=== PATIENT | female | born 1945 | race Hispanic/Latino ===

== ENCOUNTER 2016-10-22 10:39 | Day surgery (SDC) | payer MEDICARE ==
[2016-10-14 10:51] VITALS: BMI 35.2
[2016-10-22] MEDS ORDERED: Propofol 10 mg/ml Inj (20 ML) ONE (12:48)
[2016-10-22] MEDS ORDERED: Lactated Ringer's 1,000 ML IV SCH (13:30)
[2016-10-22 13:59] VITALS: PULSE 80
[2016-10-22 17:12] VITALS: BP 114/56; RESP 16; TEMP 98.1; O2SAT 100
== END 2016-10-22 15:00 | disposition home or self-care (01) ==
LOC: ENDO 10:39
PROVIDERS: ATTEND Internal Medicine Gastroenterology
DX: D50.9 Iron deficiency anemia, unspecified (principal); D12.2 Benign neoplasm of ascending colon; K25.9 Gastric ulcer, unspecified as acute or chronic, without hemorrhage or perforation; K44.9 Diaphragmatic hernia without obstruction or gangrene; K57.30 Diverticulosis of large intestine without perforation or abscess without bleeding; K64.8 Other hemorrhoids
CPT/HCPCS: 43239; 45380; 88305; 88342; J2704; J3010; J7040; J7120

== ENCOUNTER 2017-02-02 09:15 | Observation (INO) | payer MEDICARE ==
[2017-02-02] MEDS ORDERED: Sodium Chloride 0.9% 1,000 ML IV STA (09:43)
--- NOTE | 2017-02-02 09:44 | ED PDOC ---
Arrival/HPI - General Time Seen by Provider: 02/02/17 09:29 Historian: Patient - History of Present Illness Narrative History of Present Illness (Text): 02/02/17 09:36 A 71 year old female, whose past medical history includes pacemaker, hyperlipidemia, hypertension, non hodgkin lymphoma, recent endoscopy for evaluation of anemia which found stomach ulcer, presents to the emergency department complaining of a burning epigastric pain for the past 7 hours. Pain is associated with nausea. There are no relieving or exacerbating factors. Patient denies any fever, chills, vomiting, diarrhea, or any other complaints at this time. PMD: Dr. Rojas GI: Dr. [place] Oncologist: Dr. Mcneill Time/Duration: Other (8-12 hours) Symptom Onset: Sudden Symptom Course: Unchanged Quality: Burning Activities at Onset: Rest Context: Home Past Medical History - Provider Review Nursing Documentation Reviewed: Yes - Infectious Disease Hx of Infectious Diseases: None - Tetanus Immunization Tetanus Immunization: Unknown - Cardiac Hx Pacemaker: Yes ([employer]) - Neurological Hx Paralysis: No - Hematological/Oncological Hx Blood Transfusions: Yes Hx Blood Transfusion Reaction: No - Musculoskeletal/Rheumatological Hx Musculoskeletal Disorders: No - Genitourinary/Gynecological Hx Urinary Tract Infection: Yes - Psychiatric Hx Emotional Abuse: No Hx Physical Abuse: No Hx Substance Use: No - Surgical History Hx Cardiac Catheterization: Yes Hx Hysterectomy: Yes (1989) - Anesthesia Hx Anesthesia Reactions: No Hx Malignant Hyperthermia: No - Suicidal Assessment Feels Threatened In Home Enviroment: No Family/Social History - Physician Review Nursing Documentation Reviewed: Yes Family/Social History: Unknown Family HX Smoking Status: Former Smoker Hx Alcohol Use: No Hx Substance Use: No Hx Substance Use Treatment: No Allergies/Home Meds Allergies/Adverse Reactions: Allergies ibuprofen Allergy (Severe, Verified 02/02/17 09:47) .MOUTH SORES Sulfa (Sulfonamide Antibiotics) Allergy (Unknown, Verified 02/02/17 09:47) UNKNOWN ALLERGY A CHILD UNKNOWN REACTION Home Medications: Home Meds Medication Instructions Recorded Confirmed Iron,Carbonyl [Feosol] 45 mg PO DAILY 10/14/16 02/02/17 Losartan/Hydrochlorothiazide 1 each PO DAILY 10/14/16 02/02/17 [Losartan-Hctz 100-25 mg Tab] Travoprost [Travatan Z 5 ml] 1 drop OU HS 10/14/16 10/14/16 Omeprazole 40 mg PO DAILY 10/22/16 02/02/17 Review of Systems - Physician Review All systems were reviewed & negative as marked: Yes - Review of Systems Constitutional: absent: Fevers Respiratory: absent: SOB Cardiovascular: absent: Chest Pain Gastrointestinal: Abdominal Pain, Nausea. absent: Diarrhea, Vomiting Physical Exam - Physical Exam Narrative Physical Exam (Text): Constitutional: No acute distress. Head: Normocephalic. Atraumatic. Eyes: PERRL. ENT: Moist mucous membranes. Neck: Supple. Cardiovascular: Regular rate. Chest: No tenderness. Right sided port. Left sided pacemaker. Respiratory: Clear to auscultation bilaterally. GI: Epigastric tenderness with palpation. Guarding. Back: No CVA tenderness. Musculoskeletal: No tenderness of extremities. Mild pitting edema to the bilateral lower extremities. Skin: No rash. Neurologic: Alert, no focal deficit. Vital Signs Reviewed: Yes Vital Signs Temp Pulse Resp BP Pulse Ox 02/02/17 11:51 98.2 F 94 H 18 133/65 97 02/02/17 09:25 98.3 F 92 H 18 111/69 98 Temperature: Afebrile Blood Pressure: Normal Pulse: Regular Respiratory Rate: Normal Appearance: Positive for: Well-Appearing, Non-Toxic, Comfortable Pain Distress: None Mental Status: Positive for: Alert and Oriented X 3 Medical Decision Making ED Course and Treatment: 02/02/17 09:36 Impression: A 71 year old female with epigastric pain. Differential Diagnosis include but are not limited to: Pancreatits vs. obstruction vs. peptic ulcer Plan: -- Labs -- Urinalysis -- Protonix, Zofran and IV Fluids -- Reassess and disposition Prior Visits: Notes and results from previous visits were reviewed. The patient last presented to the emergency department on 01/05/14 for evaluation of peripheral vision loss on the right side. Progress Notes: EKG: Ordered, reviewed, and independently interpreted the EKG. Rate : 90 BPM Rhythm : NSR Interpretation : first degree AV block, no ST elevations. 02/02/17 12:30 PROCEDURE: CT Abdomen and Pelvis with contrast HISTORY: abdominal pain COMPARISON: 10/15/2013 TECHNIQUE: Contrast dose: 100 cc of Omni 350 Radiation dose: Total exam DLP = 1098 mGy-cm. This CT exam was performed using one or more of the following dose reduction techniques: Automated exposure control, adjustment of the mA and/or kV according to patient size, and/or use of iterative reconstruction technique. FINDINGS: LOWER THORAX: There is masslike consolidation at the left lung base measuring 4 x 5.5 cm. This most likely represents pneumonia. However a mass cannot be excluded. LIVER: Unremarkable. No gross lesion or ductal dilatation. GALLBLADDER AND BILE DUCTS: Unremarkable. PANCREAS: Unremarkable. No gross lesion or ductal dilatation. SPLEEN: Unremarkable. ADRENALS: Unremarkable. No mass. KIDNEYS AND URETERS: Unremarkable. No hydronephrosis. No solid mass. VASCULATURE: Unremarkable. No aortic aneurysm. BOWEL: Unremarkable. No obstruction. No gross mural thickening. APPENDIX: Normal appendix. PERITONEUM: Unremarkable. No free fluid. No free air. LYMPH NODES: Unremarkable. No enlarged lymph nodes. BLADDER: Unremarkable. REPRODUCTIVE: Unremarkable. BONES: No acute fracture. OTHER FINDINGS: None. IMPRESSION: Masslike consolidation in the left lower lobe, probable pneumonia. Followup is recommended to rule out mass Patient re-evaluated at bedside, does report mild cough but no fever or dyspnea. Epigastric tenderness is gone, now with some LUQ tenderness. Will treat with antibiotics, Dr. Del Rio accepts patient to his service. - Lab Interpretations Lab Results: 02/02/17 10:05 02/02/17 10:05 Lab Results 02/02/17 10:05: WBC 10.9, RBC 4.90, Hgb 11.4 L, Hct 36.9, MCV 75.3 L, MCH 23.3 L , MCHC 30.9 L, RDW 17.2 H, Plt Count 324, MPV 8.5, Gran % 85.0 H, Lymph % (Auto ) 8.0 L, Mclean % (Auto) 5.9, Eos % (Auto) 0.9 L, Baso % (Auto) 0.2, Gran # 9.30 H , Lymph # 0.9 L, Mclean # 0.6, Eos # 0.1, Baso # 0.02 02/02/17 10:05: Sodium 138, Potassium 3.0 L, Chloride 97, Carbon Dioxide 32, Anion Gap 12, BUN 19, Creatinine 0.8, Est GFR ( Amer) > 60, Est GFR (Non- Af Amer) > 60, Random Glucose 101, Calcium 9.2, Total Bilirubin 0.6, AST 16, ALT 20, Alkaline Phosphatase 134 H, Total Protein 6.4, Albumin 3.5, Globulin 2.9 , Albumin/Globulin Ratio 1.2, Lipase 40 I have reviewed the lab results: Yes - RAD Interpretation Radiology Orders: 02/02/17 11:50 ABD & PELVIS IV CONTRAST ONLY [CT] Stat - Medication Orders Current Medication Orders: Ceftriaxone Sodium (Rocephin 1 Gram Ivpb) 1 gm in 100 mls @ 200 mls/hr IVPB STAT STA PRN Reason: Protocol Stop: 02/02/17 13:08 Azithromycin (Zithromax 500mg In Ns) 500 mg in 250 mls @ 167 mls/hr IVPB STAT STA PRN Reason: Protocol Stop: 02/02/17 14:08 Discontinued Medications Sodium Chloride (Sodium Chloride 0.9%) 1,000 mls @ 999 mls/hr IV .Q1H1M STA Stop: 02/02/17 10:43 Last Admin: 02/02/17 10:00 Dose: 999 mls/hr Iohexol (Omnipaque 350 100 Ml) Confirm Administered Dose 350 mg .ROUTE .STK-MED ONE Stop: 02/02/17 11:53 Ondansetron HCl (Zofran Inj) 8 mg IVP STAT STA Stop: 02/02/17 09:44 Last Admin: 02/02/17 10:20 Dose: 8 mg Pantoprazole Sodium (Protonix Inj) 40 mg IVP STAT STA Stop: 02/02/17 09:44 Last Admin: 02/02/17 10:20 Dose: 40 mg - Scribe Statement The provider has reviewed the documentation as recorded by the Kaden Mcelroy Provider Scribe Attestation: All medical record entries made by the Kaden were at my direction and personally dictated by me. I have reviewed the chart and agree that the record accurately reflects my personal performance of the history, physical exam, medical decision making, and the department course for this patient. I have also personally directed, reviewed, and agree with the discharge instructions and disposition. Disposition/Present on Arrival - Present on Arrival Any Indicators Present on Arrival: No History of DVT/PE: No History of Uncontrolled Diabetes: No Urinary Catheter: No History Surgical Site Infection Following: None - Disposition Have Diagnosis and Disposition been Completed?: Yes Diagnosis: Pneumonia Disposition: HOSPITALIZED Disposition Time: 12:30 Patient Plan: Admission Condition: FAIR Referrals: Ilan Del Rio MD [Primary Care Provider] - Follow up with primary
[2017-02-02 10:30] LABS: BASO # 0.02 K/mm3 (0.0-2.0); BASO % 0.2 % (0.0-3.0); EOS # 0.1 (0.0-0.7); EOS % 0.9 % (1.5-5.0); HEMOGLOBIN 11.4 gm/dL (12.0-16.0); LYMPH # 0.9 (1.2-3.4); MEAN CELL VOLUME 75.3 fL (80.0-105.0); MEAN CORPUSCULAR HEMOGLOBIN 23.3 pg (25.0-35.0); MEAN CORPUSCULAR HGB CONC 30.9 g/dl (31.0-37.0); MEAN PLATELET VOLUME 8.5 fl (7.0-11.0); MONO # 0.6 (0.1-0.6); MONO % 5.9 % (1.0-6.0); PLATELET COUNT 324 10^3/uL (120.0-450.0); RED CELL DISTRIBUTION WIDTH 17.2 % (11.5-14.5); WHITE BLOOD COUNT 10.9 10^3/ul (4.5-11.0)
[2017-02-02 10:39] LABS: ALB/GLOB RATIO 1.2 (1.1-1.8); ALBUMIN 3.5 g/dL (3.0-4.8); ALT/SGPT 20 U/L (7-56); AST/SGOT 16 U/L (15-39); BLOOD UREA NITROGEN 19 mg/dL (7-21); CALCIUM 9.2 mg/dL (8.4-10.5); GFR AFRICAN-AMERICAN > 60; GFR NON-AFRICAN AMERICAN > 60; LIPASE 40 U/L (23-300)
[2017-02-02] MEDS ORDERED: Iohexol 350 MG/100 ML VIAL ONE (11:52)
--- NOTE | 2017-02-02 12:32 | CT ---
PROCEDURE: CT Abdomen and Pelvis with contrast HISTORY: abdominal pain COMPARISON: 10/15/2013 TECHNIQUE: Contrast dose: 100 cc of Omni 350 Radiation dose: Total exam DLP = 1098 mGy-cm. This CT exam was performed using one or more of the following dose reduction techniques: Automated exposure control, adjustment of the mA and/or kV according to patient size, and/or use of iterative reconstruction technique. FINDINGS: LOWER THORAX: There is masslike consolidation at the left lung base measuring 4 x 5.5 cm. This most likely represents pneumonia. However a mass cannot be excluded. LIVER: Unremarkable. No gross lesion or ductal dilatation. GALLBLADDER AND BILE DUCTS: Unremarkable. PANCREAS: Unremarkable. No gross lesion or ductal dilatation. SPLEEN: Unremarkable. ADRENALS: Unremarkable. No mass. KIDNEYS AND URETERS: Unremarkable. No hydronephrosis. No solid mass. VASCULATURE: Unremarkable. No aortic aneurysm. BOWEL: Unremarkable. No obstruction. No gross mural thickening. APPENDIX: Normal appendix. PERITONEUM: Unremarkable. No free fluid. No free air. LYMPH NODES: Unremarkable. No enlarged lymph nodes. BLADDER: Unremarkable. REPRODUCTIVE: Unremarkable. BONES: No acute fracture. OTHER FINDINGS: None. IMPRESSION: Masslike consolidation in the left lower lobe, probable pneumonia. Followup is recommended to rule out mass
[2017-02-02] MEDS ORDERED: Azithromycin 500MG/NS 250ml 500 MG/250 ML BAG IVPB STA (12:39)
[2017-02-02] MEDS ORDERED: cefTRIAXone 1 gm 1 GM/100 ML BAG IVPB STA (12:39)
--- NOTE | 2017-02-02 13:25 | CARD ---
APPROVED REPORT EKG Measurement Heart [id number] <Conclusion> Sinus rhythm with 1st degree AV block PRWP V 1 - 6 Leftward axis NSSTW changes Prlonged QTc
[2017-02-02] MEDS ORDERED: Potassium Chloride 20 mEq ER Tab PO ONE (15:45)
[2017-02-02 16:00] VITALS: BMI 35.5
[2017-02-02] MEDS ORDERED: Latanoprost 2.5 ml Opht Soln OU SCH (22:00)
--- NOTE | 2017-02-02 23:38 | CP.PCM.CON ---
History of Present Illness - History of Present Illness History of Present Illness: Ms. su is a 71 year old female admitted with epigastric pain, nausea. CT abdomen,pelvis showed 5 cm left lower lobe mass like consolidation. She has history of NHL treated in 2013. She had stage IV disease as note on review of previous PET scans with extensive lymphadenopathy, left breast mass, left renal mass, right gluteal mass. 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 She had complete resolution of lymphadenpathy with treatment . She has iron deficiency anemia. History of gastric ulcer. No bleeding from any site. Denies weight loss. Review of Systems - Constitutional Constitutional: As Per HPI, Fatigue, Malaise - EENT Eyes: absent: As Per HPI, Blind Spots, Blurred Vision, Change in Vision, Decreased Night Vision, Diplopia, Discharge, Dry Eye, Exophthalmos, Floaters, Irritation, Itchy Eyes, Loss of Peripheral Vision, Pain, Photophobia, Requires Corrective Lenses, Sees Flashes, Spots in Vision, Tunnel Vision, Other Visual Disturbances, Loss of Vision, Other Ears: absent: As Per HPI, Decreased Hearing, Ear Discharge, Ear Pain, Tinnitus, Abnormal Hearing, Disequilibrium, Dizziness, Other Nose/Mouth/Throat: absent: As Per HPI, Epistaxis, Nasal Congestion, Nasal Discharge, Nasal Obstruction, Nasal Trauma, Nose Pain, Post Nasal Drip, Sinus Pain, Sinus Pressure, Bleeding Gums, Change in Voice, Dental Pain, Dry Mouth, Dysphagia, Halitosis, Hoarsness, Lip Swelling, Mouth Lesions, Mouth Pain, Odynophagia, Sore Throat, Throat Swelling, Tongue Swelling, Facial Pain, Neck Pain, Neck Mass, Other - Breasts Breasts: As Per HPI - Cardiovascular Cardiovascular: absent: As Per HPI, Acrocyanosis, Chest Pain, Chest Pain at Rest , Chest Pain with Activity, Claudication, Diaphoresis, Dyspnea, Dyspnea on Exertion, Edema, Irregular Heart Rhythm, Pain Radiating to Arm/Neck/Jaw, Leg Edema, Leg Ulcers, Lightheadedness, Orthopnea, Palpitations, Paroxysmal Nocturnal Dyspnea, Pedal Edema, Radiating Pain, Rapid Heart Rate, Slow Heart Rate, Syncope, Other - Respiratory Respiratory: absent: As Per HPI, Cough, Dyspnea, Hemoptysis, Dyspnea on Exertion , Wheezing, Snoring, Stridor, Pain on Inspiration, Chest Congestion, Excessive Mucous Production, Change in Mucous Color, Pain with Coughing, Other - Genitourinary Genitourinary: absent: As Per HPI, Change in Urinary Stream, Difficulty Urinating, Dysuria, Flank Pain, Hematuria, Pyuria, Nocturia, Urinary Incontinence, Urinary Frequency, Urinary Hesitance, Urinary Urgency, Voiding Freq/Small Amts, Freq UTI, Hx Renal/Bladder Calculi, Hx /Renal Surgery, Bladder Distension, Other - Musculoskeletal Musculoskeletal: absent: As Per HPI, Abnormal Gait, Arthralgias, Atrophy, Back Pain, Deformity, Joint Swelling, Limited Range of Motion, Loss of Height, Muscle Cramps, Muscle Weakness, Myalgias, Neck Pain, Numbness, Radiating Pain into Limb, Stiffness, Tingling, Other - Integumentary Integumentary: absent: As Per HPI, Acne, Alopecia, Bleeding Lesions, Change in Hair, Change in Nails, Change in Pigmentation, Changing Lesions, Dry Skin, Erythema, Furuncle, Hirsutism, Lesions, New Lesions, Non-Healing Lesions, Photosensitivity, Pruritus, Rash, Skin Pain, Skin Ulcer, Sores, Striae, Swelling , Unusual Bruising, Wounds, Jaundice, Other - Neurological Neurological: absent: As Per HPI, Abnormal Gait, Abnormal Hearing, Abnormal Movements, Abnormal Speech, Behavioral Changes, Burning Sensations, Confusion, Convulsions, Disequilibrium, Dizziness, Numbness, Focal Weakness, Frequent Falls , Headaches, Lack of Coordination, Loss of Vision, Memory Loss, Paresthesias, Radicular Pain, Restless Legs, Sensory Deficit, Syncope, Tingling, Tremor, Vertigo, Weakness, Other Visual Disturbances, Other - Endocrine Endocrine: absent: As Per HPI, Change in Body Appearance, Change in Libido, Cold Intolorance, Deepening of Voice, Excessive Sweating, Fatigue, Flushing, Heat Intolorance, Increase in Ring/Shoe/Hat Size, Palpitations, Polydipsia, Polyphagia, Polyuria, Other - Hematologic/Lymphatic Hematologic: As Per HPI Past Patient History - Infectious Disease Hx of Infectious Diseases: None - Tetanus Immunizations Tetanus Immunization: Unknown - Past Medical History & Family History Past Medical History?: Yes Past Family History: Reviewed and not pertinent - Past Social History Smoking Status: Former Smoker - CARDIAC Hx Pacemaker: Yes ([employer]) - NEUROLOGICAL Hx Transient Ischemic Attacks (TIA): Yes - HEMATOLOGICAL/ONCOLOGICAL Hx Cancer: Yes (non hodgkins lymphoma /last chemo november) - MUSCULOSKELETAL/RHEUMATOLOGICAL Hx Musculoskeletal Disorders: No Hx Falls: Yes - GENITOURINARY/GYNECOLOGICAL Hx Urinary Tract Infection: Yes - PSYCHIATRIC Hx Emotional Abuse: No Hx Physical Abuse: No - SURGICAL HISTORY Hx Cardiac Catheterization: Yes Hx Hysterectomy: Yes (1989) - ANESTHESIA Hx Anesthesia Reactions: No Hx Malignant Hyperthermia: No Meds Allergies/Adverse Reactions: Allergies Allergy/AdvReac Type Severity Reaction Status Date / Time ibuprofen Allergy Severe .MOUTH Verified 02/02/17 09:47 SORES Sulfa (Sulfonamide Allergy Unknown UNKNOWN Verified 02/02/17 09:47 Antibiotics) - Medications Medications: Current Medications Hydrochlorothiazide (Hydrodiuril) 25 mg PO DAILY PHI Azithromycin (Zithromax 500mg In Ns) 500 mg in 250 mls @ 167 mls/hr IVPB DAILY PHI PRN Reason: Protocol Ceftriaxone Sodium (Rocephin 1 Gram Ivpb) 1 gm in 100 mls @ 100 mls/hr IVPB DAILY PHI PRN Reason: Protocol Latanoprost (Xalatan Opht) 0 ml OU HS PHI Last Admin: 02/02/17 21:08 Dose: 2.5 ml Losartan Potassium (Cozaar) 100 mg PO DAILY PHI Last Admin: 02/02/17 16:50 Dose: 100 mg Physical Exam - Constitutional Appears: Non-toxic, Chronically Ill - Head Exam Head Exam: ATRAUMATIC, NORMAL INSPECTION, NORMOCEPHALIC - Eye Exam Eye Exam: Normal appearance Pupil Exam: NORMAL ACCOMODATION - ENT Exam ENT Exam: Mucous Membranes Moist, Normal Exam - Neck Exam Neck exam: Positive for: Normal Inspection - Respiratory Exam Respiratory Exam: Clear to Auscultation Bilateral, NORMAL BREATHING PATTERN - Cardiovascular Exam Cardiovascular Exam: REGULAR RHYTHM, +S1, +S2 - GI/Abdominal Exam GI & Abdominal Exam: Normal Bowel Sounds - Extremities Exam Extremities exam: Positive for: normal inspection - Neurological Exam Neurological exam: Alert, CN II-XII Intact, Normal Gait, Oriented x3, Reflexes Normal - Skin Skin Exam: Dry, Intact, Normal Color, Warm Results - Vital Signs Recent Vital Signs: Last Vital Signs Temp 98.1 F 02/02/17 16:00 Pulse 85 02/02/17 16:00 Resp 16 02/02/17 16:00 BP 119/76 02/02/17 16:00 Pulse Ox 98 02/02/17 16:00 - Labs Result Diagrams: 02/02/17 10:05 02/02/17 10:05 Assessment & Plan - Assessment and Plan (Free Text) Assessment: 1. Left lower mass : she had left lower lobe mass in 2013, when she was diagnosed with NHL. There was complete resolution with treatment. Very likely this is recurrence of NHL. No signs of infection - no fever, no elevated WC. I would recommend CT guided biopsy now. Recurrent NHL may show aggressive histology, might not be same as original diagnosis. She had marginal zone lymphoma before. Waiting 4-6 weeks might lead to disease progression. Discussed with patient, biopsy. She is not agreeable now. PET scan as out patient. Will discuss with Dr. Del Rio. 2. History of iron deficiency anemia : iron studies with am labs. 3. epigastric pain : GI eval. gastric prophylaxis. 4. Renal : BUN, creatinine normal. entire medical record on [facility] reviewed. previous scans reviewed. Thank you Dr. Del Rio for allowing us to participate in her care.
[2017-02-03 08:05] LABS: HEMOGLOBIN 10.2 gm/dL (12.0-16.0); MEAN CELL VOLUME 76.3 fL (80.0-105.0); MEAN CORPUSCULAR HEMOGLOBIN 22.8 pg (25.0-35.0); MEAN CORPUSCULAR HGB CONC 29.9 g/dl (31.0-37.0); MEAN PLATELET VOLUME 8.2 fl (7.0-11.0); RBC 4.47 10^6/uL (3.5-6.1); RED CELL DISTRIBUTION WIDTH 17.4 % (11.5-14.5)
[2017-02-03 08:11] LABS: ALB/GLOB RATIO 1.2 (1.1-1.8); ALBUMIN 3.1 g/dL (3.0-4.8); ALT/SGPT 20 U/L (7-56); AST/SGOT 15 U/L (15-39); BLOOD UREA NITROGEN 14 mg/dL (7-21); CALCIUM 8.7 mg/dL (8.4-10.5); GFR AFRICAN-AMERICAN > 60; GFR NON-AFRICAN AMERICAN > 60
[2017-02-03] MEDS ORDERED: cefTRIAXone 1 gm 1 GM/100 ML BAG IVPB SCH (10:00)
[2017-02-03] MEDS ORDERED: Azithromycin 500MG/NS 250ml 500 MG/250 ML BAG IVPB SCH (10:00)
--- NOTE | 2017-02-03 11:01 | CP.PCM.CON ---
History of Present Illness - History of Present Illness History of Present Illness: 71 year old female with PMH of dyslipidemia, HTN, non-Hodgkin lymphoma, gastric ulcers, S/P pacemaker placement, S/P hysterectomy, obesity with BMI 36 came in to [facility] complaining of epigastric pain associated with nausea but no vomiting, which started a day prior to admission. She has some cough but no sputum production, no shortness of breath, no chest pain, no headache or dizziness, no dysphagia, no sore throat, no rhinorrhea, no diarrhea, no dysuria. She states that her has been having cough and rhinorrhea for the past week and was recently given antibiotics by his physician. In the ED, CT scan of the abdomen and pelvis revealed a mass-like lesion on the lower left lobe. Infectious diseases consult is requested to further evaluate and manage. Review of Systems - Review of Systems All systems: reviewed and no additional remarkable complaints except (as per HPI ) Past Patient History - Infectious Disease Hx of Infectious Diseases: None - Tetanus Immunizations Tetanus Immunization: Unknown - Past Social History Smoking Status: Former Smoker - CARDIAC Hx Pacemaker: Yes ([employer]) - NEUROLOGICAL Hx Transient Ischemic Attacks (TIA): Yes - HEMATOLOGICAL/ONCOLOGICAL Hx Cancer: Yes (non hodgkins lymphoma /last chemo november) - MUSCULOSKELETAL/RHEUMATOLOGICAL Hx Musculoskeletal Disorders: No Hx Falls: Yes - GENITOURINARY/GYNECOLOGICAL Hx Urinary Tract Infection: Yes - PSYCHIATRIC Hx Emotional Abuse: No Hx Physical Abuse: No - SURGICAL HISTORY Hx Cardiac Catheterization: Yes Hx Hysterectomy: Yes (1989) - ANESTHESIA Hx Anesthesia Reactions: No Hx Malignant Hyperthermia: No Meds Allergies/Adverse Reactions: Allergies Allergy/AdvReac Type Severity Reaction Status Date / Time ibuprofen Allergy Severe .MOUTH Verified 02/02/17 09:47 SORES Sulfa (Sulfonamide Allergy Unknown UNKNOWN Verified 02/02/17 09:47 Antibiotics) - Medications Medications: Current Medications Hydrochlorothiazide (Hydrodiuril) 25 mg PO DAILY PHI Latanoprost (Xalatan Opht) 0 ml OU HS PHI Losartan Potassium (Cozaar) 100 mg PO DAILY [facility] Last Admin: 02/02/17 16:50 Dose: 100 mg Physical Exam - Constitutional Appears: Non-toxic, No Acute Distress - Head Exam Head Exam: NORMAL INSPECTION - ENT Exam ENT Exam: Mucous Membranes Moist - Neck Exam Neck exam: Negative for: Lymphadenopathy, Meningismus - Respiratory Exam Respiratory Exam: Decreased Breath Sounds - Cardiovascular Exam Cardiovascular Exam: +S1, +S2 - GI/Abdominal Exam GI & Abdominal Exam: Soft. absent: Tenderness Results - Vital Signs Recent Vital Signs: Last Vital Signs Temp 98.1 F 02/02/17 16:00 Pulse 85 02/02/17 16:00 Resp 16 02/02/17 16:00 BP 119/76 02/02/17 16:00 Pulse Ox 98 02/02/17 16:00 - Labs Result Diagrams: 02/03/17 07:00 02/03/17 07:00 Assessment & Plan - Assessment and Plan (Free Text) Plan: assessment Left lower lobe mass-like lesion, R/O community-acquired pneumonia, R/O malignancy dyslipidemia HTN non-Hodgkin lymphoma gastric ulcers S/P pacemaker placement S/P hysterectomy obesity with BMI 36 Plan Started patient on Rocephin and zithromax pending blood cx, PCT; will follow up Pulmonary evaluation will monitor clinically
--- NOTE | 2017-02-03 17:29 | CP.PCM.HP ---
History of Present Illness - History of Present Illness History of Present Illness: Pt is coming for epigastric pain. She had no nausea. She denied CP/SOB/ diaphoresis/cough/congestion. She has a hx of lymphoma and has seen Dr Mcneill. She was found to have an abnormal CXR. Present on Admission - Present on Admission Any Indicators Present on Admission: No Review of Systems - Review of Systems All systems: reviewed and no additional remarkable complaints except - Constitutional Constitutional: absent: Chills, Fatigue, Lethargy, Malaise, Night Sweats - EENT Eyes: absent: Diplopia, Discharge, Irritation, Loss of Peripheral Vision, Photophobia, Loss of Vision Nose/Mouth/Throat: absent: Nasal Trauma, Dry Mouth, Dysphagia, Tongue Swelling - Breasts Breasts: absent: Mass, Skin Changes - Cardiovascular Cardiovascular: absent: Chest Pain, Chest Pain with Activity, Claudication, Dyspnea on Exertion, Irregular Heart Rhythm - Respiratory Respiratory: absent: Dyspnea, Hemoptysis, Wheezing, Snoring, Stridor, Pain with Coughing - Gastrointestinal Gastrointestinal: absent: Change in Bowel Habits, Change in Stool Character, Cramping, Fecal Incontinence, Hematemesis, Melena, Odynophagia - Musculoskeletal Musculoskeletal: absent: Arthralgias, Joint Swelling, Muscle Weakness, Neck Pain , Stiffness - Integumentary Integumentary: absent: Alopecia, Bleeding Lesions - Neurological Neurological: absent: Behavioral Changes, Dizziness, Focal Weakness, Frequent Falls, Tingling, Other Visual Disturbances - Psychiatric Psychiatric: absent: Auditory Hallucinations, Behavioral Changes, Change in Appetite - Hematologic/Lymphatic Hematologic: absent: Easy Bruising, Lymphadenopathy Past Patient History - Infectious Disease Hx of Infectious Diseases: None - Tetanus Immunizations Tetanus Immunization: Unknown - Past Medical History & Family History Past Medical History?: Yes Past Family History: Reviewed and not pertinent - Past Social History Smoking Status: Former Smoker - CARDIAC Hx Pacemaker: Yes ([employer]) - NEUROLOGICAL Hx Transient Ischemic Attacks (TIA): Yes - HEMATOLOGICAL/ONCOLOGICAL Hx Cancer: Yes (non hodgkins lymphoma /last chemo november) - MUSCULOSKELETAL/RHEUMATOLOGICAL Hx Musculoskeletal Disorders: No Hx Falls: Yes - GENITOURINARY/GYNECOLOGICAL Hx Urinary Tract Infection: Yes - PSYCHIATRIC Hx Emotional Abuse: No Hx Physical Abuse: No - SURGICAL HISTORY Hx Cardiac Catheterization: Yes Hx Hysterectomy: Yes (1989) - ANESTHESIA Hx Anesthesia Reactions: No Hx Malignant Hyperthermia: No Meds Home Medications: Home Medication List Medication Instructions Recorded Confirmed Type Latanoprost 0.005% Opht [Xalatan 0 ml OU HS bottle 02/03/17 Rx Opht] Levofloxacin [Levaquin] 500 mg PO DAILY #7 tablet 02/03/17 Rx Allergies/Adverse Reactions: Allergies Allergy/AdvReac Type Severity Reaction Status Date / Time ibuprofen Allergy Severe .MOUTH Verified 02/02/17 09:47 SORES Sulfa (Sulfonamide Allergy Unknown UNKNOWN Verified 02/02/17 09:47 Antibiotics) Physical Exam - Head Exam Head Exam: ATRAUMATIC, NORMAL INSPECTION, NORMOCEPHALIC - Eye Exam Eye Exam: EOMI, Normal appearance, PERRL Pupil Exam: NORMAL ACCOMODATION, PERRL - ENT Exam ENT Exam: Mucous Membranes Moist, Normal Exam - Neck Exam Neck exam: Positive for: Normal Inspection - Respiratory Exam Respiratory Exam: Clear to Auscultation Bilateral, NORMAL BREATHING PATTERN. absent: Rales, Rhonchi, Wheezes - Cardiovascular Exam Cardiovascular Exam: REGULAR RHYTHM. absent: RRR, +S1, +S2 - GI/Abdominal Exam GI & Abdominal Exam: Normal Bowel Sounds, Soft. absent: Pulsatile Mass, Rebound , Tenderness - Rectal Exam Rectal Exam: absent: Black Stool, Hemorrhoids - Neurological Exam Neurological exam: Alert, CN II-XII Intact, Normal Gait, Oriented x3, Reflexes Normal Results - Vital Signs Recent Vital Signs: Last Vital Signs Temp 98.5 F 02/03/17 08:12 Pulse 81 02/03/17 08:12 Resp 22 02/03/17 08:12 BP 115/62 02/03/17 08:12 Pulse Ox 90 L 02/03/17 08:12 - Labs Result Diagrams: 02/03/17 07:00 02/03/17 07:00 Labs: Laboratory Results - last 24 hr 02/03/17 02/03/17 07:00 07:00 WBC 9.0 RBC 4.47 Hgb 10.2 L Hct 34.1 L MCV 76.3 L MCH 22.8 L MCHC 29.9 L RDW 17.4 H Plt Count 296 MPV 8.2 Sodium 139 Potassium 3.8 Chloride 101 Carbon Dioxide 31 Anion Gap 11 BUN 14 Creatinine 0.8 Est GFR ( Amer) > 60 Est GFR (Non-Af Amer) > 60 Random Glucose 84 Calcium 8.7 Magnesium 2.0 Total Bilirubin 0.6 AST 15 ALT 20 Alkaline Phosphatase 119 Total Protein 5.7 L Albumin 3.1 Globulin 2.7 Albumin/Globulin Ratio 1.2 Assessment & Plan - Assessment and Plan (Free Text) Assessment: L lung mass 4cx 5.5 cm HTN Dyslipidemia Pacemaker Lymphoma Plan: Pt will be admitted to the hospital. Will get Onc and Pulm for evaluation. She is going for surgery of L hip. Pain is controlled. Eating ok. Spoke to to give update. Will await evaluation by specialist. On Losartan and HCTZ for HTN. Will get ID evaluation to see if pt has a pneumonia. - Date & Time Date: 02/03/17 Time: 17:27
[2017-02-03 17:31] VITALS: BP 116/67; PULSE 79; RESP 18; TEMP 98.4; O2SAT 99
--- NOTE | 2017-02-03 20:01 | CP.PCM.CON ---
History of Present Illness - History of Present Illness History of Present Illness: Ms. su is a 71 year old female admitted with epigastric pain, nausea. CT abdomen,pelvis showed 5 cm left lower lobe mass like consolidation. She has history of NHL treated in 2013. She had stage IV disease as note on review of previous PET scans with extensive lymphadenopathy, left breast mass, left renal mass, right gluteal mass. 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 She had complete resolution of lymphadenpathy with treatment . She has iron deficiency anemia. History of gastric ulcer. She is seen by oncology and ID, given rocephen and zithromax, denied any cough, no SOB, no fever Review of Systems - Constitutional Constitutional: Daytime Sleepiness, Snoring, Sleep Apnea - EENT Eyes: absent: Discharge Ears: absent: Ear Discharge, Ear Pain Nose/Mouth/Throat: absent: Nasal Congestion, Nasal Discharge, Nose Pain - Cardiovascular Cardiovascular: absent: Chest Pain, Diaphoresis, Dyspnea, Edema - Respiratory Respiratory: Snoring. absent: Cough, Dyspnea, Hemoptysis - Gastrointestinal Gastrointestinal: Abdominal Pain. absent: Coffee Ground Emesis, Cramping, Diarrhea, Dyspepsia - Musculoskeletal Musculoskeletal: absent: Arthralgias, Atrophy, Back Pain - Psychiatric Psychiatric: absent: Anxiety, Depression - Hematologic/Lymphatic Hematologic: absent: Easy Bleeding, Easy Bruising Past Patient History - Infectious Disease Hx of Infectious Diseases: None - Tetanus Immunizations Tetanus Immunization: Unknown - Past Medical History & Family History Past Medical History?: Yes Past Family History: Reviewed and not pertinent - Past Social History Smoking Status: Former Smoker - CARDIAC Hx Pacemaker: Yes ([employer]) - NEUROLOGICAL Hx Transient Ischemic Attacks (TIA): Yes - HEMATOLOGICAL/ONCOLOGICAL Hx Cancer: Yes (non hodgkins lymphoma /last chemo november) - MUSCULOSKELETAL/RHEUMATOLOGICAL Hx Musculoskeletal Disorders: No Hx Falls: Yes - GENITOURINARY/GYNECOLOGICAL Hx Urinary Tract Infection: Yes - PSYCHIATRIC Hx Emotional Abuse: No Hx Physical Abuse: No - SURGICAL HISTORY Hx Cardiac Catheterization: Yes Hx Hysterectomy: Yes (1989) - ANESTHESIA Hx Anesthesia Reactions: No Hx Malignant Hyperthermia: No Meds Home Medications: Home Medication List Medication Instructions Recorded Confirmed Type Latanoprost 0.005% Opht [Xalatan 0 ml OU HS bottle 02/03/17 Rx Opht] Levofloxacin [Levaquin] 500 mg PO DAILY #7 tablet 02/03/17 Rx Allergies/Adverse Reactions: Allergies Allergy/AdvReac Type Severity Reaction Status Date / Time ibuprofen Allergy Severe .MOUTH Verified 02/02/17 09:47 SORES Sulfa (Sulfonamide Allergy Unknown UNKNOWN Verified 02/02/17 09:47 Antibiotics) Physical Exam - Constitutional Appears: No Acute Distress - Head Exam Head Exam: ATRAUMATIC, NORMAL INSPECTION, NORMOCEPHALIC - Neck Exam Neck exam: Positive for: Normal Inspection - Cardiovascular Exam Cardiovascular Exam: REGULAR RHYTHM - GI/Abdominal Exam GI & Abdominal Exam: Normal Bowel Sounds, Soft. absent: Tenderness - Extremities Exam Extremities exam: Positive for: normal inspection - Neurological Exam Neurological exam: Alert, CN II-XII Intact, Normal Gait, Oriented x3, Reflexes Normal - Psychiatric Exam Psychiatric exam: Flat Affect - Skin Skin Exam: Dry, Intact, Normal Color, Warm Results - Vital Signs Recent Vital Signs: Last Vital Signs Temp 98.4 F 02/03/17 16:08 Pulse 79 02/03/17 16:08 Resp 18 02/03/17 16:08 BP 116/67 02/03/17 16:08 Pulse Ox 99 02/03/17 16:08 - Labs Result Diagrams: 02/03/17 07:00 02/03/17 07:00 Labs: Laboratory Results - last 24 hr 02/03/17 02/03/17 07:00 07:00 WBC 9.0 RBC 4.47 Hgb 10.2 L Hct 34.1 L MCV 76.3 L MCH 22.8 L MCHC 29.9 L RDW 17.4 H Plt Count 296 MPV 8.2 Sodium 139 Potassium 3.8 Chloride 101 Carbon Dioxide 31 Anion Gap 11 BUN 14 Creatinine 0.8 Est GFR ( Amer) > 60 Est GFR (Non-Af Amer) > 60 Random Glucose 84 Calcium 8.7 Magnesium 2.0 Total Bilirubin 0.6 AST 15 ALT 20 Alkaline Phosphatase 119 Total Protein 5.7 L Albumin 3.1 Globulin 2.7 Albumin/Globulin Ratio 1.2 - Imaging and Cardiology CT scan - abdomen Additional comment: left lung mass Assessment & Plan (1) Lung mass Assessment and Plan: h/o lymphoma, last year ct/pet was negative, spoke to patient and floor nurse practitioner, can no r/o pneumonia, will sugest, start levaquin for 6 more days , repeat out patient, ct/pet in 2 to 3 weeks, and then make further decision, patient understands the diagnosis and expressive understanding Status: Acute (2) Lymphoma Assessment and Plan: treated in the past , need to r/o recurrent Status: Acute (3) AMANUEL (obstructive sleep apnea) Assessment and Plan: sleep apnea precaution, attended sleep study as out patient Status: Acute
== END 2017-02-03 18:14 | disposition home or self-care (01) ==
LOC: ED 09:15 → INTOOBSV 12:40 → ERH 12:40 → 3RNO 14:16
PROVIDERS: ADMIT Internal Medicine Nephrology; ATTEND Internal Medicine Nephrology
DX: J18.9 Pneumonia, unspecified organism (principal); C85.90 Non-Hodgkin lymphoma, unspecified, unspecified site; D50.9 Iron deficiency anemia, unspecified; E66.9 Obesity, unspecified; Z68.36 Body mass index [BMI] 36.0-36.9, adult; E78.5 Hyperlipidemia, unspecified; G47.33 Obstructive sleep apnea (adult) (pediatric); I10 Essential (primary) hypertension; K25.9 Gastric ulcer, unspecified as acute or chronic, without hemorrhage or perforation; Z79.899 Other long term (current) drug therapy; Z86.73 Personal history of transient ischemic attack (TIA), and cerebral infarction without residual deficits; Z87.440 Personal history of urinary (tract) infections; Z87.891 Personal history of nicotine dependence; Z90.710 Acquired absence of both cervix and uterus; Z95.0 Presence of cardiac pacemaker; Z88.6 Allergy status to analgesic agent; Z88.2 Allergy status to sulfonamides
CPT/HCPCS: 36415; 71020; 74177; 80053; 83690; 83735; 84145; 85025; 85027; 85610; 85730; 87040; 93005; 96361; 96365; 96367; 96375; 99285; C9113; G0378; J0456; J0696; J2405; J7040; Q9967

== ENCOUNTER 2017-02-16 09:30 | Day surgery (SDC) | payer MEDICARE ==
[2017-02-16 09:59] LABS: BASO # 0.02 K/mm3 (0.0-2.0); BASO % 0.2 % (0.0-3.0); EOS # 0.2 (0.0-0.7); EOS % 1.7 % (1.5-5.0); GRAN # 9.22 (1.4-6.5); GRAN % 82.4 % (50.0-68.0); HEMOGLOBIN 11.7 gm/dL (12.0-16.0); LYMPH # 1.1 (1.2-3.4); LYMPH % 9.9 % (22.0-35.0); MEAN CELL VOLUME 75.8 fL (80.0-105.0); MEAN CORPUSCULAR HEMOGLOBIN 23.6 pg (25.0-35.0); MEAN CORPUSCULAR HGB CONC 31.2 g/dl (31.0-37.0); MEAN PLATELET VOLUME 8.4 fl (7.0-11.0); MONO # 0.7 (0.1-0.6); MONO % 5.8 % (1.0-6.0); PLATELET COUNT 329 10^3/uL (120.0-450.0); RBC 4.95 10^6/uL (3.5-6.1); RED CELL DISTRIBUTION WIDTH 17.5 % (11.5-14.5); WHITE BLOOD COUNT 11.2 10^3/ul (4.5-11.0)
[2017-02-16] MEDS ORDERED: Midazolam 2 MG/2 ML VIAL ONE (10:09)
[2017-02-16 10:10] LABS: BLOOD UREA NITROGEN 21 mg/dL (7-21); CALCIUM 9.4 mg/dL (8.4-10.5); GFR AFRICAN-AMERICAN > 60; GFR NON-AFRICAN AMERICAN > 60
[2017-02-16 10:14] LABS: INR 1.05 (0.93-1.08); PARTIAL THROMBOPLASTIN TIME 30.1 Seconds (23.7-30.8); PROTHROMBIN TIME 11.3 Seconds (9.9-11.8)
[2017-02-16] MEDS ORDERED: Oxycodone/Acetaminophen 5/325 mg Tab PO PRN (11:00)
[2017-02-16] MEDS ORDERED: Sodium Chloride 0.45% 1,000 ML IV SCH (11:00)
[2017-02-16 12:26] VITALS: PULSE 76; TEMP 98
--- NOTE | 2017-02-16 13:42 | RAD ---
HISTORY: lt lung bx COMPARISON: 01/31/2017 FINDINGS: LUNGS: There is a nodule in the right mid lung PLEURA: No significant pleural effusion identified, no pneumothorax apparent. CARDIOVASCULAR: Normal. OSSEOUS STRUCTURES: No significant abnormalities. VISUALIZED UPPER ABDOMEN: Normal. OTHER FINDINGS: Dual lead pacemaker. Port-A-Cath IMPRESSION: No evidence of pneumothorax
[2017-02-16 16:28] VITALS: BP 122/84; RESP 18; O2SAT 97
--- NOTE | 2017-02-16 19:30 | CT ---
PROCEDURE: CT guided left lower lobe lung biopsy. HISTORY: Treated non-Hodgkin's lymphoma. New 4 cm left lower lobe lung mass. LUE for recurrence. PHYSICIAN(S): Fuentes Rojas MD. TECHNIQUE: The relative risks and indications of the procedure were explained to the patient and consent obtained. The patient was placed right decubitus position on the CT scanner and preliminary images through the lung bases obtained. Conscious sedation and monitoring were provided throughout the procedure by a nurse. There is a 4.3 cm noncalcified mass extending inferiorly from the left hilum.. A posterior and lateral approach was selected and the area prepped and draped in the usual sterile fashion. 1% Xylocaine was used to anesthetize the skin and soft tissues. A 17-gauge guiding needle was advanced into the 4.3 cm left lower lobe lung mass. Its position was confirmed with CT. Using coaxial technique, multiple core biopsies were obtained. The postprocedure images show no evidence of large pneumothorax or significant hemorrhage.. IMPRESSION: 1. CT-guided left lower lobe lung biopsy as described above. The specimen was sent for histology and flow cytometry.
== END 2017-02-16 15:45 | disposition home or self-care (01) ==
LOC: SDS 09:30
PROVIDERS: ATTEND Radiology Vascular & Interventional Radiology
DX: C85.19 Unspecified B-cell lymphoma, extranodal and solid organ sites (principal); I10 Essential (primary) hypertension; Z85.72 Personal history of non-Hodgkin lymphomas
CPT/HCPCS: 32405; 36415; 71010; 77012; 80048; 85025; 85610; 85730; 88305; J2250; J2405; J3010; J7030

== ENCOUNTER 2017-03-16 06:51 | Inpatient (IN) | payer MEDICARE ==
[2017-03-16] MEDS ORDERED: Sodium Chloride 0.9% 500 ML IV SCH (07:15)
--- NOTE | 2017-03-16 07:32 | ED PDOC ---
Arrival/HPI - General Historian: Patient - History of Present Illness Time/Duration: 4-6 hours Symptom Onset: Gradual Symptom Course: Unchanged Quality: Stabbing <Stephanie Ha - Last Filed: 03/16/17 13:05> <Fuentes Finley Jr. - Last Filed: 03/18/17 15:14> - General Chief Complaint: Abdominal Pain Time Seen by Provider: 03/16/17 07:05 - History of Present Illness Narrative History of Present Illness (Text): 03/16/17 07:32 71 year old F with past medical history of Stage IV Non-Hodgkin's lymphoma, Hypertension, urinary incontinence, lung mass and gluacoma presents for RLQ abdominal pain that began about 5 hours ago. Pain is intermittent and sharp. Currently pain is 7/10. Pain radiates to right groin region. Patient denies having any fevers, chills, None/V/D. Patient's last BM was 2 days ago normal in nature. Although patient has urinary incontinence, patient denies having any dyruria. Denies having any CP, SOB, back pain. Patient is currently receiving Rituxan chemotherapy with oncologist, Dr. Mcneill. After reviewing previous notes, patient is noted to have extensive LAD and metastasis of lymphoma. (Stephanie Ha) Past Medical History - Provider Review Nursing Documentation Reviewed: Yes - Travel History Have you recently traveled outside [place] w/in the past 3 mons?: No - Infectious Disease Hx of Infectious Diseases: None - Tetanus Immunization Tetanus Immunization: Unknown - Cardiac Hx Hypertension: Yes Hx Pacemaker: Yes (2009) - Pulmonary Hx Respiratory Disorders: No - Neurological Hx Neurological Disorder: No Hx Paralysis: No - HEENT Hx HEENT Disorder: No - Renal Hx Renal Disorder: No - Endocrine/Metabolic Hx Endocrine Disorders: No - Hematological/Oncological Hx Blood Transfusions: Yes Hx Blood Transfusion Reaction: No Hx Lymphoma: Yes (non-hodgkin's lymphoma) - Integumentary Hx Dermatological Disorder: No - Musculoskeletal/Rheumatological Hx Musculoskeletal Disorders: No - Gastrointestinal Hx Gastrointestinal Disorders: No - Genitourinary/Gynecological Hx Genitourinary Disorders: No - Psychiatric Hx Psychophysiologic Disorder: No Hx Emotional Abuse: No Hx Physical Abuse: No Hx Substance Use: No - Surgical History Hx Hysterectomy: Yes Hx Orthopedic Surgery: Yes (left hip replacement) Other/Comment: pacemaker 2009 - Anesthesia Hx Anesthesia Reactions: No Hx Malignant Hyperthermia: No - Suicidal Assessment Feels Threatened In Home Enviroment: No <Dilcia,Stephanie - Last Filed: 03/16/17 13:05> Family/Social History - Physician Review Nursing Documentation Reviewed: Yes Family/Social History: Unknown Family HX Smoking Status: Former Smoker Hx Alcohol Use: No Hx Substance Use: No Hx Substance Use Treatment: No <Karim,Stephanie - Last Filed: 03/16/17 13:05> Allergies/Home Meds <Karim,Stephanie - Last Filed: 03/16/17 13:05> <Fuentes Finley Jr. - Last Filed: 03/18/17 15:14> Allergies/Adverse Reactions: Allergies ibuprofen Allergy (Severe, Verified 03/16/17 07:05) .MOUTH SORES Sulfa (Sulfonamide Antibiotics) Allergy (Unknown, Verified 03/16/17 07:05) UNKNOWN ALLERGY A CHILD UNKNOWN REACTION Home Medications: Home Meds Medication Instructions Recorded Confirmed Iron,Carbonyl [Feosol] 45 mg PO DAILY 10/14/16 03/16/17 Losartan/Hydrochlorothiazide 1 tab PO DAILY 10/14/16 03/16/17 [Losartan-Hctz 100-25 mg Tab] Travoprost [Travatan Z] 1 drop OU HS 10/14/16 03/16/17 Omeprazole 40 mg PO DAILY 10/22/16 03/16/17 Aspirin [Ecotrin] 81 mg PO DAILY 02/09/17 03/16/17 Review of Systems - Review of Systems Constitutional: Normal. absent: Fatigue, Fevers Eyes: Normal. absent: Vision Changes, Photophobia ENT: Normal. absent: Hearing Changes, Sore Throat, Rhinorrhea, Sinus Congestion Respiratory: Normal. absent: SOB, Cough, Wheezing Cardiovascular: Normal. absent: Chest Pain, Edema, Calf Pain Gastrointestinal: Abdominal Pain, Constipation. absent: Normal, Diarrhea, Nausea, Vomiting, Hematochezia, Hematemesis Genitourinary Female: Normal. absent: Dysuria Musculoskeletal: Normal. absent: Arthralgias, Back Pain Skin: Normal. absent: Rash, Pruritis, Abscess Neurological: Normal. absent: Headache, Dizziness Endocrine: Normal. absent: Diaphoresis <Karim,Stephanie - Last Filed: 03/16/17 13:05> Physical Exam Vital Signs Reviewed: Yes Temperature: Afebrile Blood Pressure: Normal Respiratory Rate: Normal Appearance: Positive for: Non-Toxic Pain Distress: Moderate Mental Status: Positive for: Alert and Oriented X 3 - Systems Exam Head: Present: Atraumatic, Normocephalic Pupils: Present: PERRL Extroacular Muscles: Present: EOMI Neck: Present: Normal Range of Motion. No: MIDLINE TENDERNESS Respiratory/Chest: Present: Clear to Auscultation, Good Air Exchange. No: Respiratory Distress, Accessory Muscle Use, Wheezes, Rales, Rhonchi Cardiovascular: Present: Regular Rate and Rhythm, Normal S1, S2. No: Murmurs, Rub, Gallop, Muffled Abdomen: Present: Tenderness, Normal Bowel Sounds, McBurney's Point Tender. No : Distention, Peritoneal Signs, Rebound, Guarding, Mass/Organomegaly Lower Extremity: Present: Edema Neurological: Present: GCS=15 Skin: Present: Warm, Dry, Normal Color. No: Rashes Psychiatric: Present: Alert, Oriented x 3, Normal Insight, Normal Concentration <Stephanie Ha - Last Filed: 03/16/17 13:05> Medical Decision Making - Lab Interpretations I have reviewed the lab results: Yes - RAD Interpretation Bryologist: ED Physician - EKG Interpretation Interpreted by ED Physician: Yes Type: 12 lead EKG <Stephanie Ha - Last Filed: 03/16/17 13:05> - RAD Interpretation Bryologist: Radiologist <Fuentes Finley Jr. - Last Filed: 03/18/17 15:14> ED Course and Treatment: 03/16/17 07:40 71 year old F presents with RLQ abd pain. DDx includes appendicitis vs. constipation vs. SBO. Will check: CBC, CMP, lipase, PT, PTT, cardiac enzymes, type and screen, EKG and CT of abd/pelvis with PO and IV contrast Patient will receive pepcid and NS bolus and morphine 4 mg IVP 03/16/17 11:32 Patient's abdominal pain is reduced after receiving morphine. Patient is noted to have SBO on CT scan. 03/16/17 13:[address] Del Rio who accepts patient under his service to med/surge. Recommend's Dr. Morales for surgery consult. vice president of talent acquisition is notified. ( Stephanie Ha) 03/16/17 11:47 In agreement with resident note, which includes further HPI details. Patient was seen and evaluated with resident, came up with plan and treatment together. 03/16/17 12:10 ATTENDING PHYSICIAN FOCUSED HISTORY AND PHYSICAL EXAM NOTE: Pt is a 71 yr old female who was seen and examined w/ the resident. Pt c/o RLQ pain. On our exam, T 98.1, P 88, R 20, BP 138/82 Gen: Pt is Alert and in NAD Heart: RRR Lungs: CTA B/L Abd: (+) RLQ tenderness Initial Impression: RLQ pain r/o appendicitis, r/o SBO Initial Plan: CT Scan and check labs . (Fuentes Finley Jr.) - Lab Interpretations Narrative Lab Interpretation (Text): 03/16/17 09:39 Hypokalemia 2.9 Normal WBC count. UTI noted (Stephanie Ha) Microbiology Results: Microbiology Results 03/16/17 08:30 Urine,Clean Catch Urine Culture - Preliminary Gram Positive Cocci Lab Results: 03/16/17 07:50 03/16/17 07:50 Lab Results 03/16/17 09:00: Blood Type Confirm O POSITIVE 03/16/17 07:50: Blood Type O POSITIVE, Antibody Screen Negative, BBK History Checked No verified bt 03/16/17 07:50: Sodium 137, Potassium 2.9 L* D, Chloride 93 L, Carbon Dioxide 34 H, Anion Gap 13, BUN 21, Creatinine 0.7, Est GFR ( Amer) > 60, Est GFR (Non-Af Amer) > 60, Random Glucose 117 H, Calcium 9.3, Total Bilirubin 0.8, AST 22, ALT 22, Alkaline Phosphatase 127, Lactate Dehydrogenase 362, Total Creatine Kinase < 20 L, Troponin I < 0.01, Total Protein 6.1, Albumin 3.5, Globulin 2.6, Albumin/Globulin Ratio 1.3, Lipase 36 03/16/17 07:50: PT 11.3, INR 1.05, APTT 66.9 H 03/16/17 07:50: WBC 10.1, RBC 4.72, Hgb 11.0 L, Hct 35.7 L, MCV 75.6 L, MCH 23.3 L, MCHC 30.8 L, RDW 16.9 H, Plt Count 329, MPV 8.1, Gran % 86.0 H, Lymph % (Auto) 8.1 L, [place] % (Auto) 5.4, Eos % (Auto) 0.3 L, Baso % (Auto) 0.2, Gran # 8.72 H, Lymph # 0.8 L, [place] # 0.6, Eos # 0.0, Baso # 0.02 03/16/17 07:10: Urine Color Yellow, Urine Appearance Cloudy, Urine pH 6.5, Ur Specific [place] 1.010, Urine Protein Negative, Urine Glucose (UA) Negative, Urine Ketones Negative, Urine Blood Trace-intact H, Urine Nitrate Positive H, Urine Bilirubin Negative, Urine Urobilinogen 0.2, Ur Leukocyte Esterase Large H , Urine RBC 1 - 3, Urine WBC Tntc, Ur Epithelial Cells 1 - 3, Urine Bacteria Mod , Urine Other Uyeast - RAD Interpretation Narrative RAD Interpretations (Text): 03/16/17 11:31 CT of abd/pelvis shows SBO, normal appendix. (Stephanie Ha) Radiology Orders: 03/16/17 07:51 ABD PELVIS PO & IV CONTRAST [CT] Stat - EKG Interpretation EKG Interpretation (Text): 03/16/17 07:58 NSR with HR of 87. 1st Degree Av block noted with TX interval of 222. No ST changes, left sided axis. No significant change from previous EKG from 01/2017 (Stephanie Ha) - Medication Orders Current Medication Orders: Acetaminophen (Tylenol 325mg Tab) 650 mg PO Q4H PRN PRN Reason: Pain, Mild (1-3) Aspirin (Ecotrin) 81 mg PO DAILY [facility] Last Admin: 03/18/17 10:56 Dose: 81 mg Docusate Sodium (Colace) 100 mg PO BID [facility] Last Admin: 03/18/17 10:55 Dose: 100 mg Enoxaparin Sodium (Lovenox) 40 mg SC DAILY [facility] PRN Reason: Protocol Last Admin: 03/18/17 10:54 Dose: 40 mg Ferrous Sulfate (Feosol) 324 mg PO DAILY [facility] Last Admin: 03/18/17 10:55 Dose: 324 mg Hydrochlorothiazide (Hydrodiuril) 25 mg PO DAILY [facility] Last Admin: 03/18/17 10:56 Dose: 25 mg Latanoprost (Xalatan Opht) 0 ml OU HS [facility] Last Admin: 03/17/17 21:40 Dose: 2.5 ml Losartan Potassium (Cozaar) 100 mg PO DAILY [facility] Last Admin: 03/18/17 10:55 Dose: 100 mg Ondansetron HCl (Zofran Inj) 4 mg IVP Q4H PRN PRN Reason: Nausea/Vomiting Last Admin: 03/16/17 19:09 Dose: 4 mg Pantoprazole Sodium (Protonix Ec Tab) 40 mg PO DAILY [facility] Last Admin: 03/18/17 10:55 Dose: 40 mg Discontinued Medications Famotidine (Pepcid) 20 mg IVP STAT STA Stop: 03/16/17 07:06 Last Admin: 03/16/17 07:59 Dose: 20 mg Sodium Chloride (Sodium Chloride 0.9%) 500 mls @ 150 mls/hr IV .Q3H20M [facility] Last Admin: 03/16/17 08:02 Dose: 150 mls/hr Potassium Chloride (Potassium Chloride 10 Meq/100 Ml) 10 meq in 100 mls @ 100 mls/hr IVPB Q2H [facility] Stop: 03/16/17 11:29 Last Admin: 03/16/17 12:39 Dose: 100 mls/hr Ceftriaxone Sodium (Rocephin 1 Gram Ivpb) 1 gm in 100 mls @ 200 mls/hr IVPB STAT STA PRN Reason: Protocol Stop: 03/16/17 09:40 Last Admin: 03/16/17 10:30 Dose: 200 mls/hr Sodium Chloride (Sodium Chloride 0.9%) 100 mls @ 150 mls/hr IV .Q40M [facility] Sodium Chloride (Sodium Chloride 0.9%) 1,000 mls @ 150 mls/hr IV .Q6H40M [facility] Last Admin: 03/17/17 02:28 Dose: 150 mls/hr Sodium Chloride (Sodium Chloride 0.9%) 1,000 mls @ 75 mls/hr IV .[id number] [facility] Stop: 03/17/17 01:34 Iohexol (Omnipaque 240 (50 Ml)) Confirm Administered Dose 50 ml .ROUTE .STK-MED ONE Stop: 03/16/17 07:56 Iohexol (Omnipaque 350 100 Ml) Confirm Administered Dose 350 mg .ROUTE .STK-MED ONE Stop: 03/16/17 08:59 Morphine Sulfate (Morphine) 4 mg IVP STAT STA Stop: 03/16/17 07:51 Last Admin: 03/16/17 08:00 Dose: 4 mg Re-Assess: [facility] Pain Assessment Document 03/16/17 08:59 STAFF PHYSICIAN (Rec: 03/16/17 08:59 STAFF PHYSICIAN [id number] Pain Reassessment Is this a pain reassessment? No Presence of Pain Presence of Pain No Morphine Sulfate (Morphine) 4 mg IVP Q4H PRN PRN Reason: Pain, moderate (4-7) Last Admin: 03/17/17 03:49 Dose: 4 mg Re-Assess: [facility] Pain Assessment Document 03/17/17 04:49 MENDOZA (Rec: 03/17/17 06:33 MENDOZA [id number]) Pain Reassessment Is this a pain reassessment? Yes Sleep Is patient sleeping during reassessment? Yes Pain Scale Used Pain Scale Used Numeric Potassium Chloride (K-Dur 20 Meq Er Tab) 40 meq PO ONCE ONE Stop: 03/17/17 08:35 Last Admin: 03/17/17 10:43 Dose: 40 meq Potassium Chloride (K-Dur 20 Meq Er Tab) 20 meq PO ONCE ONE Stop: 03/18/17 08:28 Last Admin: 03/18/17 10:54 Dose: 20 meq <Stephanie Ha - Last Filed: 03/16/17 13:05> - PA / JOY LOADING MACHINE OPERATOR / Resident Statement MD/DO has reviewed & agrees with the documentation as recorded. MD/DO has examined the patient and agrees with the treatment plan. - Scribe Statement The provider has reviewed the documentation as recorded by the Scribe <Fuentes Finley Jr. - Last Filed: 03/18/17 15:14> - Scribe Statement 03/16/2017 Mary Elizalde Provider Scribe Attestation: All medical record entries made by the Scribe were at my direction and personally dictated by me. I have reviewed the chart and agree that the record accurately reflects my personal performance of the history, physical exam, medical decision making, and the department course for this patient. I have also personally directed, reviewed, and agree with the discharge instructions and disposition. (Fuentes Finley Jr.) Disposition/Present on Arrival - Present on Arrival Any Indicators Present on Arrival: No History of DVT/PE: No History of Uncontrolled Diabetes: No Urinary Catheter: No History of Decub. Ulcer: No History Surgical Site Infection Following: Orthopedic Procedures - Disposition Have Diagnosis and Disposition been Completed?: Yes Disposition Time: 11:31 Patient Plan: Admission <Stephanie Ha - Last Filed: 03/16/17 13:05> <Fuentes Finley Jr. - Last Filed: 03/18/17 15:14> - Disposition Diagnosis: Abdominal pain, Small bowel obstruction Disposition: HOSPITALIZED Patient Problems: Current Active Problems Problem Status Onset Abdominal pain Acute Small bowel obstruction Acute Condition: GOOD
[2017-03-16] MEDS ORDERED: Morphine 4 mg/ml ISec IVP STA (07:50)
[2017-03-16 07:55] LABS: ADD MANUAL DIFF? NO
[2017-03-16] MEDS ORDERED: Iohexol 240 (50 ml) ONE (07:55)
[2017-03-16 08:03] LABS: BASO # 0.02 K/mm3 (0.0-2.0); BASO % 0.2 % (0.0-3.0); EOS % 0.3 % (1.5-5.0); GRAN # 8.72 (1.4-6.5); HEMATOCRIT 35.7 % (36.0-48.0); LYMPH # 0.8 (1.2-3.4); LYMPH % 8.1 % (22.0-35.0); MEAN CELL VOLUME 75.6 fl (80.0-105.0); MEAN CORPUSCULAR HEMOGLOBIN 23.3 pg (25.0-35.0); MEAN CORPUSCULAR HGB CONC 30.8 g/dl (31.0-37.0); MEAN PLATELET VOLUME 8.1 fl (7.0-11.0); MONO # 0.6 (0.1-0.6); MONO % 5.4 % (1.0-6.0); PLATELET COUNT 329 10^3/uL (120.0-450.0); RED CELL DISTRIBUTION WIDTH 16.9 % (11.5-14.5); WHITE BLOOD COUNT 10.1 10^3/ul (4.5-11.0)
[2017-03-16 08:14] LABS: ALB/GLOB RATIO 1.3 (1.1-1.8); ALKALINE PHOSPHATASE 127 U/L (38-133); ALT/SGPT 22 U/L (7-56); AST/SGOT 22 U/L (15-39); BILIRUBIN,TOTAL 0.8 mg/dL (0.2-1.3); BLOOD UREA NITROGEN 21 mg/dL (7-21); CALCIUM 9.3 mg/dL (8.4-10.5); CARBON DIOXIDE 34 mmol/L (21-33); CHLORIDE 93 mmol/L (98-107); GFR AFRICAN-AMERICAN > 60; GLUCOSE,RANDOM 117 mg/dL (70-110); INR 1.05 (0.93-1.08); LIPASE 36 U/L (23-300); PARTIAL THROMBOPLASTIN TIME 66.9 Seconds (23.7-30.8); SODIUM 137 mmol/L (132-148); TOTAL PROTEIN 6.1 g/dL (5.8-8.3)
[2017-03-16 08:17] LABS: POTASSIUM 2.9 mmol/L (3.6-5.0)
[2017-03-16 08:26] LABS: TROPONIN I < 0.01 ng/mL
[2017-03-16 08:33] LABS: PH,URINE 6.5 (4.7-8.0); URINE BILIRUBIN NEGATIVE (NEGATIVE); URINE BLOOD TRACE-INTACT (NEGATIVE); URINE GLUCOSE (UA) NEGATIVE (NEGATIVE); URINE KETONE NEGATIVE (NEGATIVE); URINE LEUKOCYTE ESTERASE LARGE Leu/uL (NEGATIVE); URINE PROTEIN NEGATIVE mg/dL (<30 mg/dL); URINE UROBILINOGEN 0.2 E.U./dL (<1 E.U./dL)
[2017-03-16 08:37] LABS: URINE APPEARANCE CLOUDY (CLEAR); URINE COLOR YELLOW (YELLOW)
[2017-03-16 08:49] LABS: URINE BACTERIA MOD (NEG); URINE WBC TNTC /hpf (0-6)
[2017-03-16] MEDS ORDERED: Iohexol 350 MG/100 ML VIAL ONE (08:58)
[2017-03-16] MEDS ORDERED: cefTRIAXone 1 gm 1 GM/100 ML BAG IVPB STA (09:11)
--- NOTE | 2017-03-16 09:49 | CARD ---
APPROVED REPORT EKG Measurement Heart [id number] CT [id number] <Conclusion> Sinus rhythm with 1st degree AV block Otherwise normal ECG
--- NOTE | 2017-03-16 11:14 | CT ---
PROCEDURE: CT Abdomen and Pelvis with contrast HISTORY: RLQ pain COMPARISON: 02/02/2017 TECHNIQUE: Contrast dose: 100 cc of Omni 350 Radiation dose: Total exam DLP = 1188 mGy-cm. This CT exam was performed using one or more of the following dose reduction techniques: Automated exposure control, adjustment of the mA and/or kV according to patient size, and/or use of iterative reconstruction technique. FINDINGS: LOWER THORAX: Unremarkable. LIVER: Unremarkable. No gross lesion or ductal dilatation. GALLBLADDER AND BILE DUCTS: Unremarkable. PANCREAS: Unremarkable. No gross lesion or ductal dilatation. SPLEEN: Unremarkable. ADRENALS: Unremarkable. No mass. KIDNEYS AND URETERS: Unremarkable. No hydronephrosis. No solid mass. VASCULATURE: Unremarkable. No aortic aneurysm. BOWEL: There is a new small bowel obstruction with multiple dilated loops measuring up to 28 mm in diameter. The small bowel loops in the right lower quadrant are normal in caliber. The exact transition point cannot be seen. Findings are most likely due to adhesions. There is no evidence of pneumatosis or free air. APPENDIX: Normal appendix. PERITONEUM: There is a small amount of ascites LYMPH NODES: Unremarkable. No enlarged lymph nodes. BLADDER: Unremarkable. REPRODUCTIVE: Unremarkable. BONES: No acute fracture. OTHER FINDINGS: None. IMPRESSION: Small bowel obstruction
[2017-03-16] MEDS ORDERED: Sodium Chloride 0.9% 100 ML IV SCH (11:59)
[2017-03-16] MEDS ORDERED: Sodium Chloride 0.9% 1,000 ML IV SCH (12:15)
--- NOTE | 2017-03-16 12:55 | CP.PCM.CON ---
History of Present Illness - History of Present Illness History of Present Illness: General Surgery Consult; Andrew Patient is a 71 year old female with a PMH of Stage IV Non-hodgkin's lymphoma, HTN, urinary incontinence, TIA x 1, presents to the ER with RLQ pain that woke her out of her sleep at 2am this morning. Patient describes the pain as stabbing , and intermittent, which also radiates to the right groin. The pain was a 10/ 10 at its worst and a 4/10 right now. She did not try any alleviating measures, however she has been taking dulcolax to prevent constipation from her chemotherapy that she receives every Tuesday. Her last bowel movement was yesterday, which was normal. She also complains of feeling bloated. Denies n/v/d , fever, chills, SOB, CP, ARAUZ, dysuria, or burning on urination. PMH: Stage IV Non-hodgkin's lymphoma, HTN, urinary incontinence, TIA with residual mild loss of peripheral vision on the right, lung mass and glaucoma PSH: right hip replacement, complete hysterectomy, pacemaker, port placement FMH: unknown Social: denies tobacco, and ilicit drug usage, drinks alcohol occasionally Allergies: sulfa drugs, ibuprofen Review of Systems - Constitutional Constitutional: absent: Chills, Fever Additional comments: chronic generalized weakness - EENT Eyes: absent: Change in Vision - Cardiovascular Cardiovascular: absent: Chest Pain, Dyspnea - Gastrointestinal Gastrointestinal: Abdominal Pain, Bloating. absent: Diarrhea, Hematochezia - Genitourinary Genitourinary: absent: Dysuria, Urinary Frequency - Neurological Neurological: absent: Dizziness, Headaches Past Patient History - Infectious Disease Hx of Infectious Diseases: None - Tetanus Immunizations Tetanus Immunization: Unknown - Past Medical History & Family History Past Medical History?: Yes - Past Social History Smoking Status: Former Smoker Alcohol: Occasional - CARDIAC Hx Hypertension: Yes Hx Pacemaker: Yes (2009) - PULMONARY Hx Respiratory Disorders: No - NEUROLOGICAL Hx Neurological Disorder: No Hx Paralysis: No Hx Transient Ischemic Attacks (TIA): Yes (2015) - HEENT Hx HEENT Problems: No - RENAL Hx Chronic Kidney Disease: No - ENDOCRINE/METABOLIC Hx Endocrine Disorders: No - HEMATOLOGICAL/ONCOLOGICAL Hx Blood Transfusions: Yes Hx Blood Transfusion Reaction: No Hx Lymphoma: Yes Hx Metastesis: No Hx Shingles: No - INTEGUMENTARY Hx Dermatological Problems: No - MUSCULOSKELETAL/RHEUMATOLOGICAL Hx Musculoskeletal Disorders: No - GASTROINTESTINAL Hx Gastrointestinal Disorders: No Hx Constipation: Yes (associated with chemotherapy ) - GENITOURINARY/GYNECOLOGICAL Hx Genitourinary Disorders: No - PSYCHIATRIC Hx Psychophysiologic Disorder: No Hx Emotional Abuse: No Hx Physical Abuse: No Hx Substance Use: No - SURGICAL HISTORY Hx Hysterectomy: Yes (complete) Hx Joint Replacement: Yes (right hip) Hx Orthopedic Surgery: Yes (left hip replacement) Other/Comment: pacemaker 2010 - ANESTHESIA Hx Anesthesia Reactions: No Hx Malignant Hyperthermia: No Meds Allergies/Adverse Reactions: Allergies Allergy/AdvReac Type Severity Reaction Status Date / Time ibuprofen Allergy Severe .MOUTH Verified 03/16/17 07:05 SORES Sulfa (Sulfonamide Allergy Unknown UNKNOWN Verified 03/16/17 07:05 Antibiotics) - Medications Medications: Current Medications Sodium Chloride (Sodium Chloride 0.9%) 1,000 mls @ 150 mls/hr IV .Q6H40M [facility] Latanoprost (Xalatan Opht) 0 ml OU HS [facility] Morphine Sulfate (Morphine) 4 mg IVP Q4H PRN PRN Reason: Pain, moderate (4-7) Ondansetron HCl (Zofran Inj) 4 mg IVP Q4H PRN PRN Reason: Nausea/Vomiting Physical Exam - Constitutional Appears: Non-toxic, No Acute Distress - Head Exam Head Exam: NORMAL INSPECTION - Eye Exam Eye Exam: Normal appearance - ENT Exam ENT Exam: Mucous Membranes Moist - Respiratory Exam Respiratory Exam: NORMAL BREATHING PATTERN. absent: Accessory Muscle Use, Respiratory Distress - Cardiovascular Exam Cardiovascular Exam: RRR - GI/Abdominal Exam GI & Abdominal Exam: Normal Bowel Sounds, Soft, Tenderness (minimal TTP). absent: Distended, Rebound - Extremities Exam Extremities exam: Negative for: calf tenderness, pedal edema - Neurological Exam Neurological exam: Alert, Oriented x3 - Psychiatric Exam Psychiatric exam: Normal Affect, Normal Mood - Skin Skin Exam: Dry, Intact, Normal Color, Warm Results - Vital Signs Recent Vital Signs: Last Vital Signs Temp 98.1 F 03/16/17 06:57 Pulse 88 03/16/17 11:55 Resp 18 03/16/17 11:55 BP 122/69 03/16/17 11:55 Pulse Ox 100 03/16/17 11:55 - Labs Result Diagrams: 03/16/17 07:50 03/16/17 07:50 - Imaging and Cardiology CT scan - abdomen Status: Image reviewed by me, Report reviewed by me Assessment & Plan - Assessment and Plan (Free Text) Assessment: 71 y/o F w/ abd pain SBO vs UTI - NPO, IVF - Abx for UTI - No NGT as pt not vomiting and no distension - pain management Pt discussed w/ Dr. Andrew Davalos PGY3
[2017-03-16] MEDS: Sodium Chloride 0.9% 1,000 ML IV SCH ×2 (13:28→19:09)
[2017-03-16] MEDS: Morphine 4 mg/ml ISec IVP PRN ×2 (14:32→19:08)
[2017-03-16 18:09] VITALS: BMI 34.7
[2017-03-16] MEDS: Latanoprost 2.5 ml Opht Soln OU SCH (21:59)
[2017-03-17] MEDS: Sodium Chloride 0.9% 1,000 ML IV SCH (02:28)
[2017-03-17] MEDS: Morphine 4 mg/ml ISec IVP PRN (03:49)
[2017-03-17 07:02] LABS: ADD MANUAL DIFF? NO
[2017-03-17 07:13] LABS: BASO # 0.02 K/mm3 (0.0-2.0); BASO % 0.3 % (0.0-3.0); EOS # 0.2 (0.0-0.7); EOS % 2.6 % (1.5-5.0); GRAN # 6.03 (1.4-6.5); HEMATOCRIT 33.9 % (36.0-48.0); LYMPH # 0.9 (1.2-3.4); LYMPH % 11.9 % (22.0-35.0); MEAN CORPUSCULAR HGB CONC 29.8 g/dl (31.0-37.0); MEAN PLATELET VOLUME 8.3 fl (7.0-11.0); MONO # 0.6 (0.1-0.6); MONO % 7.2 % (1.0-6.0); PLATELET COUNT 309 10^3/uL (120.0-450.0); RED CELL DISTRIBUTION WIDTH 17.3 % (11.5-14.5); WHITE BLOOD COUNT 7.7 10^3/ul (4.5-11.0)
[2017-03-17 07:26] LABS: ALB/GLOB RATIO 1.2 (1.1-1.8); ALKALINE PHOSPHATASE 92 U/L (38-133); ALT/SGPT 21 U/L (7-56); AST/SGOT 19 U/L (15-39); BILIRUBIN,TOTAL 0.6 mg/dL (0.2-1.3); BLOOD UREA NITROGEN 13 mg/dL (7-21); CALCIUM 8.2 mg/dL (8.4-10.5); CARBON DIOXIDE 32 mmol/L (21-33); CHLORIDE 100 mmol/L (98-107); GFR AFRICAN-AMERICAN > 60; GLUCOSE,RANDOM 77 mg/dL (70-110); POTASSIUM 3.4 mmol/L (3.6-5.0); SODIUM 138 mmol/L (132-148)
--- NOTE | 2017-03-17 07:26 | CP.PCM.HP ---
<Manuela Gill - Last Filed: 03/17/17 11:49> History of Present Illness - History of Present Illness History of Present Illness: CC: Stomach pain Patient is a 71 y/o with pmh Stage IV Non-Hodgkin's lymphoma, Hypertension, urinary incontinence, lung mass and glaucoma presents for RLQ abdominal pain that began yesterday when she woke up. Patient states for 1 week she has been experiencing constipation, she took dulcolax on Tuesday and had bowel movement, then yesterday she started to experience abdominal pain. It was stabbing in nature, 7/10, non radiating. Abdominal pain was not associated with nausea, vomiting and diarrhea. Patient has been experiencing constipation since starting chemo. Denied fever, chills. Denied dysurea. Admits to bloating. Patient didn't try any medications to releif the pain yesterday. Patient states she became nauseous after she was giving clear liquid diet in the ED. Furthermore, patient is currently under the care of Dr Mcneill for treatment of her lymphoma, had an appointment to see him yesterday, but missed the appointment ( Dr Mcneill aware). Currently patient denies n/v/d. Reported the abdominal pain has improved. Denies cp, sob. CT abd/pelvis revealed SBO and left lower lobe lung mass. PMH: Stage IV Non-hodgkin's lymphoma, HTN, urinary incontinence , lung mass, glaucoma, Iron deficiency anemia, OA, gait instability. PSH: right hip replacement, complete hysterectomy, pacemaker, port placement FMH: Denies Social: denies tobacco, and illicit drug usage, drinks alcohol occasionally. Lives with her spouse. Bed bound due to left hip problems. Present on Admission - Present on Admission Any Indicators Present on Admission: No History of DVT/PE: No History of Uncontrolled Diabetes: No Urinary Catheter: No Decubitus Ulcer Present: No Review of Systems - Review of Systems All systems: reviewed and no additional remarkable complaints except Review of Systems: 12 point ROS reviewed, all negative, except as per HPI. Past Patient History - Infectious Disease Hx of Infectious Diseases: None - Tetanus Immunizations Tetanus Immunization: Unknown - Past Medical History & Family History Past Medical History?: Yes Past Family History: Reviewed and not pertinent Pertinent Family History: none - Past Social History Smoking Status: Former Smoker - CARDIAC Hx Cardia Arrhythmia: Yes Hx Hypercholesterolemia: Yes Hx Hypertension: Yes Hx Pacemaker: Yes (2009) Hx Peripheral Edema: Yes (ble +1 pitting edema) - PULMONARY Other/Comment: lung mass bx due to recurring lymphoma - NEUROLOGICAL Hx Neurological Disorder: No Hx Transient Ischemic Attacks (TIA): Yes (2015) Other/Comment: 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 - HEENT Hx HEENT Problems: Yes (eyeglasses) Hx Glaucoma: Yes (beginning) Other/Comment: partial peripheral vision loss r eye - RENAL Hx Chronic Kidney Disease: No - ENDOCRINE/METABOLIC Hx Endocrine Disorders: No - HEMATOLOGICAL/ONCOLOGICAL Hx Anemia: Yes (post hip sx iron infusions.blood transfusion) Hx Cancer: Yes Hx Chemotherapy: Yes Hx Metastesis: No Hx Shingles: No Other/Comment: pt dx with non hodgkins lymphoma 2012, had chemo 1 cycle, reaccurred 11/2013, had chemo, reaccurred 11/2016 presently receiving chemo 1 tx a week x 4 wk's had one treatment 3 more to go - INTEGUMENTARY Other/Comment: left buttock 1cm round opening st 1 wound bed red surrounding skin reddened, ble dry brown discolored skin, difficulty turning due to left hip pain - MUSCULOSKELETAL/RHEUMATOLOGICAL Hx Falls: Yes (past) - GASTROINTESTINAL Hx Gastrointestinal Disorders: Yes (constipation assoc with chemo) - GENITOURINARY/GYNECOLOGICAL Hx Incontinence: Yes Hx Urinary Tract Infection: Yes Other/Comment: 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 - PSYCHIATRIC Hx Substance Use: No - SURGICAL HISTORY Hx Cardiac Catheterization: Yes Hx Hysterectomy: Yes (complete) Hx Joint Replacement: Yes (right hip 2015) Other/Comment: pacemaker 2009 - ANESTHESIA Hx Anesthesia Reactions: No Hx Malignant Hyperthermia: No Meds Allergies/Adverse Reactions: Allergies Allergy/AdvReac Type Severity Reaction Status Date / Time ibuprofen Allergy Severe .MOUTH Verified 03/16/17 07:05 SORES Sulfa (Sulfonamide Allergy Unknown UNKNOWN Verified 03/16/17 07:05 Antibiotics) Physical Exam - Constitutional Appears: Non-toxic, No Acute Distress, Chronically Ill - Head Exam Head Exam: ATRAUMATIC, NORMAL INSPECTION, NORMOCEPHALIC - Eye Exam Eye Exam: EOMI, Normal appearance, PERRL. absent: Scleral icterus Pupil Exam: NORMAL ACCOMODATION, PERRL - ENT Exam ENT Exam: Mucous Membranes Moist, Normal Exam - Neck Exam Neck exam: Positive for: Full Rom, Normal Inspection - Respiratory Exam Respiratory Exam: Clear to Auscultation Bilateral, NORMAL BREATHING PATTERN. absent: Accessory Muscle Use, Rales, Rhonchi, Wheezes, Respiratory Distress, Stridor - Cardiovascular Exam Cardiovascular Exam: REGULAR RHYTHM, +S1, +S2. absent: Bradycardia, Tachycardia , Gallop, Irregular Rhythm, Rubs, Systolic Murmur - GI/Abdominal Exam GI & Abdominal Exam: Normal Bowel Sounds, Soft, Tenderness (rlq). absent: Distended, Firm, Guarding, Rebound, Rigid Additional comments: obese abdomen - Extremities Exam Extremities exam: Positive for: normal inspection. Negative for: pedal edema, tenderness - Back Exam Back exam: NORMAL INSPECTION - Neurological Exam Neurological exam: Alert, CN II-XII Intact, Oriented x3, Reflexes Normal - Psychiatric Exam Psychiatric exam: Normal Affect, Normal Mood - Skin Skin Exam: Dry, Intact, Normal Color, Warm Results - Vital Signs Recent Vital Signs: Last Vital Signs Temp 98.1 F 03/16/17 17:53 Pulse 90 03/16/17 17:53 Resp 19 03/16/17 17:53 BP 145/85 03/16/17 17:53 Pulse Ox 96 03/16/17 16:00 - Labs Result Diagrams: 03/17/17 06:00 03/17/17 06:00 Labs: Laboratory Results - last 24 hr 03/16/17 03/17/17 12:00 06:00 WBC 7.7 D RBC 4.40 Hgb 10.1 L Hct 33.9 L MCV 77.0 L MCH 23.0 L MCHC 29.8 L RDW 17.3 H Plt Count 309 MPV 8.3 Gran % 78.0 H Lymph % (Auto) 11.9 L Mathews % (Auto) 7.2 H Eos % (Auto) 2.6 Baso % (Auto) 0.3 Gran # 6.03 Lymph # 0.9 L Mathews # 0.6 Eos # 0.2 Baso # 0.02 Procalcitonin < 0.05 L Assessment & Plan - Assessment and Plan (Free Text) Assessment: 1) Abdominal pain 2nd to SBO 2) Hypokalemia 3) Iron deficiency anemia 4) Stage IV Non-Hodgkin's lymphoma, 5) Hypertension, 6) urinary incontinence, 7) lung mass 8) Pacemaker 9) OA 10) Gait instability Plan: Surgery consulted for SBO, patient started on clear liquid diet. No nausea or vomiting, will hold off NGT. Continue with conservative management as per surgery. Potassium is being repleted. Patient is on hctz, and cozaar for htn. On Asa for cva prevention. Iron for anemia. Morphine prn for abdominal pain. Protonix and lovenox for gi/dvt prophylaxis. Patient seen, Examined and case discussed with Dr Del Rio. - Date & Time Date: 03/17/17 Time: 07:50 <Ilan Del Rio - Last Filed: 03/17/17 21:53> Results - Vital Signs Recent Vital Signs: Last Vital Signs Temp 99.2 F 03/17/17 16:00 Pulse 84 03/17/17 16:00 Resp 20 03/17/17 16:00 BP 127/74 03/17/17 16:00 Pulse Ox 95 03/17/17 16:00 - Labs Result Diagrams: 03/17/17 06:00 03/17/17 06:00 Labs: Laboratory Results - last 24 hr 03/17/17 03/17/17 03/17/17 06:00 06:00 09:00 WBC 7.7 D RBC 4.40 Hgb 10.1 L Hct 33.9 L MCV 77.0 L MCH 23.0 L MCHC 29.8 L RDW 17.3 H Plt Count 309 MPV 8.3 Gran % 78.0 H Lymph % (Auto) 11.9 L Mathews % (Auto) 7.2 H Eos % (Auto) 2.6 Baso % (Auto) 0.3 Gran # 6.03 Lymph # 0.9 L Mathews # 0.6 Eos # 0.2 Baso # 0.02 Sodium 138 Potassium 3.4 L Chloride 100 Carbon Dioxide 32 Anion Gap 9 L BUN 13 Creatinine 0.7 Est GFR ( Amer) > 60 Est GFR (Non-Af Amer) > 60 Random Glucose 77 Calcium 8.2 L Magnesium 1.9 Total Bilirubin 0.6 AST 19 ALT 21 Alkaline Phosphatase 92 Total Protein 5.0 L Albumin 2.7 L Globulin 2.3 Albumin/Globulin Ratio 1.2 Assessment & Plan - Assessment and Plan (Free Text) Plan: PT seen and examined. Resident note reviewed and I agree with it. Pt with SBO but is improving. No abd pain. Will see if she is able to tolerate clear liq diet. Will probably not need surgical intervention.
[2017-03-17] MEDS ORDERED: Potassium Chloride 20 mEq ER Tab PO ONE (08:34)
[2017-03-17] MEDS ORDERED: Morphine 4 mg/ml ISec IVP PRN (08:34)
--- NOTE | 2017-03-17 09:05 | CP.PCM.PN ---
Subjective - Date & Time of Evaluation Date of Evaluation: 03/17/17 Time of Evaluation: 07:00 - Subjective Subjective: Patient seen at bedside and is a&o x 3. RADHAON. She is feeling better today and in no pain. She has not had a bowel movement or passed any gas. Diet was advanced to clear liquids but the patient did not eat due to nausea. Patient has chronic hip pain so she is unable to ambulate. Denies n/v/d, sob, cp. Objective - Vital Signs/Intake and Output Vital Signs (last 24 hours): Temp Pulse Resp BP Pulse Ox 98.7 F 79 19 127/71 95 03/17/17 08:44 03/17/17 08:44 03/17/17 08:44 03/17/17 08:44 03/17/17 08:44 Intake and Output: 03/17/17 03/17/17 06:59 18:59 Intake Total 1920 0 Balance 1920 0 - Medications Medications: Current Medications Aspirin (Ecotrin) 81 mg PO DAILY [facility] Ferrous Sulfate (Feosol) 324 mg PO DAILY [facility] Hydrochlorothiazide (Hydrodiuril) 25 mg PO DAILY [facility] Latanoprost (Xalatan Opht) 0 ml OU HS [facility] Last Admin: 03/16/17 21:59 Dose: 2.5 ml Losartan Potassium (Cozaar) 100 mg PO DAILY [facility] Morphine Sulfate (Morphine) 2 mg IVP Q4H PRN PRN Reason: Pain, moderate (4-7) Ondansetron HCl (Zofran Inj) 4 mg IVP Q4H PRN PRN Reason: Nausea/Vomiting Last Admin: 03/16/17 19:09 Dose: 4 mg Pantoprazole Sodium (Protonix Ec Tab) 40 mg PO DAILY [facility] - Labs Labs: 03/17/17 06:00 03/17/17 06:00 PT 11.3 Seconds (9.9-11.8) 03/16/17 07:50 INR 1.05 (0.93-1.08) 03/16/17 07:50 APTT 66.9 Seconds (23.7-30.8) H 03/16/17 07:50 - Constitutional Appears: Non-toxic, No Acute Distress - Head Exam Head Exam: NORMAL INSPECTION - Eye Exam Eye Exam: EOMI - ENT Exam ENT Exam: Mucous Membranes Moist - Neck Exam Neck Exam: Full ROM - Respiratory Exam Respiratory Exam: NORMAL BREATHING PATTERN. absent: Accessory Muscle Use, Respiratory Distress - Cardiovascular Exam Cardiovascular Exam: REGULAR RHYTHM - GI/Abdominal Exam GI & Abdominal Exam: Soft. absent: Distended, Tenderness - Extremities Exam Extremities Exam: Normal Inspection - Neurological Exam Neurological Exam: Alert, Awake, Oriented x3 - Psychiatric Exam Psychiatric exam: Normal Affect, Normal Mood - Skin Skin Exam: Dry, Intact, Normal Color, Warm Assessment and Plan - Assessment and Plan (Free Text) Assessment: 71 year old female admitted for questionable small bowel obstruction. - Continue clear liquids until flatulence is passed - Advance as tolerated Pt will be discussed with Dr. Andrew Ulloa DO PGY1
[2017-03-17] MEDS: Pantoprazole 40 mg EC Tab PO SCH (10:44)
[2017-03-17] MEDS: Enoxaparin 40 mg Syringe SC SCH (13:12)
[2017-03-17] MEDS: Latanoprost 2.5 ml Opht Soln OU SCH (21:40)
[2017-03-18 06:47] LABS: ADD MANUAL DIFF? NO
[2017-03-18 06:54] LABS: BASO # 0.02 K/mm3 (0.0-2.0); BASO % 0.3 % (0.0-3.0); EOS # 0.3 (0.0-0.7); EOS % 4.3 % (1.5-5.0); GRAN # 5.83 (1.4-6.5); GRAN % 74.6 % (50.0-68.0); HEMATOCRIT 34.4 % (36.0-48.0); LYMPH # 1.1 (1.2-3.4); LYMPH % 13.8 % (22.0-35.0); MEAN CORPUSCULAR HGB CONC 29.9 g/dl (31.0-37.0); MEAN PLATELET VOLUME 8.4 fl (7.0-11.0); MONO # 0.6 (0.1-0.6); PLATELET COUNT 329 10^3/uL (120.0-450.0); RED CELL DISTRIBUTION WIDTH 17.1 % (11.5-14.5); WHITE BLOOD COUNT 7.8 10^3/ul (4.5-11.0)
[2017-03-18 07:00] LABS: BLOOD UREA NITROGEN 11 mg/dL (7-21); CALCIUM 8.5 mg/dL (8.4-10.5); CARBON DIOXIDE 31 mmol/L (21-33); CHLORIDE 98 mmol/L (95-110); GFR AFRICAN-AMERICAN > 60; GLUCOSE,RANDOM 75 mg/dL (70-110); POTASSIUM 3.7 mmol/L (3.6-5.0); SODIUM 137 mmol/L (132-148)
--- NOTE | 2017-03-18 07:09 | CP.PCM.PN ---
<Manuela Gill - Last Filed: 03/18/17 08:33> Subjective - Date & Time of Evaluation Date of Evaluation: 03/18/17 Time of Evaluation: 07:10 - Subjective Subjective: Progress note for Dr Quang krishnamurthy. Patient tolerated the liquid diet last night, patient reported she's passing gas. Patient denies nausea, vomiting or diarrhea. No BM yet. Patient denies fever, chills, cp or sob. No overnight acute events. Objective - Vital Signs/Intake and Output Vital Signs (last 24 hours): Temp Pulse Resp BP Pulse Ox 99.2 F 84 20 127/74 95 03/17/17 16:00 03/17/17 16:00 03/17/17 16:00 03/17/17 16:00 03/17/17 16:00 Intake and Output: 03/18/17 03/18/17 06:59 18:59 Intake Total 240 Output Total 400 Balance -160 - Medications Medications: Current Medications Aspirin (Ecotrin) 81 mg PO DAILY [facility] Last Admin: 03/17/17 10:44 Dose: 81 mg Enoxaparin Sodium (Lovenox) 40 mg SC DAILY [facility] PRN Reason: Protocol Last Admin: 03/17/17 13:12 Dose: 40 mg Ferrous Sulfate (Feosol) 324 mg PO DAILY [facility] Last Admin: 03/17/17 10:44 Dose: 324 mg Hydrochlorothiazide (Hydrodiuril) 25 mg PO DAILY [facility] Last Admin: 03/17/17 10:44 Dose: 25 mg Latanoprost (Xalatan Opht) 0 ml OU HS [facility] Last Admin: 03/17/17 21:40 Dose: 2.5 ml Losartan Potassium (Cozaar) 100 mg PO DAILY [facility] Last Admin: 03/17/17 10:44 Dose: 100 mg Morphine Sulfate (Morphine) 2 mg IVP Q4H PRN PRN Reason: Pain, moderate (4-7) Ondansetron HCl (Zofran Inj) 4 mg IVP Q4H PRN PRN Reason: Nausea/Vomiting Last Admin: 03/16/17 19:09 Dose: 4 mg Pantoprazole Sodium (Protonix Ec Tab) 40 mg PO DAILY [facility] Last Admin: 03/17/17 10:44 Dose: 40 mg - Labs Labs: 03/18/17 06:00 03/18/17 06:00 PT 11.3 Seconds (9.9-11.8) 03/16/17 07:50 INR 1.05 (0.93-1.08) 03/16/17 07:50 APTT 66.9 Seconds (23.7-30.8) H 03/16/17 07:50 - Constitutional Appears: No Acute Distress - Head Exam Head Exam: ATRAUMATIC, NORMAL INSPECTION, NORMOCEPHALIC - Eye Exam Eye Exam: EOMI, Normal appearance, PERRL. absent: Scleral icterus Pupil Exam: NORMAL ACCOMODATION - ENT Exam ENT Exam: Mucous Membranes Moist - Neck Exam Neck Exam: Normal Inspection - Respiratory Exam Respiratory Exam: Clear to Ausculation Bilateral, NORMAL BREATHING PATTERN. absent: Rales, Rhonchi, Wheezes, Respiratory Distress, Stridor - Cardiovascular Exam Cardiovascular Exam: REGULAR RHYTHM, +S1, +S2. absent: Gallop, JVD, Rubs, Murmur - GI/Abdominal Exam GI & Abdominal Exam: Soft, Normal Bowel Sounds. absent: Distended, Firm, Guarding, Rigid, Tenderness - Extremities Exam Extremities Exam: absent: Pedal Edema - Back Exam Back Exam: NORMAL INSPECTION - Neurological Exam Neurological Exam: Alert, Awake, Oriented x3 - Psychiatric Exam Psychiatric exam: Normal Affect, Normal Mood - Skin Skin Exam: Dry, Intact, Normal Color, Warm Assessment and Plan - Assessment and Plan (Free Text) Assessment: 1) Abdominal pain 2nd to SBO 2) Hypokalemia-resolved 3) Iron deficiency anemia 4) Stage IV Non-Hodgkin's lymphoma, 5) Hypertension, 6) urinary incontinence, 7) lung mass 8) Pacemaker 9) OA of left hip 10) Gait instability/immobility 11) Constipation Plan: Patient's diet advanced to heart healthy diet. Will add colace for constipation. Will continue hctz, and cozaar for htn. On Asa for cva prevention. Iron for anemia. Abdominal pain resolved, will d/c morphine, add tylenol prn. Protonix and Lovenox for gi/dvt prophylaxis. Patient likely to be discharged if she tolerates the advanced diet, and have bowel movement. Patient seen, Examined and case discussed with Dr Del Rio. <Ilan Del Rio - Last Filed: 03/18/17 19:44> Objective - Vital Signs/Intake and Output Vital Signs (last 24 hours): Temp Pulse Resp BP Pulse Ox 99.2 F 84 20 122/72 94 L 03/18/17 15:56 03/18/17 15:56 03/18/17 15:56 03/18/17 15:56 03/18/17 15:56 - Medications Medications: Current Medications Acetaminophen (Tylenol 325mg Tab) 650 mg PO Q4H PRN PRN Reason: Pain, Mild (1-3) Aspirin (Ecotrin) 81 mg PO DAILY [facility] Last Admin: 03/18/17 10:56 Dose: 81 mg Docusate Sodium (Colace) 100 mg PO BID [facility] Last Admin: 03/18/17 17:14 Dose: 100 mg Enoxaparin Sodium (Lovenox) 40 mg SC DAILY [facility] PRN Reason: Protocol Last Admin: 03/18/17 10:54 Dose: 40 mg Ferrous Sulfate (Feosol) 324 mg PO DAILY [facility] Last Admin: 03/18/17 10:55 Dose: 324 mg Hydrochlorothiazide (Hydrodiuril) 25 mg PO DAILY [facility] Last Admin: 03/18/17 10:56 Dose: 25 mg Latanoprost (Xalatan Opht) 0 ml OU HS [facility] Last Admin: 03/17/17 21:40 Dose: 2.5 ml Losartan Potassium (Cozaar) 100 mg PO DAILY [facility] Last Admin: 03/18/17 10:55 Dose: 100 mg Ondansetron HCl (Zofran Inj) 4 mg IVP Q4H PRN PRN Reason: Nausea/Vomiting Last Admin: 03/16/17 19:09 Dose: 4 mg Pantoprazole Sodium (Protonix Ec Tab) 40 mg PO DAILY [facility] Last Admin: 03/18/17 10:55 Dose: 40 mg - Labs Labs: 03/18/17 06:00 03/18/17 06:00 PT 11.3 Seconds (9.9-11.8) 03/16/17 07:50 INR 1.05 (0.93-1.08) 03/16/17 07:50 APTT 66.9 Seconds (23.7-30.8) H 03/16/17 07:50 Assessment and Plan - Assessment and Plan (Free Text) Plan: Pt seen and examined. Agree with resident note and plan of care. Meds and labs reviewed by me. Spoke to Surg, waiting for bowel movements.
--- NOTE | 2017-03-18 07:41 | CP.PCM.PN ---
Subjective - Date & Time of Evaluation Date of Evaluation: 03/18/17 Time of Evaluation: 07:00 - Subjective Subjective: Attending: Andrew Patient is a 71yo female seen and evaluated at bedside. Patient reports no acute events overnight. Patient is comfortable and denies any abdominal pain. She tolerated her liquid diet last night. She also reports passing flatus this morning, however is still awaiting a bowel movement. Patient denies fevers, chills, nausea, vomiting. 12-point ROS is otherwise negative. Objective - Vital Signs/Intake and Output Vital Signs (last 24 hours): Temp Pulse Resp BP Pulse Ox 99.2 F 84 20 127/74 95 03/17/17 16:00 03/17/17 16:00 03/17/17 16:00 03/17/17 16:00 03/17/17 16:00 Intake and Output: 03/18/17 03/18/17 06:59 18:59 Intake Total 240 Output Total 400 Balance -160 - Medications Medications: Current Medications Aspirin (Ecotrin) 81 mg PO DAILY [facility] Last Admin: 03/17/17 10:44 Dose: 81 mg Enoxaparin Sodium (Lovenox) 40 mg SC DAILY [facility] PRN Reason: Protocol Last Admin: 03/17/17 13:12 Dose: 40 mg Ferrous Sulfate (Feosol) 324 mg PO DAILY [facility] Last Admin: 03/17/17 10:44 Dose: 324 mg Hydrochlorothiazide (Hydrodiuril) 25 mg PO DAILY [facility] Last Admin: 03/17/17 10:44 Dose: 25 mg Latanoprost (Xalatan Opht) 0 ml OU HS [facility] Last Admin: 03/17/17 21:40 Dose: 2.5 ml Losartan Potassium (Cozaar) 100 mg PO DAILY [facility] Last Admin: 03/17/17 10:44 Dose: 100 mg Morphine Sulfate (Morphine) 2 mg IVP Q4H PRN PRN Reason: Pain, moderate (4-7) Ondansetron HCl (Zofran Inj) 4 mg IVP Q4H PRN PRN Reason: Nausea/Vomiting Last Admin: 03/16/17 19:09 Dose: 4 mg Pantoprazole Sodium (Protonix Ec Tab) 40 mg PO DAILY [facility] Last Admin: 03/17/17 10:44 Dose: 40 mg - Labs Labs: 03/18/17 06:00 03/18/17 06:00 PT 11.3 Seconds (9.9-11.8) 03/16/17 07:50 INR 1.05 (0.93-1.08) 03/16/17 07:50 APTT 66.9 Seconds (23.7-30.8) H 03/16/17 07:50 - Constitutional Appears: Non-toxic, No Acute Distress - Head Exam Head Exam: NORMAL INSPECTION - Eye Exam Eye Exam: Normal appearance - ENT Exam ENT Exam: Mucous Membranes Moist - Respiratory Exam Respiratory Exam: NORMAL BREATHING PATTERN. absent: Accessory Muscle Use, Respiratory Distress - Cardiovascular Exam Cardiovascular Exam: REGULAR RHYTHM. absent: Bradycardia, Tachycardia - GI/Abdominal Exam GI & Abdominal Exam: Soft. absent: Guarding, Rigid, Tenderness, Rebound - Neurological Exam Neurological Exam: Alert, Awake - Psychiatric Exam Psychiatric exam: Normal Affect, Normal Mood - Skin Skin Exam: Normal Color Assessment and Plan - Assessment and Plan (Free Text) Assessment: Patient is a 71 yo female with SBO -SBO - clinically improving -Advance diet to soft and continue to monitor -Monitor for bowel movement. Consider adding colace -UTI - Resolved Will discuss with Dr. Andrew Ulloa DO PGY1
[2017-03-18] MEDS ORDERED: Potassium Chloride 20 mEq ER Tab PO ONE (08:27)
[2017-03-18] MEDS: Enoxaparin 40 mg Syringe SC SCH (10:54)
[2017-03-18] MEDS: Pantoprazole 40 mg EC Tab PO SCH (10:55)
[2017-03-18] MEDS: Latanoprost 2.5 ml Opht Soln OU SCH (23:09)
[2017-03-19 07:32] LABS: BASO # 0.01 K/mm3 (0.0-2.0); BASO % 0.1 % (0.0-3.0); EOS # 0.3 (0.0-0.7); EOS % 3.9 % (1.5-5.0); GRAN # 5.25 (1.4-6.5); GRAN % 75.1 % (50.0-68.0); HEMATOCRIT 34.7 % (36.0-48.0); LYMPH # 0.9 (1.2-3.4); LYMPH % 13.3 % (22.0-35.0); MEAN CELL VOLUME 75.9 fl (80.0-105.0); MEAN CORPUSCULAR HEMOGLOBIN 23.4 pg (25.0-35.0); MEAN CORPUSCULAR HGB CONC 30.8 g/dl (31.0-37.0); MEAN PLATELET VOLUME 8.2 fl (7.0-11.0); MONO # 0.5 (0.1-0.6); MONO % 7.6 % (1.0-6.0)
[2017-03-19 07:38] LABS: BLOOD UREA NITROGEN 12 mg/dL (7-21); CALCIUM 8.6 mg/dL (8.4-10.5); CARBON DIOXIDE 31 mmol/L (21-33); CHLORIDE 97 mmol/L (98-107); GFR AFRICAN-AMERICAN > 60; GLUCOSE,RANDOM 80 mg/dL (70-110); POTASSIUM 3.6 mmol/L (3.6-5.0); SODIUM 137 mmol/L (132-148)
[2017-03-19] MEDS: Pantoprazole 40 mg EC Tab PO SCH (10:10)
[2017-03-19] MEDS: Enoxaparin 40 mg Syringe SC SCH (10:11)
[2017-03-19] MEDS: cefTRIAXone 1 gm 1 GM/100 ML BAG IVPB SCH (10:19)
[2017-03-19] MEDS: POLYETHYLENE GLYCOL 3350 17 GM/Dose PACKET PO SCH (11:22)
--- NOTE | 2017-03-19 14:45 | PN ---
DATE: SUBJECTIVE: Seen on the floor. She is comfortable without pain, without nausea or vomiting. She is passing flatus, has not had a bowel movement and think one is coming. OBJECTIVE: White count remains normal at 7. SMA-18 is normal. ASSESSMENT AND PLAN: I think she has had a ileus related to urinary tract infection that has resolved. We were signed off. Please recall us as necessary. Sacha Morales MD
--- NOTE | 2017-03-19 15:46 | PN ---
DATE: 03/16/2017 SUBJECTIVE: The patient is 71 years old who came to emergency room on 03/16/2017 with abdominal discomfort on the right side, she was found to have small bowel obstruction. There is a 2.5 cm mass in the left lower lobe there was a larger area of consolidation at this site, so the patient has been n.p.o. and was started on fruits, she seems to be tolerating, did not have bowel movement yet. PHYSICAL EXAMINATION VITAL SIGNS: She is afebrile, pulse 72, respirations 20, and blood pressure 129/70. LUNGS: Bilateral fair air flow. No rhonchi or crackles. HEART: S1 and S2 audible. ABDOMEN: Soft and nontender. No rebound. No guarding. She has bowel sounds. LABORATORY DATA: WBC is 7.0, hemoglobin 10.7, hematocrit 34.7, platelets of 312. Chemistry; sodium 37, potassium 3.6, chloride 97, CO2 of 31, BUN 12, creatinine 0.8, blood sugar of 80. Urinalysis shows positive nitrites and her cultures are positive for Enterococcus faecalis, sensitive to ampicillin. ASSESSMENT: 1. Morbid obesity. 2. Partial small bowel obstruction that has seemed to be resolved. 3. History of lung mass. 4. Status post pacemaker placement. 5. Hypertension. 6. Non-Hodgkin's lymphoma. PLAN: The patient is currently on IV antibiotics. We will continue her usual medication. Awaiting bowel movement. She is on DVT prophylaxis. TCU evaluation will be requested because of her deconditioning. We will reevaluate the patient. Yann Dupree MD
[2017-03-19] MEDS: Latanoprost 2.5 ml Opht Soln OU SCH (21:36)
[2017-03-20 07:11] LABS: BLOOD UREA NITROGEN 11 mg/dL (7-21); CALCIUM 8.9 mg/dL (8.4-10.5); CARBON DIOXIDE 32 mmol/L (21-33); CHLORIDE 94 mmol/L (98-107); GFR AFRICAN-AMERICAN > 60; GLUCOSE,RANDOM 83 mg/dL (70-110); POTASSIUM 3.6 mmol/L (3.6-5.0); SODIUM 136 mmol/L (132-148)
[2017-03-20 07:16] LABS: BASO # 0.02 K/mm3 (0.0-2.0); BASO % 0.2 % (0.0-3.0); EOS # 0.3 (0.0-0.7); EOS % 3.3 % (1.5-5.0); GRAN # 6.36 (1.4-6.5); GRAN % 75.6 % (50.0-68.0); HEMATOCRIT 37.7 % (36.0-48.0); LYMPH # 1.2 (1.2-3.4); LYMPH % 13.8 % (22.0-35.0); MEAN CORPUSCULAR HEMOGLOBIN 23.4 pg (25.0-35.0); MEAN CORPUSCULAR HGB CONC 30.8 g/dl (31.0-37.0); MEAN PLATELET VOLUME 8.6 fl (7.0-11.0); MONO # 0.6 (0.1-0.6); MONO % 7.1 % (1.0-6.0); RED CELL DISTRIBUTION WIDTH 17.1 % (11.5-14.5); WHITE BLOOD COUNT 8.4 10^3/ul (4.5-11.0)
[2017-03-20 08:55] VITALS: RESP 18
[2017-03-20] MEDS: Enoxaparin 40 mg Syringe SC SCH (10:03)
[2017-03-20] MEDS: POLYETHYLENE GLYCOL 3350 17 GM/Dose PACKET PO SCH (10:03)
[2017-03-20] MEDS: Pantoprazole 40 mg EC Tab PO SCH (10:04)
[2017-03-20] MEDS: cefTRIAXone 1 gm 1 GM/100 ML BAG IVPB SCH (10:04)
--- NOTE | 2017-03-20 16:46 | PN ---
SUBJECTIVE: The patient is 71-year-old, seen and examined lying in bed, seems to be comfortable and did have bowel movement today. Eating well. No nausea or vomiting. No abdominal pain. PHYSICAL EXAMINATION VITAL SIGNS: She is afebrile, pulse 89, respirations 18, blood pressure 137/82. LUNGS: Bilateral fair air flow. No rhonchi or crackles. HEART: S1 and S2 audible. ABDOMEN: Soft and nontender. No rebound. No guarding. NEUROLOGIC: The patient is awake and alert, able to communicate. LABORATORY DATA: WBC is 8.4, hemoglobin 11.6, hematocrit 37, and platelet 349. Chemistry: Sodium 136, potassium 3.6, chloride 94, CO2 32, BUN 11, creatinine 0.7, blood sugar of 83. Urinalysis shows positive nitrites. Urine culture positive for enterococcus faecalis. ASSESSMENT AND PLAN: 1. Mild bowel obstruction seems to be resolving. 2. Enterococcus faecalis urinary tract infection. 3. Resolved ileus. 4. Morbid obesity. 5. History of left hip osteoarthritis causing her difficulty with walking. 6. Status post pacemaker placement. 7. History of non-Hodgkin's lymphoma. PLAN: Currently, the patient is tolerating her food. We will continue her on current medication. Continue antibiotics. Out of bed to chair. Yann Dupree MD
[2017-03-20] MEDS ORDERED: Dextrose 5%/0.45% NS 1,000 ML IV SCH (17:45)
[2017-03-20] MEDS: Latanoprost 2.5 ml Opht Soln OU SCH (21:17)
[2017-03-21 08:54] VITALS: BP 103/65; PULSE 85; TEMP 98.2; O2SAT 96
[2017-03-21] MEDS: cefTRIAXone 1 gm 1 GM/100 ML BAG IVPB SCH (09:08)
[2017-03-21] MEDS: Pantoprazole 40 mg EC Tab PO SCH (09:09)
[2017-03-21] MEDS: Enoxaparin 40 mg Syringe SC SCH (09:10)
[2017-03-21] MEDS: POLYETHYLENE GLYCOL 3350 17 GM/Dose PACKET PO SCH (09:11)
[2017-03-21] MEDS ORDERED: Heparin 25,000units in D5W 25,000 UNITS/250 ML BAG IV ONE (16:40)
[2017-03-21] MEDS ORDERED: Midazolam 2 MG/2 ML VIAL ONE (17:49)
--- NOTE | 2017-03-22 08:10 | DS ---
HISTORY OF PRESENT ILLNESS: This is a 71-year-old female who had come into the hospital with small bowel obstruction. The patient had conservative management and had improvement of her symptoms. She currently feels well. She has no complaints of any chest pain or shortness of breath. No headaches or dizziness. She is going to be discharged home to follow up as an outpatient. PHYSICAL EXAMINATION: VITAL SIGNS: Temperature 98, pulse 89, blood pressure 137/82, respirations 18, and O2 saturation 94%. GENERAL: The patient is lying in bed, flat, comfortable. HEENT: No oral lesion. Anicteric sclerae. Moist mucosa. NECK: No JVD, adenopathy, or thyromegaly. CARDIOVASCULAR: S1 and S2, regular. No murmurs, rubs, or gallops. LUNGS: Clear to auscultation bilaterally. No wheeze, rales, or rhonchi. ABDOMEN: Bowel sounds are positive, soft, nontender and nondistended. EXTREMITIES: No cyanosis, clubbing or edema. ASSESSMENT: 1. Small bowel obstruction, resolved. 2. Hypokalemia, improved. 3. Iron deficiency anemia. 4. Stage IV non-Hodgkin's lymphoma. 5. Hypertension. 6. Urinary incontinence. 7. Lung mass. 8. Pacemaker. 9. Osteoarthritis of the left hip. 10. Constipation. 11. Gait dysfunction. PLAN: The patient is currently comfortable. I will discontinue the patient's IV fluids. She is going to be on her losartan for hypertension. She is on iron. She is going to continue that. She is receiving Rocephin for antibiotics. The patient has a urine culture that was positive for enterococcus that is sensitive to penicillin. I will give her 1 more dose today and discontinue antibiotics. She is on Zofran as needed. The patient is on a regular diet. Ilan Del Rio MD
== END 2017-03-21 13:00 | disposition home health service (06) | DRG 389 ==
LOC: ED 06:51 → ERH 11:34 → 3RSO 13:06
PROVIDERS: ADMIT Internal Medicine Nephrology; ATTEND Internal Medicine Nephrology
DX: K56.60 Unspecified intestinal obstruction (principal); C85.90 Non-Hodgkin lymphoma, unspecified, unspecified site; N39.0 Urinary tract infection, site not specified; E87.6 Hypokalemia; D50.9 Iron deficiency anemia, unspecified; I10 Essential (primary) hypertension; R32 Unspecified urinary incontinence; R91.8 Other nonspecific abnormal finding of lung field; Z95.0 Presence of cardiac pacemaker; M16.12 Unilateral primary osteoarthritis, left hip; R26.9 Unspecified abnormalities of gait and mobility; E78.00 Pure hypercholesterolemia, unspecified; E66.01 Morbid (severe) obesity due to excess calories; Z86.73 Personal history of transient ischemic attack (TIA), and cerebral infarction without residual deficits; B95.2 Enterococcus as the cause of diseases classified elsewhere; G89.29 Other chronic pain; H40.9 Unspecified glaucoma; H54.61 Unqualified visual loss, right eye, normal vision left eye; Z74.01 Bed confinement status; Z79.82 Long term (current) use of aspirin; Z79.899 Other long term (current) drug therapy; Z87.440 Personal history of urinary (tract) infections; Z87.891 Personal history of nicotine dependence; Z90.710 Acquired absence of both cervix and uterus; Z96.643 Presence of artificial hip joint, bilateral; Z88.6 Allergy status to analgesic agent; Z88.2 Allergy status to sulfonamides; I44.0 Atrioventricular block, first degree; K59.03 Drug induced constipation; T45.1X5A Adverse effect of antineoplastic and immunosuppressive drugs, initial encounter; K56.7 Ileus, unspecified; Z68.34 Body mass index [BMI] 34.0-34.9, adult

== ENCOUNTER 2017-03-25 07:05 | Inpatient (IN) | payer MEDICARE ==
[2017-03-25 07:16] VITALS: BMI 32.3
--- NOTE | 2017-03-25 07:38 | ED PDOC ---
Arrival/HPI - General Time Seen by Provider: 03/25/17 07:07 Historian: Patient - History of Present Illness Narrative History of Present Illness (Text): 03/25/17 07:21 A 71 year old female whose past medical history includes a recent small bowel obstruction, presents to the emergency department with 4-5 day duration persistent and worsening mid abdominal pain. The patient reports a small, non- bloody bowel movement early this morning. She also complains of nausea and decreased appetite for the past several days. Patient's describes possible hematuria. He noted some scant blood in the patient's diaper yesterday. She denies fevers, chills, dizziness, syncope, vomiting, diarrhea, headache, back pain, chest pain, shortness of breath, cough, diaphoresis or any other complaint. 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 - Neurological Hx Neurological Disorder: No Hx Transient Ischemic Attacks (TIA): Yes (2015) Other/Comment: 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 - HEENT Hx HEENT Disorder: Yes (eyeglasses) Hx Glaucoma: Yes (beginning) Other/Comment: partial peripheral vision loss r eye - Renal Hx Renal Disorder: No - Endocrine/Metabolic Hx Endocrine Disorders: No - Hematological/Oncological Hx Anemia: Yes (post hip sx iron infusions.blood transfusion) Hx Cancer: Yes Hx Chemotherapy: Yes Hx Metastasis: No Hx Shingles: No Other/Comment: pt dx with non hodgkins lymphoma 2012, had chemo 1 cycle, reaccurred 11/2013, had chemo, reaccurred 11/2016 presently receiving chemo 1 tx a week x 4 wk's had one treatment 3 more to go - Integumentary Other/Comment: left buttock 1cm round opening st 1 wound bed red surrounding skin reddened, ble dry brown discolored skin, difficulty turning due to left hip pain - Musculoskeletal/Rheumatological Hx Falls: Yes (past) - Gastrointestinal Hx Gastrointestinal Disorders: Yes (constipation assoc with chemo) - Genitourinary/Gynecological Hx Incontinence: Yes Hx Urinary Tract Infection: Yes Other/Comment: 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 - Psychiatric Hx Substance Use: No - Surgical History Hx Cardiac Catheterization: Yes Hx Hysterectomy: Yes (complete) Hx Joint Replacement: Yes (right hip 2016) Other/Comment: pacemaker 2010 - Anesthesia Hx Anesthesia Reactions: No Hx Malignant Hyperthermia: No - Suicidal Assessment Feels Threatened In Home Enviroment: No Family/Social History - Physician Review Nursing Documentation Reviewed: Yes Family/Social History: No Known Family HX Smoking Status: Former Smoker Hx Alcohol Use: No Hx Substance Use: No Hx Substance Use Treatment: No Allergies/Home Meds Allergies/Adverse Reactions: Allergies ibuprofen Allergy (Severe, Verified 03/16/17 07:05) .MOUTH SORES Sulfa (Sulfonamide Antibiotics) Allergy (Unknown, Verified 03/16/17 07:05) UNKNOWN ALLERGY A CHILD UNKNOWN REACTION Home Medications: Home Meds Medication Instructions Recorded Confirmed Iron,Carbonyl [Feosol] 45 mg PO DAILY 10/14/16 03/25/17 Losartan/Hydrochlorothiazide 1 tab PO DAILY 10/14/16 03/25/17 [Losartan-Hctz 100-25 mg Tab] Travoprost [Travatan Z] 1 drop OU HS 10/14/16 03/25/17 Aspirin [Ecotrin] 81 mg PO DAILY 02/09/17 03/25/17 Review of Systems - Review of Systems Constitutional: absent: Fevers, Night Sweats Respiratory: absent: SOB Cardiovascular: absent: Chest Pain, Syncope Gastrointestinal: Abdominal Pain (mid abdomnal pain), Nausea, Appetite Changes ( decreased appetite). absent: Diarrhea, Vomiting Genitourinary Female: Hematuria Musculoskeletal: absent: Back Pain Neurological: absent: Headache, Dizziness Endocrine: absent: Diaphoresis Physical Exam - Physical Exam Narrative Physical Exam (Text): Head: Atraumatic. Normocephalic. Eyes: PERRL. EOMI. Conjunctivae are not pale. ENT: Mucous membranes are moist and intact. Oropharynx is clear and symmetric. Neck: Supple. Full ROM. No JVD. No lymphadenopathy. Cardiovascular: Regular rate. Regular rhythm. No murmurs, rubs, or gallops. Distal pulses are 2+ and symmetric. Pulmonary/Chest: No evidence of respiratory distress. Clear to auscultation bilaterally. No wheezing, rales or rhonchi. Abdominal: Distended with hypoactive bowel sounds. Diffuse, moderate tenderness on palpation. No rebound, guarding, or rigidity. No organomegaly. Rectal: No gross bleeding. Genitourinary: No external lesions or active bleeding. Back: No CVA tenderness. Extremities: Bilateral non-pitting edema. No cyanosis. No clubbing. Full range of motion in all extremities. No calf tenderness. Skin: Skin is warm and dry. No petechiae. No purpura. Neurological: Alert, awake, and oriented to person, place, time, and situation. Normal speech. Psychiatric: Good eye contact. Normal interaction, affect, and behavior. Vital Signs Reviewed: Yes Vital Signs Temp Pulse Resp BP Pulse Ox 03/25/17 10:37 88 18 107/61 100 03/25/17 09:40 98.2 F 91 H 18 112/61 100 03/25/17 07:16 98.1 F 93 H 18 130/71 99 Temperature: Afebrile Blood Pressure: Normal Pulse: Tachycardic Respiratory Rate: Normal Appearance: Positive for: Well-Appearing, Non-Toxic, Comfortable Pain Distress: None Mental Status: Positive for: Alert and Oriented X 3 Medical Decision Making ED Course and Treatment: 03/25/17 07:32 Impression: A 71 year old female with a complaint of 4-5 day duration mid abdominal pain with associated nausea and loss of appetite and scant blood in her diaper ( noted by patient's ). Differential Diagnosis included but are not limited to: Bowel Obstruction vs. Bowel Neoplasm vs. UTI vs. Gastritis Plan: -- EKG -- Chest X-ray -- Abdomen/Pelvis CT -- IV Fluids -- Urinalysis -- Labs -- Reassess and disposition Prior Visits: Notes and results from previous visits were reviewed. Patient was last seen in the emergency department on 03/16/17 for a small bowel obstruction. The patient was managed conservatively and discharged home on 03/21/2017. Progress Notes: Patient on initial evaluation states pain controlled and minimal while at rest, although symptoms have been progressively worsening since discharge earlier in the week. Abdomen is diffusely tender. She reports more focal pain in ther upper quadrants. CT ordered to re-evaluate prior recent bowel obstruction. Patient with no chest pain or sob. EKG unremarkable. EKG: Ordered, reviewed, and independently interpreted the EKG. Rate : 95 BPM Rhythm : NSR Interpretation : 1st degree AV block, left axis deviation, anterolateral infarct of undetermined age. CT Abdomen and Pelvis without intravenous contrast Dictator : Lb Garcia MD Report Date : 03/25/2017 08:53:42 IMPRESSION: Severe small bowel obstruction which has increased. See comments Patient on re-evaluation with no nausea, pain controlled. Surgery consulted. Patient kept NPO with iv fluids. 03/25/17 09:05: Case discussed with vice president quality. 03/25/17 09:14: Case discussed with Dr. Del Rio. Accepts patient to his service. LFTs noted to be elevated when compared to recent labs. Given focal upper abdominal pain, ultrasound ordered. 03/25/17 10:15: US report reviews. Suspected component of biliary colic given by urinary enzymes and focal pain. Patient has a UTI and will be initiated on antibiotics. US Abdomen/Pelvis Dictator : Tho Chaudhari MD Report Date : 03/25/2017 09:21:09 IMPRESSION: 1. A distended gallbladder is identified filled with sludge and likely small gallstones or polyps at the dependent portion. Mural thickening is appreciate diffusely but no pericholecystic fluid collection is evident and the common bile duct is normal in caliber. No choledocholithiasis demonstrated. No sonographic Ren sign. Clinically correlate for potential cholecystitis nevertheless. 2. Incomplete imaging of the pancreas. 3. The remainder the examination appears unremarkable CHEST RADIOGRAPH, 1 VIEW Dictator : Lb Garcia MD Report Date : 03/25/2017 10:05:08 IMPRESSION: There is a decrease in the size of the nodular density adjacent to the right hilum. There is also improvement in the left lower lobe infiltrate seen previously 'I reviewed case with Dr. Karishma Morales, surgery, patient admitted. Suspect bowel obstruction associated with possible biliary colic, UTI. Patient admitted, no nausea or severe pain while in ED. - Lab Interpretations Lab Results: 03/25/17 07:30 03/25/17 07:30 Lab Results 03/25/17 07:40: Urine Color Yellow, Urine Appearance Turbid, Urine pH 5.5, Ur Specific Aurora 1.025, Urine Protein Trace H, Urine Glucose (UA) Negative, Urine Ketones 15 H, Urine Blood Small H, Urine Nitrate Negative, Urine Bilirubin Moderate H, Urine Urobilinogen 0.2, Ur Leukocyte Esterase Moderate H, Urine RBC 0 - 2, Urine WBC Tntc, Urine Bacteria Few 03/25/17 07:30: pO2 59 H, VBG pH 7.45 H, VBG pCO2 50.0, VBG HCO3 34.8 H, VBG Total CO2 36.3 H, VBG O2 Sat (Calc) 94.2 H, VBG Base Excess 9.2 H, VBG Potassium 3.3 L, Sodium 133.0, Chloride 90.0 L, Glucose 99, Lactate 1.2, FiO2 21.0, Venous Blood Potassium 3.3 L 03/25/17 07:30: Sodium 134, Chloride 89 L, Potassium 3.6, Carbon Dioxide 31, Anion Gap 18, BUN 30 H, Creatinine 1.0, Est GFR ( Amer) > 60, Est GFR ( Non-Af Amer) 55, Random Glucose 98, Calcium 9.3, Total Bilirubin 0.7, AST 90 H, ALT 177 H, Alkaline Phosphatase 466 H, Lactate Dehydrogenase 371, Total Creatine Kinase < 20 L, Troponin I < 0.01, Total Protein 6.5, Albumin 3.7, Globulin 2.8, Albumin/Globulin Ratio 1.3 03/25/17 07:30: PT 11.0, INR 1.02, APTT 32.4 H 03/25/17 07:30: WBC 8.3, RBC 4.91, Hgb 11.7 L, Hct 37.1, MCV 75.6 L, MCH 23.8 L , MCHC 31.5, RDW 17.2 H, Plt Count 406, MPV 8.7, Gran % 75.6 H, Lymph % (Auto) 14.6 L, Waller % (Auto) 9.2 H, Eos % (Auto) 0.5 L, Baso % (Auto) 0.1, Gran # 6.26 , Lymph # 1.2, Waller # 0.8 H, Eos # 0.0, Baso # 0.01 I have reviewed the lab results: Yes - RAD Interpretation Radiology Orders: 03/25/17 07:39 ABD & PELVIS W/O PO OR IV CONT [CT] Stat 03/25/17 07:40 CHEST ONE VIEW [RAD] Stat 03/25/17 08:19 ABDOMEN COMPLETE [US] Stat - EKG Interpretation Interpreted by ED Physician: Yes Type: 12 lead EKG - Medication Orders Current Medication Orders: Aspirin (Aspirin Chewable) 81 mg PO DAILY [facility] Last Admin: 03/26/17 09:54 Dose: 81 mg Lactated Ringer's (Lactated Ringer's) 1,000 mls @ 100 mls/hr IV .Q10H [facility] Last Admin: 03/27/17 06:19 Dose: 100 mls/hr Latanoprost (Xalatan Opht) 0 ml OU HS [facility] Last Admin: 03/26/17 21:13 Dose: 2.5 ml Losartan Potassium (Cozaar) 25 mg PO DAILY [facility] Last Admin: 03/26/17 09:52 Dose: 25 mg Morphine Sulfate (Morphine) 4 mg IVP Q4H PRN PRN Reason: Pain, moderate (4-7) Nystatin (Nystop Topical Powder) 1 gm TOP BID PHI Discontinued Medications Sodium Chloride (Sodium Chloride 0.9%) 1,000 mls @ 100 mls/hr IV .Q10H [facility] Last Admin: 03/26/17 02:46 Dose: 100 mls/hr Ceftriaxone Sodium (Rocephin 1 Gram Ivpb) 1 gm in 100 mls @ 200 mls/hr IVPB ONCE STA PRN Reason: Protocol Stop: 03/25/17 10:35 Last Admin: 03/25/17 10:15 Dose: 200 mls/hr Nystatin (Nystop Topical Powder) 1 gm TOP TID [facility] Last Admin: 03/26/17 15:13 Dose: 1 unit Ondansetron HCl (Zofran Inj) 4 mg IVP STAT STA Stop: 03/25/17 23:14 Last Admin: 03/25/17 23:26 Dose: 4 mg Pantoprazole Sodium (Protonix Inj) 40 mg IVP STAT STA Stop: 03/25/17 23:14 Last Admin: 03/25/17 23:26 Dose: 40 mg Potassium Chloride (Potassium Chloride Oral Soln) 40 meq PO STAT STA Stop: 03/26/17 10:16 Last Admin: 03/26/17 10:47 Dose: 40 meq Potassium Chloride (K-Dur 20 Meq Er Tab) 40 meq PO STAT STA Stop: 03/26/17 11:46 Last Admin: 03/26/17 12:44 Dose: 40 meq - Scribe Statement The provider has reviewed the documentation as recorded by the Kaden Arellano Provider Kaden Attestation: All medical record entries made by the Kaden were at my direction and personally dictated by me. I have reviewed the chart and agree that the record accurately reflects my personal performance of the history, physical exam, medical decision making, and the department course for this patient. I have also personally directed, reviewed, and agree with the discharge instructions and disposition. Disposition/Present on Arrival - Present on Arrival Any Indicators Present on Arrival: No History of DVT/PE: No History of Uncontrolled Diabetes: No Urinary Catheter: No History Surgical Site Infection Following: None - Disposition Have Diagnosis and Disposition been Completed?: Yes Diagnosis: Small bowel obstruction, Elevated liver enzymes, Abdominal pain, UTI (urinary tract infection) Disposition: HOSPITALIZED Disposition Time: 09:00 Patient Plan: Admission Patient Problems: Current Active Problems Problem Status Onset Abdominal pain Acute Elevated liver enzymes Acute Small bowel obstruction Acute UTI (urinary tract infection) Acute Condition: SERIOUS
[2017-03-25 07:50] LABS: VENOUS BLOOD GAS BASE EXCESS 9.2 mmol/L (0.0-2.0); VENOUS BLOOD PH 7.45 (7.32-7.43)
[2017-03-25 07:51] LABS: BASO # 0.01 K/mm3 (0.0-2.0); BASO % 0.1 % (0.0-3.0); EOS % 0.5 % (1.5-5.0); GRAN # 6.26 (1.4-6.5); GRAN % 75.6 % (50.0-68.0); HEMATOCRIT 37.1 % (36.0-48.0); LYMPH # 1.2 (1.2-3.4); LYMPH % 14.6 % (22.0-35.0); MEAN CELL VOLUME 75.6 fl (80.0-105.0); MEAN CORPUSCULAR HEMOGLOBIN 23.8 pg (25.0-35.0); MEAN CORPUSCULAR HGB CONC 31.5 g/dl (31.0-37.0); MEAN PLATELET VOLUME 8.7 fl (7.0-11.0); MONO # 0.8 (0.1-0.6); MONO % 9.2 % (1.0-6.0); RED CELL DISTRIBUTION WIDTH 17.2 % (11.5-14.5); WHITE BLOOD COUNT 8.3 10^3/ul (4.5-11.0)
[2017-03-25] MEDS: Sodium Chloride 0.9% 1,000 ML IV SCH (07:56)
[2017-03-25 08:02] LABS: ALB/GLOB RATIO 1.3 (1.1-1.8); ALKALINE PHOSPHATASE 466 U/L (38-133); ALT/SGPT 177 U/L (7-56); AST/SGOT 90 U/L (15-39); BILIRUBIN,TOTAL 0.7 mg/dL (0.2-1.3); BLOOD UREA NITROGEN 30 mg/dL (7-21); CALCIUM 9.3 mg/dL (8.4-10.5); CARBON DIOXIDE 31 mmol/L (21-33); CHLORIDE 89 mmol/L (98-107); GFR AFRICAN-AMERICAN > 60; GLUCOSE,RANDOM 98 mg/dL (70-110); POTASSIUM 3.6 mmol/L (3.6-5.0); SODIUM 134 mmol/L (132-148); TOTAL PROTEIN 6.5 g/dL (5.8-8.3)
[2017-03-25 08:04] LABS: INR 1.02 (0.93-1.08); PARTIAL THROMBOPLASTIN TIME 32.4 Seconds (23.7-30.8)
[2017-03-25 08:17] LABS: TROPONIN I < 0.01 ng/mL
--- NOTE | 2017-03-25 08:55 | CT ---
PROCEDURE: CT Abdomen and Pelvis without intravenous contrast HISTORY: abdomnal pain, recent bowel obstruction COMPARISON: 03/16/2017 TECHNIQUE: Without contrast. Contrast Dose: Radiation dose: Total exam DLP = 1186 mGy-cm. This CT exam was performed using one or more of the following dose reduction techniques: Automated exposure control, adjustment of the mA and/or kV according to patient size, and/or use of iterative reconstruction technique. FINDINGS: LOWER THORAX: The masslike consolidation in the left lower lobe has decreased in size now measuring 18 mm previously 25 mm. LIVER: Unremarkable. No gross lesion or ductal dilatation. GALLBLADDER AND BILE DUCTS: Unremarkable. PANCREAS: Unremarkable. No gross lesion or ductal dilatation. SPLEEN: Unremarkable. ADRENALS: Unremarkable. No mass. KIDNEYS AND URETERS: Unremarkable. No hydronephrosis. No solid mass. VASCULATURE: Unremarkable. No aortic aneurysm. BOWEL: There is severe small bowel obstruction which has increased. Dilated small bowel loops measure up to 4.4 cm in diameter. Previously the largest loops were 2.8 cm in diameter. Collapsed nondilated loops of small bowel are seen in the right lower quadrant. The exact transition point is not identified. There is no evidence of pneumatosis or free air. The stomach is not significantly dilated. The colon is decompressed APPENDIX: Unremarkable. Normal appendix. PERITONEUM: Unremarkable. No free fluid. No free air. LYMPH NODES: Unremarkable. No enlarged lymph nodes. BLADDER: Unremarkable. REPRODUCTIVE: Unremarkable. BONES: No acute fracture. OTHER FINDINGS: None. IMPRESSION: Severe small bowel obstruction which has increased. See comments
--- NOTE | 2017-03-25 09:22 | US ---
HISTORY: elevated lfts, abdominal pain COMPARISON: Unenhanced abdomen and pelvis CT examination 03/25/2017 TECHNIQUE: Sonographic evaluation of the abdomen. FINDINGS: LIVER: Measures 16.6 cm. Normal echogenicity of the liver parenchyma. No mass. No intrahepatic bile duct dilatation. GALLBLADDER: The gallbladder appears distended with mural thickening up to 3.6 mm. Sludge is seen filling the gallbladder lumen with occasional calculi or polyps are suspected at the dependent portion. No pericholecystic fluid collection is appreciated and there is no reactive change seen surrounding gallbladder in the priors and pelvis CT pole also performed 03/25/2017. There is no sonographic Ren's sign. COMMON BILE DUCT: Measures 3.3 mm. No stones. No dilatation. PANCREAS: Pancreas is incompletely captured in this exam with the proximal body appear unremarkable. The pancreas appeared normal in prior and pelvis CT with contrast 03/16/2017, not dramatically changed in subsequent and pelvis CT exam noted above. RIGHT KIDNEY: Measures 10.4cm. Mild cortical atrophy is identified. No calculus, mass, or hydronephrosis. LEFT KIDNEY: Measures 9.4cm. Mild cortical atrophy is identified. No calculus, mass, or hydronephrosis. SPLEEN: Normal in size and contour. No mass. AORTA: No aneurysmal dilatation. IVC: Unremarkable. OTHER FINDINGS: None. IMPRESSION: 1. A distended gallbladder is identified filled with sludge and likely small gallstones or polyps at the dependent portion. Mural thickening is appreciate diffusely but no pericholecystic fluid collection is evident and the common bile duct is normal in caliber. No choledocholithiasis demonstrated. No sonographic Ren sign. Clinically correlate for potential cholecystitis nevertheless. 2. Incomplete imaging of the pancreas. 3. The remainder the examination appears unremarkable
[2017-03-25 09:51] LABS: PH,URINE 5.5 (4.7-8.0); URINE BILIRUBIN MODERATE (NEGATIVE); URINE BLOOD SMALL (NEGATIVE); URINE GLUCOSE (UA) NEGATIVE (NEGATIVE); URINE KETONE 15 mg/dL (NEGATIVE); URINE LEUKOCYTE ESTERASE MODERATE Leu/uL (NEGATIVE); URINE PROTEIN TRACE mg/dL (<30 mg/dL); URINE UROBILINOGEN 0.2 E.U./dL (<1 E.U./dL)
[2017-03-25 09:56] LABS: URINE APPEARANCE TURBID (CLEAR); URINE COLOR YELLOW (YELLOW)
[2017-03-25] MEDS ORDERED: cefTRIAXone 1 gm 100 ML IVPB STA (10:04)
[2017-03-25] MEDS ORDERED: cefTRIAXone 1 gm 1 GM/100 ML BAG IVPB STA (10:06)
--- NOTE | 2017-03-25 10:06 | RAD ---
PROCEDURE: CHEST RADIOGRAPH, 1 VIEW HISTORY: weakness COMPARISON: 02/16/2017 FINDINGS: LUNGS: There is a decrease in the size of the nodular density adjacent to the right hilum. There is also improvement in the left lower lobe infiltrate seen previously PLEURA: No pneumothorax or pleural fluid seen. CARDIOVASCULAR: Normal. OSSEOUS STRUCTURES: No significant abnormalities. VISUALIZED UPPER ABDOMEN: Normal. OTHER FINDINGS: Right-sided Port-A-Cath. Dual lead pacemaker IMPRESSION: There is a decrease in the size of the nodular density adjacent to the right hilum. There is also improvement in the left lower lobe infiltrate seen previously
[2017-03-25 10:15] LABS: URINE BACTERIA FEW (NEG); URINE RBC 0 - 2 /hpf (0-2); URINE WBC TNTC /hpf (0-6)
--- NOTE | 2017-03-25 11:39 | CP.PCM.CON ---
History of Present Illness - History of Present Illness History of Present Illness: General Surgery Consult: Dr. Morales 71 yo F presented to ED 03/25/17 with complaints of abdominal pain, nausea, and vomiting since last night. Recently discharged from [facility] on 03/22/17 after being treated for ileus and urinary tract infection (culture + for enterococcus). Today, pt admits to bilious, non-bloody vomiting x3 and nausea since 11pm last night. Abdominal pain is epigastric in nature, though occasionally localizes to the left side. Pain currently 3/10; 6/10 at its worst. BMs on Mon, Tues, Thurs, all soft in nature though not watery. Admits anorexia, nausea, vomiting, dysuria , hematuria; denies fever, chills, diarrhea, flank pain, blood in stool. 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 - NEUROLOGICAL Hx Neurological Disorder: No Hx Transient Ischemic Attacks (TIA): Yes (2015) Other/Comment: 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 - HEENT Hx HEENT Problems: Yes (eyeglasses) Hx Glaucoma: Yes (beginning) Other/Comment: partial peripheral vision loss r eye - RENAL Hx Chronic Kidney Disease: No - ENDOCRINE/METABOLIC Hx Endocrine Disorders: No - HEMATOLOGICAL/ONCOLOGICAL Hx Anemia: Yes (post hip sx iron infusions.blood transfusion) Hx Cancer: Yes Hx Chemotherapy: Yes Hx Metastesis: No Hx Shingles: No Other/Comment: pt dx with non hodgkins lymphoma 2012, had chemo 1 cycle, reaccurred 11/2013, had chemo, reaccurred 11/2016 presently receiving chemo 1 tx a week x 4 wk's had one treatment 3 more to go - INTEGUMENTARY Other/Comment: left buttock 1cm round opening st 1 wound bed red surrounding skin reddened, ble dry brown discolored skin, difficulty turning due to left hip pain - MUSCULOSKELETAL/RHEUMATOLOGICAL Hx Falls: Yes (past) - GASTROINTESTINAL Hx Gastrointestinal Disorders: Yes (constipation assoc with chemo) - GENITOURINARY/GYNECOLOGICAL Hx Incontinence: Yes Hx Urinary Tract Infection: Yes Other/Comment: 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 - PSYCHIATRIC Hx Substance Use: No - SURGICAL HISTORY Hx Cardiac Catheterization: Yes Hx Hysterectomy: Yes (complete) Hx Joint Replacement: Yes (right hip 2016) Other/Comment: pacemaker 2010 - ANESTHESIA Hx Anesthesia Reactions: No Hx Malignant Hyperthermia: No Meds Allergies/Adverse Reactions: Allergies Allergy/AdvReac Type Severity Reaction Status Date / Time ibuprofen Allergy Severe .MOUTH Verified 03/16/17 07:05 SORES Sulfa (Sulfonamide Allergy Unknown UNKNOWN Verified 03/16/17 07:05 Antibiotics) - Medications Medications: Current Medications Sodium Chloride (Sodium Chloride 0.9%) 1,000 mls @ 100 mls/hr IV .Q10H [facility] Last Admin: 03/25/17 07:56 Dose: 100 mls/hr Physical Exam - Constitutional Appears: Non-toxic, No Acute Distress - Head Exam Head Exam: ATRAUMATIC, NORMOCEPHALIC - Eye Exam Eye Exam: EOMI. absent: Conjunctival injection - ENT Exam ENT Exam: Mucous Membranes Moist - Respiratory Exam Respiratory Exam: Clear to Auscultation Bilateral, NORMAL BREATHING PATTERN. absent: Rales, Rhonchi, Wheezes - Cardiovascular Exam Cardiovascular Exam: RRR, +S1, +S2. absent: Bradycardia, Tachycardia - GI/Abdominal Exam GI & Abdominal Exam: Distended, Soft, Tenderness. absent: Guarding, Rebound, Rigid Additional comments: hyperactive BS in RUQ and LUQ, tinkling BS in RLQ and LLQ, negative murphys sign, mildly distended, nontympanitic, diffusely ttp, worst with deep periumbilical palpation - Extremities Exam Extremities exam: Positive for: full ROM, pedal edema Additional comments: non-pitting pedal edema - Back Exam Back exam: absent: CVA tenderness (L), CVA tenderness (R) - Neurological Exam Neurological exam: Alert, CN II-XII Intact, Oriented x3 - Psychiatric Exam Psychiatric exam: Normal Affect, Normal Mood - Skin Skin Exam: Dry, Intact, Normal Color, Warm Results - Vital Signs Recent Vital Signs: Last Vital Signs Temp 98.2 F 03/25/17 09:40 Pulse 88 08/25/17 10:37 Resp 18 03/25/17 10:37 BP 107/61 03/25/17 10:37 Pulse Ox 100 03/25/17 10:37 - Labs Result Diagrams: 03/25/17 07:30 03/25/17 07:30 Assessment & Plan - Assessment and Plan (Free Text) Assessment: 71 yo F with PMH: HTN, non-hodgkins lymphoma stage IV, L hip arthritis, presenting for evaluation of SBO. Plan: 1. NPO 2. NGT if vomiting persists 3. Continue IVF 4. Pain mgmt PRN 5. Monitor BM/flatus 6. Serial Abdominal exams 7. IV Abx for UTI Will discuss with Dr. Morales. Bettye Ulloa, PGY 1
--- NOTE | 2017-03-25 15:28 | CARD ---
APPROVED REPORT EKG Measurement Heart [id number] <Conclusion> Sinus rhythm with 1st degree AV block Left axis deviation Anterolateral infarct, age undetermined Abnormal ECG
[2017-03-25] MEDS: Nystatin 100,000 Units/gm Topical Pow(15 gm) TOP SCH (18:00)
[2017-03-25] MEDS: Latanoprost 2.5 ml Opht Soln OU SCH (21:54)
--- NOTE | 2017-03-25 23:26 | CP.PCM.PN ---
Subjective - Date & Time of Evaluation Date of Evaluation: 03/25/17 Time of Evaluation: 23:14 - Subjective Subjective: Patient was seen at bedside for nausea, is on morphine but did not receive any today. Did not consume any unusual food. She is allergic to sulfa, ibuprofen. Has nausea for past hour. Denies chest pain , sob, sweating, palpitation. Has no other complaints. ROS:Negative except as mentioned above. Medical record was reviewed. This 71 year old woman was admitted with abdominal pain, nausea , anorexia of several days duration. Has PMH of recent small bowel obstruction, obesity, HTN, PPM, cardiac arrhythmia , leg edema, lung mass, TIA,anemia, Non Hodgkin's lymphoma, glaucoma. Objective - Vital Signs/Intake and Output Vital Signs (last 24 hours): Temp Pulse Resp BP Pulse Ox 97.8 F 82 20 130/69 98 03/25/17 16:00 03/25/17 16:00 03/25/17 16:00 03/25/17 16:00 03/25/17 16:00 Intake and Output: 03/25/17 03/26/17 18:59 06:59 Intake Total 240 Balance 240 - Medications Medications: Current Medications Aspirin (Aspirin Chewable) 81 mg PO DAILY [facility] Sodium Chloride (Sodium Chloride 0.9%) 1,000 mls @ 100 mls/hr IV .Q10H [facility] Last Admin: 03/25/17 07:56 Dose: 100 mls/hr Latanoprost (Xalatan Opht) 0 ml OU HS [facility] Last Admin: 03/25/17 21:54 Dose: 1 ml Losartan Potassium (Cozaar) 25 mg PO DAILY [facility] Morphine Sulfate (Morphine) 4 mg IVP Q4H PRN PRN Reason: Pain, moderate (4-7) Nystatin (Nystop Topical Powder) 1 gm TOP TID [facility] Last Admin: 03/25/17 18:00 Dose: 1 unit Ondansetron HCl (Zofran Inj) 4 mg IVP STAT STA Stop: 03/25/17 23:14 Pantoprazole Sodium (Protonix Inj) 40 mg IVP STAT STA Stop: 03/25/17 23:14 - Labs Labs: PT 11.0 Seconds (9.9-11.8) 03/25/17 07:30 INR 1.02 (0.93-1.08) 03/25/17 07:30 APTT 32.4 Seconds (23.7-30.8) H 03/25/17 07:30 Most Recent Lab Values WBC 8.3 10^3/ul (4.5-11.0) 03/25/17 07:30 RBC 4.91 10^6/uL (3.5-6.1) 03/25/17 07:30 Hgb 11.7 g/dL (12.0-16.0) L 03/25/17 07:30 Hct 37.1 % (36.0-48.0) 03/25/17 07:30 MCV 75.6 fl (80.0-105.0) L 03/25/17 07:30 MCH 23.8 pg (25.0-35.0) L 03/25/17 07:30 MCHC 31.5 g/dl (31.0-37.0) 03/25/17 07:30 RDW 17.2 % (11.5-14.5) H 03/25/17 07:30 Plt Count 406 10^3/uL (120.0-450.0) 03/25/17 07:30 MPV 8.7 fl (7.0-11.0) 03/25/17 07:30 Gran % 75.6 % (50.0-68.0) H 03/25/17 07:30 Lymph % (Auto) 14.6 % (22.0-35.0) L 03/25/17 07:30 [place] % (Auto) 9.2 % (1.0-6.0) H 03/25/17 07:30 Eos % (Auto) 0.5 % (1.5-5.0) L 03/25/17 07:30 Baso % (Auto) 0.1 % (0.0-3.0) 03/25/17 07:30 Gran # 6.26 (1.4-6.5) 03/25/17 07:30 Lymph # 1.2 (1.2-3.4) 03/25/17 07:30 [place] # 0.8 (0.1-0.6) H 03/25/17 07:30 Eos # 0.0 (0.0-0.7) 03/25/17 07:30 Baso # 0.01 K/mm3 (0.0-2.0) 03/25/17 07:30 PT 11.0 Seconds (9.9-11.8) 03/25/17 07:30 INR 1.02 (0.93-1.08) 03/25/17 07:30 APTT 32.4 Seconds (23.7-30.8) H 03/25/17 07:30 pO2 59 mm/Hg (30-55) H 03/25/17 07:30 VBG pH 7.45 (7.32-7.43) H 03/25/17 07:30 VBG pCO2 50.0 (40-60) 03/25/17 07:30 VBG HCO3 34.8 mmol/l (21-28) H 03/25/17 07:30 VBG Total CO2 36.3 mmol.L (22-28) H 03/25/17 07:30 VBG O2 Sat (Calc) 94.2 % (40-65) H 03/25/17 07:30 VBG Base Excess 9.2 mmol/L (0.0-2.0) H 03/25/17 07:30 VBG Potassium 3.3 mmol/L (3.6-5.2) L 03/25/17 07:30 Sodium 133.0 mmol/L (132-148) 03/25/17 07:30 Chloride 90.0 mmol/L (98-107) L 03/25/17 07:30 Glucose 99 mg/dl (65-105) 03/25/17 07:30 Lactate 1.2 mmol/L (0.7-2.1) 03/25/17 07:30 FiO2 21.0 % 03/25/17 07:30 Sodium 134 mmol/L (132-148) 03/25/17 07:30 Potassium 3.6 mmol/L (3.6-5.0) 03/25/17 07:30 Chloride 89 mmol/L (98-107) L 03/25/17 07:30 Carbon Dioxide 31 mmol/L (21-33) 03/25/17 07:30 Anion Gap 18 (10-20) 03/25/17 07:30 BUN 30 mg/dL (7-21) H 03/25/17 07:30 Creatinine 1.0 mg/dL (0.5-1.4) 03/25/17 07:30 Est GFR ( Amer) > 60 03/25/17 07:30 Est GFR (Non-Af Amer) 55 03/25/17 07:30 Random Glucose 98 mg/dL (70-110) 03/25/17 07:30 Calcium 9.3 mg/dL (8.4-10.5) 03/25/17 07:30 Total Bilirubin 0.7 mg/dL (0.2-1.3) 03/25/17 07:30 AST 90 U/L (15-39) H 03/25/17 07:30 ALT 177 U/L (7-56) H 03/25/17 07:30 Alkaline Phosphatase 466 U/L (38-133) H 03/25/17 07:30 Lactate Dehydrogenase 371 U/L (333-699) 03/25/17 07:30 Total Creatine Kinase < 20 U/L (35-230) L 03/25/17 07:30 Troponin I < 0.01 ng/mL 03/25/17 07:30 Total Protein 6.5 g/dL (5.8-8.3) 03/25/17 07:30 Albumin 3.7 g/dL (3.0-4.8) 03/25/17 07:30 Globulin 2.8 gm/dL 03/25/17 07:30 Albumin/Globulin Ratio 1.3 (1.1-1.8) 03/25/17 07:30 Procalcitonin 0.34 NG/ML (0.19-0.49) 03/25/17 09:47 Venous Blood Potassium 3.3 mmol/L (3.6-5.2) L 03/25/17 07:30 Urine Color Yellow (YELLOW) 03/25/17 07:40 Urine Appearance Turbid (CLEAR) 03/25/17 07:40 Urine pH 5.5 (4.7-8.0) 03/25/17 07:40 Ur Specific [place] 1.025 (1.005-1.035) 03/25/17 07:40 Urine Protein Trace mg/dL (<30 mg/dL) H 03/25/17 07:40 Urine Glucose (UA) Negative mg/dL (NEGATIVE) 03/25/17 07:40 Urine Ketones 15 mg/dL (NEGATIVE) H 03/25/17 07:40 Urine Blood Small (NEGATIVE) H 03/25/17 07:40 Urine Nitrate Negative (NEGATIVE) 03/25/17 07:40 Urine Bilirubin Moderate (NEGATIVE) H 03/25/17 07:40 Urine Urobilinogen 0.2 E.U./dL (<1 E.U./dL) 03/25/17 07:40 Ur Leukocyte Esterase Moderate Main/uL (NEGATIVE) H 03/25/17 07:40 Urine RBC 0 - 2 /hpf (0-2) 03/25/17 07:40 Urine WBC Tntc /hpf (0-6) 03/25/17 07:40 Urine Bacteria Few (NEG) 03/25/17 07:40 - Constitutional Appears: Well, No Acute Distress - Head Exam Head Exam: ATRAUMATIC, NORMAL INSPECTION, NORMOCEPHALIC - Eye Exam Eye Exam: Normal appearance - ENT Exam ENT Exam: Normal External Ear Exam - Neck Exam Neck Exam: Normal Inspection - Respiratory Exam Respiratory Exam: NORMAL BREATHING PATTERN - Cardiovascular Exam Cardiovascular Exam: absent: JVD - GI/Abdominal Exam GI & Abdominal Exam: Soft, Normal Bowel Sounds. absent: Distended, Firm, Guarding, Rigid, Tenderness, Hernia, Mass, Pulsatile Mass, Rebound - Rectal Exam Rectal Exam: Deferred - Exam Additional comments: Deferred. - Extremities Exam Extremities Exam: Normal Inspection - Back Exam Back Exam: NORMAL INSPECTION - Neurological Exam Neurological Exam: Alert, Oriented x3 - Psychiatric Exam Psychiatric exam: Normal Affect, Normal Mood - Skin Skin Exam: Normal Color Assessment and Plan - Assessment and Plan (Free Text) Assessment: Nausea. Recent small bowel obstruction history. Anorexia. Abdominal pain. Non Hodgkin's lymphoma. Lung mass. Glaucoma. Plan: Zofran 4 mg IV now. Protonix 40 mg IV now. Continue present management.
[2017-03-26] MEDS: Sodium Chloride 0.9% 1,000 ML IV SCH (02:46)
--- NOTE | 2017-03-26 07:18 | CP.PCM.PN ---
Subjective - Date & Time of Evaluation Date of Evaluation: 03/26/17 Time of Evaluation: 07:17 - Subjective Subjective: General Surgery Dr. Morales Pt S&E @bedside. NAEO. some nausea overnight after CLD - improved w/ zofran. denies vomiting, abd pain. No BM. Objective - Vital Signs/Intake and Output Vital Signs (last 24 hours): Temp Pulse Resp BP Pulse Ox 98.1 F 81 18 122/61 94 L 03/25/17 23:00 03/25/17 23:00 03/25/17 23:00 03/25/17 23:00 03/25/17 23:00 Intake and Output: 03/26/17 03/26/17 06:59 18:59 Intake Total 360 Balance 360 - Medications Medications: Current Medications Aspirin (Aspirin Chewable) 81 mg PO DAILY [facility] Sodium Chloride (Sodium Chloride 0.9%) 1,000 mls @ 100 mls/hr IV .Q10H [facility] Last Admin: 03/26/17 02:46 Dose: 100 mls/hr Latanoprost (Xalatan Opht) 0 ml OU HS [facility] Last Admin: 03/25/17 21:54 Dose: 1 ml Losartan Potassium (Cozaar) 25 mg PO DAILY [facility] Morphine Sulfate (Morphine) 4 mg IVP Q4H PRN PRN Reason: Pain, moderate (4-7) Nystatin (Nystop Topical Powder) 1 gm TOP TID [facility] Last Admin: 03/25/17 18:00 Dose: 1 unit - Labs Labs: PT 11.0 Seconds (9.9-11.8) 03/25/17 07:30 INR 1.02 (0.93-1.08) 03/25/17 07:30 APTT 32.4 Seconds (23.7-30.8) H 03/25/17 07:30 - Constitutional Appears: Non-toxic, No Acute Distress - Head Exam Head Exam: NORMAL INSPECTION - Eye Exam Eye Exam: Normal appearance - ENT Exam ENT Exam: Mucous Membranes Moist - Respiratory Exam Respiratory Exam: NORMAL BREATHING PATTERN. absent: Accessory Muscle Use, Respiratory Distress - GI/Abdominal Exam GI & Abdominal Exam: Distended, Soft, Tenderness. absent: Guarding, Rebound - Neurological Exam Neurological Exam: Alert, Awake, Oriented x3 - Psychiatric Exam Psychiatric exam: Normal Affect, Normal Mood - Skin Skin Exam: Dry, Intact, Normal Color, Warm Assessment and Plan - Assessment and Plan (Free Text) Assessment: 71 y/o F w/ SBO - f/u AM labs - f/u GI recs - cont CLD - monitor bowel fxn - pain management - cont anti-emetic - possible OR Tuesday for diagnostic laparoscopy Pt discussed w/ Dr. Andrew aGrcia DO PGY2
[2017-03-26] MEDS: Nystatin 100,000 Units/gm Topical Pow(15 gm) TOP SCH ×2 (09:52→15:13)
[2017-03-26 09:54] LABS: BASO # 0.01 K/mm3 (0.0-2.0); BASO % 0.1 % (0.0-3.0); EOS # 0.1 (0.0-0.7); EOS % 1.5 % (1.5-5.0); GRAN # 5.23 (1.4-6.5); GRAN % 76.9 % (50.0-68.0); HEMATOCRIT 32.9 % (36.0-48.0); LYMPH % 14.5 % (22.0-35.0); MEAN CELL VOLUME 77.4 fl (80.0-105.0); MEAN CORPUSCULAR HEMOGLOBIN 23.5 pg (25.0-35.0); MEAN CORPUSCULAR HGB CONC 30.4 g/dl (31.0-37.0); MEAN PLATELET VOLUME 8.6 fl (7.0-11.0); MONO # 0.5 (0.1-0.6); RED CELL DISTRIBUTION WIDTH 16.9 % (11.5-14.5); WHITE BLOOD COUNT 6.8 10^3/ul (4.5-11.0)
[2017-03-26 10:04] LABS: ALB/GLOB RATIO 1.2 (1.1-1.8); ALKALINE PHOSPHATASE 262 U/L (38-133); ALT/SGPT 99 U/L (7-56); AST/SGOT 37 U/L (15-39); BILIRUBIN,TOTAL 0.4 mg/dL (0.2-1.3); BLOOD UREA NITROGEN 19 mg/dL (7-21); CARBON DIOXIDE 28 mmol/L (21-33); CHLORIDE 97 mmol/L (98-107); GFR AFRICAN-AMERICAN > 60; GLUCOSE,RANDOM 84 mg/dL (70-110); MAGNESIUM 1.8 mg/dL (1.7-2.2); SODIUM 135 mmol/L (132-148); TOTAL PROTEIN 5.2 g/dL (5.8-8.3)
[2017-03-26 10:10] LABS: POTASSIUM 2.9 mmol/L (3.6-5.0)
[2017-03-26] MEDS ORDERED: Potassium Chloride 40 mEq/30 ml LIQ UD PO STA (10:15)
[2017-03-26] MEDS: Lactated Ringer's 1,000 ML IV SCH ×2 (10:47→21:17)
[2017-03-26] MEDS ORDERED: Potassium Chloride 20 mEq ER Tab PO STA (11:45)
--- NOTE | 2017-03-26 18:50 | NM ---
PROCEDURE: Nuclear Medicine Hepatobiliary Scan HISTORY: elevated LFTs COMPARISON: Abdomen pelvis CT without contrast 03/25/2017 TECHNIQUE: 6.0 mCi of technetium 99m Mebrofenin was administered intravenously. Planar images of the abdomen were obtained at 5 min intervals to 60 mins. Delayed images were also obtained. FINDINGS: LIVER: Timely and homogenous uptake. COMMON BILE DUCT: identified at 5 mins. GALLBLADDER: Not identified up to 90 minutes post isotope administration at which time there is no significant residual isotope identified within the liver. SMALL BOWEL: Identified at 5 - 15 minutes post isotope administration. IMPRESSION: Findings compatible with acute cystic duct obstruction. Common bile duct patent.
[2017-03-26] MEDS: Latanoprost 2.5 ml Opht Soln OU SCH (21:13)
[2017-03-27] MEDS: Lactated Ringer's 1,000 ML IV SCH ×2 (06:19→22:00)
[2017-03-27 08:53] LABS: BASO # 0.01 K/mm3 (0.0-2.0); BASO % 0.2 % (0.0-3.0); EOS # 0.2 (0.0-0.7); EOS % 3.4 % (1.5-5.0); GRAN # 4.45 (1.4-6.5); GRAN % 72.9 % (50.0-68.0); HEMATOCRIT 33.7 % (36.0-48.0); LYMPH # 0.8 (1.2-3.4); LYMPH % 13.4 % (22.0-35.0); MEAN CELL VOLUME 77.1 fl (80.0-105.0); MEAN CORPUSCULAR HEMOGLOBIN 23.3 pg (25.0-35.0); MEAN CORPUSCULAR HGB CONC 30.3 g/dl (31.0-37.0); MEAN PLATELET VOLUME 8.8 fl (7.0-11.0); MONO # 0.6 (0.1-0.6); MONO % 10.1 % (1.0-6.0); RED CELL DISTRIBUTION WIDTH 16.6 % (11.5-14.5); WHITE BLOOD COUNT 6.1 10^3/ul (4.5-11.0)
--- NOTE | 2017-03-27 09:04 | CP.PCM.PN ---
Subjective - Date & Time of Evaluation Date of Evaluation: 03/27/17 Time of Evaluation: 09:04 - Subjective Subjective: Surgery: Dr. Morales Patient doing well today. Patient reports loose bowel movement last night but is unsure if passing flatus. She was made NPO for HIDA scan yesterday. She denies n/v/f/c. Objective - Vital Signs/Intake and Output Vital Signs (last 24 hours): Temp Pulse Resp BP Pulse Ox 98.2 F 70 20 118/79 94 L 03/27/17 08:30 03/27/17 08:30 03/27/17 08:30 03/27/17 08:30 03/27/17 08:30 Intake and Output: 03/27/17 03/27/17 06:59 18:59 Intake Total 0 Output Total 525 Balance -525 - Medications Medications: Current Medications Aspirin (Aspirin Chewable) 81 mg PO DAILY [facility] Last Admin: 03/26/17 09:54 Dose: 81 mg Lactated Ringer's (Lactated Ringer's) 1,000 mls @ 100 mls/hr IV .Q10H [facility] Last Admin: 03/27/17 06:19 Dose: 100 mls/hr Latanoprost (Xalatan Opht) 0 ml OU HS [facility] Last Admin: 03/26/17 21:13 Dose: 2.5 ml Losartan Potassium (Cozaar) 25 mg PO DAILY [facility] Last Admin: 03/26/17 09:52 Dose: 25 mg Morphine Sulfate (Morphine) 4 mg IVP Q4H PRN PRN Reason: Pain, moderate (4-7) Nystatin (Nystop Topical Powder) 1 gm TOP BID [facility] - Labs Labs: 03/27/17 08:20 03/26/17 09:30 PT 11.0 Seconds (9.9-11.8) 03/25/17 07:30 INR 1.02 (0.93-1.08) 03/25/17 07:30 APTT 32.4 Seconds (23.7-30.8) H 03/25/17 07:30 - Constitutional Appears: Non-toxic, No Acute Distress, Chronically Ill - Head Exam Head Exam: ATRAUMATIC, NORMOCEPHALIC - Eye Exam Eye Exam: EOMI, Normal appearance - ENT Exam ENT Exam: Mucous Membranes Moist - Respiratory Exam Respiratory Exam: NORMAL BREATHING PATTERN. absent: Respiratory Distress - Cardiovascular Exam Cardiovascular Exam: REGULAR RHYTHM. absent: Tachycardia - GI/Abdominal Exam GI & Abdominal Exam: Distended, Soft. absent: Guarding, Tenderness, Rebound - Neurological Exam Neurological Exam: Alert, Awake - Psychiatric Exam Psychiatric exam: Normal Affect, Normal Mood - Skin Skin Exam: Dry, Warm Assessment and Plan - Assessment and Plan (Free Text) Assessment: 71 y/o female w/ recurrent bowel obstruction, most likely intra-abdominal adhesion related, as well as cystic duct obstruction evident on HIDA scan Plan: -planning for diagnostic laparoscopy, possible exploratory laparotomy for SBO as well as lap poss open cholecystectomy on Tuesday -NPO past MN -pre-op labs done -discuss w/ primary medical team -discuss with patient who agrees with surgical plan -further recs per Dr. Andrew Márquez PGY3
[2017-03-27] MEDS ORDERED: cefTRIAXone 1 gm 1 GM/100 ML BAG IVPB SCH (10:00)
[2017-03-27] MEDS: Nystatin 100,000 Units/gm Topical Pow(15 gm) TOP SCH ×2 (10:05→19:04)
[2017-03-27 10:23] LABS: ALB/GLOB RATIO 1.2 (1.1-1.8); ALKALINE PHOSPHATASE 240 U/L (38-133); ALT/SGPT 71 U/L (7-56); AST/SGOT 21 U/L (15-39); BILIRUBIN,TOTAL 0.7 mg/dL (0.2-1.3); BLOOD UREA NITROGEN 15 mg/dL (7-21); CALCIUM 8.7 mg/dL (8.4-10.5); CARBON DIOXIDE 28 mmol/L (21-33); CHLORIDE 97 mmol/L (98-107); GFR AFRICAN-AMERICAN > 60; GLUCOSE,RANDOM 84 mg/dL (70-110); POTASSIUM 3.8 mmol/L (3.6-5.0); SODIUM 135 mmol/L (132-148); TOTAL PROTEIN 5.5 g/dL (5.8-8.3)
[2017-03-27] MEDS: Piperacillin/Tazobact 3.375 gm 100 ML IVPB SCH ×2 (12:54→17:04)
--- NOTE | 2017-03-27 13:13 | CP.PCM.CON ---
History of Present Illness - History of Present Illness History of Present Illness: 71-year-old patient with past medical history of stage IV non-Hodgkin's lymphoma recently in the hospital with a small bowel obstruction managed conservatively sent home was admitted with worsening of the abdominal pain. Patient was discharged from the hospital on 03/22/2017 following treatment for urinary tract infection and small bowel obstruction UTI with enterococcus. Now presented to the hospital with the vomiting abdominal discomfort since 11 PM the previous night. Patient was found to have an elevated liver enzymes. Normal CBD History of gallstones GI consult was requested to evaluate it. Patient did have an abdominal CT this admission also. This also revealed a dilated loops of small bowel. Patient is presently on a clear liquid diet tolerating. Denies any abdominal discomfort at the present time of examination pAST MEDICAL HISTORY Significant floor stage IV non-Hodgkin's lymphoma patient had a lung mass biopsied showed lymphoma patient is being followed by Dr. Mcneill.. History of iron deficiency anemia had an endoscopy in September 2016 found to have gastric ulcers. Patient is a history of taking nonsteroidal anti- inflammatory drugs patient also had a colonoscopy done which showed only diminutive polyp in the colon and diverticulosis and hemorrhoids.history of arthritis patient was in the past taking NSAIDs POSTURE SURGICAL HISTORY significant for complete hysterectomy, status post pacemaker asymmetric, port placement, right hip replacement. SOCIAL HISTORY denies smoking or course socially occasionally. FAMILY HISTORY noncontributory REVIEW OF THE SYSTEM other systems reviewed are positive as above Review of Systems - Review of Systems All systems: reviewed and no additional remarkable complaints except Review of Systems: as per HPI Past Patient History - Infectious Disease Hx of Infectious Diseases: None - Tetanus Immunizations Tetanus Immunization: Unknown - Past Medical History & Family History Past Medical History?: Yes - Past Social History Smoking Status: Former Smoker - CARDIAC Hx Cardia Arrhythmia: Yes Hx Hypercholesterolemia: Yes Hx Hypertension: Yes Hx Pacemaker: Yes (2009) Hx Peripheral Edema: Yes (ble +1 pitting edema) - PULMONARY Other/Comment: 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, 01/2017 - NEUROLOGICAL Hx Neurological Disorder: No Hx Transient Ischemic Attacks (TIA): Yes (2015) Other/Comment: 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 - HEENT Hx HEENT Problems: Yes (eyeglasses) Hx Glaucoma: Yes (beginning) Other/Comment: partial peripheral vision loss r eye - RENAL Hx Chronic Kidney Disease: No - ENDOCRINE/METABOLIC Hx Endocrine Disorders: No - HEMATOLOGICAL/ONCOLOGICAL Hx Anemia: Yes (post hip sx iron infusions.blood transfusion) Hx Cancer: Yes Hx Chemotherapy: Yes Hx Metastesis: No Hx Shingles: No Other/Comment: pt dx with non hodgkins lymphoma 2012, had chemo 1 cycle, reaccurred 11/2013, had chemo, reaccurred 11/2016 presently receiving chemo 1 tx a week x 4 wk's had one treatment 3 more to go, presently chemo is postponed due to hospitalization - INTEGUMENTARY Other/Comment: left buttock 1cm round opening st 1 wound bed red surrounding skin reddened right buttock deeper red firm skin surrounded by red skin, ble dry brown discolored skin +1 pitting edema, difficulty turning due to left hip pain - MUSCULOSKELETAL/RHEUMATOLOGICAL Hx Arthritis: Yes (b/l hips) Hx Falls: (past) Hx Unsteady Gait: Yes (can't walk due to chronic left hip pain) Other/Comment: left hip needs to be replaced due to arthritis, pt uses mechanical chair to sit and sleep in and husbands assists pt to pivot to commode - GASTROINTESTINAL Hx Gastrointestinal Disorders: Yes (constipation assoc with chemo, sbo) Other/Comment: h pylori 01/2016, obese - GENITOURINARY/GYNECOLOGICAL Hx Incontinence: Yes Hx Urinary Tract Infection: Yes Other/Comment: 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 - PSYCHIATRIC Hx Psychophysiologic Disorder: No Hx Substance Use: No - SURGICAL HISTORY Hx Cardiac Catheterization: Yes Hx Hysterectomy: Yes (complete) Hx Joint Replacement: Yes (right hip 2015) Other/Comment: pacemaker 2009, left axillary bx 08/15/14, rcw pac 2013 and 2016 - ANESTHESIA Hx Anesthesia Reactions: No Hx Malignant Hyperthermia: No Meds Allergies/Adverse Reactions: Allergies Allergy/AdvReac Type Severity Reaction Status Date / Time ibuprofen Allergy Severe .MOUTH Verified 03/16/17 07:05 SORES Sulfa (Sulfonamide Allergy Unknown UNKNOWN Verified 03/16/17 07:05 Antibiotics) - Medications Medications: Current Medications Aspirin (Aspirin Chewable) 81 mg PO DAILY [facility] Sodium Chloride (Sodium Chloride 0.9%) 1,000 mls @ 100 mls/hr IV .Q10H [facility] Last Admin: 03/25/17 07:56 Dose: 100 mls/hr Latanoprost (Xalatan Opht) 0 ml OU HS [facility] Losartan Potassium (Cozaar) 25 mg PO DAILY [facility] Morphine Sulfate (Morphine) 4 mg IVP Q4H PRN PRN Reason: Pain, moderate (4-7) Nystatin (Nystop Topical Powder) 1 gm TOP TID [facility] Last Admin: 03/25/17 18:00 Dose: 1 unit Physical Exam - Constitutional Appears: No Acute Distress - Head Exam Head Exam: ATRAUMATIC, NORMOCEPHALIC - Eye Exam Eye Exam: EOMI, PERRL. absent: Scleral icterus - ENT Exam ENT Exam: Mucous Membranes Moist, Normal Exam - Neck Exam Neck exam: Positive for: Full Rom. Negative for: Lymphadenopathy - Respiratory Exam Respiratory Exam: Clear to Auscultation Bilateral. absent: Rales, Rhonchi - Cardiovascular Exam Cardiovascular Exam: +S1, +S2. absent: JVD - GI/Abdominal Exam GI & Abdominal Exam: Normal Bowel Sounds, Soft. absent: Mass - Rectal Exam Rectal Exam: Deferred - Extremities Exam Extremities exam: Negative for: calf tenderness, tenderness - Neurological Exam Neurological exam: Alert, Oriented x3 - Psychiatric Exam Psychiatric exam: Normal Affect, Normal Mood Results - Vital Signs Recent Vital Signs: Last Vital Signs Temp 97.8 F 03/25/17 16:00 Pulse 82 03/25/17 16:00 Resp 20 03/25/17 16:00 BP 130/69 03/25/17 16:00 Pulse Ox 98 03/25/17 16:00 - Labs Result Diagrams: 03/27/17 08:20 03/27/17 10:00 Labs: Laboratory Results - last 24 hr 03/25/17 09:47 Procalcitonin 0.34 - Imaging and Cardiology US - abdomen Status: Image reviewed by me Assessment & Plan - Assessment and Plan (Free Text) Assessment: this 76-year-old patient with history of non-Hodgkin's lymphoma stage IV lung mass recently in the hospital for small bowel obstruction and urinary tract infection was managed conservatively sent home on 03/20/2017 presented to the emergency room again on 825 with the abdominal pain nausea vomiting. Patient was found to have again distended loops of the small bowel suggestive of obstruction and also has elevated liver enzymes.. 1. Elevated liver enzymes ultrasound revealed gallstones but CBD is normal. the differential diagnosis should include a CBD stone, lymphomatous involvement of the liver, hepatic congestion. 2. Distended loops of small bowel with the collapsed colon was suggestive of partial small bowel obstruction The differential diagnosis should include a N him for the small bowel and addition clinically appears to be improving tolerating clear liquid diet 3.Other comorbidities include coronary artery disease , status post permanent pacemaker Peptic ulcer disease history of gastric ulcers history of NSAID use history of anemia RECOMMENDATIONS Follow up of LFT closely. If it reminds elevated or increasing trend ,we will consider EUS to further evaluate CBD. The concern is patient still has significant loops of small bowel distention with the gastric distention. We will request an abdominal x-ray to follow-up. It may be reasonable to do oral contrast CT to further evaluate the small bowel if it bowel and stomach remains significantly distended. prior to EUS evaluation Patient's was at bedside and a detailed discussion with him and we will also discuss with the surgical team thank you very much for allowing us to participate in the care of the patient - Date & Time Date: 03/25/17 Time: 18:45
--- NOTE | 2017-03-27 13:28 | PN ---
The patient was seen. She is still somewhat distended, tender. I think 2 process is going on now, one, the small bowel process, whatever that is and it looks like acute cholecystitis in addition. We will plan operative intervention tomorrow. Probably, we will start laparoscopically. It might need to be opened. I understand that she is getting chemotherapy. Discussed with hematology/oncology. We will discuss with primary care in the morning. Plan operative intervention tomorrow. Sacha Morales MD
--- NOTE | 2017-03-27 13:40 | CP.PCM.PN ---
Subjective - Date & Time of Evaluation Date of Evaluation: 03/26/17 Time of Evaluation: 14:30 - Subjective Subjective: tolerating liquid diet. Is better no abdominal pain now Objective - Vital Signs/Intake and Output Vital Signs (last 24 hours): Temp Pulse Resp BP Pulse Ox 98.1 F 82 18 119/64 94 L 03/25/17 23:00 03/26/17 09:52 03/25/17 23:00 03/26/17 09:52 03/25/17 23:00 Intake and Output: 03/26/17 03/27/17 18:59 06:59 Intake Total 780 Balance 780 - Medications Medications: Current Medications Aspirin (Aspirin Chewable) 81 mg PO DAILY [facility] Last Admin: 03/26/17 09:54 Dose: 81 mg Lactated Ringer's (Lactated Ringer's) 1,000 mls @ 100 mls/hr IV .Q10H [facility] Last Admin: 03/26/17 21:17 Dose: 100 mls/hr Latanoprost (Xalatan Opht) 0 ml OU HS [facility] Last Admin: 03/26/17 21:13 Dose: 2.5 ml Losartan Potassium (Cozaar) 25 mg PO DAILY [facility] Last Admin: 03/26/17 09:52 Dose: 25 mg Morphine Sulfate (Morphine) 4 mg IVP Q4H PRN PRN Reason: Pain, moderate (4-7) Nystatin (Nystop Topical Powder) 1 gm TOP BID [facility] - Labs Labs: 03/26/17 09:30 03/26/17 09:30 PT 11.0 Seconds (9.9-11.8) 03/25/17 07:30 INR 1.02 (0.93-1.08) 03/25/17 07:30 APTT 32.4 Seconds (23.7-30.8) H 03/25/17 07:30 - Constitutional Appears: No Acute Distress - Head Exam Head Exam: ATRAUMATIC, NORMAL INSPECTION - Eye Exam Eye Exam: EOMI, PERRL. absent: Scleral icterus - ENT Exam ENT Exam: Mucous Membranes Moist, Normal Exam - Neck Exam Neck Exam: Full ROM. absent: Lymphadenopathy - Respiratory Exam Respiratory Exam: Clear to Ausculation Bilateral. absent: Rales, Rhonchi - Cardiovascular Exam Cardiovascular Exam: REGULAR RHYTHM, +S1, +S2. absent: JVD - GI/Abdominal Exam GI & Abdominal Exam: Soft. absent: Tenderness, Mass - Rectal Exam Rectal Exam: Deferred - Extremities Exam Extremities Exam: Normal Inspection. absent: Calf Tenderness - Neurological Exam Neurological Exam: Alert, Awake, Oriented x3 - Psychiatric Exam Psychiatric exam: Normal Affect, Normal Mood - Skin Skin Exam: Dry, Intact Assessment and Plan - Assessment and Plan (Free Text) Assessment: 1. Elevated LFT, gallstones, normal CBD. Improving LFTs. Etiology off elevated left the is unclear the differential diagnosis should include CBD stone probably passed, HIDA scan was reviewed negative for cystic duct obstruction. The CBD was well visualized and 5 minutes time there was a good flow into the small bowel 2. Distended loops of small bowel bowel movements present partial obstruction improving. Etiology should include a lymphoma involvement of the small bowel versus adhesion 3. Other comorbidities include a coronary artery disease status post a permanent pacemaker, history of gastric ulcers, stage IV non-Hodgkin's lymphoma , status post recent UTI pLAN 1. Continue to follow up LFT If it remains elevated or increasing would consider endoscopy, ultrasound. 3. consider Repeat abdominal x-ray in a.m. again Thank you very much for allowing us to participate in the care of the patient
[2017-03-27] MEDS: Latanoprost 2.5 ml Opht Soln OU SCH (22:00)
[2017-03-27] MEDS: Morphine 4 mg/ml ISec IVP PRN (22:23)
--- NOTE | 2017-03-28 00:19 | CP.PCM.HP ---
History of Present Illness - History of Present Illness History of Present Illness: pt. is a 71 year old female with history of NHL. She was found to have recurrence. Started on weekly rituxan. admitted with abdominal pain, nausea, vomitting. CT abdomen consistent with small bowel obstruction. UA positive. tolerating Po liquids. history of hypertension, controlled on current meds. Present on Admission - Present on Admission Any Indicators Present on Admission: No Review of Systems - Constitutional Constitutional: Malaise, Weakness - EENT Eyes: absent: As Per HPI, Blind Spots, Blurred Vision, Change in Vision, Decreased Night Vision, Diplopia, Discharge, Dry Eye, Exophthalmos, Floaters, Irritation, Itchy Eyes, Loss of Peripheral Vision, Pain, Photophobia, Requires Corrective Lenses, Sees Flashes, Spots in Vision, Tunnel Vision, Other Visual Disturbances, Loss of Vision, Other Ears: absent: As Per HPI, Decreased Hearing, Ear Discharge, Ear Pain, Tinnitus, Abnormal Hearing, Disequilibrium, Dizziness, Other - Cardiovascular Cardiovascular: As Per HPI - Respiratory Respiratory: absent: As Per HPI, Cough, Dyspnea, Hemoptysis, Dyspnea on Exertion , Wheezing, Snoring, Stridor, Pain on Inspiration, Chest Congestion, Excessive Mucous Production, Change in Mucous Color, Pain with Coughing, Other - Gastrointestinal Gastrointestinal: As Per HPI - Genitourinary Genitourinary: As Per HPI - Reproductive: Female Reproductive:Female: absent: As Per HPI, Amenorrhea, Amenorrhea/ Control, Currently Menstual, Cycle <21 Days, Cycle >35 Days, Cycle Variable, Menses 1-7 Days, Menses >/= 8 Days, Menses Variable, Cycle > 4 Weeks Between, No Menses for 6 Months, Heavy Menses, Light Menses, Normal Menses, Spotting Between Cycles , S/P Hysterectomy, Menopausal, Post Menopausal, Premenarche, Abnormal Vaginal Bleeding, Dysmenorrhea, Dyspareunia, Genital Lesions, Genital Pruritis, Pelvic Pain, Prolapse Symptoms, Sexual Dysfunction, Vaginal Discharge, Vaginal Dryness , Vaginal Odor, Vaginal Pruritis, Other - Musculoskeletal Musculoskeletal: absent: As Per HPI, Abnormal Gait, Arthralgias, Atrophy, Back Pain, Deformity, Joint Swelling, Limited Range of Motion, Loss of Height, Muscle Cramps, Muscle Weakness, Myalgias, Neck Pain, Numbness, Radiating Pain into Limb, Stiffness, Tingling, Other - Integumentary Integumentary: absent: As Per HPI, Acne, Alopecia, Bleeding Lesions, Change in Hair, Change in Nails, Change in Pigmentation, Changing Lesions, Dry Skin, Erythema, Furuncle, Hirsutism, Lesions, New Lesions, Non-Healing Lesions, Photosensitivity, Pruritus, Rash, Skin Pain, Skin Ulcer, Sores, Striae, Swelling , Unusual Bruising, Wounds, Jaundice, Other - Neurological Neurological: absent: As Per HPI, Abnormal Gait, Abnormal Hearing, Abnormal Movements, Abnormal Speech, Behavioral Changes, Burning Sensations, Confusion, Convulsions, Disequilibrium, Dizziness, Numbness, Focal Weakness, Frequent Falls , Headaches, Lack of Coordination, Loss of Vision, Memory Loss, Paresthesias, Radicular Pain, Restless Legs, Sensory Deficit, Syncope, Tingling, Tremor, Vertigo, Weakness, Other Visual Disturbances, Other - Hematologic/Lymphatic Hematologic: As Per HPI Past Patient History - Infectious Disease Hx of Infectious Diseases: None - Tetanus Immunizations Tetanus Immunization: Unknown - Past Medical History & Family History Past Medical History?: Yes Past Family History: Reviewed and not pertinent - Past Social History Smoking Status: Former Smoker - CARDIAC Hx Cardia Arrhythmia: Yes Hx Hypercholesterolemia: Yes Hx Hypertension: Yes Hx Pacemaker: Yes (2009) Hx Peripheral Edema: Yes (ble +1 pitting edema) - PULMONARY Other/Comment: 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, 01/2017 - NEUROLOGICAL Hx Neurological Disorder: No Hx Transient Ischemic Attacks (TIA): Yes (2015) Other/Comment: 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 - HEENT Hx HEENT Problems: Yes (eyeglasses) Hx Glaucoma: Yes (beginning) Other/Comment: partial peripheral vision loss r eye - RENAL Hx Chronic Kidney Disease: No - ENDOCRINE/METABOLIC Hx Endocrine Disorders: No - HEMATOLOGICAL/ONCOLOGICAL Hx Blood Transfusions: Yes Hx Blood Transfusion Reaction: No - INTEGUMENTARY Other/Comment: left buttock 1cm round opening st 1 wound bed red surrounding skin reddened right buttock deeper red firm skin surrounded by red skin, ble dry brown discolored skin +1 pitting edema, difficulty turning due to left hip pain - MUSCULOSKELETAL/RHEUMATOLOGICAL Hx Arthritis: Yes (b/l hips) Hx Falls: (past) Hx Unsteady Gait: Yes (can't walk due to chronic left hip pain) Other/Comment: left hip needs to be replaced due to arthritis, pt uses mechanical chair to sit and sleep in and husbands assists pt to pivot to commode - GASTROINTESTINAL Hx Gastrointestinal Disorders: Yes (constipation assoc with chemo, sbo) Other/Comment: h pylori 01/2016, obese - GENITOURINARY/GYNECOLOGICAL Hx Incontinence: Yes Hx Urinary Tract Infection: Yes Other/Comment: 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 - PSYCHIATRIC Hx Psychophysiologic Disorder: No Hx Substance Use: No - SURGICAL HISTORY Hx Surgeries: Yes - ANESTHESIA Hx Anesthesia Reactions: No Hx Malignant Hyperthermia: No Meds Allergies/Adverse Reactions: Allergies Allergy/AdvReac Type Severity Reaction Status Date / Time ibuprofen Allergy Severe .MOUTH Verified 03/16/17 07:05 SORES Sulfa (Sulfonamide Allergy Unknown UNKNOWN Verified 03/16/17 07:05 Antibiotics) Physical Exam - Constitutional Appears: Chronically Ill - Head Exam Head Exam: ATRAUMATIC, NORMAL INSPECTION, NORMOCEPHALIC - Eye Exam Eye Exam: Normal appearance Pupil Exam: NORMAL ACCOMODATION - ENT Exam ENT Exam: Mucous Membranes Moist - Neck Exam Neck exam: Positive for: Normal Inspection - Respiratory Exam Respiratory Exam: Clear to Auscultation Bilateral, NORMAL BREATHING PATTERN - Cardiovascular Exam Cardiovascular Exam: REGULAR RHYTHM, +S1, +S2 - GI/Abdominal Exam GI & Abdominal Exam: Diminished Bowel Sounds - Extremities Exam Extremities exam: Positive for: normal inspection - Neurological Exam Neurological exam: Alert, CN II-XII Intact, Oriented x3 - Skin Skin Exam: Normal Color, Warm Results - Vital Signs Recent Vital Signs: Last Vital Signs Temp 98.0 F 03/27/17 17:21 Pulse 82 03/27/17 17:21 Resp 20 03/27/17 17:21 BP 128/80 03/27/17 17:21 Pulse Ox 95 03/27/17 17:21 - Labs Result Diagrams: 03/27/17 08:20 03/27/17 10:00 Labs: Laboratory Results - last 24 hr 03/27/17 03/27/17 08:20 10:00 WBC 6.1 RBC 4.37 Hgb 10.2 L Hct 33.7 L MCV 77.1 L MCH 23.3 L MCHC 30.3 L RDW 16.6 H Plt Count 358 MPV 8.8 Gran % 72.9 H Lymph % (Auto) 13.4 L Ray % (Auto) 10.1 H Eos % (Auto) 3.4 Baso % (Auto) 0.2 Gran # 4.45 Lymph # 0.8 L Ray # 0.6 Eos # 0.2 Baso # 0.01 Sodium 135 Potassium 3.8 Chloride 97 L Carbon Dioxide 28 Anion Gap 14 BUN 15 Creatinine 0.6 Est GFR ( Amer) > 60 Est GFR (Non-Af Amer) > 60 Random Glucose 84 Calcium 8.7 Total Bilirubin 0.7 AST 21 ALT 71 H Alkaline Phosphatase 240 H Total Protein 5.5 L Albumin 3.0 Globulin 2.5 Albumin/Globulin Ratio 1.2 Assessment & Plan - Assessment and Plan (Free Text) Assessment: 1. recurrent NHL 2. Small bowel obstruction 3. left lower lobe PNA 4. Cholycystitis plan : admit hospital. oral liquids. IVF NS 100 cc/hr. Zofran 4 mg IV Q 6hr. IV antibioitcs zosyn . ID consult Dr. Bowen. Surgery consult Dr. Morales. HIDA scan. Morphine 4 mg IV Q 4 hr prn for pain. - Date & Time Date: 03/26/17 Time: 11:00
--- NOTE | 2017-03-28 00:20 | CP.PCM.PN ---
Subjective - Date & Time of Evaluation Date of Evaluation: 03/27/17 Time of Evaluation: 20:00 - Subjective Subjective: patient comfortable. Scheduled for surgery in the a.m. to further evaluate the small bowel in view of the persistent dilation, history of lymphoma. LFTs showing downward trend. Recent HIDA scan showed good flow of the tracer into the small bowel Objective - Vital Signs/Intake and Output Vital Signs (last 24 hours): Temp Pulse Resp BP Pulse Ox 98.0 F 82 20 128/80 95 03/27/17 17:21 03/27/17 17:21 03/27/17 17:21 03/27/17 17:21 03/27/17 17:21 Intake and Output: 03/27/17 03/28/17 18:59 06:59 Intake Total 480 Output Total 520 Balance -40 - Medications Medications: Current Medications Aspirin (Aspirin Chewable) 81 mg PO DAILY [facility] Last Admin: 03/26/17 09:54 Dose: 81 mg Lactated Ringer's (Lactated Ringer's) 1,000 mls @ 100 mls/hr IV .Q10H [facility] Last Admin: 03/27/17 22:00 Dose: 100 mls/hr Piperacillin Sod/Tazobactam Sod (Zosyn 3.375 In Ns 100ml) 100 mls @ 200 mls/hr IVPB Q6 [facility] PRN Reason: Protocol Stop: 04/05/17 12:01 Last Admin: 03/27/17 17:04 Dose: 200 mls/hr Latanoprost (Xalatan Opht) 0 ml OU HS [facility] Last Admin: 03/27/17 22:00 Dose: 2.5 ml Losartan Potassium (Cozaar) 25 mg PO DAILY [facility] Last Admin: 03/27/17 10:05 Dose: 25 mg Morphine Sulfate (Morphine) 4 mg IVP Q4H PRN PRN Reason: Pain, moderate (4-7) Last Admin: 03/27/17 22:23 Dose: 4 mg Nystatin (Nystop Topical Powder) 1 gm TOP BID [facility] Last Admin: 03/27/17 19:04 Dose: 1 applic Ondansetron HCl (Zofran Inj) 4 mg IVP Q6H PRN PRN Reason: Nausea/Vomiting - Labs Labs: 03/27/17 08:20 03/27/17 10:00 PT 11.0 Seconds (9.9-11.8) 03/25/17 07:30 INR 1.02 (0.93-1.08) 03/25/17 07:30 APTT 32.4 Seconds (23.7-30.8) H 03/25/17 07:30 - Head Exam Head Exam: ATRAUMATIC, NORMAL INSPECTION - Eye Exam Eye Exam: EOMI, PERRL. absent: Scleral icterus - ENT Exam ENT Exam: Mucous Membranes Moist - Neck Exam Neck Exam: Full ROM. absent: Lymphadenopathy - Cardiovascular Exam Cardiovascular Exam: +S1, +S2. absent: JVD - GI/Abdominal Exam GI & Abdominal Exam: Soft. absent: Tenderness, Mass - Back Exam Back Exam: Full ROM. absent: CVA tenderness (L) - Neurological Exam Neurological Exam: Alert, Awake, Oriented x3 - Psychiatric Exam Psychiatric exam: Anxious - Skin Skin Exam: Dry, Intact, Warm Assessment and Plan - Assessment and Plan (Free Text) Assessment: this 71-year-old patient with a stage IV lymphoma recently discharged from the hospital following treatment for small bowel obstruction and urinary tract infection this patient was managed conservatively with improvement. Patient was readmitted after 3 days with abdominal pain CT still shows distended loops of small bowel with collapsed colon. The real concern is, is a possibility of the small bowel involvement to the lymphoma. Other differential diagnoses include adhesions. patient has elevated LFTs history of gallstones CBD normal in the ultrasound showing downward trend. CT does not show any pericholecystic inflammatory changes or significant thickening of the gallbladder wall. Patient does not have tenderness in the right upper quadrant area and no Ren sign other comorbidities include a coronary artery disease status post permanent pacemaker history of gastric ulcers, arthritis rECOMMENDATIONS 1. Patient is already scheduled for laparoscopy possible laparotomy possible open cholecystectomy. Patient does have persistent dilated small bowel loops with a collapsed colon history of stage IV lymphoma the possibility in elderly case should be considered a small bowel lymphoma. Other differential diagnoses include ideations 2. History of gallstone improving LFTs C Damien appeared normal in the ultrasound. HIDA scan showed good flow of contrast into the duodenum. 3. Would recommend intraoperative cholangiogram if cholecystectomy is planned. If the LFT shows upward trend recommend endoscopic ultrasound. prior to Surgery we will discuss with the surgical team.
--- NOTE | 2017-03-28 00:25 | CP.PCM.PN ---
Subjective - Date & Time of Evaluation Date of Evaluation: 03/27/17 Time of Evaluation: 09:00 - Subjective Subjective: Comfortable in bed. Abdominal pain decreased. Tolerating liquid PO. No nausea, vomiting. No fever. Objective - Vital Signs/Intake and Output Vital Signs (last 24 hours): Temp Pulse Resp BP Pulse Ox 98.0 F 82 20 128/80 95 03/27/17 17:21 03/27/17 17:21 03/27/17 17:21 03/27/17 17:21 03/27/17 17:21 Intake and Output: 03/27/17 03/28/17 18:59 06:59 Intake Total 480 Output Total 520 Balance -40 - Medications Medications: Current Medications Aspirin (Aspirin Chewable) 81 mg PO DAILY [facility] Last Admin: 03/26/17 09:54 Dose: 81 mg Lactated Ringer's (Lactated Ringer's) 1,000 mls @ 100 mls/hr IV .Q10H [facility] Last Admin: 03/27/17 22:00 Dose: 100 mls/hr Piperacillin Sod/Tazobactam Sod (Zosyn 3.375 In Ns 100ml) 100 mls @ 200 mls/hr IVPB Q6 [facility]I PRN Reason: Protocol Stop: 04/05/17 12:01 Last Admin: 03/28/17 00:00 Dose: 200 mls/hr Latanoprost (Xalatan Opht) 0 ml OU HS [facility] Last Admin: 03/27/17 22:00 Dose: 2.5 ml Losartan Potassium (Cozaar) 25 mg PO DAILY [facility] Last Admin: 03/27/17 10:05 Dose: 25 mg Morphine Sulfate (Morphine) 4 mg IVP Q4H PRN PRN Reason: Pain, moderate (4-7) Last Admin: 03/27/17 22:23 Dose: 4 mg Nystatin (Nystop Topical Powder) 1 gm TOP BID [facility] Last Admin: 03/27/17 19:04 Dose: 1 applic Ondansetron HCl (Zofran Inj) 4 mg IVP Q6H PRN PRN Reason: Nausea/Vomiting - Labs Labs: 03/27/17 08:20 03/27/17 10:00 PT 11.0 Seconds (9.9-11.8) 03/25/17 07:30 INR 1.02 (0.93-1.08) 03/25/17 07:30 APTT 32.4 Seconds (23.7-30.8) H 03/25/17 07:30 - Constitutional Appears: Non-toxic - Head Exam Head Exam: ATRAUMATIC, NORMAL INSPECTION, NORMOCEPHALIC - Eye Exam Eye Exam: Normal appearance - ENT Exam ENT Exam: Mucous Membranes Moist - Neck Exam Neck Exam: Normal Inspection - Respiratory Exam Respiratory Exam: Clear to Ausculation Bilateral, NORMAL BREATHING PATTERN - Cardiovascular Exam Cardiovascular Exam: REGULAR RHYTHM, +S1, +S2 - GI/Abdominal Exam GI & Abdominal Exam: Diminished Bowel Sounds - Extremities Exam Extremities Exam: Normal Inspection - Back Exam Back Exam: NORMAL INSPECTION - Neurological Exam Neurological Exam: Alert, Awake, Oriented x3 - Skin Skin Exam: Dry, Normal Color, Warm Assessment and Plan - Assessment and Plan (Free Text) Assessment: 1. recurrent NHL 2. Small bowel obstruction 3. left lower lobe PNA 4. Cholycystitis plan : continue oral liquids. IVF NS 100 cc/hr. NPO after midnight for laproscopy tomorrow. Zofran 4 mg IV Q 6hr. IV antibioitcs zosyn . ID consult Dr. Bowen appreciated.. Discussed with Dr. Morales. HIDA scan positive for cholecystitis. Morphine 4 mg IV Q 4 hr prn for pain. pain controlled with current meds. 2 units PRBC type and hold for OR tomorrow. Labs reviewed, stable.
--- NOTE | 2017-03-28 01:41 | CON ---
CHIEF COMPLAINT: Abdominal pain since 1 day duration. HISTORY OF PRESENT ILLNESS: This is a 71-year-old female who has a history of recent small bowel obstruction, who in the emergency room stated to have abdominal pain for 4 or 5 days; however, it last one day became worse. Small nonbloody bowel movement early at morning of admission, also had nausea, but no vomiting and no headaches, no new back pain, no chest pain, no shortness of breath or cough and no fevers. No dysuria or frequency. PAST MEDICAL HISTORY: Significant for small bowel obstruction; hypertension; cardiac arrhythmias; non-Hodgkin's lymphoma, status post chemotherapy; and arthritis. PAST SURGICAL HISTORY: Significant for pacemaker, hysterectomy and bilateral hip surgery with a left hip and a right hip replacement. MEDICATIONS AT HOME: Reveal the patient to be on travoprost, aspirin and iron. PHYSICAL EXAMINATION: VITAL SIGNS: On exam, the patient is seen in 565, in no acute distress with a temperature of 98; heart rate of 70, it was up to 93 on admission; respiratory rate of 20 and blood pressure of 118/79. The patient has 94% oxygen saturation. HEENT: Unremarkable. NECK: Supple. LUNGS: Decreased breath sounds. HEART: Normal S1 and S2. ABDOMEN: Soft, nontender. No rebound. No guarding. LABORATORY AND DIAGNOSTIC DATA: White count of 6.1, hemoglobin of 10 and platelets of 358. BUN of 15, creatinine of 0.6. Urine wbc's too numerous to count, few bacteria. Dr. Rene's note is reviewed and the patient had a HIDA scan which reveals acute cystic duct obstruction. The common bile duct is patent by HIDA scan; however, there is obstruction. Dr. Morales's note is reviewed. The patient had a CAT scan of the abdomen, which is noted and reviewed. ASSESSMENT AND PLAN: This is a 71-year-old female with history of small bowel obstruction; hypertension; cardiac arrhythmias; non-Hodgkin's lymphoma, status post chemotherapy; arthritis; who has a pacemaker; history of hysterectomy; bilateral hip replacement; who is ALLERGIC TO SULFA, now admitted with acute cystic duct obstruction with a positive HIDA scan with small bowel obstruction. We will treat the patient with Zosyn, pending surgical decision and urine culture is negative. We will order blood cultures and we will make further recommendations. Shawn Easley MD [facility] # [id number]
[2017-03-28] MEDS: Piperacillin/Tazobact 3.375 gm 100 ML IVPB SCH ×5 (05:36→23:36)
[2017-03-28 06:04] LABS: BASO # 0.01 K/mm3 (0.0-2.0); BASO % 0.2 % (0.0-3.0); EOS # 0.2 (0.0-0.7); EOS % 3.7 % (1.5-5.0); GRAN # 4.92 (1.4-6.5); GRAN % 75.8 % (50.0-68.0); HEMATOCRIT 32.1 % (36.0-48.0); LYMPH # 0.8 (1.2-3.4); LYMPH % 12.6 % (22.0-35.0); MEAN CORPUSCULAR HEMOGLOBIN 23.3 pg (25.0-35.0); MEAN CORPUSCULAR HGB CONC 30.2 g/dl (31.0-37.0); MEAN PLATELET VOLUME 8.3 fl (7.0-11.0); MONO # 0.5 (0.1-0.6); MONO % 7.7 % (1.0-6.0); RED CELL DISTRIBUTION WIDTH 16.7 % (11.5-14.5); WHITE BLOOD COUNT 6.5 10^3/ul (4.5-11.0)
[2017-03-28 06:43] LABS: ALKALINE PHOSPHATASE 187 U/L (38-133); ALT/SGPT 48 U/L (7-56); AST/SGOT 17 U/L (15-39); BILIRUBIN,TOTAL 0.6 mg/dL (0.2-1.3); BLOOD UREA NITROGEN 11 mg/dL (7-21); CALCIUM 8.3 mg/dL (8.4-10.5); CARBON DIOXIDE 28 mmol/L (21-33); CHLORIDE 98 mmol/L (95-110); GFR AFRICAN-AMERICAN > 60; GLUCOSE,RANDOM 71 mg/dL (70-110); POTASSIUM 3.8 mmol/L (3.6-5.0); SODIUM 134 mmol/L (132-148)
[2017-03-28] MEDS ORDERED: Propofol 10 mg/ml Inj (20 ML) ONE (07:37)
[2017-03-28] MEDS ORDERED: Lidocaine 1% Inj (20ml) ONE (07:38)
[2017-03-28] MEDS ORDERED: Succinylcholine 200 mg/10 ml Inj IV ONE (07:39)
[2017-03-28] MEDS ORDERED: Neostigmine Methylsulfate 3mg/3ml Syringe IV ONE (07:39)
[2017-03-28] MEDS ORDERED: Rocuronium 10 mg/ml (5 ml) ONE ×2 (07:39→09:49)
[2017-03-28] MEDS ORDERED: Iohexol 240 (50 ml) ONE (07:48)
[2017-03-28] MEDS ORDERED: Bupivacaine 0.5% Inj(30mL) ONE (07:48)
[2017-03-28] MEDS ORDERED: ePHEDrine 50 mg/ml Inj ONE (08:41)
--- NOTE | 2017-03-28 10:02 | CP.PCM.PCO ---
Physician Communication Note - Physician Communication Note Physician Communication Note: pt in OR for abena silvestre, Dr. Washington spoke to Dr. Morales, plan for IOC
--- NOTE | 2017-03-28 10:31 | PCM.SURG1 ---
Surgeon's Initial Post Op Note - Surgeon's Notes Surgeon: Dr Morales Tool Grinder Operator Surface: Dr Davalos PGY3, Dr Garcia PGY2, Dr Cristobal PGY1 Type of Anesthesia: General Endo Anesthesia Administered By: Dr Puri Pre-Operative Diagnosis: small bowel obstruction. acute cholecystitis Operative Findings: pelvic adhesions. dilated loops of bowel with clear transition point. acutely inflammed gallbladder Post-Operative Diagnosis: small bowel obstruction 2/2 adhesions. acute cholecystitis Operation Performed: diagnostic laparoscopy. lysis of adhesions. laparoscopic cholecystectomy Specimen/Specimens Removed: gallbladder Estimated Blood Loss: EBL {In ML}: 150 Blood Products Given: N/A Drains Used: No Drains Post-Op Condition: Good Date of Surgery/Procedure: 03/28/17 Time of Surgery/Procedure: 10:31
[2017-03-28] MEDS ORDERED: Lactated Ringer's 1,000 ML IV SCH (10:51)
[2017-03-28] MEDS ORDERED: HYDROmorphone 0.5 mg/0.5 ml ISec IVP PRN (10:51)
[2017-03-28] MEDS ORDERED: Piperacillin/Tazobact 3.375 gm Inj IVPB ONE (11:30)
[2017-03-28] MEDS: Morphine 4 mg/ml ISec IVP PRN ×2 (12:52→22:45)
[2017-03-28] MEDS: Lactated Ringer's 1,000 ML IV SCH ×2 (13:14→18:11)
[2017-03-28] MEDS: Latanoprost 2.5 ml Opht Soln OU SCH (21:08)
--- NOTE | 2017-03-28 22:06 | PN ---
DATE OF SERVICE: 03/28/2017 SUBJECTIVE: The patient is seen bed, in no acute distress, nontoxic. PHYSICAL EXAMINATION: VITAL SIGNS: Temperature is 98, blood pressure is 120/60, respiratory rate of 16. HEENT: Unremarkable. NECK: Supple. LUNGS: Have decreased breath sounds. HEART: Normal S1 and S2. ABDOMEN: Soft. LABORATORY DATA: Reveals white count of 6.5, hemoglobin of 9 and platelets of 326. BUN of 11, creatinine of 0.7. Procalcitonin is 0.34. Urinalysis is noted. Microbiology: Reveals blood cultures are negative, urine cultures are negative. REVIEW OF MEDICATIONS: Reveals the patient to be on Zosyn. ASSESSMENT AND PLAN: This is a 71-year-old female with history of small bowel obstruction, hypertension, cardiac arrhythmia, non-Hodgkin's lymphoma, status post chemotherapy with a pacemaker, hysterectomy, bilateral hip, ALLERGIC TO SULFA, admitted with acute cystic duct obstruction and positive HIDA scan and a small bowel obstruction, on Zosyn, for OR today. We will follow with you. Shawn Easley MD
--- NOTE | 2017-03-28 23:47 | CP.PCM.PN ---
Subjective - Date & Time of Evaluation Date of Evaluation: 03/28/17 Time of Evaluation: 08:00 - Subjective Subjective: Pt. with NHL, recurrent. SBO, for OR today. No fever. abdominal pain improved. Objective - Vital Signs/Intake and Output Vital Signs (last 24 hours): Temp Pulse Resp BP Pulse Ox 97.6 F 73 16 127/69 97 03/28/17 13:00 03/28/17 13:00 03/28/17 13:00 03/28/17 13:00 03/28/17 13:00 Intake and Output: 03/28/17 03/29/17 18:59 06:59 Intake Total 0 260 Output Total 355 300 Balance -355 -40 - Medications Medications: Current Medications Aspirin (Aspirin Chewable) 81 mg PO DAILY [facility] Last Admin: 03/26/17 09:54 Dose: 81 mg Enoxaparin Sodium (Lovenox) 40 mg SC DAILY [facility] PRN Reason: Protocol Hydromorphone HCl (Dilaudid) 0.5 mg IVP Q15M PRN PRN Reason: Pain, moderate (4-7) Lactated Ringer's (Lactated Ringer's) 1,000 mls @ 100 mls/hr IV .Q10H [facility] Last Admin: 03/28/17 18:11 Dose: 100 mls/hr Piperacillin Sod/Tazobactam Sod (Zosyn 3.375 In Ns 100ml) 100 mls @ 200 mls/hr IVPB Q6 [facility] PRN Reason: Protocol Stop: 04/05/17 12:01 Last Admin: 03/28/17 18:08 Dose: 200 mls/hr Latanoprost (Xalatan Opht) 0 ml OU HS [facility] Last Admin: 03/28/17 21:08 Dose: 2.5 ml Losartan Potassium (Cozaar) 25 mg PO DAILY [facility] Last Admin: 03/28/17 06:44 Dose: 25 mg Morphine Sulfate (Morphine) 4 mg IVP Q4H PRN PRN Reason: Pain, moderate (4-7) Last Admin: 03/28/17 22:45 Dose: 4 mg Nystatin (Nystop Topical Powder) 1 gm TOP BID [facility] Last Admin: 03/27/17 19:04 Dose: 1 applic Ondansetron HCl (Zofran Inj) 4 mg IVP Q6H PRN PRN Reason: Nausea/Vomiting Last Admin: 03/28/17 12:52 Dose: 4 mg - Labs Labs: 03/28/17 05:50 03/28/17 05:50 PT 11.0 Seconds (9.9-11.8) 03/25/17 07:30 INR 1.02 (0.93-1.08) 03/25/17 07:30 APTT 32.4 Seconds (23.7-30.8) H 03/25/17 07:30 - Head Exam Head Exam: ATRAUMATIC, NORMAL INSPECTION, NORMOCEPHALIC - Eye Exam Eye Exam: Normal appearance Pupil Exam: NORMAL ACCOMODATION - ENT Exam ENT Exam: Mucous Membranes Moist, Normal Exam - Neck Exam Neck Exam: Normal Inspection - Respiratory Exam Respiratory Exam: Clear to Ausculation Bilateral, NORMAL BREATHING PATTERN - Cardiovascular Exam Cardiovascular Exam: REGULAR RHYTHM, +S1, +S2 - GI/Abdominal Exam GI & Abdominal Exam: Normal Bowel Sounds - Extremities Exam Extremities Exam: Normal Capillary Refill, Normal Inspection - Back Exam Back Exam: NORMAL INSPECTION - Neurological Exam Neurological Exam: Alert, Oriented x3 - Skin Skin Exam: Normal Color, Warm Assessment and Plan - Assessment and Plan (Free Text) Assessment: Assessment: 1. recurrent NHL 2. Small bowel obstruction 3. left lower lobe PNA 4. Cholycystitis plan : continue oral liquids. IVF NS 100 cc/hr. laproscopic cholecystectomy done today, adhesion abdomen, Zofran 4 mg IV Q 6hr. IV antibioitcs zosyn. Morphine 4 mg IV Q 4 hr prn for pain. pain controlled with current meds. monitor blood counts.
[2017-03-29] MEDS: Lactated Ringer's 1,000 ML IV SCH (04:36)
[2017-03-29] MEDS: Piperacillin/Tazobact 3.375 gm 100 ML IVPB SCH ×2 (05:09→11:39)
[2017-03-29 07:32] LABS: BASO # 0.01 K/mm3 (0.0-2.0); BASO % 0.1 % (0.0-3.0); EOS # 0.3 (0.0-0.7); EOS % 4.2 % (1.5-5.0); GRAN # 6.58 (1.4-6.5); GRAN % 81.6 % (50.0-68.0); HEMATOCRIT 31.6 % (36.0-48.0); LYMPH # 0.7 (1.2-3.4); LYMPH % 8.6 % (22.0-35.0); MEAN CELL VOLUME 77.3 fl (80.0-105.0); MEAN CORPUSCULAR HEMOGLOBIN 23.2 pg (25.0-35.0); MEAN CORPUSCULAR HGB CONC 30.1 g/dl (31.0-37.0); MEAN PLATELET VOLUME 8.5 fl (7.0-11.0); MONO # 0.4 (0.1-0.6); MONO % 5.5 % (1.0-6.0); WHITE BLOOD COUNT 8.1 10^3/ul (4.5-11.0)
[2017-03-29 07:43] LABS: ALB/GLOB RATIO 1.2 (1.1-1.8); ALKALINE PHOSPHATASE 154 U/L (38-133); ALT/SGPT 52 U/L (7-56); AST/SGOT 32 U/L (15-39); BILIRUBIN,TOTAL 0.5 mg/dL (0.2-1.3); BLOOD UREA NITROGEN 6 mg/dL (7-21); CALCIUM 7.8 mg/dL (8.4-10.5); CARBON DIOXIDE 26 mmol/L (21-33); CHLORIDE 100 mmol/L (98-107); GFR AFRICAN-AMERICAN > 60; GLUCOSE,RANDOM 66 mg/dL (70-110); POTASSIUM 3.6 mmol/L (3.6-5.0); SODIUM 135 mmol/L (132-148); TOTAL PROTEIN 4.7 g/dL (5.8-8.3)
--- NOTE | 2017-03-29 08:16 | CP.PCM.PN ---
Subjective - Date & Time of Evaluation Date of Evaluation: 03/29/17 Time of Evaluation: 08:45 - Subjective Subjective: General Surgery Progress note for Dr. Morales PT S&E at bedside. Patient tolerated procedure well yesterday. Patient admits to flatus overnight and at bedside. Patient denies BM. Patient denies F/c, N/V. Admits to umbilical tenderness on palpation and minimal pain on palpation of the abdomen. PAtient is tolerated pain well. NAEON. Objective - Vital Signs/Intake and Output Vital Signs (last 24 hours): Temp Pulse Resp BP Pulse Ox 97.6 F 73 16 127/69 97 03/28/17 13:00 03/28/17 13:00 03/28/17 13:00 03/28/17 13:00 03/28/17 13:00 Intake and Output: 03/29/17 03/29/17 06:59 18:59 Intake Total 260 Output Total 300 Balance -40 - Medications Medications: Current Medications Aspirin (Aspirin Chewable) 81 mg PO DAILY [facility] Last Admin: 03/26/17 09:54 Dose: 81 mg Enoxaparin Sodium (Lovenox) 40 mg SC DAILY [facility] PRN Reason: Protocol Hydromorphone HCl (Dilaudid) 0.5 mg IVP Q15M PRN PRN Reason: Pain, moderate (4-7) Lactated Ringer's (Lactated Ringer's) 1,000 mls @ 100 mls/hr IV .Q10H [facility] Last Admin: 03/29/17 04:36 Dose: 100 mls/hr Piperacillin Sod/Tazobactam Sod (Zosyn 3.375 In Ns 100ml) 100 mls @ 200 mls/hr IVPB Q6 [facility] PRN Reason: Protocol Stop: 04/05/17 12:01 Last Admin: 03/29/17 05:09 Dose: 200 mls/hr Latanoprost (Xalatan Opht) 0 ml OU HS [facility] Last Admin: 03/28/17 21:08 Dose: 2.5 ml Losartan Potassium (Cozaar) 25 mg PO DAILY [facility] Last Admin: 03/28/17 06:44 Dose: 25 mg Morphine Sulfate (Morphine) 4 mg IVP Q4H PRN PRN Reason: Pain, moderate (4-7) Last Admin: 03/28/17 22:45 Dose: 4 mg Nystatin (Nystop Topical Powder) 1 gm TOP BID [facility] Last Admin: 03/27/17 19:04 Dose: 1 applic Ondansetron HCl (Zofran Inj) 4 mg IVP Q6H PRN PRN Reason: Nausea/Vomiting Last Admin: 03/28/17 12:52 Dose: 4 mg - Labs Labs: 03/29/17 06:45 03/29/17 06:45 PT 11.0 Seconds (9.9-11.8) 03/25/17 07:30 INR 1.02 (0.93-1.08) 03/25/17 07:30 APTT 32.4 Seconds (23.7-30.8) H 03/25/17 07:30 - Constitutional Appears: No Acute Distress - Head Exam Head Exam: NORMAL INSPECTION - Eye Exam Eye Exam: EOMI, Normal appearance - ENT Exam ENT Exam: Mucous Membranes Moist - Neck Exam Neck Exam: Full ROM, Normal Inspection - Respiratory Exam Respiratory Exam: Clear to Ausculation Bilateral, NORMAL BREATHING PATTERN - Cardiovascular Exam Cardiovascular Exam: REGULAR RHYTHM. absent: Bradycardia, Tachycardia - GI/Abdominal Exam GI & Abdominal Exam: Soft, Normal Bowel Sounds. absent: Distended, Guarding, Rigid, Tenderness - Extremities Exam Extremities Exam: Full ROM, Normal Inspection. absent: Pedal Edema - Neurological Exam Neurological Exam: Alert, Awake - Psychiatric Exam Psychiatric exam: Normal Affect, Normal Mood - Skin Skin Exam: Dry, Normal Color, Warm Additional comments: incision sites with dressings c/d/i, no erythema, drainage, purulence Assessment and Plan - Assessment and Plan (Free Text) Assessment: 71F presents with obstruction s/p laparoscopic SCARLETT with cholecystectomy POD #1 Plan: c/w current pain medication PT eval and treat. patient does not walk with hip pain. advance diet to FLD f/u for BM continue on lovenox for DVT PPX f/u am Labs adjust pain medications Namrata Cristobal DO PGY1
[2017-03-29] MEDS: Nystatin 100,000 Units/gm Topical Pow(15 gm) TOP SCH ×2 (09:58→17:00)
[2017-03-29] MEDS: Enoxaparin 40 mg Syringe SC SCH (09:58)
--- NOTE | 2017-03-29 11:43 | CP.PCM.PN ---
<Lo Koehler - Last Filed: 03/29/17 11:42> Subjective - Date & Time of Evaluation Date of Evaluation: 03/29/17 Time of Evaluation: 10:15 - Subjective Subjective: Seen and examined at the bedside, chart reviewed. Status post laparoscopy with lysis of adhesions and laparoscopic cholecystectomy. Patient tolerated clear liquid diet this morning, positive belching and flatus, no BM yet. No complaints of abdominal pain, nausea, vomiting or fever or chills, shortness of breath or chest pain. No acute overnight events. Objective - Vital Signs/Intake and Output Vital Signs (last 24 hours): Temp Pulse Resp BP Pulse Ox 97.4 F L 80 18 110/70 97 03/29/17 08:33 03/29/17 08:33 03/29/17 08:33 03/29/17 10:00 03/29/17 08:33 Intake and Output: 03/29/17 03/29/17 06:59 18:59 Intake Total 260 Output Total 300 Balance -40 - Medications Medications: Current Medications Aspirin (Aspirin Chewable) 81 mg PO DAILY [facility] Last Admin: 03/26/17 09:54 Dose: 81 mg Enoxaparin Sodium (Lovenox) 40 mg SC DAILY [facility] PRN Reason: Protocol Last Admin: 03/29/17 09:58 Dose: 40 mg Hydromorphone HCl (Dilaudid) 0.5 mg IVP Q15M PRN PRN Reason: Pain, moderate (4-7) Piperacillin Sod/Tazobactam Sod (Zosyn 3.375 In Ns 100ml) 100 mls @ 200 mls/hr IVPB Q6 [facility] PRN Reason: Protocol Stop: 04/05/17 12:01 Last Admin: 03/29/17 05:09 Dose: 200 mls/hr Latanoprost (Xalatan Opht) 0 ml OU HS [facility] Last Admin: 03/28/17 21:08 Dose: 2.5 ml Losartan Potassium (Cozaar) 25 mg PO DAILY [facility] Last Admin: 03/29/17 10:00 Dose: Not Given Morphine Sulfate (Morphine) 4 mg IVP Q4H PRN PRN Reason: Pain, moderate (4-7) Last Admin: 03/28/17 22:45 Dose: 4 mg Nystatin (Nystop Topical Powder) 1 gm TOP BID [facility] Last Admin: 03/29/17 09:58 Dose: 1 applic Ondansetron HCl (Zofran Inj) 4 mg IVP Q6H PRN PRN Reason: Nausea/Vomiting Last Admin: 03/28/17 12:52 Dose: 4 mg - Labs Labs: 03/29/17 06:45 03/29/17 06:45 PT 11.0 Seconds (9.9-11.8) 03/25/17 07:30 INR 1.02 (0.93-1.08) 03/25/17 07:30 APTT 32.4 Seconds (23.7-30.8) H 03/25/17 07:30 - Constitutional Appears: No Acute Distress - Head Exam Head Exam: NORMOCEPHALIC - Eye Exam Eye Exam: Normal appearance. absent: Scleral icterus - ENT Exam ENT Exam: Mucous Membranes Moist - Respiratory Exam Respiratory Exam: Clear to Ausculation Bilateral, NORMAL BREATHING PATTERN. absent: Respiratory Distress - Cardiovascular Exam Cardiovascular Exam: +S1, +S2 - GI/Abdominal Exam GI & Abdominal Exam: Soft, Normal Bowel Sounds. absent: Guarding, Tenderness, Organomegaly, Rebound Additional comments: laparoscopic puncture sites3 are dry and intact. Abdomen nontender - Extremities Exam Extremities Exam: Normal Capillary Refill. absent: Calf Tenderness, Pedal Edema - Neurological Exam Neurological Exam: Alert, Awake, Oriented x3 Assessment and Plan - Assessment and Plan (Free Text) Assessment: Assessment: Status post laparoscopy with lysis of adhesions and laparoscopic cholecystectomy Stage IV lymphoma Elevated LFTs, improving Coronary artery disease status post permanent pacemaker History of gastric ulcers History of arthritis Plan: Diet as per surgery patient is clear liquid MONITOR LFTs Monitor H&H on Lovenox Continue IV antibiotics Seen and discussed with Dr. Washington. <Deysi Washington V - Last Filed: 03/29/17 23:32> Objective - Vital Signs/Intake and Output Vital Signs (last 24 hours): Temp Pulse Resp BP Pulse Ox 98.4 F 89 20 150/75 94 L 03/29/17 16:00 03/29/17 16:00 03/29/17 16:00 03/29/17 16:00 03/29/17 16:00 Intake and Output: 03/29/17 03/30/17 18:59 06:59 Intake Total 960 480 Output Total 400 Balance 960 80 - Medications Medications: Current Medications Aspirin (Aspirin Chewable) 81 mg PO DAILY [facility] Last Admin: 03/26/17 09:54 Dose: 81 mg Enoxaparin Sodium (Lovenox) 40 mg SC DAILY [facility] PRN Reason: Protocol Last Admin: 03/29/17 09:58 Dose: 40 mg Hydromorphone HCl (Dilaudid) 0.5 mg IVP Q15M PRN PRN Reason: Pain, moderate (4-7) Piperacillin Sod/Tazobactam Sod (Zosyn 3.375 In Ns 100ml) 100 mls @ 200 mls/hr IVPB Q6 [facility] PRN Reason: Protocol Stop: 04/05/17 12:01 Last Admin: 03/29/17 11:39 Dose: 200 mls/hr Latanoprost (Xalatan Opht) 0 ml OU HS [facility] Last Admin: 03/29/17 22:06 Dose: 2.5 ml Losartan Potassium (Cozaar) 25 mg PO DAILY [facility] Last Admin: 03/29/17 10:00 Dose: Not Given Morphine Sulfate (Morphine) 4 mg IVP Q4H PRN PRN Reason: Pain, moderate (4-7) Last Admin: 03/28/17 22:45 Dose: 4 mg Nystatin (Nystop Topical Powder) 1 gm TOP BID [facility] Last Admin: 03/29/17 17:00 Dose: 1 applic Ondansetron HCl (Zofran Inj) 4 mg IVP Q6H PRN PRN Reason: Nausea/Vomiting Last Admin: 03/28/17 12:52 Dose: 4 mg Tramadol HCl (Ultram) 50 mg PO Q6 PRN PRN Reason: Pain, moderate (4-7) - Labs Labs: 03/29/17 06:45 03/29/17 06:45 PT 11.0 Seconds (9.9-11.8) 03/25/17 07:30 INR 1.02 (0.93-1.08) 03/25/17 07:30 APTT 32.4 Seconds (23.7-30.8) H 03/25/17 07:30 Attending/Attestation - Attestation I have personally seen and examined this patient.: Yes I have fully participated in the care of the patient.: Yes I have reviewed all pertinent clinical information, including history, physical exam and plan: Yes Notes (Text): 03/29/17 23:32 p
[2017-03-29 18:47] VITALS: RESP 20
[2017-03-29] MEDS: Latanoprost 2.5 ml Opht Soln OU SCH (22:06)
--- NOTE | 2017-03-30 01:34 | PN ---
DATE: 03/29/2017 SUBJECTIVE: The patient is in bed, in no acute distress, was seen earlier this morning at 565. PHYSICAL EXAMINATION VITAL SIGNS: Temperature is 98, blood pressure is 108/50, respiratory rate of 18. HEENT: Unremarkable. NECK: Supple. LUNGS: Decreased breath sounds. HEART: Normal S1 and S2. ABDOMEN: Soft. LABORATORY DATA: Reveals a white count of 8.1, hemoglobin of 9, platelets of 311. BUN of 6, creatinine of 0.6, procalcitonin 0.34. Microbiology reveals the blood cultures are negative. Urine cultures are negative. Pathology of the gallbladder is small bowel obstruction and [id number] cholecystitis and cholelithiasis with benign lymph nodes. ASSESSMENT AND PLAN: A 71-year-old female with history of small bowel obstruction; hypertension; cardiac arrhythmia; non-Hodgkin lymphoma, status post chemotherapy with a pacemaker, hysterectomy, bilateral hip, ALLERGIC TO SULFA, admitted with acute cystic duct obstruction and a positive HIDA scan and a small bowel obstruction, now status post day #1 of laparoscopic cholecystectomy and laparoscopic lysis of adhesion, laparoscopic exploratory and currently the patient is on Zosyn. We will discontinue the antibiotics within the next 24 hours. Gallbladder pathology is reviewed. No transmural pathology involved and we will follow with you. Lo Koehler' note is reviewed and Dr. Namrata Cristobal's note is reviewed. Shawn Easley MD
--- NOTE | 2017-03-30 02:08 | PN ---
DATE: 03/29/2017 SUBJECTIVE: The patient has no complaints of any chest pain. No shortness of breath. No headache or dizziness. PHYSICAL EXAMINATION: VITAL SIGNS: Temperature 98.4, pulse is 89, blood pressure 150/75, respirations 20. GENERAL: The patient is lying in bed, flat, comfortable. HEENT: No oral lesion. Anicteric sclerae. Moist mucosa. NECK: No JVD, adenopathy, or thyromegaly. CARDIOVASCULAR: S1 and S2, regular. No murmurs, rubs, or gallops. LUNGS: Clear to auscultation bilaterally. No wheeze, rales, or rhonchi. ABDOMEN: Bowel sounds are positive, soft, nontender and nondistended. EXTREMITIES: no cyanosis, clubbing or edema. LABORATORY DATA: White count of 8.1, hemoglobin 9.5, creatinine is 0.6. ASSESSMENT: 1. Small bowel obstruction. 2. Status post lysis of adhesions. 3. Cholecystectomy postop day #1. 4. Non-Hodgkin's lymphoma. 5. . 6. Iron deficiency anemia. 7. Hypertension. 8. Lung mass. 9. Pacemaker. PLAN: The patient is feeling comfortable. She prefers to go to home rather than transitional care unit in rehab. The patient is currently on Losartan for hypotension. She is on Lovenox for DVT prophylaxis. She is taking Ultram for pain. She is on Zosyn for antibiotics. She can be switched over to p.o. antibiotics and most likely discharged home. I just spoke with Dr. Morales who has cleared her for discharge. She currently is on liquid diet, which will need to be advanced. Ilan Del Rio MD
--- NOTE | 2017-03-30 02:29 | OP ---
PREOPERATIVE DIAGNOSIS: Small bowel obstruction and acute cholecystitis. POSTOPERATIVE DIAGNOSES: Small bowel obstruction and acute cholecystitis. OPERATION PERFORMED: Laparoscopic lysis of adhesions and laparoscopic cholecystectomy. DESCRIPTION OF PROCEDURE: In the operating room, the patient was identified by name, name of procedure, laterality, my tolu and the consent because of the high likelihood of opening, the Venita cannula was used in the paraumbilical fashion that was dissected down to the fascia and entered. The laparoscopy was performed. There were clearly dilated loops of bowel and clearly decompressed loops of bowel. Centering down adhesions in the pelvis, several large adhesions were taken down for better exposure. The midline was used for a xyphoid port and eventually a lateral port for dissection of 0.5. The small bowel was run and coming down to the adhesions in the pelvis on the right side of the pelvis, these were bluntly and sharply taken down using cautery and the Harmonic as necessary and when the final adhesion was lysed, there was clear decompression that was seen. The bowel was examined, there was nothing else untoward. There was a lot of edematous bowel consistent with chronic obstruction, but no lesions were identified. No gross adenopathy. Nothing to suggest lymphoma. There was fluid in the pelvis and then above the liver, switching down to the gallbladder. The Prestige was used to pull up the fundus and the infundibulum, and the Harmonic were used to take the multiple adhesions down off the bed, but the gallbladder itself was thin walled. It was pulled up from the infundibulum and dissected nicely. There was clear dissection of a cystic duct that was clean and dry nicely. Peritoneum on either side of the gallbladder was taken down to expose no real structures. Inferiorly on the right side was what was probably an artery. This was cleaned and eventually clipped. Single structure going to the gallbladder and a possible small artery behind were clipped and the gallbladder taken off using the hook, placed in the bag and removed. There was nothing untoward. The wounds were copiously irrigated and dried. The incisions were closed with open using stitch and Vicryl, closed with subcutaneous Vicryl and subcuticular PDS. The patient was taken to the recovery room in good condition. All the sponge and needle counts were clear and correct. Sacha Morales MD [facility] # [id number]
[2017-03-30] MEDS: Piperacillin/Tazobact 3.375 gm 100 ML IVPB SCH ×3 (05:47→11:54)
--- NOTE | 2017-03-30 07:18 | CP.PCM.PN ---
Subjective - Date & Time of Evaluation Date of Evaluation: 03/30/17 Time of Evaluation: 07:14 - Subjective Subjective: Progress note for Dr. Morales Patient seen and examined overnight. DARLENE. Patient had a large BM during pre- rounds this morning. Patient still passing flatus. Patient tolerating pain well. Patient denies F/C, N/V, constipation. admits to flatus. Objective - Vital Signs/Intake and Output Vital Signs (last 24 hours): Temp Pulse Resp BP Pulse Ox 98.4 F 89 20 150/75 94 L 03/29/17 16:00 03/29/17 16:00 03/29/17 16:00 03/29/17 16:00 03/29/17 16:00 Intake and Output: 03/30/17 03/30/17 06:59 18:59 Intake Total 600 Output Total 1400 Balance -800 - Medications Medications: Current Medications Aspirin (Aspirin Chewable) 81 mg PO DAILY [facility] Last Admin: 03/26/17 09:54 Dose: 81 mg Enoxaparin Sodium (Lovenox) 40 mg SC DAILY [facility] PRN Reason: Protocol Last Admin: 03/29/17 09:58 Dose: 40 mg Hydromorphone HCl (Dilaudid) 0.5 mg IVP Q15M PRN PRN Reason: Pain, moderate (4-7) Piperacillin Sod/Tazobactam Sod (Zosyn 3.375 In Ns 100ml) 100 mls @ 200 mls/hr IVPB Q6 [facility] PRN Reason: Protocol Stop: 04/05/17 12:01 Last Admin: 03/30/17 05:47 Dose: 200 mls/hr Latanoprost (Xalatan Opht) 0 ml OU HS [facility] Last Admin: 03/29/17 22:06 Dose: 2.5 ml Losartan Potassium (Cozaar) 25 mg PO DAILY [facility] Last Admin: 03/29/17 10:00 Dose: Not Given Morphine Sulfate (Morphine) 4 mg IVP Q4H PRN PRN Reason: Pain, moderate (4-7) Last Admin: 03/28/17 22:45 Dose: 4 mg Nystatin (Nystop Topical Powder) 1 gm TOP BID [facility] Last Admin: 03/29/17 17:00 Dose: 1 applic Ondansetron HCl (Zofran Inj) 4 mg IVP Q6H PRN PRN Reason: Nausea/Vomiting Last Admin: 03/28/17 12:52 Dose: 4 mg Tramadol HCl (Ultram) 50 mg PO Q6 PRN PRN Reason: Pain, moderate (4-7) - Labs Labs: 03/29/17 06:45 03/29/17 06:45 PT 11.0 Seconds (9.9-11.8) 03/25/17 07:30 INR 1.02 (0.93-1.08) 03/25/17 07:30 APTT 32.4 Seconds (23.7-30.8) H 03/25/17 07:30 - Constitutional Appears: Non-toxic, No Acute Distress - Head Exam Head Exam: NORMAL INSPECTION - Eye Exam Eye Exam: EOMI, Normal appearance - ENT Exam ENT Exam: Mucous Membranes Moist - Neck Exam Neck Exam: Full ROM - Respiratory Exam Respiratory Exam: Clear to Ausculation Bilateral, NORMAL BREATHING PATTERN. absent: Accessory Muscle Use, Respiratory Distress - Cardiovascular Exam Cardiovascular Exam: REGULAR RHYTHM. absent: Bradycardia, Tachycardia - GI/Abdominal Exam GI & Abdominal Exam: Soft, Normal Bowel Sounds. absent: Tenderness, Hernia, Mass - Extremities Exam Extremities Exam: Normal Inspection - Neurological Exam Neurological Exam: Alert, Awake, Normal Gait - Psychiatric Exam Psychiatric exam: Normal Affect, Normal Mood - Skin Skin Exam: Dry, Normal Color, Warm Additional comments: incision sites c/d/i. right most incision site has a blister at edge of bandage Assessment and Plan - Assessment and Plan (Free Text) Assessment: 71F small bowel obstriction s/p laparoscopic SCARLETT with cholecystectomy POD#2 Plan: c/w pain management c/w medical management patient is hemodynamically stable. diet advanced to regular, monitor for tolerance patient is clear for discharge Namrata Cristobal DO PGY1
[2017-03-30] MEDS: Nystatin 100,000 Units/gm Topical Pow(15 gm) TOP SCH (10:01)
[2017-03-30] MEDS: Enoxaparin 40 mg Syringe SC SCH (10:01)
[2017-03-30 10:05] VITALS: BP 115/50; PULSE 76
[2017-03-30 11:44] VITALS: TEMP 98.7; O2SAT 97
--- NOTE | 2017-03-30 12:33 | CP.PCM.PN ---
Subjective - Date & Time of Evaluation Date of Evaluation: 03/30/17 Time of Evaluation: 11:30 - Subjective Subjective: Patient is tolerating regular diet, no abdominal pain, no vomiting, no fevers, passing flatus. Objective - Vital Signs/Intake and Output Vital Signs (last 24 hours): Temp Pulse Resp BP Pulse Ox 98.4 F 76 20 115/50 L 94 L 03/29/17 16:00 03/30/17 10:00 03/29/17 16:00 03/30/17 10:00 03/29/17 16:00 Intake and Output: 03/30/17 03/30/17 06:59 18:59 Intake Total 600 Output Total 1400 Balance -800 - Medications Medications: Current Medications Aspirin (Aspirin Chewable) 81 mg PO DAILY [facility] Last Admin: 03/30/17 10:00 Dose: 81 mg Enoxaparin Sodium (Lovenox) 40 mg SC DAILY [facility] PRN Reason: Protocol Last Admin: 03/30/17 10:01 Dose: 40 mg Hydromorphone HCl (Dilaudid) 0.5 mg IVP Q15M PRN PRN Reason: Pain, moderate (4-7) Piperacillin Sod/Tazobactam Sod (Zosyn 3.375 In Ns 100ml) 100 mls @ 200 mls/hr IVPB Q6 [facility] PRN Reason: Protocol Stop: 04/05/17 12:01 Last Admin: 03/30/17 05:47 Dose: 200 mls/hr Latanoprost (Xalatan Opht) 0 ml OU HS [facility] Last Admin: 03/29/17 22:06 Dose: 2.5 ml Losartan Potassium (Cozaar) 25 mg PO DAILY [facility] Last Admin: 03/30/17 10:00 Dose: 25 mg Morphine Sulfate (Morphine) 4 mg IVP Q4H PRN PRN Reason: Pain, moderate (4-7) Last Admin: 03/28/17 22:45 Dose: 4 mg Nystatin (Nystop Topical Powder) 1 gm TOP BID [facility] Last Admin: 03/30/17 10:01 Dose: 1 applic Ondansetron HCl (Zofran Inj) 4 mg IVP Q6H PRN PRN Reason: Nausea/Vomiting Last Admin: 03/28/17 12:52 Dose: 4 mg Tramadol HCl (Ultram) 50 mg PO Q6 PRN PRN Reason: Pain, moderate (4-7) - Labs Labs: 03/29/17 06:45 03/29/17 06:45 PT 11.0 Seconds (9.9-11.8) 03/25/17 07:30 INR 1.02 (0.93-1.08) 03/25/17 07:30 APTT 32.4 Seconds (23.7-30.8) H 03/25/17 07:30 - Constitutional Appears: Non-toxic, No Acute Distress - Respiratory Exam Respiratory Exam: Decreased Breath Sounds - Cardiovascular Exam Cardiovascular Exam: +S1, +S2 - GI/Abdominal Exam GI & Abdominal Exam: Soft. absent: Tenderness Assessment and Plan - Assessment and Plan (Free Text) Plan: assessment acute cholecystitis S/P cholecystectomy POD #2 history of Left lower lobe mass-like lesion, probably community-acquired pneumonia dyslipidemia HTN non-Hodgkin lymphoma gastric ulcers S/P pacemaker placement S/P hysterectomy obesity with BMI 32 Plan on Zosyn day 4 - patient had adequate source control of infection with cholecystectomy, patient eating, no leukocytosis, no fevers - may d/c antibiotics and patient should have follow up with PMD and Surgery
--- NOTE | 2017-03-30 15:47 | CP.PCM.PN ---
Subjective - Date & Time of Evaluation Date of Evaluation: 03/30/17 Time of Evaluation: 10:20 - Subjective Subjective: seen and examined at the bedside earlier today., Chart was reviewed. No acute overnight events reported. The patient started advanced to solids and is tolerating well. The patient reported to have a large bowel movement earlier this morning, no reports of bleeding. Abdominal bandages are removed, patient denies nausea, vomiting, fever, chills or abdominal pain. Objective - Vital Signs/Intake and Output Vital Signs (last 24 hours): Temp Pulse Resp BP Pulse Ox 98.7 F 76 20 115/50 L 97 03/30/17 07:00 03/30/17 10:00 03/30/17 07:00 03/30/17 10:00 03/30/17 07:00 Intake and Output: 03/30/17 03/30/17 06:59 18:59 Intake Total 600 Output Total 1400 150 Balance -800 -150 - Labs Labs: 03/29/17 06:45 03/29/17 06:45 PT 11.0 Seconds (9.9-11.8) 03/25/17 07:30 INR 1.02 (0.93-1.08) 03/25/17 07:30 APTT 32.4 Seconds (23.7-30.8) H 03/25/17 07:30 - Constitutional Appears: No Acute Distress - Head Exam Head Exam: NORMOCEPHALIC - Eye Exam Eye Exam: Normal appearance. absent: Scleral icterus - ENT Exam ENT Exam: Mucous Membranes Moist - Neck Exam Neck Exam: Normal Inspection - Respiratory Exam Respiratory Exam: NORMAL BREATHING PATTERN. absent: Respiratory Distress - Cardiovascular Exam Cardiovascular Exam: +S1, +S2 - GI/Abdominal Exam GI & Abdominal Exam: Soft, Normal Bowel Sounds. absent: Guarding, Tenderness, Rebound - Extremities Exam Extremities Exam: Normal Capillary Refill. absent: Calf Tenderness, Pedal Edema - Neurological Exam Neurological Exam: Alert, Awake, Oriented x3 - Skin Skin Exam: Dry, Warm Assessment and Plan - Assessment and Plan (Free Text) Assessment: Assessment: Status post laparoscopy with lysis of adhesions and laparoscopic cholecystectomy Stage IV lymphoma Elevated LFTs, improving Coronary artery disease status post permanent pacemaker History of gastric ulcers History of arthritis Plan: diet advance as per surgery to regular soft, would recommend low fat diet monitor LFTs Monitor H&H on Lovenox on IV antibiotics As per surgery Discussed with Dr. Silva who is covering Dr. Washington.
--- NOTE | 2017-03-30 18:24 | CON ---
DATE: ONCOLOGY CONSULTATION HISTORY OF PRESENT ILLNESS: This is 71-year-old woman who asked me to see. She is well known to me. She has lymphoma. A lymphoma that is affecting initially her kidney, her breast, her lymph node. She was treated with Rituxan, this was about 2 years ago and recurred recently in the lung. She started to having a lung mass, we biopsied that and she started with Rituxan chemotherapy again, soon as about a 2 year interval. She received her first dose of Rituxan. She was to get it weekly for 4 treatments; however, she started having abdominal pain. She was admitted to the hospital and was felt to have surgery, some adhesions as well as acute cholecystitis and she had her gallbladder removed. PHYSICAL EXAMINATION: SKIN: No petechia. No bruises. HEENT: Anicteric. NODES: Nonpalpable in axillary, cervical, supraclavicular, inguinal regions. HEART: S1, S2. LUNGS: Clear at present. The patient is able to lie flat. ABDOMEN: Shows no rebound, no liver, no spleen. No tenderness right now. EXTREMITIES: No edema. STOCK HANGER: No focal findings. She tells me she is going to be discharged today. I told her that we will hold off the Rituxan for 2 weeks. I will see her in the office in 2 weeks, to make sure she is okay and then restart weekly Rituxan for 4 doses. Tien Mcneill MD
--- NOTE | 2017-04-05 01:30 | DS ---
DISCHARGE DIAGNOSES: 1. Stage 4 non-Hodgkin's lymphoma. 2. Small bowel obstruction status post adhesiolysis. 3. Acute cholecystitis. 4. Anemia. 5. Leukocytosis. HOSPITAL COURSE: The patient was admitted with small bowel obstruction. She was managed conservatively, but did not improve. She was taken to OR, adhesiolysis was done. She underwent laparoscopic laparotomy with adhesion lysis and cholecystectomy. She was able to tolerate oral liquid and solid food. She has been discharged in stable condition. PHYSICAL EXAMINATION ON DISCHARGE: GENERAL: Comfortable in bed, no acute distress. VITAL SIGNS: Stable. Temperature 98.6, heart rate 70 per minute, respiratory rate 16 per minute, blood pressure 127/69, pulse ox is 97% on room air. HEENT: Normal. NECK: Supple. CHEST: Air entry present and equal bilaterally. No added sounds. CARDIOVASCULAR: S1 and S2 normal. No murmur and no gallop. ABDOMEN: Soft and nontender. No hepatosplenomegaly. EXTREMITIES: No edema. RESEARCH NEUROPSYCHOLOGIST: Alert and oriented x3. No focal sensory or motor deficits. SPINE: Normal. SKIN: No pallor. No petechia. No rashes. CONDITION ON DISCHARGE: Stable. DISPOSITION: Discharge home. HOME MEDICATIONS: Continue home medications. Nystatin topical powder, Zofran 4 mg p.r.n. for nausea, aspirin 81 mg daily, Losartan 100/25 mg daily. FOLLOWUP: Followup with Dr. Rodríguez in one week. Followup with Dr. Del Rio in one week. DIET: As tolerated, regular. Time spent in preparing discharge and coordinating care 50 minutes. Leslie Boyd MD
== END 2017-03-30 14:39 | disposition home health service (06) | DRG 417 ==
LOC: ED 07:05 → ERH 09:18 → 5RNO 10:54
PROVIDERS: ADMIT Internal Medicine Nephrology; ATTEND Internal Medicine Nephrology
PROC: 0FT44ZZ Resection of Gallbladder, Percutaneous Endoscopic Approach (ICD-10-PCS; principal; 2017-03-28 07:30)
PROC: 0DN84ZZ Release Small Intestine, Percutaneous Endoscopic Approach (ICD-10-PCS; 2017-03-28 07:30)
DX: K80.13 Calculus of gallbladder with acute and chronic cholecystitis with obstruction (principal); J18.9 Pneumonia, unspecified organism; K56.5 Intestinal adhesions [bands] with obstruction (postinfection); C85.90 Non-Hodgkin lymphoma, unspecified, unspecified site; N39.0 Urinary tract infection, site not specified; R63.0 Anorexia; I10 Essential (primary) hypertension; M16.12 Unilateral primary osteoarthritis, left hip; D50.9 Iron deficiency anemia, unspecified; H40.9 Unspecified glaucoma; E78.5 Hyperlipidemia, unspecified; I25.10 Atherosclerotic heart disease of native coronary artery without angina pectoris; K25.9 Gastric ulcer, unspecified as acute or chronic, without hemorrhage or perforation; Z96.643 Presence of artificial hip joint, bilateral; E66.9 Obesity, unspecified; Z68.32 Body mass index [BMI] 32.0-32.9, adult; Z86.73 Personal history of transient ischemic attack (TIA), and cerebral infarction without residual deficits; Z95.0 Presence of cardiac pacemaker; Z92.21 Personal history of antineoplastic chemotherapy; Z90.710 Acquired absence of both cervix and uterus; Z88.2 Allergy status to sulfonamides; Z87.891 Personal history of nicotine dependence

== ENCOUNTER 2018-06-27 18:03 | Inpatient (IN) | payer OTHER, MEDICARE ==
[2018-06-27 19:19] VITALS: BMI 31.8
[2018-06-27] MEDS: Cefepime 1gm in NS 100ml 1 GM/100 ML BAG IVPB SCH (21:18)
[2018-06-27] MEDS: Latanoprost 2.5 ml Opht Soln OU SCH (21:28)
[2018-06-27] MEDS: oxyCODONE 5 mg Immediate Release Tab PO PRN (22:27)
[2018-06-27] MEDS ORDERED: Influenza Vaccine 60 mcg/0.5 mL SYR (4YR UP) IM ONE (22:43)
[2018-06-28] MEDS: Vancomycin 1gm in NS 250ml 1 GM/250 ML BAG IVPB SCH ×2 (05:29→17:50)
[2018-06-28] MEDS: Cefepime 1gm in NS 100ml 1 GM/100 ML BAG IVPB SCH ×3 (05:29→21:14)
[2018-06-28] MEDS: Nystatin 100,000 Units/gm Topical Pow(15 gm) TOP SCH ×2 (09:55→17:48)
[2018-06-28] MEDS: Silver Sulfadiazine 1% Cream (25 gm) TP SCH ×2 (09:56→17:48)
[2018-06-28] MEDS: oxyCODONE 5 mg Immediate Release Tab PO PRN ×4 (09:58→23:41)
--- NOTE | 2018-06-28 14:53 | CP.PCM.CON ---
History of Present Illness - History of Present Illness History of Present Illness: 73 year old female with PMH of history of acute cholecystitis, history of Left lower lobe mass-like lesion, probably community-acquired pneumonia, dyslipidemia, HTN, non-Hodgkin lymphoma, gastric ulcers, S/P pacemaker placement, S/P hysterectomy, obesity with BMI 32 initially came in to [facility] because of pain the right buttock area / sacral area and was found to have cellulitis. She is being treated with antibiotics and antivirals and is slowly getting better. She is now transferred to [facility] for continued medical therapy and physical rehab. Infectious Diseases consult is requested to continue her antibiotic therapy. She denies fever or chills, right buttock area is slowly improving but still having some weeping, no headache or dizziness, no chest pain, no SOB , no headache or dizziness , no abdominal pain, no diarrhea, no dysuria. Review of Systems - Review of Systems All systems: reviewed and no additional remarkable complaints except (as per HPI) Past Patient History - Infectious Disease Hx of Infectious Diseases: None - Tetanus Immunizations Tetanus Immunization: Unknown - Past Medical History & Family History Past Medical History?: Yes - Past Social History Smoking Status: Former Smoker - CARDIAC Hx Hypertension: Yes - PULMONARY Other/Comment: 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, 01/2017 - NEUROLOGICAL Hx Neurological Disorder: No Hx Transient Ischemic Attacks (TIA): Yes (2015) Other/Comment: 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 - HEENT Hx HEENT Problems: Yes (eyeglasses) Hx Glaucoma: Yes (beginning) Other/Comment: partial peripheral vision loss r eye - RENAL Hx Chronic Kidney Disease: No - ENDOCRINE/METABOLIC Hx Endocrine Disorders: No - HEMATOLOGICAL/ONCOLOGICAL Hx Anemia: Yes (post hip sx iron infusions.blood transfusion) Hx Cancer: Yes Hx Chemotherapy: Yes Hx Metastesis: No Hx Shingles: No Other/Comment: pt dx with non hodgkins lymphoma 2012, had chemo 1 cycle, reaccurred 11/2013, had chemo, reaccurred 11/2016 presently receiving chemo 1 tx a week x 4 wk's had one treatment 3 more to go, presently chemo is postponed due to hospitalization - INTEGUMENTARY Other/Comment: left buttock 1cm round opening st 1 wound bed red surrounding skin reddened right buttock deeper red firm skin surrounded by red skin, ble dry brown discolored skin +1 pitting edema, difficulty turning due to left hip pain - MUSCULOSKELETAL/RHEUMATOLOGICAL Hx Falls: No - GASTROINTESTINAL Hx Gastrointestinal Disorders: Yes (constipation assoc with chemo, sbo) Other/Comment: h pylori 01/2016, obese - GENITOURINARY/GYNECOLOGICAL Hx Genitourinary Disorders: (purewick in place) Hx Reproductive Disorders: Yes (hysterectomu) - PSYCHIATRIC Hx Psychophysiologic Disorder: No - SURGICAL HISTORY Hx Hysterectomy: Yes (complete) Hx Joint Replacement: Yes (right hip 2015) Other/Comment: pacemaker 2009, left axillary bx 08/15/14, rcw pac 2013 and 2016 - ANESTHESIA Hx Anesthesia Reactions: No Hx Malignant Hyperthermia: No Meds Allergies/Adverse Reactions: Allergies Allergy/AdvReac Type Severity Reaction Status Date / Time ibuprofen Allergy Severe .MOUTH Verified 03/16/17 07:05 SORES Sulfa (Sulfonamide Allergy Unknown UNKNOWN Verified 03/16/17 07:05 Antibiotics) - Medications Medications: Current Medications Acetaminophen (Tylenol 325mg Tab) 650 mg PO Q6H PRN; Protocol PRN Reason: Pain, Mild (1-3) Aspirin (Aspirin Chewable) 81 mg PO 0800 [facility]I; Protocol Hydrochlorothiazide (Hydrodiuril) 25 mg PO DAILY [facility]I; Protocol Cefepime HCl (Maxipime 1gm) 1 gm in 100 mls @ 100 mls/hr IVPB 0600,1400,2200 [facility]; Protocol Last Admin: 06/28/18 05:29 Dose: 100 mls/hr Vancomycin HCl (Vancomycin 1gm) 1 gm in 250 mls @ 167 mls/hr IVPB 0600,1800 [facility]I; Protocol Last Admin: 06/28/18 05:29 Dose: 167 mls/hr Latanoprost (Xalatan Opht) 0 ml OU HS PHI; Protocol Last Admin: 06/27/18 21:28 Dose: 2.5 ml Losartan Potassium (Cozaar) 100 mg PO DAILY PHI; Protocol Nystatin (Nystop Topical Powder) 0 gm TOP BID PHI; Protocol Oxycodone HCl (Oxycodone Immediate Release Tab) 5 mg PO Q6H PRN; Protocol PRN Reason: Pain, moderate (4-7) Last Admin: 06/27/18 22:27 Dose: 5 mg Silver Sulfadiazine (Silvadene 1% 25 Gm) 0 gm TP BID PHI Valacyclovir HCl (Valtrex) 1 gm PO BID PHI; Protocol Physical Exam - Constitutional Appears: Chronically Ill - Head Exam Head Exam: NORMAL INSPECTION - Respiratory Exam Respiratory Exam: Decreased Breath Sounds - Cardiovascular Exam Cardiovascular Exam: +S1, +S2 - GI/Abdominal Exam GI & Abdominal Exam: Soft. absent: Tenderness Results - Vital Signs Recent Vital Signs: Last Vital Signs Temp 98.5 F 06/27/18 22:27 Pulse 113 H 06/27/18 22:27 Resp 18 06/27/18 22:27 BP 110/72 06/27/18 22:27 Pulse Ox Assessment & Plan - Assessment and Plan (Free Text) Plan: assessment right buttock cellulitis associated with lymphoma history of acute cholecystitis history of Left lower lobe mass-like lesion, probably community-acquired pneumonia dyslipidemia HTN non-Hodgkin lymphoma gastric ulcers S/P pacemaker placement S/P hysterectomy obesity with BMI 32 Plan continue Vancomycin, cefepime and Valtrex day 4 and will continue to monitor clinical response - should complete 7-10 days of therapy follow up further surgical plans
[2018-06-28] MEDS: Latanoprost 2.5 ml Opht Soln OU SCH (21:15)
[2018-06-29] MEDS: Vancomycin 1gm in NS 250ml 1 GM/250 ML BAG IVPB SCH (05:10)
[2018-06-29] MEDS: Cefepime 1gm in NS 100ml 1 GM/100 ML BAG IVPB SCH ×3 (05:10→21:55)
[2018-06-29] MEDS: oxyCODONE 5 mg Immediate Release Tab PO PRN ×3 (08:28→21:54)
--- NOTE | 2018-06-29 08:42 | PN ---
DATE: 06/29/2018 SUBJECTIVE: The patient is seen in bed, in no acute distress, in Transitional Care. No fevers and chills. OBJECTIVE: VITAL SIGNS: Temperature is 98, blood pressure is 104/60, respiratory rate of 18. HEENT: Unremarkable. NECK: Supple. LUNGS: Have decreased breath sounds. HEART: Normal S1, S2. ABDOMEN: Soft, nontender. LABORATORY EXAMINATION: Reveals a white count of 6.7 and chemistries reveals a creatinine is 0.6 and microbiology reveals the cultures with Morganella morganii, E. coli, Enterococcus faecalis. The Morganella morganii is relatively sensitive organism. The E. Coli is relatively sensitive organism as is the Enterococcus is sensitive to ampicillin and review of orders reveals the patient to be on cefepime IV. Valtrex p.o. twice daily and IV vancomycin. ASSESSMENT AND PLAN: A 73-year-old female with history of non-Hodgkin lymphoma, hypertension, dyslipidemia and history of acute cholecystitis and community-acquired pneumonia, admitted with right buttocks cellulitis with a left buttocks lymphoma and mild cellulitis which appears to be improved and with sensitive organisms, the Enterococcus most likely not a pathogen. We will discontinue the vancomycin and continue the cefepime for now. Shawn Easley MD
--- NOTE | 2018-06-29 12:47 | HP ---
DATE OF EXAM: 06/29/2018 CHIEF COMPLAINT AND HISTORY OF PRESENT ILLNESS: This is a 73-year-old female who has come into the hospital with a history of stage IV non-Hodgkin's lymphoma. The patient has been followed by Dr. Mcneill. She started to have wound that was formed in her back, in lower area and the left gluteal area. The patient has a lymphoma that has changed and is becoming more aggressive. 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 She was offered to go home and start her outpatient chemotherapy with Dr. Mcneill. He had also endorsed this discharge plan, but the patient says it was difficult for her to go home with her who may not be able to manage her. She agreed to go to Transitional Care Unit for rehab. The patient has no complaints of any chest pain. No shortness of breath. No headaches or dizziness. No nausea. No vomiting. She feels weak. She has difficulty walking. Pain is controlled. ALLERGIES: IBUPROFEN AND SULFA. MEDICATIONS: Has been reviewed on the SEP. PAST MEDICAL HISTORY: 1. Non-Hodgkin's lymphoma, stage IV. 2. Gluteal masses, secondary to lymphoma. 3. Hypertension. 4. Pacemaker. 5. Decreased vision in the right eye. 6. TIA. 7. Urinary incontinence. PAST SURGICAL HISTORY: Lymph node biopsy. SOCIAL HISTORY: No smoking or drinking currently. FAMILY HISTORY: Noncontributory. PHYSICAL EXAMINATION: VITAL SIGNS: Temperature is 98.4, pulse of 86, blood pressure 104/66, and respirations 18. GENERAL: The patient lying in bed, uncomfortable, and in no acute distress. HEENT: Atraumatic and normocephalic. Anicteric sclerae. Moist mucosa. [place] conjunctivae. No oral lesions. NECK: No JVD, anterior and posterior adenopathy, thyromegaly, or bruits. CARDIOVASCULAR: S1 and S2 regular. No murmur, rubs, or gallop. LUNGS: Clear to auscultation bilaterally. No wheezes, rales, or rhonchi. ABDOMEN: Bowel sounds are positive. Soft, nontender and nondistended. No hepatosplenomegaly. No rebound and no guarding. EXTREMITIES: No cyanosis, clubbing, or edema. NEUROLOGIC: No facial asymmetry. Tongue is midline. No uvula deviation. Power is 5/5 upper extremity and lower extremity. Sensation intact in upper extremity and lower extremity. PSYCHIATRIC: She is awake, alert and oriented x3. No anxiety or depression. She has normal affect. GENITOURINARY: No CVA tenderness. VASCULAR: 2+ pulses in the carotid pulses and pedal pulses. SKIN: No erythema or nodules SPINE: Shows normal curvature. LABORATORY DATA: No new labs. ASSESSMENT: 1. Left gluteal wound, secondary to lymphoma. 2. Stage IV non-Hodgkin's lymphoma. 3. Hypertension. PLAN: The patient has come in TCU, getting rehab. She is on Cozaar for her hypertension and the hydrochlorothiazide. She is on Percocet for pain. The patient is on heart-healthy diet. She is being followed by Dr. Easley. She is getting local wound care. Ilan Del Rio MD
[2018-06-29] MEDS: Nystatin 100,000 Units/gm Topical Pow(15 gm) TOP SCH ×2 (13:12→17:12)
[2018-06-29] MEDS: Silver Sulfadiazine 1% Cream (25 gm) TP SCH ×2 (13:13→17:12)
[2018-06-29] MEDS: Latanoprost 2.5 ml Opht Soln OU SCH (21:55)
[2018-06-30] MEDS: Cefepime 1gm in NS 100ml 1 GM/100 ML BAG IVPB SCH ×3 (05:45→21:47)
[2018-06-30] MEDS: oxyCODONE 5 mg Immediate Release Tab PO PRN ×2 (08:40→21:50)
[2018-06-30] MEDS: Nystatin 100,000 Units/gm Topical Pow(15 gm) TOP SCH ×2 (10:39→17:21)
[2018-06-30] MEDS: Silver Sulfadiazine 1% Cream (25 gm) TP SCH ×2 (10:40→17:21)
--- NOTE | 2018-06-30 20:44 | CP.PCM.PN ---
Subjective - Date & Time of Evaluation Date of Evaluation: 06/30/18 Time of Evaluation: 10:05 - Subjective Subjective: Afebrile, comfortable. Objective - Vital Signs/Intake and Output Vital Signs (last 24 hours): Temp Pulse Resp BP Pulse Ox 99.6 F 90 18 106/65 96 06/30/18 16:50 06/30/18 16:50 06/30/18 16:50 06/30/18 16:50 06/30/18 16:50 Intake and Output: 06/30/18 07/01/18 18:59 06:59 Output Total 200 Balance -200 - Medications Medications: Current Medications Acetaminophen (Tylenol 325mg Tab) 650 mg PO Q6H PRN; Protocol PRN Reason: Pain, Mild (1-3) Aspirin (Aspirin Chewable) 81 mg PO 0800 PHI; Protocol Last Admin: 06/30/18 07:51 Dose: 81 mg Hydrochlorothiazide (Hydrodiuril) 25 mg PO DAILY PHI; Protocol Last Admin: 06/30/18 10:39 Dose: Not Given Cefepime HCl (Maxipime 1gm) 1 gm in 100 mls @ 100 mls/hr IVPB 0600,1400,2200 PHI; Protocol Last Admin: 06/30/18 14:11 Dose: 100 mls/hr Latanoprost (Xalatan Opht) 0 ml OU HS [facility]I; Protocol Last Admin: 06/29/18 21:55 Dose: 2.5 ml Losartan Potassium (Cozaar) 100 mg PO DAILY [facility]I; Protocol Last Admin: 06/30/18 10:39 Dose: Not Given Nystatin (Nystop Topical Powder) 0 gm TOP BID [facility]I; Protocol Last Admin: 06/30/18 17:21 Dose: 1 applic Oxycodone HCl (Oxycodone Immediate Release Tab) 5 mg PO Q6H PRN; Protocol PRN Reason: Pain, moderate (4-7) Last Admin: 06/30/18 08:40 Dose: 5 mg Silver Sulfadiazine (Silvadene 1% 25 Gm) 0 gm TP BID PHI Last Admin: 06/30/18 17:21 Dose: Not Given Valacyclovir HCl (Valtrex) 1 gm PO BID PHI; Protocol Last Admin: 06/30/18 17:22 Dose: 1 gm - Constitutional Appears: Chronically Ill - Head Exam Head Exam: NORMAL INSPECTION - Respiratory Exam Respiratory Exam: Decreased Breath Sounds - Cardiovascular Exam Cardiovascular Exam: +S1, +S2 - GI/Abdominal Exam GI & Abdominal Exam: Soft. absent: Tenderness Assessment and Plan - Assessment and Plan (Free Text) Plan: assessment right buttock cellulitis associated with lymphoma, growing E. coli and Morganella history of acute cholecystitis history of Left lower lobe mass-like lesion, probably community-acquired pneumonia dyslipidemia HTN non-Hodgkin lymphoma gastric ulcers S/P pacemaker placement S/P hysterectomy obesity with BMI 32 Plan continue cefepime and Valtrex day 6 and will continue to monitor clinical response - should complete 7-10 days of therapy follow up further surgical plans
[2018-06-30] MEDS: Latanoprost 2.5 ml Opht Soln OU SCH (21:47)
[2018-07-01] MEDS: Cefepime 1gm in NS 100ml 1 GM/100 ML BAG IVPB SCH ×3 (06:00→21:42)
--- NOTE | 2018-07-01 09:01 | PN ---
DATE: 07/01/2018 SUBJECTIVE: The patient is in bed in no acute distress, nontoxic, no fevers. Was seen earlier today in room 319. PHYSICAL EXAMINATION: VITAL SIGNS: Temperature 98, T-max 99.6, blood pressure 106/60, respiratory rate 18. HEENT: Examination of HEENT is unremarkable. NECK: Supple. LUNGS: Decreased breath sounds. HEART: Normal S1, S2. ABDOMEN: Soft, nontender. LABORATORY DATA: Laboratory examination reveals the patient's white count in the acute care on 06/26/2018 was 7.1 and microbiology reveals the wound culture with Morganella morganii, Escherichia coli, and Enterococcus faecalis ____ wound. Sensitivity is reviewed. ASSESSMENT AND PLAN: This is a 73-year-old female with right buttock cellulitis associated with lymphoma growing Escherichia coli, Morganella, Enterococcus with history of acute cholecystitis and dyslipidemia, hypertension and non-Hodgkin's lymphoma and day #7 of Valtrex and cefepime; would complete 7-10 days. Review of orders reveals the patient's antibiotics cefepime and Valtrex to be active and today is day #7 of 10 days of therapy. Shawn Easley MD
[2018-07-01] MEDS: Silver Sulfadiazine 1% Cream (25 gm) TP SCH ×2 (09:05→17:13)
[2018-07-01] MEDS: Nystatin 100,000 Units/gm Topical Pow(15 gm) TOP SCH ×2 (09:05→17:12)
[2018-07-01] MEDS: oxyCODONE 5 mg Immediate Release Tab PO PRN ×2 (09:39→21:13)
--- NOTE | 2018-07-01 18:31 | PN ---
DATE: 07/01/2018 HISTORY OF PRESENT ILLNESS: Ms. Spaulding is a 73-year-old female, admitted to the hospital with non-Hodgkin's lymphoma, large gluteal abscess, gluteal masses on PET scan. She is transferred to the transitional care unit for deconditioning and gait improvement. ALLERGIES: NO KNOWN DRUG ALLERGIES. MEDICATIONS: Reviewed on EMR. PAST MEDICAL HISTORY: Non-Hodgkin's lymphoma stage IV, gluteal abscess, hypertension, pacemaker, decreased vision in right eye, TIA, urinary incontinence. PAST SURGICAL HISTORY: Lymph node biopsy. SOCIAL HISTORY: No history of alcohol abuse. No history of smoking. FAMILY HISTORY: Noncontributory. PHYSICAL EXAMINATION GENERAL: Comfortable in bed, in no acute distress. VITAL SIGNS: Temperature 98.7, heart rate 80 per minute, blood pressure 104/66, respiratory rate 15 per minute. HEENT: Pallor positive. NECK: No lymphadenopathy. CHEST: Air entry present and equal bilaterally. No added sound. CARDIOVASCULAR: S1, S2 normal. No murmur, no gallop. ABDOMEN: Soft, nontender. No hepatosplenomegaly. EXTREMITIES: No edema. NEUROLOGICAL: Awake, alert and oriented x3. No focal sensory or motor deficit. Peripheral pulsation is present. LABORATORY DATA: No current labs. ASSESSMENT AND PLAN: Stage IV non-Hodgkin's lymphoma, large gluteal abscess, hypertension. Infectious Disease following. Wound Care following. Continue current medication. Pain control with Percocet p.r.n. Leslie Boyd MD
[2018-07-01] MEDS: Latanoprost 2.5 ml Opht Soln OU SCH (21:48)
[2018-07-02] MEDS: Cefepime 1gm in NS 100ml 1 GM/100 ML BAG IVPB SCH ×3 (06:04→21:39)
[2018-07-02] MEDS: Nystatin 100,000 Units/gm Topical Pow(15 gm) TOP SCH ×2 (09:02→18:05)
[2018-07-02] MEDS: Silver Sulfadiazine 1% Cream (25 gm) TP SCH ×2 (09:02→18:04)
--- NOTE | 2018-07-02 13:26 | PN ---
DATE: 07/02/2018 SUBJECTIVE: She is comfortable in bed, in no acute distress. She is participating in physical therapy. Wound care following for the back wound. REVIEW OF SYSTEMS: As per HPI. Rest of 12-point review of systems reviewed and negative. PHYSICAL EXAMINATION GENERAL: Comfortable in bed, in no acute distress. VITAL SIGNS: Temperature 98.6, heart rate 86 per minute, respiratory rate 18 per minute. HEENT: Pallor positive. NECK: No lymphadenopathy. CHEST: Air entry present and equal bilaterally. No added sound. CARDIOVASCULAR: S1 and S2 normal. No murmur, no gallop. ABDOMEN: Soft and nontender. No hepatosplenomegaly. EXTREMITIES: No edema. LABORATORY DATA: No current labs. ASSESSMENT: 1. Non-Hodgkin's lymphoma, stage IV. 2. Gluteal non-Hodgkin's lymphoma. 3. Gluteal abscesses. Pain control with current medications. PLAN: Continue with physical therapy. Wound care consult requested. Surgery consult with Dr. Morales to continue. New consult requested in TCU. She is Valtrex 1 g p.o. twice daily, losartan 100 mg daily, continue with that, hydrochlorothiazide 25 mg daily, cefepime IV as per ID, aspirin 81 mg daily. Leslie Boyd MD
[2018-07-02] MEDS: oxyCODONE 5 mg Immediate Release Tab PO PRN ×2 (13:32→21:38)
--- NOTE | 2018-07-02 20:18 | CP.PCM.PN ---
Subjective - Date & Time of Evaluation Date of Evaluation: 07/02/18 Time of Evaluation: 20:00 - Subjective Subjective: Surgery progress note for Dr. Morales Pt seen and examined at bedside after nurse called stating patient was having bleeding from sacral wound. Patient states that the bleeding has been off and on for some time even prior to hospitalization and usually stops with pressure. Wounds are currently being evaluated and treated by the wound care nurse who recommended daily medihoney and optifoam. Patient reports mild pain and the site but denies any other symptoms. Objective - Vital Signs/Intake and Output Vital Signs (last 24 hours): Temp Pulse Resp BP Pulse Ox 98.9 F 85 20 102/50 L 94 L 07/02/18 16:00 07/02/18 16:00 07/02/18 16:00 07/02/18 16:00 07/02/18 16:00 Intake and Output: 07/02/18 07/03/18 18:59 06:59 Intake Total 430 Balance 430 - Medications Medications: Current Medications Acetaminophen (Tylenol 325mg Tab) 650 mg PO Q6H PRN; Protocol PRN Reason: Pain, Mild (1-3) Aspirin (Aspirin Chewable) 81 mg PO 0800 PHI; Protocol Last Admin: 07/02/18 09:00 Dose: 81 mg Hydrochlorothiazide (Hydrodiuril) 25 mg PO DAILY PHI; Protocol Last Admin: 07/02/18 09:01 Dose: 25 mg Cefepime HCl (Maxipime 1gm) 1 gm in 100 mls @ 100 mls/hr IVPB 0600,1400,2200 PHI; Protocol Last Admin: 07/02/18 13:32 Dose: 100 mls/hr Latanoprost (Xalatan Opht) 0 ml OU HS [facility]I; Protocol Last Admin: 07/01/18 21:48 Dose: 1 ml Losartan Potassium (Cozaar) 100 mg PO DAILY PHI; Protocol Last Admin: 07/02/18 09:01 Dose: 100 mg Nystatin (Nystop Topical Powder) 0 gm TOP BID PHI; Protocol Last Admin: 07/02/18 18:05 Dose: 1 applic Oxycodone HCl (Oxycodone Immediate Release Tab) 5 mg PO Q6H PRN; Protocol PRN Reason: Pain, moderate (4-7) Last Admin: 07/02/18 13:32 Dose: 5 mg Silver Sulfadiazine (Silvadene 1% 25 Gm) 0 gm TP BID PHI Last Admin: 07/02/18 18:04 Dose: 25 gm Valacyclovir HCl (Valtrex) 1 gm PO BID [facility]; Protocol Last Admin: 07/02/18 18:06 Dose: 1 gm - Constitutional Appears: Well, Non-toxic, No Acute Distress - Head Exam Head Exam: ATRAUMATIC, NORMOCEPHALIC - Eye Exam Eye Exam: Normal appearance. absent: Conjunctival injection, Scleral icterus - ENT Exam ENT Exam: Mucous Membranes Moist, Normal Oropharynx - Respiratory Exam Respiratory Exam: NORMAL BREATHING PATTERN. absent: Accessory Muscle Use, Respiratory Distress - Cardiovascular Exam Cardiovascular Exam: RRR - GI/Abdominal Exam GI & Abdominal Exam: Soft. absent: Distended, Tenderness - Extremities Exam Extremities Exam: absent: Calf Tenderness, Pedal Edema Additional comments: scaly red skin BL shins - Neurological Exam Neurological Exam: Alert, Awake, Oriented x3 - Psychiatric Exam Psychiatric exam: Normal Affect, Normal Mood - Skin Skin Exam: Normal Color, Warm Additional comments: large stage 3 sacral wound of the sacrum/L gluteal along the intergluteal fold approximately 12cm jeana and 8cm wide with stool present on the wound. Granulation tissue present at the base of the wound with small area of intermittent oozing bleeding with wiping in the superior end of the wound. Assessment and Plan - Assessment and Plan (Free Text) Assessment: 73F with [place] lymphoma and chronic sacral wound Plan: No areas of necrosis or gross signs of infection necessitating surgical intervention of the sacral wound Bleeding stopped with moderate pressure Continue wound care per wound care nurse recommendations--add gauze dressing under optifoam for pressure as needed for any bleeding Continue air mattress and turn Q2 hours Attempt to maintain good nutritional status and encourage activity as tolerated Medical management per primary Call surgical team for any further questions or concerns Discuss with Dr. Andrew Arndt, PGY2
--- NOTE | 2018-07-02 20:54 | PN ---
DATE: 07/02/2018 SUBJECTIVE: The patient is in bed in no acute distress, nontoxic. PHYSICAL EXAMINATION: VITAL SIGNS: Temperature is now only 97, blood pressure is 96/60, respiratory rate of 18. HEENT: Examination of HEENT is unremarkable. NECK: Supple. LUNGS: Decreased breath sounds. HEART: Normal S1, S2. ABDOMEN: Soft. LABORATORY DATA: Laboratory examination Is noted. ASSESSMENT AND PLAN: A 73-year-old female who was seen early this morning. She was awake and alert in Room 319. She has a right buttock cellulitis associated with lymphoma and growing Escherichia coli, morganella, and enterococcus. The patient has a history of acute cholecystitis, dyslipidemia, hypertension, and non-Hodgkin's lymphoma and day #8 of Valtrex and cefepime; would complete 7-10 days, today is day #8. Review of orders reveals cefepime requires renewal, which we will do so, as does the Valtrex which we will also renew. Prognosis is poor for this patient. Shawn Easley MD
[2018-07-02] MEDS: Latanoprost 2.5 ml Opht Soln OU SCH (21:40)
[2018-07-03] MEDS: Cefepime 1gm in NS 100ml 1 GM/100 ML BAG IVPB SCH ×3 (05:37→22:00)
[2018-07-03] MEDS: Nystatin 100,000 Units/gm Topical Pow(15 gm) TOP SCH ×2 (09:51→17:34)
[2018-07-03] MEDS: Silver Sulfadiazine 1% Cream (25 gm) TP SCH ×2 (09:51→17:34)
[2018-07-03] MEDS: oxyCODONE 5 mg Immediate Release Tab PO PRN ×2 (09:54→21:25)
[2018-07-03] MEDS: Latanoprost 2.5 ml Opht Soln OU SCH (21:26)
--- NOTE | 2018-07-03 21:42 | CP.PCM.PN ---
Subjective - Date & Time of Evaluation Date of Evaluation: 07/03/18 Time of Evaluation: 10:00 - Subjective Subjective: No fevers, still with pain in the right buttock area, but not in distress. Objective - Vital Signs/Intake and Output Vital Signs (last 24 hours): Temp Pulse Resp BP Pulse Ox 98.2 F 84 16 111/66 96 07/03/18 16:50 07/03/18 16:50 07/03/18 16:50 07/03/18 16:50 07/03/18 16:50 - Medications Medications: Current Medications Acetaminophen (Tylenol 325mg Tab) 650 mg PO Q6H PRN; Protocol PRN Reason: Pain, Mild (1-3) Aspirin (Aspirin Chewable) 81 mg PO 0800 [facility]; Protocol Last Admin: 07/03/18 08:04 Dose: 81 mg Hydrochlorothiazide (Hydrodiuril) 25 mg PO DAILY [facility]; Protocol Last Admin: 07/03/18 10:02 Dose: 25 mg Latanoprost (Xalatan Opht) 0 ml OU HS [facility]; Protocol Last Admin: 07/03/18 21:26 Dose: 2.5 ml Losartan Potassium (Cozaar) 100 mg PO DAILY [facility]; Protocol Last Admin: 07/03/18 09:55 Dose: 100 mg Nystatin (Nystop Topical Powder) 0 gm TOP BID [facility]; Protocol Last Admin: 07/03/18 17:34 Dose: Not Given Oxycodone HCl (Oxycodone Immediate Release Tab) 5 mg PO Q6H PRN; Protocol PRN Reason: Pain, moderate (4-7) Last Admin: 07/03/18 21:25 Dose: 5 mg Silver Sulfadiazine (Silvadene 1% 25 Gm) 0 gm TP BID [facility] Last Admin: 07/03/18 17:34 Dose: Not Given - Constitutional Appears: Chronically Ill - Head Exam Head Exam: NORMAL INSPECTION - Respiratory Exam Respiratory Exam: Decreased Breath Sounds - Cardiovascular Exam Cardiovascular Exam: +S1, +S2 - GI/Abdominal Exam GI & Abdominal Exam: Soft. absent: Tenderness Assessment and Plan - Assessment and Plan (Free Text) Plan: assessment right buttock cellulitis associated with lymphoma, growing E. coli and Morganella history of acute cholecystitis history of Left lower lobe mass-like lesion, probably community-acquired pneumonia dyslipidemia HTN non-Hodgkin lymphoma gastric ulcers S/P pacemaker placement S/P hysterectomy obesity with BMI 32 Plan continue cefepime and Valtrex day 9 and will continue to monitor clinical response - should complete 10 days of therapy follow up further surgical plans
[2018-07-03] MEDS: Vancomycin 1gm in NS 250ml 1 GM/250 ML BAG IVPB SCH (22:14)
[2018-07-04] MEDS: oxyCODONE 5 mg Immediate Release Tab PO PRN ×3 (02:47→20:16)
[2018-07-04] MEDS: Cefepime 1gm in NS 100ml 1 GM/100 ML BAG IVPB SCH ×2 (10:41→21:49)
[2018-07-04] MEDS: Nystatin 100,000 Units/gm Topical Pow(15 gm) TOP SCH ×2 (10:42→17:51)
[2018-07-04] MEDS: Silver Sulfadiazine 1% Cream (25 gm) TP SCH ×2 (10:43→17:51)
--- NOTE | 2018-07-04 13:46 | PN ---
DATE: 07/04/2018 SUBJECTIVE: The patient is in bed, in no acute distress, nontoxic. PHYSICAL EXAMINATION: VITAL SIGNS: Temperature is 98, blood pressure is 120/70, respiratory rate of 16. HEENT: Unremarkable. NECK: Supple. LUNGS: Have decreased breath sounds. HEART: Normal S1, S2. ABDOMEN: Soft. LABORATORY EXAMINATION: Noted and reviewed. ASSESSMENT AND PLAN: A 73-year-old female was seen earlier today with a right buttock cellulitis associated also with lymphoma and grown Escherichia coli, Morganella and Enterococcus, history of acute cholecystitis, dyslipidemia, hypertension, non-Hodgkin lymphoma and day #10 of Valtrex, cefepime and review of orders reveals the cefepime to be active and vancomycin is active and continue with the local wound care. We will discontinue the antibiotics after today's last dose. The patient is on cefepime and vancomycin and Valtrex has been discontinued. Shawn Easley MD
[2018-07-04] MEDS: Vancomycin 1gm in NS 250ml 1 GM/250 ML BAG IVPB SCH ×2 (14:28→21:49)
[2018-07-04 16:16] VITALS: O2SAT 98
[2018-07-04] MEDS: Latanoprost 2.5 ml Opht Soln OU SCH (21:50)
[2018-07-05] MEDS: oxyCODONE 5 mg Immediate Release Tab PO PRN (01:29)
[2018-07-05] MEDS: Nystatin 100,000 Units/gm Topical Pow(15 gm) TOP SCH (09:52)
[2018-07-05] MEDS: Vancomycin 1gm in NS 250ml 1 GM/250 ML BAG IVPB SCH (09:53)
[2018-07-05] MEDS: Cefepime 1gm in NS 100ml 1 GM/100 ML BAG IVPB SCH (09:53)
[2018-07-05] MEDS: Silver Sulfadiazine 1% Cream (25 gm) TP SCH (09:54)
[2018-07-05] MEDS ORDERED: oxyCODONE 5 mg Immediate Release Tab PO ONE (12:05)
[2018-07-05 14:12] VITALS: BP 112/66; PULSE 84; RESP 18; TEMP 98
--- NOTE | 2018-07-05 15:35 | CP.PCM.PN ---
Subjective - Date & Time of Evaluation Date of Evaluation: 07/05/18 Time of Evaluation: 10:35 - Subjective Subjective: Afebrile, still with pain in the buttocks but a little better. Objective - Vital Signs/Intake and Output Vital Signs (last 24 hours): Temp Pulse Resp BP Pulse Ox 98 F 84 18 112/66 98 07/05/18 10:00 07/05/18 10:00 07/05/18 10:00 07/05/18 10:00 07/05/18 10:00 Intake and Output: 07/05/18 07/05/18 06:59 18:59 Intake Total 420 Output Total 350 Balance 70 - Medications Medications: Current Medications Acetaminophen (Tylenol 325mg Tab) 650 mg PO Q6H PRN; Protocol PRN Reason: Pain, Mild (1-3) Aspirin (Aspirin Chewable) 81 mg PO 0800 [facility]; Protocol Last Admin: 07/05/18 08:46 Dose: 81 mg Hydrochlorothiazide (Hydrodiuril) 25 mg PO DAILY [facility]; Protocol Last Admin: 07/05/18 09:52 Dose: 25 mg Cefepime HCl (Maxipime 1gm) 1 gm in 100 mls @ 25 mls/hr IVPB Q12 [facility]; Protocol Last Admin: 07/05/18 09:53 Dose: 25 mls/hr Vancomycin HCl (Vancomycin 1gm) 1 gm in 250 mls @ 167 mls/hr IVPB Q12H [facility]; Protocol Last Admin: 07/05/18 09:53 Dose: 167 mls/hr Latanoprost (Xalatan Opht) 0 ml OU HS [facility]; Protocol Last Admin: 07/04/18 21:50 Dose: 2.5 ml Losartan Potassium (Cozaar) 100 mg PO DAILY [facility]; Protocol Last Admin: 07/05/18 09:52 Dose: 100 mg Nystatin (Nystop Topical Powder) 0 gm TOP BID [facility]; Protocol Last Admin: 07/05/18 09:52 Dose: 1 applic Silver Sulfadiazine (Silvadene 1% 25 Gm) 0 gm TP BID [facility] Last Admin: 07/05/18 09:54 Dose: Not Given - Constitutional Appears: Chronically Ill - Respiratory Exam Respiratory Exam: Decreased Breath Sounds - Cardiovascular Exam Cardiovascular Exam: +S1, +S2 - GI/Abdominal Exam GI & Abdominal Exam: Soft. absent: Tenderness Assessment and Plan - Assessment and Plan (Free Text) Plan: assessment right buttock cellulitis associated with lymphoma, growing E. coli and Morganella history of acute cholecystitis history of Left lower lobe mass-like lesion, probably community-acquired pneumonia dyslipidemia HTN non-Hodgkin lymphoma gastric ulcers S/P pacemaker placement S/P hysterectomy obesity with BMI 32 Plan on Vancomycin, cefepime and Valtrex day 10 - should complete 10 days of therapy follow up further surgical plans
== END 2018-07-05 17:21 | DRG 603 ==
LOC: TRCU 18:03
PROVIDERS: ADMIT Internal Medicine Nephrology; ATTEND Internal Medicine Medical Oncology
PROC: F07Z9FZ Gait Training/Functional Ambulation Treatment using Assistive, Adaptive, Supportive or Protective Equipment (ICD-10-PCS; principal; 2018-06-28)
PROC: F07M6ZZ Therapeutic Exercise Treatment of Musculoskeletal System - Whole Body (ICD-10-PCS; 2018-06-28)
PROC: F08Z2ZZ Grooming/Personal Hygiene Treatment (ICD-10-PCS; 2018-06-28)
PROC: F08Z1ZZ Dressing Techniques Treatment (ICD-10-PCS; 2018-06-28)
PROC: F08Z2ZZ Grooming/Personal Hygiene Treatment (ICD-10-PCS; 2018-06-28)
PROC: F08Z3ZZ Feeding/Eating Treatment (ICD-10-PCS; 2018-06-28)
PROC: F08Z4ZZ Home Management Treatment (ICD-10-PCS; 2018-06-28)
DX: L02.31 Cutaneous abscess of buttock (principal); C83.30 Diffuse large B-cell lymphoma, unspecified site; L03.317 Cellulitis of buttock; E66.9 Obesity, unspecified; E78.5 Hyperlipidemia, unspecified; H40.9 Unspecified glaucoma; H54.61 Unqualified visual loss, right eye, normal vision left eye; I10 Essential (primary) hypertension; K25.9 Gastric ulcer, unspecified as acute or chronic, without hemorrhage or perforation; Z68.32 Body mass index [BMI] 32.0-32.9, adult; Z86.73 Personal history of transient ischemic attack (TIA), and cerebral infarction without residual deficits; Z87.11 Personal history of peptic ulcer disease; Z87.891 Personal history of nicotine dependence; Z90.710 Acquired absence of both cervix and uterus; Z95.0 Presence of cardiac pacemaker; Z96.641 Presence of right artificial hip joint; R32 Unspecified urinary incontinence

== ENCOUNTER 2018-07-07 14:55 | Inpatient (IN) | payer MEDICARE ==
--- NOTE | 2018-07-07 15:28 | ED PDOC ---
Arrival/HPI - General Chief Complaint: Abnormal Skin Integrity Time Seen by Provider: 07/07/18 15:02 Historian: Patient - History of Present Illness Narrative History of Present Illness (Text): 07/07/18 15:27 A 73 y/o F w/ pmhx of non-hodgkins lymphoma and hypertension presents to the emergency department sent from a custodial for a wound on her buttocks that developed over a few months but worsened in the last few weeks. Patient reports pain exacerbates upon laying down flat. Patient denies any fever, chills, shortness of breath, chest pain, diarrhea, nausea, vomiting, urinary symptoms, back pain, neck pain, headache, dizziness, or any other complaints. PMD: Dr. 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 - HEENT Hx HEENT Disorder: Yes (eyeglasses) Hx Glaucoma: Yes (beginning) Other/Comment: partial peripheral vision loss r eye - Renal Hx Renal Disorder: No - Endocrine/Metabolic Hx Endocrine Disorders: No - Hematological/Oncological Hx Anemia: Yes (post hip sx iron infusions.blood transfusion) Hx Cancer: Yes Hx Chemotherapy: Yes Hx Metastasis: No Hx Shingles: No Other/Comment: pt dx with non hodgkins lymphoma 2012, had chemo 1 cycle, reaccurred 11/2013, had chemo, reaccurred 11/2016 presently receiving chemo 1 tx a week x 4 wk's had one treatment 3 more to go, presently chemo is postponed due to hospitalization - Integumentary Other/Comment: left buttock 1cm round opening st 1 wound bed red surrounding skin reddened right buttock deeper red firm skin surrounded by red skin, ble dry brown discolored skin +1 pitting edema, difficulty turning due to left hip pain - Musculoskeletal/Rheumatological Hx Falls: Yes - Gastrointestinal Hx Gastrointestinal Disorders: Yes (constipation assoc with chemo, sbo) Other/Comment: h pylori 01/2016, obese - Genitourinary/Gynecological Hx Genitourinary Disorders: No - Psychiatric Hx Psychophysiologic Disorder: No Hx Substance Use: No - Surgical History Hx Hysterectomy: Yes (complete) Hx Joint Replacement: Yes (right hip 2015) Other/Comment: pacemaker 2009, left axillary bx 08/15/14, rcw pac 2013 and 2016 - Anesthesia Hx Anesthesia: Yes Hx Anesthesia Reactions: No Hx Malignant Hyperthermia: No - Suicidal Assessment Feels Threatened In Home Enviroment: No Family/Social History - Physician Review Nursing Documentation Reviewed: Yes Family/Social History: No Known Family HX Smoking Status: Former Smoker Hx Alcohol Use: No Hx Substance Use: No Hx Substance Use Treatment: No Allergies/Home Meds Allergies/Adverse Reactions: Allergies ibuprofen Allergy (Severe, Verified 03/16/17 07:05) .MOUTH SORES Sulfa (Sulfonamide Antibiotics) Allergy (Unknown, Verified 03/16/17 07:05) UNKNOWN ALLERGY A CHILD UNKNOWN REACTION Home Medications: Home Meds Medication Instructions Recorded Confirmed Losartan/Hydrochlorothiazide 1 tab PO DAILY 10/14/16 06/27/18 [Losartan-Hctz 100-25 mg Tab] Travoprost [Travatan Z] 1 drop OU HS 10/14/16 06/27/18 Review of Systems - Physician Review All systems were reviewed & negative as marked: Yes - Review of Systems Constitutional: absent: Fevers, Night Sweats Respiratory: absent: SOB Cardiovascular: absent: Chest Pain Gastrointestinal: absent: Diarrhea, Nausea, Vomiting Genitourinary Female: absent: Urine Output Changes Musculoskeletal: absent: Back Pain, Neck Pain Skin: Other (Wound on her buttocks) Neurological: absent: Headache, Dizziness Physical Exam Temperature: Afebrile Blood Pressure: Normal Pulse: Regular Respiratory Rate: Normal Appearance: Positive for: Well-Appearing, Non-Toxic, Comfortable Pain Distress: None Mental Status: Positive for: Alert and Oriented X 3 - Systems Exam Head: Present: Atraumatic, Normocephalic Pupils: Present: PERRL Extroacular Muscles: Present: EOMI Conjunctiva: Present: Normal Mouth: Present: Moist Mucous Membranes Neck: Present: Normal Range of Motion Respiratory/Chest: Present: Other (port noted in upper right chest) Cardiovascular: Present: Regular Rate and Rhythm, Normal S1, S2. No: Murmurs Abdomen: No: Tenderness (belly is soft and non-tender) Rectal: Present: Other (Left buttock has area of induration and right buttock has bleeding wound with exposed subcutaneous tissue) Back: Present: Normal Inspection Upper Extremity: Present: Normal Inspection. No: Cyanosis, Edema Lower Extremity: Present: Normal Inspection. No: Edema Neurological: Present: GCS=15, CN II-XII Intact, Speech Normal Skin: Present: Warm, Dry, Normal Color. No: Rashes Psychiatric: Present: Alert, Oriented x 3, Normal Insight, Normal Concentration Medical Decision Making ED Course and Treatment: 07/07/18 15:29 Impression: 73 y/o F presents to the emergency department sent from a custodial for a wound on her buttocks. Differential Diagnosis included but are not limited to: - decubitus ulcer - abcess Plan: -- VBG -- CT of abdomen and pelvis -- Labs -- CBC -- COAGs -- ESR -- Chest X-ray -- IV fluids -- Blood culture -- Urine culture -- Wound culture and gram stain -- Reassess and disposition Prior Visits: Notes and results from previous visits were reviewed. Progress Notes: 07/07/18 15:48 Dr. Saez saw patient at bedside. Dr. Saez accepts patient for admission and requests for Dr. Morales(surgery) and Dr. Easley(infectious disease) on consult. Waiting for lab results. 07/07/18 17:57 CT a/p reveals extension of soft tissue mass within perineum not previously visualized. Vancomycin initiated. resident care manager rn at the bedside stating their is no immediate surgical intervention at this time that may be done. He requests Dr. Mcneill([facility]) to be consulted. - RAD Interpretation Narrative RAD Interpretations (Text): Chest X-ray Signed By: Frederic Tracey MD Date Signed: 07/07/18 1700 IMPRESSION: No significant interval change compared to the prior examinations (s). PROCEDURE: CT Abdomen and Pelvis without intravenous contrast Signed By: Frederic Tracey MD Date Signed: 07/07/18 1658 IMPRESSION: Large perineal mass extending to the skin surface. The mass displays contiguity with the rectum and may in fact extend to the vagina. Additional soft tissue at the level of the right iliac crest. These represent new findings compared to the prior CT scan. - Scribe Statement The provider has reviewed the documentation as recorded by the Naiibe Giselle Pedro All medical record entries made by the Scribe were at my direction and personally dictated by me. I have reviewed the chart and agree that the record accurately reflects my personal performance of the history, physical exam, medical decision making, and the department course for this patient. I have also personally directed, reviewed, and agree with the discharge instructions and disposition. Disposition/Present on Arrival - Present on Arrival Any Indicators Present on Arrival: No History of DVT/PE: No History of Uncontrolled Diabetes: No Urinary Catheter: No History of Decub. Ulcer: No History Surgical Site Infection Following: None - Disposition Have Diagnosis and Disposition been Completed?: Yes Diagnosis: Wound of buttock Disposition: HOSPITALIZED Disposition Time: 17:30 Patient Plan: Admission Patient Problems: Current Active Problems Problem Status Onset Wound of buttock Acute Condition: GUARDED
[2018-07-07] MEDS ORDERED: Sodium Chloride 0.9% 1,000 ML IV STA (15:33)
[2018-07-07 16:14] LABS: VENOUS BLOOD GAS BASE EXCESS 9.9 mmol/L (0.0-2.0); VENOUS BLOOD GAS PO2 56 mm/Hg (30-55); VENOUS BLOOD PH 7.44 (7.32-7.43)
[2018-07-07 16:16] LABS: BASO # 0.03 K/mm3 (0.0-2.0); BASO % 0.3 % (0.0-3.0); EOS # 0.2 (0.0-0.7); EOS % 1.9 % (1.5-5.0); GRAN # 7.32 (1.4-6.5); GRAN % 77.1 % (50.0-68.0); HEMOGLOBIN 11.6 g/dL (12.0-16.0); LYMPH # 1.1 (1.2-3.4); LYMPH % 11.9 % (22.0-35.0); MEAN CELL VOLUME 79.4 fl (80.0-105.0); MEAN CORPUSCULAR HEMOGLOBIN 24.7 pg (25.0-35.0); MEAN CORPUSCULAR HGB CONC 31.1 g/dl (31.0-37.0); MEAN PLATELET VOLUME 8.3 fl (7.0-11.0); MONO # 0.8 (0.1-0.6); MONO % 8.8 % (1.0-6.0); RBC 4.7 10^6/uL (3.5-6.1); RED CELL DISTRIBUTION WIDTH 16.2 % (11.5-14.5); WHITE BLOOD COUNT 9.5 10^3/uL (4.5-11.0)
[2018-07-07 16:23] LABS: INR 1.08; PARTIAL THROMBOPLASTIN TIME 27.6 Seconds (25.1-36.5); PROTHROMBIN TIME 12.4 SECONDS (9.4-12.5)
[2018-07-07 16:32] LABS: ALB/GLOB RATIO 1.2 (1.1-1.8); ALBUMIN 3.4 g/dL (3.0-4.8); ALT/SGPT 19 U/L (7-56); AST/SGOT 31 U/L (14-36); BLOOD UREA NITROGEN 23 mg/dL (7-21); CALCIUM 8.9 mg/dL (8.4-10.5); GFR NON-AFRICAN AMERICAN > 60
[2018-07-07 16:37] LABS: TROPONIN I < 0.01 ng/mL
[2018-07-07] MEDS ORDERED: Vancomycin 1gm in NS 250ml 1 GM/250 ML BAG IVPB STA (16:54)
--- NOTE | 2018-07-07 17:02 | CT ---
Date of service: 07/07/2018 PROCEDURE: CT Abdomen and Pelvis without intravenous contrast HISTORY: non-hodgkin's lymphoma w/ bleeding wound COMPARISON: 06/13/2017 CT abdomen and pelvis. TECHNIQUE: Unenhanced. Neither IV nor oral contrast administered Radiation dose: Total exam DLP = 1256.12 mGy-cm. This CT exam was performed using one or more of the following dose reduction techniques: Automated exposure control, adjustment of the mA and/or kV according to patient size, and/or use of iterative reconstruction technique. FINDINGS: LOWER THORAX: Unremarkable. LIVER: Unremarkable. No gross lesion or ductal dilatation. GALLBLADDER AND BILE DUCTS: Status post cholecystectomy. No abnormality is seen in the gallbladder fossa. PANCREAS: Unremarkable. No gross lesion or ductal dilatation. SPLEEN: Unremarkable. ADRENALS: Unremarkable. No mass. KIDNEYS AND URETERS: Unremarkable. No hydronephrosis. No solid mass. VASCULATURE: Unremarkable. No aortic aneurysm. No atherosclerotic calcification or mural plaque present. BOWEL: Unremarkable. No obstruction. No gross mural thickening. APPENDIX: Unremarkable. Normal appendix. PERITONEUM: Unremarkable. No free fluid. No free air. LYMPH NODES: Unremarkable. No enlarged lymph nodes. BLADDER: Unremarkable. REPRODUCTIVE: Unremarkable. BONES: No acute fracture. OTHER FINDINGS: Large perineal mass which is incompletely visualized and which appears to be contiguous with the rectum at this level measuring 9.6 x 8.9 cm. The cephalocaudal extent cannot be determined as the scan 8 does not extend to that level. Soft tissue mass adjacent to the iliac crest on the right measuring 4.1 x 3.5 cm. IMPRESSION: Large perineal mass extending to the skin surface. The mass displays contiguity with the rectum and may in fact extend to the vagina. Additional soft tissue mass at the level of the right iliac crest. These represent new findings compared to the prior CT scan.
--- NOTE | 2018-07-07 17:03 | RAD ---
Date of service: 07/07/2018 PROCEDURE: CHEST RADIOGRAPH, 1 VIEW HISTORY: sob COMPARISON: 06/24/2017 FINDINGS: LUNGS: Clear. PLEURA: No pneumothorax or pleural fluid seen. CARDIOVASCULAR: No radiographic findings to suggest acute or significant cardiovascular disease. Position/ configuration of pacemaker device: Satisfactory. Atherosclerotic calcifications identified primarily aortic arch. Venous access catheter in stable, satisfactory position. OSSEOUS STRUCTURES: No significant abnormalities. VISUALIZED UPPER ABDOMEN: Normal. OTHER FINDINGS: None. IMPRESSION: No significant interval change compared to the prior examination(s).
--- NOTE | 2018-07-07 19:30 | CP.PCM.CON ---
History of Present Illness - History of Present Illness History of Present Illness: Surgery Consult Note- Dr. Morales Reason for consult: Left Gluteal wound 73F pmhx significant for Non-hodgkins lymphoma Stage IV, breast, lung, gluteal and sacral masses, being treated by Heme/Onc Dr. Mcneill. Patient was recently admitted for similar symptoms on 06/24. Today patient and noticed increased bleeding from her left gluteal wound, and came to the hospital with concern. Pain has been consistent and nothing helps. Admits that occasional incontinence, with both urine and stool. Surgery was consulted for evaluation of left gluteal wound. Of note, Patient is on Rituxan only at this time. There has been discussion about starting Doxyrubicin, however final decision will be made by Heme/onc PMH: Non-hodgkins lymphoma Stage IV on Rituxan, HTN PSH: Lap nirmala and SCARLETT due to SBO, BL hip replacement, hysterectomy, chemoport placement, pacemaker ALL: Sulfa, Ibuprofen SocialHx: denies current tobacco, etoh, recreational drug use Review of Systems - Review of Systems All systems: reviewed and no additional remarkable complaints except - Constitutional Constitutional: As Per HPI Past Patient History - Infectious Disease Hx of Infectious Diseases: None - Tetanus Immunizations Tetanus Immunization: Unknown - Past Medical History & Family History Past Medical History?: Yes - Past Social History Smoking Status: Former Smoker - CARDIAC Hx Hypertension: Yes - PULMONARY Other/Comment: 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, 01/2017 - NEUROLOGICAL Hx Neurological Disorder: No Hx Transient Ischemic Attacks (TIA): Yes (2015) Other/Comment: 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 - HEENT Hx HEENT Problems: Yes (eyeglasses) Hx Glaucoma: Yes (beginning) Other/Comment: partial peripheral vision loss r eye - RENAL Hx Chronic Kidney Disease: No - ENDOCRINE/METABOLIC Hx Endocrine Disorders: No - HEMATOLOGICAL/ONCOLOGICAL Hx Anemia: Yes (post hip sx iron infusions.blood transfusion) Hx Cancer: Yes Hx Chemotherapy: Yes Hx Metastesis: No Hx Shingles: No Other/Comment: pt dx with non hodgkins lymphoma 2012, had chemo 1 cycle, reaccurred 11/2013, had chemo, reaccurred 11/2016 presently receiving chemo 1 tx a week x 4 wk's had one treatment 3 more to go, presently chemo is postponed due to hospitalization - INTEGUMENTARY Other/Comment: left buttock 1cm round opening st 1 wound bed red surrounding skin reddened right buttock deeper red firm skin surrounded by red skin, ble dry brown discolored skin +1 pitting edema, difficulty turning due to left hip pain - MUSCULOSKELETAL/RHEUMATOLOGICAL Hx Falls: Yes - GASTROINTESTINAL Hx Gastrointestinal Disorders: Yes (constipation assoc with chemo, sbo) Other/Comment: h pylori 01/2016, obese - GENITOURINARY/GYNECOLOGICAL Hx Genitourinary Disorders: No - PSYCHIATRIC Hx Psychophysiologic Disorder: No Hx Substance Use: No - SURGICAL HISTORY Hx Hysterectomy: Yes (complete) Hx Joint Replacement: Yes (right hip 2015) Other/Comment: pacemaker 2009, left axillary bx 08/15/14, rcw pac 2013 and 2016 - ANESTHESIA Hx Anesthesia: Yes Hx Anesthesia Reactions: No Hx Malignant Hyperthermia: No Meds Allergies/Adverse Reactions: Allergies Allergy/AdvReac Type Severity Reaction Status Date / Time ibuprofen Allergy Severe .MOUTH Verified 03/16/17 07:05 SORES Sulfa (Sulfonamide Allergy Unknown UNKNOWN Verified 03/16/17 07:05 Antibiotics) - Medications Medications: Current Medications Acetaminophen (Tylenol 325mg Tab) 650 mg PO Q4 PRN PRN Reason: Fever >100.4 F Morphine Sulfate (Morphine) 4 mg IVP Q4 PRN PRN Reason: Pain, moderate (4-7) Silver Sulfadiazine (Silvadene 1% 25 Gm) 1 gm TP BID [facility] Physical Exam - Constitutional Appears: Non-toxic, No Acute Distress, Chronically Ill - Head Exam Head Exam: ATRAUMATIC - Eye Exam Eye Exam: EOMI - ENT Exam ENT Exam: Mucous Membranes Moist - Respiratory Exam Respiratory Exam: NORMAL BREATHING PATTERN. absent: Accessory Muscle Use, Respiratory Distress - Cardiovascular Exam Cardiovascular Exam: +S1, +S2. absent: Bradycardia, Tachycardia - GI/Abdominal Exam GI & Abdominal Exam: Soft. absent: Distended, Firm, Guarding, Hernia, Rigid, Tenderness - Rectal Exam Additional comments: stool in rectal vault no brandin blood adequate rectal tone - Extremities Exam Extremities exam: Positive for: pedal edema - Back Exam Additional comments: Left gluteal mass, ulcerated. Edges clean, no signs of discharge. No active bleeding at this time - Neurological Exam Neurological exam: Alert, Oriented x3 - Psychiatric Exam Psychiatric exam: Normal Affect - Skin Skin Exam: Dry, Warm Additional comments: Left gluteal ulceration Results - Vital Signs Recent Vital Signs: Last Vital Signs Temp 98.8 F 07/07/18 14:56 Pulse 62 07/07/18 18:00 Resp 18 07/07/18 18:00 BP 112/55 L 07/07/18 18:00 Pulse Ox 98 07/07/18 18:00 - Labs Result Diagrams: 07/07/18 16:00 07/07/18 16:00 Labs: Laboratory Results - last 24 hr 07/07/18 07/07/18 07/07/18 16:00 16:00 16:00 WBC 9.5 D RBC 4.70 Hgb 11.6 L Hct 37.3 MCV 79.4 L MCH 24.7 L MCHC 31.1 RDW 16.2 H Plt Count 330 MPV 8.3 Gran % 77.1 H Lymph % (Auto) 11.9 L Cloud % (Auto) 8.8 H Eos % (Auto) 1.9 Baso % (Auto) 0.3 Gran # 7.32 H Lymph # (Auto) 1.1 L Cloud # (Auto) 0.8 H Eos # (Auto) 0.2 Baso # (Auto) 0.03 ESR 45 H PT 12.4 INR 1.08 APTT 27.6 pO2 56 H VBG pH 7.44 H VBG pCO2 53.0 VBG HCO3 36.0 H VBG Total CO2 37.6 H VBG O2 Sat (Calc) 92.2 H VBG Base Excess 9.9 H VBG Potassium 3.6 Sodium 136.0 Chloride 97.0 L Glucose 101 Lactate 1.5 FiO2 21.0 Potassium Carbon Dioxide Anion Gap BUN Creatinine Est GFR ( Amer) Est GFR (Non-Af Amer) Random Glucose Calcium Total Bilirubin AST ALT Alkaline Phosphatase Troponin I Total Protein Albumin Globulin Albumin/Globulin Ratio Venous Blood Potassium 3.6 07/07/18 16:00 WBC RBC Hgb Hct MCV MCH MCHC RDW Plt Count MPV Gran % Lymph % (Auto) Cloud % (Auto) Eos % (Auto) Baso % (Auto) Gran # Lymph # (Auto) Cloud # (Auto) Eos # (Auto) Baso # (Auto) ESR PT INR APTT pO2 VBG pH VBG pCO2 VBG HCO3 VBG Total CO2 VBG O2 Sat (Calc) VBG Base Excess VBG Potassium Sodium 136 Chloride 96 L Glucose Lactate FiO2 Potassium 3.7 Carbon Dioxide 35 H Anion Gap 9 L BUN 23 H Creatinine 0.7 Est GFR ( Amer) > 60 Est GFR (Non-Af Amer) > 60 Random Glucose 99 Calcium 8.9 Total Bilirubin 0.6 AST 31 ALT 19 Alkaline Phosphatase 102 Troponin I < 0.01 Total Protein 6.3 Albumin 3.4 Globulin 2.9 Albumin/Globulin Ratio 1.2 Venous Blood Potassium Assessment & Plan - Assessment and Plan (Free Text) Assessment: 73F w/ bleeding and ulcerated L gluteal wound 2/2 to underlying lymphoma Plan: -silvadene, xeroform, dry dressing -recommend consult with heme/onc Dr. Mcneill -previous discussion for possible chemotherapy Doxorubicin and Ritxuan -consider radiation to affected area -no surgical intervention at this time -discussed with Dr. Morales Surgical Attending [facility] PGY2
[2018-07-07] MEDS: Morphine 4 mg/ml ISec IVP PRN ×2 (19:42→23:49)
[2018-07-07 23:40] VITALS: BMI 30.7
[2018-07-07] MEDS: Piperacillin/Tazobact 3.375 gm 100 ML IVPB SCH (23:49)
[2018-07-08] MEDS: Piperacillin/Tazobact 3.375 gm 100 ML IVPB SCH (05:42)
[2018-07-08] MEDS: Morphine 4 mg/ml ISec IVP PRN ×2 (11:59→19:57)
--- NOTE | 2018-07-08 15:32 | PN ---
DATE: 07/08/2018 SUBJECTIVE: I saw her resting comfortably in bed. She has a Patrick catheter in. is at bedside. She is feeling a little bit better. The wound on her sacrum has stopped bleeding, but it is still large. She is on morphine, Silvadene cream, IV fluids, Tylenol, vancomycin and Zosyn by Infectious Disease. She is alert, little more comfortable than the other day. PHYSICAL EXAMINATION: VITAL SIGNS: A 98.1 temperature, 76 pulse, 108/70 blood pressure, 20 respiratory rate and 95% O2 sat on room air. HEENT: Head is atraumatic and normocephalic. HEART: Regular rate. LUNGS: Decreased breath sounds, but clear. ABDOMEN: Soft, obese and nontender. EXTREMITIES: No edema. Patrick catheter is in place. She has a report which we found on the abdomen and pelvis CAT scan which is very worrisome, it shows a large perineal mass extending to the skin surface, the mass is placed with the rectum, it may in fact extend into the vagina. Additional soft tissue mass at the level of the right iliac crest, represented findings compared to prior CT scan. I will call in Dr. Mcneill, the Chancery Clerk/Oncologist for evaluation and treatment. Surgery is already on the case. If they want to do surgery on that, not sure and Infectious Disease for the wound that was bleeding. We will continue with aggressive treatment and care. I am going to keep the Patrick in, so the incontinent urine will not bother the ulcer. She has got a few issues now. Frederic Saez DO MTDD
[2018-07-08] MEDS: Silver Sulfadiazine 1% Cream (25 gm) TP SCH ×2 (17:13→17:29)
--- NOTE | 2018-07-08 17:40 | CON ---
DATE OF CONSULTATION: 07/08/2018 The patient is in bed and seen in Room 373, Bed one. CHIEF COMPLAINT: Bleeding from her gluteal ulcer x1 day. HISTORY OF PRESENT ILLNESS: This is a 73-year-old female known to me from our previous admissions with non-Hodgkin's lymphoma, hypertension, who had her buttocks develop a few months ago a wound, was in the hospital, was treated for cellulitis, and a biopsy had shown no further evidence of lymphoma. The patient's cellulitis had resolved and was discharged, now returns with bleeding from that site. No fevers, no chills, no nausea, no vomiting, no chest pain, no headaches and blurred vision, no neck pain. The patient is on chemotherapy. PAST MEDICAL HISTORY: Significant for non-Hodgkin's lymphoma, chemotherapy, hypertension, anemia, history of small bowel obstruction, history of cardiac arrhythmias, and arthritis. PAST SURGICAL HISTORY: Significant for a Port-A-Cath, which she still has one. The patient also had a laparoscopic cholecystectomy and hysterectomy and has a pacemaker, which was placed in 2009. Also with a bilateral hip surgery. MEDICATIONS: The patient is on chemotherapy. ALLERGIES: SHE IS ALLERGIC TO SULFA AND IBUPROFEN. REVIEW OF SYSTEMS: A 14-point review of systems is performed. PHYSICAL EXAMINATION: GENERAL: She is in bed in no acute distress. She is answering questions appropriately. VITAL SIGNS: Temperature of 98, respiratory rate of 18, heart rate of 74, blood pressure is 112/50. HEENT: Unremarkable. NECK: Supple. LUNGS: Decreased breath sounds. HEART: Normal S1, S2. ABDOMEN: Soft, nontender. No rebound or guarding. SKIN: Examination of gluteal area is clean with no evidence of infection. There is a large ulcer in the rectal area; however, no evidence of infection. LABORATORY EXAMINATION: White count of 9.5, hemoglobin of 11. Coagulation is noted. The chemistries reveal a BUN of 23, creatinine of 0.7. Microbiology of the buttocks reveals from 07/07/2018 a Gram-negative kristopher and Gram-positive cocci, moderate growth of one and heavy growth of the first. Review of microbiology in the past from 06/26/2018 had Morganella morganii E. coli and Enterococcus faecalis. Sensitivity is reviewed. Microbiology is noted. The patient had a CAT scan of the abdomen and pelvis, which reveals a large peritoneal mass, incompletely visualized, appears to be contiguous to the rectum, and additional soft tissue mass at the level of the right iliac crest represents new finding from the CAT scan prior to this. Review of the pathology revealed the patient had biopsy in 2017, also a lung mass by marginal involvement by marginal zone lymphoma and consistent with B-cell lymphoma. ASSESSMENT/PLAN: This is a 73-year-old female with non-Hodgkin's lymphoma, on chemotherapy, hypertension, buttocks ulcer, anemia, history of small bowel obstruction, cardiac arrhythmias, and arthritis, now presenting with bleeding from the site of the sacral area, clean ulcer, no evidence of infection, all consistent with lymphoma. We would discontinue the antibiotics. No antibiotics indicated at this time. Local wound care. We will follow with you. Case discussed with Dr. Frederic Saez. Shawn Easley MD
--- NOTE | 2018-07-08 22:16 | HP ---
DATE OF EXAM: 07/08/2018 HISTORY OF PRESENT ILLNESS: I dictated this yesterday after I saw her in the emergency room for some reason did not populate, so we are doing again on the as opposed to having populated on the when I saw her yesterday, on Tuesday. She is a 73-year-old white female who I see at [facility]. She has a past medical history of non-Hodgkins lymphoma and hypertension. She presents because the nurse called me and said that her sacral wound ulcer is bleeding and so bleeding for 4 hours, I cannot get it to stop with pressure and they were very worried at the halfway, so I sent into the emergency room. When I saw her in the emergency room last night, she was not bleeding at that time, but there was a big open wound and we brought her in for wound care and hemoglobin evaluation. She also had a CAT scan of the abdomen and pelvis which yesterday was not populated, today it is. So besides the lung mass on the left side due to recurring lymphoma, she has hypertension. She had TIAs, partial vision loss of the right eye, post TIA. She has glaucoma, partial peripheral vision loss of the right eye, post hip surgery, iron infusions, post blood infusions, cancer, chemotherapy, metastasis, she wanted to have ac chemo for the lymphoma and she had three more bouts, but now she has a left buttock 1-cm round wound surrounding reddened area inflamed, discolored pitting edema to the area and was bleeding for 4 hours in the halfway. She has a history of falls, constipation associated with chemotherapy. She also has small-bowel obstruction. She has H. Pylori. She is obese. She had a hysterectomy, right hip replacement, pacemaker, left axillary biopsy. ALLERGIES: IBUPROFEN AND SULFA. MEDICATIONS: She takes losartan, hydrochlorothiazide, Travatan. FAMILY HISTORY: No known family history. SOCIAL HISTORY: Former smoker. No alcohol. No drugs. REVIEW OF SYSTEMS: No fever or night sweats. No shortness of breath. No chest pain. No nausea, vomiting or diarrhea. She does get constipation. No problems urinating, although she has been incontinent that is part of the reason why the wound is not healing well. I put a Patrick catheter in here in the hospital. No back pain. She has a wound on the buttocks is large. It is fairly deep. No headache or dizziness. PHYSICAL EXAMINATION VITAL SIGNS: She had a temperature of 98.1, blood pressure 108/70, respiratory rate 20, 95% O2 sat on room air. HEENT: Head is atraumatic, normocephalic. Extraocular muscles are intact. Pupils reactive to light and accommodation. Throat is moist. NECK: Supple. She is a little bit concerned over the bleeding of her buttocks. CARDIOPULMONARY: Regular rate. Normal S1, S2. LUNGS: Decreased breath sounds bilaterally, poor inspiration. ABDOMEN: Soft, nontender. Positive bowel sounds. EXTREMITIES: Trace edema on her sacrum. There is a 1 cm x 2 cm ulcer with bleeding. Otherwise, the skin is fairly intact. NEUROLOGIC: GCS is 15. Cranial nerves II-XII grossly intact. Alert and oriented x3. She has a decubitus ulcer which is bleeding, non-Hodgkin's lymphoma history, hypertension. LABORATORY DATA: She has a 9.5 white count, 11.6 hemoglobin, 37.3 hematocrit, 330 platelets. INR is 1.08. She has a sodium 136, potassium 3.7, BUN 23, creatinine 0.7, GFR is greater than 60, sugar is 99, calcium 8.9, total bili is 0.6, AST is 31, ALT is 19, alk phos 102. Troponin I is less than 0.01, total protein 6.3, albumin is 3.4. IMPRESSION AND PLAN: She has consults with Infectious Disease, Surgery, also Dr. Mcneill. She is currently on Zosyn, vancomycin IV fluids, and morphine for the pain. There are few problems that we found and we were not expecting. Chest x-ray was clear, but she had a CAT scan of the abdomen and pelvis and it shows large peroneal mass extending to the skin surface. The mass is placed continually with the rectum and may in fact extends the vagina, additional soft tissue mass at the level of the right iliac crest. She now presents with new findings compared to the prior CAT scan. So, we will call in Dr. Mcneill, jig fitter to see if he thinks chemoradiation will be needed or if it is a surgical fix. I will discuss this with surgery and Oncology and she is here for a bleeding ulcer and I can put a Patrick catheter in to see if we can keep that in for a while until the sacral ulcer heals. We also discussed with the . Frederic Saez DO MTDD
[2018-07-09] MEDS: Morphine 4 mg/ml ISec IVP PRN ×3 (03:42→19:27)
[2018-07-09 07:49] LABS: HEMOGLOBIN 10.2 g/dL (12.0-16.0); MEAN CORPUSCULAR HEMOGLOBIN 24.3 pg (25.0-35.0); MEAN CORPUSCULAR HGB CONC 30.4 g/dl (31.0-37.0); MEAN PLATELET VOLUME 8.6 fl (7.0-11.0); RBC 4.19 10^6/uL (3.5-6.1); RED CELL DISTRIBUTION WIDTH 16.3 % (11.5-14.5); WHITE BLOOD COUNT 8.2 10^3/uL (4.5-11.0)
[2018-07-09 08:28] LABS: ALB/GLOB RATIO 1.1 (1.1-1.8); ALBUMIN 2.8 g/dL (3.0-4.8); ALT/SGPT 12 U/L (7-56); AST/SGOT 22 U/L (14-36); BLOOD UREA NITROGEN 16 mg/dL (7-21); CALCIUM 8.5 mg/dL (8.4-10.5); GFR NON-AFRICAN AMERICAN > 60
[2018-07-09] MEDS: Silver Sulfadiazine 1% Cream (25 gm) TP SCH ×2 (09:15→17:01)
--- NOTE | 2018-07-09 16:29 | PN ---
DATE: 07/09/2018 SUBJECTIVE: The patient seen earlier today and no fevers and no chills. She is comfortable. PHYSICAL EXAMINATION: VITAL SIGNS: Temperature is 98, blood pressure is 116/69, respiratory rate of 18. HEENT: Unremarkable. NECK: Supple. LUNGS: Have decreased breath sounds. HEART: Normal S1, S2. ABDOMEN: Soft, nontender. Examination of the wound is clean. Laboratory examination reveals a white count is 8. Chemistries are noted. Review of orders reveals the patient to be off of antibiotics; however, microbiology reveals the patient does have ESBL Klebsiella in her wound also an Enterococcus. ASSESSMENT AND PLAN: This is a 73-year-old female who was seen earlier today in 373, bed 1. She is awake and alert. She states she is comfortable. However, she has a history of non-Hodgkins lymphoma, hypertension, her buttocks had cellulitis, recent hospitalization on this admission returns with bleeding. No evidence of infection although now has an extended-spectrum beta-lactamases Klebsiella and Enterococcus from the wound, most consistent with a colonizer, not requiring antibiotics. We will continue to keep the patient off of antibiotics. However, we will place the patient on contact isolation because of the extended-spectrum beta-lactamases Klebsiella pneumonia. Species, pneumonia with Enterococcus faecium. Case will be discussed with Dr. Frederic Saez the doctor in charge of this case. We will follow with you. Shawn Easley MD
--- NOTE | 2018-07-09 18:16 | PN ---
DATE: 07/07/2018 SUBJECTIVE: The patient is resting comfortably in bed with at bedside. They are very upset about the new finding on the CAT scan, which was not there the last time they had a CAT scan or PET scan. I called in Dr. Mcneill for his evaluation. I also called in Dr. Deya Meier, the radiation oncologist for possible help. Also, at that point, heading to the hospital was not really a factor. Right now, she is off the antibiotics. She is not bleeding any more, so that is important. They can make a decision on her plan for the new findings on the CAT scan of the abdomen and pelvis, which are large perineal mass extending to the skin surface, the mass is spaced continually with the rectum and may, in fact, extend to the vagina, soft tissue mass at the level of the right iliac crest, these have all been the findings, so will see if Surgery, Dr. Morales and Dr. Deya Meier and Dr. Mcneill help us with the plan for treatment from this. She also has a history of non-Hodgkin's lymphoma stage IV, breast, lung, gluteal, and sacral masses now. plan for her nurse aide thing about hospice, which I did not talk to them about yet. PHYSICAL EXAMINATION: GENERAL: She is little bit depressed over the new findings, so is the . VITAL SIGNS: She has a 99 temp, 75 pulse, 116/69 blood pressure, 18 respiratory rate, 94% oxygen saturation on room air. HEENT: Head is atraumatic, normocephalic. HEART: Regular rate. LUNGS: Decreased breath sounds, but clear. ABDOMEN: Soft, obese, and nontender. EXTREMITIES: No edema. She is very weak and frail in bed. SKIN: She also has a sacral ulcer. LABORATORY DATA: She has a 137 sodium, potassium 3.4, we gave her some potassium. BUN 16, creatinine 0.6, GFR is greater than 60, sugar is 86, calcium 8.5, total bilirubin is 0.5, AST is 22, ALT is 12, alkaline phosphatase 85, C-reactive protein is quite high at 120.3, total protein is 5.4. White count is 8.2, hemoglobin 10.2, hematocrit 33.5, and platelets 288. PLAN: We will continue with the aggressive treatment and care and see what we could do about these new findings in her abdomen and pelvis. Frederic Saez DO MTDD
--- NOTE | 2018-07-09 19:46 | VAS ---
DATE: 07/09/2018 Lo Spaulding is seen this morning. The mass in the gluteal perineal area has enlarged since several weeks ago. It is inflamed and irritated. We will discuss with Heme/Onc in the morning and my feeling would be to consider radiation as this is symptomatic. Sacha Morales MD
[2018-07-10] MEDS: Morphine 4 mg/ml ISec IVP PRN ×3 (01:06→18:40)
[2018-07-10 06:49] LABS: MEAN CELL VOLUME 80.1 fl (80.0-105.0); MEAN CORPUSCULAR HEMOGLOBIN 24.2 pg (25.0-35.0); MEAN CORPUSCULAR HGB CONC 30.2 g/dl (31.0-37.0); MEAN PLATELET VOLUME 8.2 fl (7.0-11.0); RBC 4.13 10^6/uL (3.5-6.1); WHITE BLOOD COUNT 7.1 10^3/uL (4.5-11.0)
[2018-07-10 07:01] LABS: ALB/GLOB RATIO 1.1 (1.1-1.8); ALBUMIN 2.9 g/dL (3.0-4.8); ALT/SGPT 17 U/L (7-56); AST/SGOT 22 U/L (14-36); BLOOD UREA NITROGEN 16 mg/dL (7-21); CALCIUM 8.6 mg/dL (8.4-10.5); GFR NON-AFRICAN AMERICAN > 60
--- NOTE | 2018-07-10 10:04 | PN ---
DATE: 07/10/2018 SUBJECTIVE: Resting in bed. She is very weak. is at bedside. She is on contact precautions. She is alert. She understands about her perineal mass, we are all waiting for Oncology and Radiation Oncology to come in for plan. She is supposed to start chemo today, they were telling me, but she also might need radiation with this new findings. She is on little bit of pain, she is getting pain meds as needed. PHYSICAL EXAMINATION: VITAL SIGNS: She has a 98.1 temperature, 78 pulse, 129/76 blood pressure, 19 respiratory rate and 97% O2 sat on room air. HEENT: Head is atraumatic, normocephalic. HEART: Regular rate. LUNGS: Decreased breath sounds, but clear. ABDOMEN: Soft, obese and nontender. Positive bowel sounds. EXTREMITIES: No edema. She has got a wound on her buttocks, it is not bleeding anymore. MEDICATIONS: She is on morphine, Silvadene and Tylenol. She had potassium replacement. LABORATORY DATA: She has a 7.1 white count, 10 hemoglobin, 33.1 hematocrit with 279 platelets. She has a 137 sodium, potassium 3.6, BUN 60, creatinine 0.6, GFR is greater than 60, sugar is 89, calcium is 8.6, total bili is 0.4, AST is 22, ALT is 17 and alk phos 86. Total protein is 5.4. C-reactive protein was very high at 120. ASSESSMENT AND PLAN: She is being seen by Infectious Disease and Surgery. I called in Oncology and Radiation Oncology. She has a history of non-Hodgkins lymphoma, hypertension, cellulitis also of the buttocks which was bleeding, now it has stopped bleeding. She is now with extended-spectrum beta-lactamases Klebsiella and Enterococcus from the wound. She is on contact isolation right now for extended-spectrum beta-lactamases Klebsiella pneumonia and she is off antibiotics. Waiting for Oncology and Radiation Oncology to give us a plan for her before she goes back to [facility] for rehab and wound care. She has this new abdominal mass. Frederic Saez DO
[2018-07-10] MEDS: Silver Sulfadiazine 1% Cream (25 gm) TP SCH ×2 (10:56→18:26)
--- NOTE | 2018-07-10 12:28 | CP.PCM.PN ---
Subjective - Date & Time of Evaluation Date of Evaluation: 07/10/18 Time of Evaluation: 09:20 - Subjective Subjective: Still with pain in the leg and buttock areas, no fevers. Objective - Vital Signs/Intake and Output Vital Signs (last 24 hours): Temp Pulse Resp BP Pulse Ox 99.0 F 75 18 116/69 94 L 07/09/18 06:00 07/09/18 06:00 07/09/18 06:00 07/09/18 06:00 07/09/18 06:00 - Medications Medications: Current Medications Acetaminophen (Tylenol 325mg Tab) 650 mg PO Q4 PRN PRN Reason: Fever >100.4 F Morphine Sulfate (Morphine) 4 mg IVP Q4 PRN PRN Reason: Pain, moderate (4-7) Last Admin: 07/09/18 19:27 Dose: 4 mg Silver Sulfadiazine (Silvadene 1% 25 Gm) 1 gm TP BID PHI Last Admin: 07/09/18 17:01 Dose: 1 gm - Labs Labs: 07/09/18 06:50 07/09/18 06:50 PT 12.4 SECONDS (9.4-12.5) 07/07/18 16:00 INR 1.08 07/07/18 16:00 APTT 27.6 Seconds (25.1-36.5) 07/07/18 16:00 - Constitutional Appears: Chronically Ill - Head Exam Head Exam: NORMAL INSPECTION - Respiratory Exam Respiratory Exam: Decreased Breath Sounds - Cardiovascular Exam Cardiovascular Exam: +S1, +S2 - GI/Abdominal Exam GI & Abdominal Exam: Soft. absent: Tenderness Assessment and Plan - Assessment and Plan (Free Text) Plan: assessment new perineal mass continuguous with rectum as seen on CT A/P, suspicious for malignancy history of right buttock cellulitis associated with lymphoma, growing E. coli and Morganella - currently presented with bleeding but without evidence of infection but is colonized with ESBL Klebsiella and E. faecium history of acute cholecystitis history of Left lower lobe mass-like lesion, probably community-acquired pneumonia dyslipidemia HTN non-Hodgkin lymphoma gastric ulcers S/P pacemaker placement S/P hysterectomy obesity with BMI 32 Plan continue monitoring off antibiotics since she is at risk for infections follow up further plans of Surgery and Oncology regarding the new mass noted on CT A/P
--- NOTE | 2018-07-10 13:01 | CP.PCM.CON ---
History of Present Illness - History of Present Illness History of Present Illness: Ms Spaulding is a 73 year old female with stage IV non-hodgkins lymphoma. 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 A CT/PET scan on April 14, 2018 revealed a 6.4 x 6.1cm subcutaneous mass of the left buttock with a SUV of 23.3. There was another lesion in the right buttock. There was a small lesion. There was a soft tissue density in the right axilla measuring 1.4 x 0.4cm with SUV of 10.7. There were small lesion in the left axilla. She was supposed to get Rituxan and chemotherapy, however due to a number of factors, she has yet to start the chemotherapy. She was actually supposed to get it this week, however she was admitted again to [facility] with a bleeding worsening gluteal wound from the intermediate. She has had a gluteal wound for several months. A CT of the abdomen and pelvis on July 07, 2018 revealed a large perineal mass measuring 9.6 x 8.8cm. There was a soft tissue mass in the right iliac crest. We were asked to see the patient for our input. Review of Systems - Integumentary Integumentary: Skin Pain, Wounds Past Patient History - Infectious Disease Hx of Infectious Diseases: None - Tetanus Immunizations Tetanus Immunization: Unknown - Past Medical History & Family History Past Medical History?: Yes - Past Social History Smoking Status: Former Smoker Alcohol: None Home Situation {Lives}: With Family - CARDIAC Hx Cardiac Disorders: Yes Hx Hypercholesterolemia: Yes Hx Hypertension: Yes Hx Pacemaker: Yes Hx Peripheral Edema: Yes - PULMONARY Other/Comment: 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, 01/2017 - NEUROLOGICAL Hx Neurological Disorder: Yes Hx Transient Ischemic Attacks (TIA): Yes (2015) Other/Comment: 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 - HEENT Hx HEENT Problems: Yes (eyeglasses) Hx Glaucoma: Yes (beginning) Other/Comment: partial peripheral vision loss r eye - RENAL Hx Chronic Kidney Disease: No - ENDOCRINE/METABOLIC Hx Endocrine Disorders: No - HEMATOLOGICAL/ONCOLOGICAL Hx Blood Disorders: Yes Hx Anemia: Yes Hx Cancer: Yes Hx Chemotherapy: Yes Other/Comment: pt dx with non hodgkins lymphoma 2012, had chemo 1 cycle, reaccurred 11/2013, had chemo, reaccurred 11/2016 presently receiving chemo 1 tx a week x 4 wk's had one treatment 3 more to go, presently chemo is postponed due to hospitalization - INTEGUMENTARY Other/Comment: left buttock 8X7cm wound. Surrounding skin reddened/ brown and firm to touch. - MUSCULOSKELETAL/RHEUMATOLOGICAL Hx Musculoskeletal Disorders: Yes Hx Falls: Yes - GASTROINTESTINAL Hx Gastrointestinal Disorders: Yes (constipation assoc with chemo, sbo) Other/Comment: h pylori 01/2016, obese - GENITOURINARY/GYNECOLOGICAL Hx Genitourinary Disorders: Yes Hx Incontinence: Yes - PSYCHIATRIC Hx Psychophysiologic Disorder: No - SURGICAL HISTORY Hx Surgeries: Yes Hx Cardiac Catheterization: Yes Hx Hysterectomy: Yes (complete) Hx Joint Replacement: Yes (b/l hips) Other/Comment: pacemaker 2009, left axillary bx 08/15/14, rcw pac 2013 and 2016 - ANESTHESIA Hx Anesthesia: Yes Hx Anesthesia Reactions: No Hx Malignant Hyperthermia: No Meds Allergies/Adverse Reactions: Allergies Allergy/AdvReac Type Severity Reaction Status Date / Time ibuprofen Allergy Severe .MOUTH Verified 03/16/17 07:05 SORES Sulfa (Sulfonamide Allergy Unknown UNKNOWN Verified 03/16/17 07:05 Antibiotics) - Medications Medications: Current Medications Acetaminophen (Tylenol 325mg Tab) 650 mg PO Q4 PRN PRN Reason: Fever >100.4 F Morphine Sulfate (Morphine) 4 mg IVP Q4 PRN PRN Reason: Pain, moderate (4-7) Last Admin: 07/10/18 01:06 Dose: 4 mg Silver Sulfadiazine (Silvadene 1% 25 Gm) 1 gm TP BID PHI Last Admin: 07/10/18 10:56 Dose: 1 gm Physical Exam - Rectal Exam Additional comments: large gluteal wound in the intergluteal fold approximately 8cm with peripheral skin erythema Results - Vital Signs Recent Vital Signs: Last Vital Signs Temp 98.1 F 07/10/18 08:06 Pulse 78 07/10/18 08:06 Resp 19 07/10/18 08:06 BP 129/76 07/10/18 08:06 Pulse Ox 97 07/10/18 08:06 - Labs Result Diagrams: 07/10/18 06:30 07/10/18 06:30 Labs: Laboratory Results - last 24 hr 07/10/18 07/10/18 06:30 06:30 WBC 7.1 RBC 4.13 Hgb 10.0 L Hct 33.1 L MCV 80.1 MCH 24.2 L MCHC 30.2 L RDW 16.0 H Plt Count 279 MPV 8.2 Sodium 137 Potassium 3.6 Chloride 100 Carbon Dioxide 35 H Anion Gap 5 L BUN 16 Creatinine 0.6 L Est GFR ( Amer) > 60 Est GFR (Non-Af Amer) > 60 Random Glucose 89 Calcium 8.6 Total Bilirubin 0.4 AST 22 ALT 17 Alkaline Phosphatase 86 Total Protein 5.4 L Albumin 2.9 L Globulin 2.5 Albumin/Globulin Ratio 1.1 Assessment & Plan - Assessment and Plan (Free Text) Assessment: Ms Spaulding is a 73 year old female with stage IV non-hodgkin lymphoma. 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 Her last Rituxan was around . She was scheduled to get CHOP this week with Dr Mcneill, however she was admitted recently from the intermediate with pain and bleeding from the gluteal wound. In discussing this case with Dr Mcneill this morning, we spoke about the options of systemic chemotherapy versus palliative radiation to the gluteal wound. With palliative radiation to the gluteal wound, we may get shrinkage of the mass, however she will get worsening skin breakdown in the gluteal region secondary to the treatment which would affect her quality of life. Also, one concern you raised was that the further breakdown of the skin from the radiation may delay starting her chemotherapy. The importance of the chemotherapy would be that it would address the gluteal lesion, but her other metastases as well. After much discussion, we would agree that it would make sense to start with the chemotherapy and hold off on the radiation for now. We spoke at length with the patient and about this as well.
[2018-07-10] MEDS: cefTRIAXone 1 gm 1 GM/100 ML BAG IVPB SCH (20:28)
[2018-07-11 06:37] LABS: HEMOGLOBIN 10.1 g/dL (12.0-16.0); MEAN CELL VOLUME 80.2 fl (80.0-105.0); MEAN CORPUSCULAR HEMOGLOBIN 24.7 pg (25.0-35.0); MEAN CORPUSCULAR HGB CONC 30.8 g/dl (31.0-37.0); MEAN PLATELET VOLUME 8.1 fl (7.0-11.0); RBC 4.09 10^6/uL (3.5-6.1); RED CELL DISTRIBUTION WIDTH 16.1 % (11.5-14.5); WHITE BLOOD COUNT 6.9 10^3/uL (4.5-11.0)
[2018-07-11 07:01] LABS: ALB/GLOB RATIO 1.1 (1.1-1.8); ALBUMIN 2.8 g/dL (3.0-4.8); ALT/SGPT 21 U/L (7-56); AST/SGOT 21 U/L (14-36); BLOOD UREA NITROGEN 14 mg/dL (7-21); CALCIUM 8.3 mg/dL (8.4-10.5); GFR NON-AFRICAN AMERICAN > 60
[2018-07-11] MEDS: Sodium Chloride 0.9% 1,000 ML IV SCH ×2 (08:58→20:49)
[2018-07-11] MEDS: Morphine 4 mg/ml ISec IVP PRN (08:59)
[2018-07-11] MEDS: cefTRIAXone 1 gm 1 GM/100 ML BAG IVPB SCH (09:00)
[2018-07-11] MEDS: Silver Sulfadiazine 1% Cream (25 gm) TP SCH ×2 (10:57→19:11)
--- NOTE | 2018-07-11 13:06 | PN ---
DATE: 07/11/2018 SUBJECTIVE: She is resting comfortably in bed. She was seen by Dr. Mcneill and also Dr. Meier. She is not going to get radiation therapy, but she will go start a new chemo with Dr. Mcneill today and tomorrow and she does well hopefully, on we could discharge her. She is currently on morphine, Rocephin, silver sulfadiazine cream, IV fluid and Tylenol. PHYSICAL EXAMINATION: VITAL SIGNS: She has a 98.1 temperature, 83 pulse, 152/70 blood pressure, 20 respiratory rate, 96% O2 sat on room air. HEENT: Atraumatic and normocephalic. HEART: Regular rate. LUNGS: Clear to auscultation. ABDOMEN: Soft. Obese. EXTREMITIES: No edema. She has a wound in the sacral area which is clean she was bleeding. We found an abdominal mass and a new mass in her pelvis. ASSESSMENT AND PLAN: So, new large cell cancer. She is going to start chemo today with Dr. Mcneill and also tomorrow and . Dr. Mcneill said she can go back to [facility] for physical therapy and wound care. She has a 6.9 white count, 10.1 hemoglobin, 32.8 hematocrit with 278 platelets. She has 137 sodium, potassium 3.7, BUN 40, creatinine 0.6, GFR is greater than 66, sugar is 93, calcium is 8.3, total bilirubin is 0.3, AST is 21, ALT is 21, alkaline phosphatase 85, total protein is 5.4. We will continue with aggressive treatment and care, cancer treatment. She is off antibiotics at this time. Next plan is chemo today and to [facility] to continue her subacute rehab. Claire Saez DO [facility]
[2018-07-11] MEDS ORDERED: FAMOTIDINE IVPB ONE (13:30)
[2018-07-11] MEDS ORDERED: DIPHENHYDRAMINE IVPB ONE (13:30)
[2018-07-11] MEDS ORDERED: ONDANSETRON IVPB ONE (13:30)
[2018-07-11] MEDS ORDERED: [UNRECOGNIZED DRUG - OTHER] IVPB ONE (13:30)
[2018-07-11] MEDS ORDERED: DEXAMETHASONE IVPB ONE (13:30)
--- NOTE | 2018-07-11 15:50 | CP.PCM.APN ---
Subjective - Date & Time of Evaluation Date of Evaluation: 07/11/18 Time of Evaluation: 09:30 - Subjective Subjective: 73 year old female with pMH of Non-Hodgkins Lymphoma, Htn, Anemia admitted from [facility] [place] for bleeding rectal wound. seen and examined at bedside. Noted to be resting comfortabley on clinitron mattress. States has pain to buttocks upon movement. Denied any further bleeding. Denied weakness, dizziness, chest pain. Breakfast noted at bedside, tolerating food. VS reviewed. Lab results reviewed. Wound Cx from buttocks revealed Klebsiella and Enterococcus. CT ABdomen, Pelvis revealed Large perineal mass to rectum Interventions: Pt currently receiving antibiotics, getting chemo in outpatient infusion clinic today and tommorow as per Dr. Mcneill. Will anticipate DC back to [facility] after chemo treatment completed. Will continue to monitor and follow closely. Objective - Vital Signs/Intake and Output Vital Signs (last 24 hours): Temp Pulse Resp BP Pulse Ox 98.2 F 82 20 133/73 95 07/11/18 08:57 07/11/18 08:57 07/11/18 08:57 07/11/18 08:57 07/11/18 08:57 Intake and Output: 07/11/18 07/11/18 06:59 18:59 Intake Total 220 Balance 220 - Medications Medications: Current Medications Acetaminophen (Tylenol 325mg Tab) 650 mg PO Q4 PRN PRN Reason: Fever >100.4 F Doxorubicin HCl (Adriamycin) 65 mg IV ONCE ONE Stop: 07/12/18 11:01 Ceftriaxone Sodium (Rocephin 1 Gram Ivpb) 1 gm in 100 mls @ 100 mls/hr IVPB DAILY PHI; Protocol Last Admin: 07/11/18 09:00 Dose: 100 mls/hr Sodium Chloride (Sodium Chloride 0.9%) 1,000 mls @ 100 mls/hr IV .Q10H PHI Last Admin: 07/11/18 08:58 Dose: 100 mls/hr Rituximab 700 mg/ Sodium (Chloride) 500 mls @ 166.667 mls/hr IV ONCE ONE Stop: 07/11/18 16:59 Last Admin: 07/11/18 15:15 Dose: 166.667 mls/hr Dexamethasone 8 mg/ Famotidine (20 mg/ Sodium Chloride) 54 mls @ 162 mls/hr IVPB ONCE ONE Stop: 07/12/18 10:49 Fosaprepitant 150 mg/ Sodium (Chloride) 150 mls @ 300 mls/hr IVPB ONCE ONE Stop: 07/12/18 10:59 Cyclophosphamide 1 gm/ Sodium (Chloride) 250 mls @ 125 mls/hr IV ONCE ONE Stop: 07/12/18 12:59 Vincristine Sulfate 1.5 mg/ (Sodium Chloride) 51.5 mls @ 103 mls/hr IV ONCE ONE Stop: 07/12/18 11:29 Morphine Sulfate (Morphine) 4 mg IVP Q4 PRN PRN Reason: Pain, moderate (4-7) Last Admin: 07/11/18 08:59 Dose: 4 mg Palonosetron (Aloxi) 0.25 mg IVP ONCE ONE Stop: 07/12/18 10:31 Prednisone (Prednisone Tab) 40 mg PO DAILY PHI Stop: 07/16/18 10:01 Silver Sulfadiazine (Silvadene 1% 25 Gm) 1 gm TP BID PHI Last Admin: 07/11/18 10:57 Dose: 1 gm - Labs Labs: 07/11/18 06:10 07/11/18 06:10 PT 12.4 SECONDS (9.4-12.5) 07/07/18 16:00 INR 1.08 07/07/18 16:00 APTT 27.6 Seconds (25.1-36.5) 07/07/18 16:00
--- NOTE | 2018-07-11 16:21 | CP.PCM.PN ---
Subjective - Date & Time of Evaluation Date of Evaluation: 07/11/18 Time of Evaluation: 08:15 - Subjective Subjective: No fevers, no abdominal pain, for chemotherapy. Objective - Vital Signs/Intake and Output Vital Signs (last 24 hours): Temp Pulse Resp BP Pulse Ox 98.1 F 78 19 129/76 97 07/10/18 08:06 07/10/18 08:06 07/10/18 08:06 07/10/18 08:06 07/10/18 08:06 Intake and Output: 07/10/18 07/10/18 06:59 18:59 Intake Total 120 Output Total 350 Balance -230 - Medications Medications: Current Medications Acetaminophen (Tylenol 325mg Tab) 650 mg PO Q4 PRN PRN Reason: Fever >100.4 F Morphine Sulfate (Morphine) 4 mg IVP Q4 PRN PRN Reason: Pain, moderate (4-7) Last Admin: 07/10/18 01:06 Dose: 4 mg Silver Sulfadiazine (Silvadene 1% 25 Gm) 1 gm TP BID PHI Last Admin: 07/10/18 10:56 Dose: 1 gm - Labs Labs: 07/10/18 06:30 07/10/18 06:30 PT 12.4 SECONDS (9.4-12.5) 07/07/18 16:00 INR 1.08 07/07/18 16:00 APTT 27.6 Seconds (25.1-36.5) 07/07/18 16:00 - Constitutional Appears: Chronically Ill - Head Exam Head Exam: NORMAL INSPECTION - Respiratory Exam Respiratory Exam: Decreased Breath Sounds - Cardiovascular Exam Cardiovascular Exam: +S1, +S2 - GI/Abdominal Exam GI & Abdominal Exam: Soft. absent: Tenderness Assessment and Plan - Assessment and Plan (Free Text) Plan: assessment new perineal mass continuguous with rectum as seen on CT A/P, suspicious for malignancy history of right buttock cellulitis associated with lymphoma, growing E. coli and Morganella - currently presented with bleeding but without evidence of infection but is colonized with ESBL Klebsiella and E. faecium history of acute cholecystitis history of Left lower lobe mass-like lesion, probably community-acquired pneumonia dyslipidemia HTN non-Hodgkin lymphoma gastric ulcers S/P pacemaker placement S/P hysterectomy obesity with BMI 32 Plan continue monitoring off antibiotics since she is at risk for infections as per Dr. Saez is for chemotherapy
--- NOTE | 2018-07-11 18:58 | CON ---
DATE: 07/11/2018 HISTORY OF PRESENT ILLNESS: This is a 73-year-old woman with lymphoma. The patient was seen by me and treated by me for the last three to four years. She has had a small cell lymphoma that presented in several areas atypically in her left axilla, in her kidney and in her breasts at that time, and she received Rituxan chemotherapy. She was doing quite well. About a year ago, she required a knee surgery and after that she has not been able to ambulate at all. She has really been confined to the wheelchair or to the crutches. I had not seen her in almost a year when she presented with a large perineal mass, buttock mass. We did an outpatient biopsy twice on this and both confirmed that this was now transformed into a large cell lymphoma. We gave her Rituxan three weeks ago as an outpatient, but she was admitted twice for an open wound in that area and she was sent to rehab and then sent to [facility]. She was at [facility] only about two to three days and is now back here. She has currently pain in that area and she is not able to ambulate at all, really to move in bed at all. PHYSICAL EXAMINATION SKIN: No petechiae, no bruises. HEENT: Anicteric. NODES: None palpable in the axillary, cervical, supraclavicular or inguinal regions. LUNGS: Clear at present. The patient is able to lie flat in bed. HEART: S1, S2. ABDOMEN: Shows no liver, no spleen, no tenderness, but she is an obese woman. BREASTS: No mass or discharge. EXTREMITIES: Show no edema. CENTRAL NERVOUS SYSTEM: No focal finding. It is hard to exam that mass because it is hard to move her. The CAT scan shows a large perineal mass which is almost contiguous with the rectum about 10 cm and another soft tissue mass adjacent to the iliac crest on the right, which measures about 4 cm. So this perineal mass really is between the vagina and the rectum, very large and a second lesion. I spoke with Dr. Meier from Radiation Therapy and I felt in discussion with her that the radiation therapy really is not going to help much. 1. It is a large area. 2. It will prevent me from giving chemotherapy for another month as she has an aggressive cancer and also there are two different areas of lymphoma at least at this point, so she is not changing over to other therapy. We want to start her on chemotherapy, so we will have permission to start while she is here. She is going to get a second round of Rituxan today. She will get the Cytoxan, Adriamycin, Oncovin and prednisone certainly tomorrow, and then she will be able to go back to [facility] on with prednisone 40 mg p.o. for a total of five days. We will need a blood count on her in about 10 days, CBC, hopefully they can do that at [facility], and then she will get the next shot of chemotherapy within about three to four weeks. However, she is quite weak and she is not really eating well and very weak in bed, some I am cutting the doses of the [facility] chemotherapy initially to 75% of calculated dose; she is about 2 square meters. So at this point, she signed the consent for me and she is aware of course of this treatment as there is her and I have talked to him a couple of weeks ago. Tien Mcneill MD
[2018-07-12 04:41] LABS: ALB/GLOB RATIO 1.1 (1.1-1.8); ALBUMIN 2.8 g/dL (3.0-4.8); ALT/SGPT 19 U/L (7-56); AST/SGOT 16 U/L (14-36); BLOOD UREA NITROGEN 14 mg/dL (7-21); CALCIUM 8.3 mg/dL (8.4-10.5); GFR NON-AFRICAN AMERICAN > 60
[2018-07-12 05:09] LABS: HEMOGLOBIN 10.2 g/dL (12.0-16.0); MEAN CELL VOLUME 80.1 fl (80.0-105.0); MEAN CORPUSCULAR HEMOGLOBIN 24.5 pg (25.0-35.0); MEAN CORPUSCULAR HGB CONC 30.5 g/dl (31.0-37.0); MEAN PLATELET VOLUME 8.3 fl (7.0-11.0); RBC 4.17 10^6/uL (3.5-6.1); RED CELL DISTRIBUTION WIDTH 15.9 % (11.5-14.5); WHITE BLOOD COUNT 5.6 10^3/uL (4.5-11.0)
[2018-07-12] MEDS: Sodium Chloride 0.9% 1,000 ML IV SCH ×2 (05:42→15:45)
[2018-07-12] MEDS ORDERED: FAMOTIDINE IVPB ONE (10:30)
[2018-07-12] MEDS ORDERED: Palonosetron 0.25 mg/5 mL Inj IVP ONE (10:30)
[2018-07-12] MEDS ORDERED: DEXAMETHASONE IVPB ONE (10:30)
[2018-07-12] MEDS ORDERED: SODIUM CHLORIDE 0.9% IVPB ONE (10:30)
[2018-07-12] MEDS ORDERED: CYCLOPHOSPHAMIDE IV ONE (11:00)
[2018-07-12] MEDS ORDERED: SODIUM CHLORIDE 0.9% IV ONE ×2 (11:00)
[2018-07-12] MEDS ORDERED: DOXORUBICIN IV ONE (11:00)
[2018-07-12] MEDS ORDERED: VINCRISTINE IV ONE (11:00)
[2018-07-12] MEDS: Silver Sulfadiazine 1% Cream (25 gm) TP SCH ×2 (11:00→17:55)
--- NOTE | 2018-07-12 11:16 | CP.PCM.APN ---
Subjective - Date & Time of Evaluation Date of Evaluation: 07/12/18 Time of Evaluation: 09:00 - Subjective Subjective: 73 year old female with pMH of Non-Hodgkins Lymphoma, Htn, Anemia admitted from [facility] for bleeding rectal wound. Workup so far revealed Wound cx positive Klebsiella, and Enterococcus, CT Abdomen with large perineal mass to rectum. Pt. seen and examined at bedside. Noted to be resting comfortabley on clinitron mattress. States has pain to buttocks upon movement, rates pain 7/10. Denied any further bleeding. Denied weakness, dizziness, chest pain. Breakfast noted at bedside, tolerating food. at bedside, patient awaiting 2nd chemotherapy treatment. Patient and expressed concerns about patient not be able to continue with physical therapy as previously at [facility], due to pain upon movement. Objective - Vital Signs/Intake and Output Vital Signs (last 24 hours): Temp Pulse Resp BP Pulse Ox 97.6 F 62 20 122/62 94 L 07/12/18 08:18 07/12/18 08:18 07/12/18 08:18 07/12/18 08:18 07/12/18 08:18 Intake and Output: 07/12/18 07/12/18 06:59 18:59 Intake Total 2400 Output Total 700 Balance 1700 - Medications Medications: Current Medications Acetaminophen (Tylenol 325mg Tab) 650 mg PO Q4 PRN PRN Reason: Fever >100.4 F Sodium Chloride (Sodium Chloride 0.9%) 1,000 mls @ 100 mls/hr IV .Q10H [facility] Last Admin: 07/12/18 05:42 Dose: 100 mls/hr Cyclophosphamide 1 gm/ Sodium (Chloride) 250 mls @ 125 mls/hr IV ONCE ONE Stop: 07/12/18 12:59 Vincristine Sulfate 1.5 mg/ (Sodium Chloride) 51.5 mls @ 103 mls/hr IV ONCE ONE Stop: 07/12/18 11:29 Morphine Sulfate (Morphine) 4 mg IVP Q4H PRN PRN Reason: Pain, moderate (4-7) Prednisone (Prednisone Tab) 40 mg PO DAILY [facility] Stop: 07/16/18 10:01 Last Admin: 07/12/18 10:07 Dose: 40 mg Silver Sulfadiazine (Silvadene 1% 25 Gm) 1 gm TP BID [facility] Last Admin: 07/11/18 19:11 Dose: 1 gm - Labs Labs: 07/12/18 04:00 07/12/18 04:00 PT 12.4 SECONDS (9.4-12.5) 07/07/18 16:00 INR 1.08 07/07/18 16:00 APTT 27.6 Seconds (25.1-36.5) 07/07/18 16:00 - Constitutional Appears: Well, No Acute Distress - Head Exam Head Exam: NORMAL INSPECTION - Eye Exam Eye Exam: Normal appearance - Neck Exam Neck Exam: Full ROM - Respiratory Exam Respiratory Exam: NORMAL BREATHING PATTERN - Cardiovascular Exam Cardiovascular Exam: REGULAR RHYTHM, +S1, +S2 Additional comments: Ashleigh cath noted to right chest wall. - GI/Abdominal Exam GI & Abdominal Exam: Soft, Normal Bowel Sounds - Rectal Exam Additional comments: Large gluteal wound from coccyx extending to intergluteal fold, approx 8cm, with erthema noted. - Exam Additional comments: Patrick draining clear yellow urine - Extremities Exam Extremities Exam: Pedal Edema Additional comments: 2+ b/l edema noted. - Back Exam Back Exam: Full ROM, NORMAL INSPECTION - Psychiatric Exam Psychiatric exam: Normal Mood - Skin Skin Exam: Normal Color, Warm Assessment and Plan - Assessment and Plan (Free Text) Assessment: 1. Large Infected Perineal Mass, growing Klebsiella and ESBL, currently receiving Antibiotics as per I.D. and local wound care. 2. Perianal mass- receiving Chemotherapy as per Dr. Mcneill. 3. Pain r/t Cancer- Receiving pain med as ordered Will continue to monitor and follow clinically. Anticipate DC to [facility] by [facility] as per PMD.
--- NOTE | 2018-07-12 12:24 | PN ---
DATE: 07/12/2018 SUBJECTIVE: She is resting comfortably in bed. She had chemo yesterday. She is getting further chemo today. MEDICATIONS: She is on Adriamycin,Avelox, cyclophosphamide, dexamethasone, fosaprepitant, morphine, prednisone, Silvadene, IV fluids, Tylenol and vincristine. PHYSICAL EXAMINATION: VITAL SIGNS: Temperature 97.6, pulse 62, blood pressure 122/62, respiratory rate 20, 94% sat on room air. HEAD: Atraumatic, normocephalic. HEART: Regular rate. LUNGS: Decreased breath sounds, but clear. ABDOMEN: Soft, nontender. EXTREMITIES: No edema. She is definitely weak. LABORATORY DATA: White count 5.6, hemoglobin 10.2, hematocrit 33.4, platelets 339. Sodium 139, potassium 4.7, BUN 14, creatinine 0.6, GFR greater than 60, sugar is 123, calcium 8.3, total bili is 0.2, AST is 16, ALT is 19, alk phos is 80. Total protein is 5.4. She has gram-negative rods in the urine. Klebsiella pneumoniae enterococcus faecium in the buttocks. ASSESSMENT AND PLAN: I plan to send her back to [facility] tomorrow for subacute rehab after she finishes the chemo today. She is being seen by Infectious Disease, Oncology. I am hoping to discharge her on . Hopefully that will be okay. We will check her labs tomorrow. So far she is fairly comfortable throughout chemo and my goal is to discharge her back to [facility] on . The patient had a bleeding ulcer, now on new finding of perineal mass. Frederic Saez DO
--- NOTE | 2018-07-12 20:39 | CP.PCM.PN ---
Subjective - Date & Time of Evaluation Date of Evaluation: 07/12/18 Time of Evaluation: 09:45 - Subjective Subjective: Afebrile, feels somewhat weak. Objective - Vital Signs/Intake and Output Vital Signs (last 24 hours): Temp Pulse Resp BP Pulse Ox 98.2 F 82 20 133/73 95 07/11/18 08:57 07/11/18 08:57 07/11/18 08:57 07/11/18 08:57 07/11/18 08:57 Intake and Output: 07/11/18 07/11/18 06:59 18:59 Intake Total 220 Balance 220 - Medications Medications: Current Medications Acetaminophen (Tylenol 325mg Tab) 650 mg PO Q4 PRN PRN Reason: Fever >100.4 F Doxorubicin HCl (Adriamycin) 65 mg IV ONCE ONE Stop: 07/12/18 11:01 Ceftriaxone Sodium (Rocephin 1 Gram Ivpb) 1 gm in 100 mls @ 100 mls/hr IVPB DAILY PHI; Protocol Last Admin: 07/11/18 09:00 Dose: 100 mls/hr Sodium Chloride (Sodium Chloride 0.9%) 1,000 mls @ 100 mls/hr IV .Q10H [facility]I Last Admin: 07/11/18 08:58 Dose: 100 mls/hr Rituximab 700 mg/ Sodium (Chloride) 500 mls @ 166.667 mls/hr IV ONCE ONE Stop: 07/11/18 16:59 Last Admin: 07/11/18 15:15 Dose: 166.667 mls/hr Dexamethasone 8 mg/ Famotidine (20 mg/ Sodium Chloride) 54 mls @ 162 mls/hr IVPB ONCE ONE Stop: 07/12/18 10:49 Fosaprepitant 150 mg/ Sodium (Chloride) 150 mls @ 300 mls/hr IVPB ONCE ONE Stop: 07/12/18 10:59 Cyclophosphamide 1 gm/ Sodium (Chloride) 250 mls @ 125 mls/hr IV ONCE ONE Stop: 07/12/18 12:59 Vincristine Sulfate 1.5 mg/ (Sodium Chloride) 51.5 mls @ 103 mls/hr IV ONCE ONE Stop: 07/12/18 11:29 Morphine Sulfate (Morphine) 4 mg IVP Q4 PRN PRN Reason: Pain, moderate (4-7) Last Admin: 07/11/18 08:59 Dose: 4 mg Palonosetron (Aloxi) 0.25 mg IVP ONCE ONE Stop: 07/12/18 10:31 Prednisone (Prednisone Tab) 40 mg PO DAILY PHI Stop: 07/16/18 10:01 Silver Sulfadiazine (Silvadene 1% 25 Gm) 1 gm TP BID PHI Last Admin: 07/11/18 10:57 Dose: 1 gm - Labs Labs: 07/11/18 06:10 07/11/18 06:10 PT 12.4 SECONDS (9.4-12.5) 07/07/18 16:00 INR 1.08 07/07/18 16:00 APTT 27.6 Seconds (25.1-36.5) 07/07/18 16:00 - Constitutional Appears: Chronically Ill - Head Exam Head Exam: NORMAL INSPECTION - Respiratory Exam Respiratory Exam: Decreased Breath Sounds - Cardiovascular Exam Cardiovascular Exam: +S1, +S2 - GI/Abdominal Exam GI & Abdominal Exam: Soft. absent: Tenderness Assessment and Plan - Assessment and Plan (Free Text) Plan: assessment new perineal mass continuguous with rectum as seen on CT A/P, suspicious for malignancy, on chemotherapy history of right buttock cellulitis associated with lymphoma, growing E. coli and Morganella - currently presented with bleeding but without evidence of infection but is colonized with ESBL Klebsiella and E. faecium history of acute cholecystitis history of Left lower lobe mass-like lesion, probably community-acquired pneumonia dyslipidemia HTN non-Hodgkin lymphoma gastric ulcers S/P pacemaker placement S/P hysterectomy obesity with BMI 32 Plan continue monitoring off antibiotics since she is at risk for nosocomial infections as per Dr. Saez will continue chemotherapy
[2018-07-13] MEDS: Sodium Chloride 0.9% 1,000 ML IV SCH ×2 (04:03→15:19)
[2018-07-13 07:18] LABS: HEMOGLOBIN 9.6 g/dL (12.0-16.0); MEAN CELL VOLUME 79.8 fl (80.0-105.0); MEAN CORPUSCULAR HEMOGLOBIN 24.6 pg (25.0-35.0); MEAN CORPUSCULAR HGB CONC 30.8 g/dl (31.0-37.0); MEAN PLATELET VOLUME 8.3 fl (7.0-11.0); RBC 3.91 10^6/uL (3.5-6.1); RED CELL DISTRIBUTION WIDTH 16.2 % (11.5-14.5); WHITE BLOOD COUNT 8.5 10^3/uL (4.5-11.0)
[2018-07-13 07:31] LABS: ALB/GLOB RATIO 1.1 (1.1-1.8); ALBUMIN 2.6 g/dL (3.0-4.8); ALT/SGPT 19 U/L (7-56); AST/SGOT 13 U/L (14-36); BLOOD UREA NITROGEN 17 mg/dL (7-21); CALCIUM 7.8 mg/dL (8.4-10.5); GFR NON-AFRICAN AMERICAN > 60
[2018-07-13] MEDS: Morphine 4 mg/ml ISec IVP PRN ×2 (09:07→15:21)
[2018-07-13] MEDS: Silver Sulfadiazine 1% Cream (25 gm) TP SCH (09:08)
[2018-07-13 09:09] VITALS: BP 139/68; PULSE 61; RESP 20; TEMP 97.6; O2SAT 95
--- NOTE | 2018-07-13 09:44 | PN ---
DATE: 07/13/2018 SUBJECTIVE: The patient is in bed, in no acute distress, nontoxic. PHYSICAL EXAMINATION: VITAL SIGNS: Temperature is 98, blood pressure is 120/70, respiratory rate of 18 and heart rate of 79. HEENT: Unremarkable. NECK: Supple. LUNGS: Have decreased breath sounds. HEART: Normal S1 and S2. ABDOMEN: Soft. LABORATORY EXAMINATION: Reveals white count is 8.5 and hemoglobin of 9. Chemistries reveals a BUN of 17 and creatinine of 0.7. C-reactive protein is 120. Microbiology reveals the buttocks culture has Klebsiella and Enterococcus and urine cultures has gram-negative kristopher and review of orders reveals the patient to be on prednisone, vincristine, Cytoxan and Adriamycin yesterday, the patient is off of antibiotics. ASSESSMENT AND PLAN: This is a 73-year-old female seen earlier today in 374, bed 1, had an uneventful night with new perineal mass contagious with the rectum seen on CAT scan, biopsied and suspicious for malignancy with lymphoma. Currently no evidence of infection, admitted with bleeding. With no evidence of infection, off of antibiotics in a patient with non-Hodgkin's lymphoma, pacemaker, hysterectomy, obesity, hypertension and gastric ulcers. Overall prognosis is quite poor for this patient. We will follow with you. Shawn Easley MD
--- NOTE | 2018-07-13 11:53 | DS ---
HISTORY OF PRESENT ILLNESS: She just finished two days of chemotherapy with Dr. Mcneill. She is not on any antibiotics. She has a new perineal mass from rectum to vagina most probably. Hopefully, this will help in shrink it down and kill it. She is very weak. She needs physical therapy. We also going to keep the Patrick catheter in. She has a large sacral decubitus. PHYSICAL EXAMINATION: GENERAL: She is alert. She is comfortable, little bit of pain. I will put her on Percocet once she is at the subacute rehab if she needs it. VITAL SIGNS: She has 98.1 temperature, 79 pulse, 127/76 blood pressure, 19 respiratory rate, 98% O2 saturation on room air. HEENT: Head is atraumatic and normocephalic. HEART: Regular rate. LUNGS: Decreased breath sounds, but clear. ABDOMEN: Soft and obese. EXTREMITIES: No edema. MEDICATIONS: She is weak. She has a large sacral ulcer which is clean. She is currently on morphine, we will change it to Percocet. Prednisone 40, that should be on for three days and 30 for three days and 20 for three days and 10 for three days. I will stop the silver sulfadiazine cream. I will stop the IV fluids, Tylenol, and Zyloprim. LABORATORY DATA: She has a 139 sodium, potassium is 4, BUN is 17, creatinine 0.5, GFR greater than 60, sugar is 116, calcium 7.8, total bili is 0.2, AST is 13, ALT is 19, alk phos is 80, and total protein is 5. ASSESSMENT AND PLAN: She has Gram-negative rods in the urine and Klebsiella pneumoniae suspicious in the buttocks. As far as Infectious Disease is concern, she is not on any antibiotics right now. She has finished with the chemotherapy and I will discharge her back to [facility] to continue with subacute rehab, before she will go home. We will keep the catheter in at this time and she is being discharged. I will follow with [facility]. Frederic Saez DO
[2018-07-13] MEDS ORDERED: Oxycodone/Acetaminophen 5/325 mg Tab PO PRN (15:32)
== END 2018-07-13 17:41 | DRG 840 ==
LOC: ED 14:55 → ERH 16:56 → 3RSO 20:20
PROVIDERS: ADMIT Family Medicine; ATTEND Family Medicine
DX: C83.38 Diffuse large B-cell lymphoma, lymph nodes of multiple sites (principal); L89.154 Pressure ulcer of sacral region, stage 4; C85.98 Non-Hodgkin lymphoma, unspecified, lymph nodes of multiple sites; L98.418 Non-pressure chronic ulcer of buttock with other specified severity; L03.317 Cellulitis of buttock; I10 Essential (primary) hypertension; D64.9 Anemia, unspecified; R19.00 Intra-abdominal and pelvic swelling, mass and lump, unspecified site; B96.1 Klebsiella pneumoniae [K. pneumoniae] as the cause of diseases classified elsewhere; K25.9 Gastric ulcer, unspecified as acute or chronic, without hemorrhage or perforation; E66.9 Obesity, unspecified; Z68.32 Body mass index [BMI] 32.0-32.9, adult; Z78.9 Other specified health status; Z86.73 Personal history of transient ischemic attack (TIA), and cerebral infarction without residual deficits; Z91.81 History of falling; Z95.0 Presence of cardiac pacemaker; Z88.2 Allergy status to sulfonamides; Z87.891 Personal history of nicotine dependence

== ENCOUNTER 2018-08-21 14:07 | Observation (INO) | payer MEDICARE ==
[2018-08-21] MEDS ORDERED: Iohexol 350 MG/100 ML VIAL ONE (15:07)
--- NOTE | 2018-08-21 15:19 | CT ---
Date of service: 08/21/2018 PROCEDURE: CT HEAD WITHOUT CONTRAST. HISTORY: Code Stroke COMPARISON: 01/05/2014 TECHNIQUE: Axial computed tomography images were obtained through the head/brain without intravenous contrast. Radiation dose: Total exam DLP = 896.55 mGy-cm. This CT exam was performed using one or more of the following dose reduction techniques: Automated exposure control, adjustment of the mA and/or kV according to patient size, and/or use of iterative reconstruction technique. FINDINGS: HEMORRHAGE: No intracranial hemorrhage. BRAIN: No mass effect or edema. Chronic microvascular changes are seen in the periventricular white matter. VENTRICLES: Unremarkable. No hydrocephalus. CALVARIUM: Unremarkable. PARANASAL SINUSES: Unremarkable as visualized. No significant inflammatory changes. MASTOID AIR CELLS: Unremarkable as visualized. No inflammatory changes. OTHER FINDINGS: None. IMPRESSION: Chronic microvascular changes. No acute intracranial findings
[2018-08-21 15:30] LABS: GRAN # 3.64 (1.4-6.5); GRAN % 86.1 % (50.0-68.0); HEMOGLOBIN 10.9 g/dL (12.0-16.0); LYMPH # 0.5 (1.2-3.4); LYMPH % 11.3 % (22.0-35.0); MEAN CELL VOLUME 80.3 fl (80.0-105.0); MEAN CORPUSCULAR HEMOGLOBIN 24.7 pg (25.0-35.0); MEAN CORPUSCULAR HGB CONC 30.8 g/dl (31.0-37.0); MEAN PLATELET VOLUME 8.2 fl (7.0-11.0); MONO # 0.1 (0.1-0.6); MONO % 2.6 % (1.0-6.0); RBC 4.41 10^6/uL (3.5-6.1); RED CELL DISTRIBUTION WIDTH 16.5 % (11.5-14.5); WHITE BLOOD COUNT 4.2 10^3/uL (4.5-11.0)
[2018-08-21 15:44] LABS: ALB/GLOB RATIO 1.3 (1.1-1.8); ALBUMIN 3.5 g/dL (3.0-4.8); ALT/SGPT 21 U/L (7-56); AST/SGOT 17 U/L (14-36); BLOOD UREA NITROGEN 23 mg/dL (7-21); CALCIUM 9.1 mg/dL (8.4-10.5); GFR NON-AFRICAN AMERICAN > 60; HDL CHOLESTEROL 63 mg/dL (29-60)
[2018-08-21 15:45] LABS: INR 0.95; PARTIAL THROMBOPLASTIN TIME 25.4 Seconds (25.1-36.5); PROTHROMBIN TIME 10.8 SECONDS (9.4-12.5)
[2018-08-21] MEDS: Sodium Chloride 0.9% 1,000 ML IV SCH (15:47)
[2018-08-21 15:49] LABS: LDL CHOLESTEROL 96 mg/dL (0-129)
--- NOTE | 2018-08-21 15:50 | CT ---
Date of service: 08/21/2018 PROCEDURE: CT Angiography of the neck and brain. HISTORY: code stroke COMPARISON: No prior CTA available for comparison. TECHNIQUE: CT angiography of the intracranial arteries was performed. Coronal and sagittal maximum intensity projection reformated images were generated. Radiation dose: Total exam DLP = 561.56 mGy-cm. This CT exam was performed using one or more of the following dose reduction techniques: Automated exposure control, adjustment of the mA and/or kV according to patient size, and/or use of iterative reconstruction technique. FINDINGS: RIGHT CAROTID ARTERIES: Common Carotid Artery: No significant stenosis. Carotid Bifurcation: No significant stenosis. Internal Carotid Artery:No significant stenosis noted External Carotid Artery (proximal branches): Normal. LEFT CAROTID ARTERIES: Common Carotid Artery: No significant stenosis. Carotid Bifurcation: No significant stenosis Internal Carotid Artery:No significant stenosis P External Carotid Artery (proximal branches): Normal. VERTEBRAL ARTERIES: Right Vertebral Artery: Right vertebral artery is small in size. Left Vertebral Artery: Dominant left vertebral artery INTERNAL CEREBRAL ARTERIES: Unremarkable. The skull base, petrous, cavernous and supraclinoid segments are bilaterally widely patent. ANTERIOR CEREBRAL ARTERIES: Unremarkable. A1 and A2 segments are widely patent. Smaller distal branches unremarkable, as visualized. MIDDLE CEREBRAL ARTERIES: The M1 segments of the middle cerebral arteries are patent without evidence of significant stenosis. There is moderate narrowing of the anterior M2 segment of the right middle cerebral artery. POSTERIOR CIRCULATION: Basilar Artery: Unremarkable. Distal Vertebral Arteries: Unremarkable. Posterior Cerebral Arteries: Unremarkable. Posterior Inferior Cerebellar Arteries: Unremarkable. ANEURYSM/ VASCULAR MALFORMATIONS: None. OTHER FINDINGS: None. IMPRESSION: No evidence of occlusion or critical stenosis in the carotid arteries at the neck. Moderate diffuse stenosis noted in the anterior M2 branch of right middle cerebral artery. Otherwise no significant stenosis or occlusion in the intracranial arteries. The above findings reported to the emergency room physician Dr. Sheets at 15:30 p.m. on 08/21/2018
--- NOTE | 2018-08-21 15:51 | RAD ---
Date of service: 08/21/2018 HISTORY: r/o infiltrate COMPARISON: 09/07/2017 FINDINGS: LUNGS: No active pulmonary disease. PLEURA: No significant pleural effusion identified, no pneumothorax apparent. CARDIOVASCULAR: Aortic calcification Mild cardiomegaly no pulmonary vascular congestion. OSSEOUS STRUCTURES: No significant abnormalities. VISUALIZED UPPER ABDOMEN: Normal. OTHER FINDINGS: Right-sided Port-A-Cath. Dual lead pacemaker IMPRESSION: No active disease.
[2018-08-21 15:52] LABS: B-TYPE NATRIURETIC PEPTIDE 691 pg/mL (0-450); TROPONIN I < 0.01 ng/mL
--- NOTE | 2018-08-21 16:22 | ED PDOC ---
Arrival/HPI - General Chief Complaint: Dizziness/Lightheaded Time Seen by Provider: 08/21/18 14:10 Historian: Patient - History of Present Illness Narrative History of Present Illness (Text): 08/21/18 14:15 73 year old female, whose past medical history includes non-hodgkins lymphoma, hypertension, and allergy to Ibuprofen and Sulfonamide antibiotics, who presents to the emergency department via ambulance initially complaining of feeling dizzy for the past day. Patient denies any chest pain, shortness of breath, fevers, or any other complaints. History was limited secondary to presentation. As per , patient received a high dose of chemotherapy 3 days ago. Patient is currently on Prednisone. There are no other complaints at this time. 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 - HEENT Hx HEENT Disorder: Yes (eyeglasses) Hx Glaucoma: Yes (beginning) Other/Comment: partial peripheral vision loss r eye - Renal Hx Renal Disorder: No - Endocrine/Metabolic Hx Endocrine Disorders: No - Hematological/Oncological Hx Blood Disorders: Yes Hx Anemia: Yes Hx Cancer: Yes Hx Chemotherapy: Yes Other/Comment: pt dx with non hodgkins lymphoma 2012, had chemo 1 cycle, reaccurred 11/2013, had chemo, reaccurred 11/2016 presently receiving chemo 1 tx a week x 4 wk's had one treatment 3 more to go, presently chemo is postponed due to hospitalization - Integumentary Other/Comment: left buttock 8X7cm wound. Surrounding skin reddened/ brown and firm to touch. - Musculoskeletal/Rheumatological Hx Musculoskeletal Disorders: Yes Hx Falls: Yes - Gastrointestinal Hx Gastrointestinal Disorders: Yes (constipation assoc with chemo, sbo) Other/Comment: h pylori 01/2016, obese - Genitourinary/Gynecological Hx Genitourinary Disorders: Yes Hx Incontinence: Yes - Psychiatric Hx Psychophysiologic Disorder: No Hx Substance Use: No - Surgical History Hx Cardiac Catheterization: Yes Hx Hysterectomy: Yes (complete) Hx Joint Replacement: Yes (b/l hips) Other/Comment: pacemaker 2009, left axillary bx 08/15/14, rcw pac 2013 and 2016 - Anesthesia Hx Anesthesia: Yes Hx Anesthesia Reactions: No Hx Malignant Hyperthermia: No - Suicidal Assessment Feels Threatened In Home Enviroment: No Family/Social History - Physician Review Nursing Documentation Reviewed: Yes Family/Social History: No Known Family HX Smoking Status: Former Smoker Hx Alcohol Use: No Hx Substance Use: No Hx Substance Use Treatment: No Allergies/Home Meds Allergies/Adverse Reactions: Allergies ibuprofen Allergy (Severe, Verified 03/16/17 07:05) .MOUTH SORES Sulfa (Sulfonamide Antibiotics) Allergy (Unknown, Verified 03/16/17 07:05) UNKNOWN ALLERGY A CHILD UNKNOWN REACTION Home Medications: Home Meds Medication Instructions Recorded Confirmed Losartan/Hydrochlorothiazide 1 tab PO DAILY 10/14/16 08/21/18 [Losartan-Hctz 100-25 mg Tab] Travoprost [Travatan Z] 1 drop OU HS 10/14/16 08/21/18 Potassium Chloride [K-Dur 20 mEq 1 tab PO DAILY 08/21/18 08/21/18 ER Tab] Review of Systems - Physician Review All systems were reviewed & negative as marked: Yes - Review of Systems Constitutional: Normal. absent: Fevers Respiratory: Normal. absent: SOB Cardiovascular: Normal. absent: Chest Pain Neurological: Dizziness (Pt notes dizziness for the past day). absent: Normal Physical Exam Vital Signs Reviewed: Yes Vital Signs Temp Pulse Resp BP Pulse Ox 08/21/18 14:24 98.5 F 81 18 147/84 97 Temperature: Afebrile Blood Pressure: Normal Pulse: Regular Respiratory Rate: Normal Appearance: Positive for: Well-Appearing, Non-Toxic Pain Distress: None Mental Status: Positive for: Alert and Oriented X 3 Finger Stick Blood Glucose: 104 - Systems Exam Head: Present: Atraumatic, Normocephalic Pupils: Present: PERRL Extroacular Muscles: Present: EOMI Conjunctiva: Present: Normal Mouth: Present: Moist Mucous Membranes Neck: Present: Normal Range of Motion Respiratory/Chest: Present: Clear to Auscultation, Good Air Exchange. No: Respiratory Distress, Accessory Muscle Use Cardiovascular: Present: Regular Rate and Rhythm, Normal S1, S2. No: Murmurs Abdomen: No: Tenderness, Distention, Peritoneal Signs Back: Present: Normal Inspection Upper Extremity: Present: Normal Inspection. No: Cyanosis, Edema Lower Extremity: Present: Normal Inspection. No: Edema Neurological: Present: GCS=15, CN II-XII Intact, Speech Normal Skin: Present: Warm, Dry, Normal Color. No: Rashes Psychiatric: Present: Alert, Oriented x 3, Normal Insight, Normal Concentration Medical Decision Making ED Course and Treatment: 08/21/18 14:15 Impression: 73 year old female who presents for dizziness since the past day. Differential Diagnosis included but are not limited to: Plan: -- Labs -- CTA of head/Neck -- CT of head w/o -- EKG -- X-Ray of chest -- Glucose, POC -- IV fluids -- Urine culture -- Network Analyst -- Urinalysis -- Reassess and disposition Prior Visits: Notes and results from previous visits were reviewed. Patient was last seen in the emergency department on 07/07/18 sent from a residential for a wound on her buttocks that developed over a few months but worsened in the last few weeks prior to arrival. Pt was hospitalized in guarded condition. Progress Notes: 08/21/18 14:55 While in the Emergency Department, patient became more lethargic and somnolent. Due to presentation, code stroke was called. 08/21/18 16:20 Spoke to Neurology, reviewed case, recommended stress dose of Decadron, Aspirin, and admission. Discussed case with Dr. Del Rio, who is aware of and agrees with plan to admit patient to telemetry. - Lab Interpretations Lab Results: PT 10.8 SECONDS (9.4-12.5) 08/21/18 15:24 INR 0.95 08/21/18 15:24 APTT 25.4 Seconds (25.1-36.5) 08/21/18 15:24 Troponin I < 0.01 ng/mL 08/21/18 15:24 NT-Pro-B Natriuret Pep 691 pg/mL (0-450) H 08/21/18 15:24 Total Bilirubin 0.6 mg/dL (0.2-1.3) 08/21/18 15:24 AST 17 U/L (14-36) 08/21/18 15:24 ALT 21 U/L (7-56) 08/21/18 15:24 Alkaline Phosphatase 94 U/L (38-126) 08/21/18 15:24 Total Protein 6.2 g/dL (5.8-8.3) 08/21/18 15:24 Albumin 3.5 g/dL (3.0-4.8) 08/21/18 15:24 Globulin 2.7 gm/dL 08/21/18 15:24 Albumin/Globulin Ratio 1.3 (1.1-1.8) 08/21/18 15:24 - RAD Interpretation Narrative RAD Interpretations (Text): CTA of head/neck reviewed by radiologist, shows: Dictated by: Annette Fischer MD Dictated Date/Time: 08/21/18 15:42 Impression: No evidence of occulsion or critical stenosis in the carotid arteries at the neck. Moderate diffuse stenosis noted in the anterior M2 branch of right middle cerebral artery. Otherwise no significant stenosis or occulsion in the intracranial arteries. CT of head reviewed by radiologist, shows: Dictated by: Lb Frausto MD Dictated Date/Time: 08/21/18 15:15 Impression: Chronic microvascular changes. No acute intracranial findings. X-ray of chest reviewed by radiologist, shows: Dictated By: Lb Frausto MD Dictated Date/Time: 08/21/18 15:44 Impression: No active disease. Radiology Orders: 08/21/18 14:20 CHEST PORTABLE [RAD] Stat 08/21/18 14:55 CTA HEAD/NECK CODE STROKE [CT] Stat HEAD W/O (CODE STROKE) [CT] Stat Staff Assistant: Radiologist - EKG Interpretation EKG Interpretation (Text): 08/21/18 EKG: Ordered, reviewed, and independently interpreted the EKG. Rate : 81 BPM Rhythm : Sinus Tachycardia Interpretation : Left axis deviation, first degree AV block Interpreted by ED Physician: Yes Type: 12 lead EKG - Medication Orders Current Medication Orders: Sodium Chloride (Sodium Chloride 0.9%) 1,000 mls @ 100 mls/hr IV .Q10H PHI Last Admin: 08/21/18 15:47 Dose: 100 mls/hr eMAR Start Stop Document 08/21/18 15:47 LA (Rec: 08/21/18 15:47 LA [id number]) Intravenous Solution Start Date 08/21/18 Start Time 15:47 NIHSS Scale ([place]) Time Performed: 14:55 - How Severe is the Stoke Baseline Level of Consciousness: 2=Obtunded LOC to Questions: 0=Both comments correct LOC to commands: 0=Obeys both correctly Best Gaze: 0=Normal Visual: 0=No visual loss Facial: 1=Minor asymmetry Motor Arm - Left: 1=Drift noted before 10 sec Motor Arm - Right: 0=No drift Motor Leg - Left: 1=Drift before 5 sec Motor Leg - Right: 0=No drift Limb Ataxia: 0=Absent Sensory: 0=Normal Best Language: 0=No aphasia Dysarthia: 0=Normal articulation Extinction & Inattention (Neglect): 0=Normal, no object Score: 5 Risk Level: Mod Stroke Risk rTPA Inclusion/Exclusion - Refusal of Treatment Patient Refused Treatment: No - Inclusion Criteria for Altepase Patient is 18 years or Older: Yes The Clinical Diagnosis of Ischemic Stroke That is Causing a Potentially Disabling Neurological Deficit: No Time of Onset is Well Established to be Less Than 270 Minute Before Treatment Would Begin: Yes Risk/Benefit Discussed With Patient/Family Member Present: No - Scribe Statement The provider has reviewed the documentation as recorded by the Scribjosé Campoverde All medical record entries made by the Naiibjosé were at my direction and personally dictated by me. I have reviewed the chart and agree that the record accurately reflects my personal performance of the history, physical exam, medical decision making, and the department course for this patient. I have also personally directed, reviewed, and agree with the discharge instructions and disposition. Disposition/Present on Arrival - Present on Arrival Any Indicators Present on Arrival: No History of DVT/PE: No History of Uncontrolled Diabetes: No Urinary Catheter: Yes History of Decub. Ulcer: No History Surgical Site Infection Following: None - Disposition Have Diagnosis and Disposition been Completed?: Yes Diagnosis: Weakness, Dizziness Disposition: HOME/ ROUTINE Disposition Time: 17:00 Condition: GUARDED
[2018-08-21 16:23] LABS: PH,URINE 7.5 (4.7-8.0); URINE BILIRUBIN NEGATIVE (NEGATIVE); URINE BLOOD TRACE-INTACT (NEGATIVE); URINE GLUCOSE (UA) NEGATIVE (NEGATIVE); URINE LEUKOCYTE ESTERASE MODERATE Leu/uL (NEGATIVE); URINE PROTEIN NEGATIVE mg/dL (<30 mg/dL); URINE UROBILINOGEN 0.2 E.U./dL (<1 E.U./dL)
[2018-08-21 16:41] LABS: URINE APPEARANCE CLEAR (CLEAR); URINE COLOR STRAW (YELLOW)
[2018-08-21 16:56] LABS: URINE BACTERIA TRACE /hpf
[2018-08-21 16:57] LABS: URINE AMORPHOUS SEDIMENT SMALL /hpf
--- NOTE | 2018-08-21 18:49 | CARD ---
APPROVED REPORT Date of service: 08/21/2018 EKG Measurement Heart [id number] ME [id number] [id number] <Conclusion> Normal sinus rhythm Minimal voltage criteria for LVH, may be normal variant Possible Anterolateral infarct, age undetermined Abnormal ECG
[2018-08-21 18:55] LABS: T3 0.8 ng/mL (0.97-1.69)
[2018-08-21 19:44] VITALS: RESP 18
[2018-08-22 00:47] VITALS: O2SAT 97
[2018-08-22 01:26] VITALS: BMI 31.3
[2018-08-22] MEDS: Sodium Chloride 0.9% 1,000 ML IV SCH (05:06)
--- NOTE | 2018-08-22 05:26 | CP.PCM.HP ---
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 Patient reports she was unable to recall the events that lead up to her coming to the ER. As per charts patient's was checking on the patient after chemo and found her altered and "sliding off" the couch on to the floor. Patient's described her entire body as "limp" which prompted him to bring her to the ER. In the ED patient became more lethargic and somnolent and a code stroke called with NIHSS of 5. Neurology recommended stress dose Decadron and ASA. Patient was admitted to [facility] for further management. Overnight nursing reported no acute events. Patient was ao x 3 and comfortable. She denied any acute complaints of headache, dizziness, changes in vision/hearing, fever, chills, chest pain, palpitations, SOB, cough, abdominal pain, nausea, vomiting, bowel/bladder complaints, pain/swelling in her legs bilaterally. 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 Olivia./SCARLETT due to SBO, B/L Hip replacement, Hysterectomy, PM insertion and RCW Port-a-Cath insertion FamHx: Denies SocHx: lives at home wit ; ambulates with walker ALL: Ibuprofen, Sulfa Drugs Meds: As per MAR Onc: Dr. Mcneill Present on Admission - Present on Admission Any Indicators Present on Admission: Yes Review of Systems - Review of Systems All systems: reviewed and no additional remarkable complaints except Review of Systems: as per HPI Past Patient History - Infectious Disease Hx of Infectious Diseases: None - Tetanus Immunizations Tetanus Immunization: Unknown - Past Medical History & Family History Past Medical History?: Yes - Past Social History Smoking Status: Former Smoker - CARDIAC Hx Cardiac Disorders: No Hx Angina: No Hx Cardia Arrhythmia: No Hx Circulatory Problems: No Hx Congestive Heart Failure: Yes Hx Heart Murmur: No Hx Heart Transplant: No Hx Hypercholesterolemia: No Hx Hypertension: Yes Hx Internal Defibrillator: No Hx Mitral Valve Prolapse: No Hx Pacemaker: No Hx Peripheral Edema: No Hx Peripheral Vascular Disease: No - PULMONARY Other/Comment: 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, 01/2017 - NEUROLOGICAL Hx Neurological Disorder: Yes Hx Transient Ischemic Attacks (TIA): Yes (2015) Other/Comment: 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 - HEENT Hx HEENT Problems: Yes (eyeglasses) Hx Glaucoma: Yes (beginning) Other/Comment: partial peripheral vision loss r eye - RENAL Hx Chronic Kidney Disease: No - ENDOCRINE/METABOLIC Hx Endocrine Disorders: No - HEMATOLOGICAL/ONCOLOGICAL Hx Blood Disorders: Yes Hx Anemia: Yes Hx Cancer: Yes Hx Chemotherapy: Yes Other/Comment: pt dx with non hodgkins lymphoma 2012, had chemo 1 cycle, reaccurred 11/2013, had chemo, reaccurred 11/2016 presently receiving chemo 1 tx a week x 4 wk's had one treatment 3 more to go, presently chemo is postponed due to hospitalization - INTEGUMENTARY Other/Comment: left buttock 8X7cm wound. Surrounding skin reddened/ brown and firm to touch. - MUSCULOSKELETAL/RHEUMATOLOGICAL Hx Falls: No - GASTROINTESTINAL Hx Gastrointestinal Disorders: Yes (constipation assoc with chemo, sbo) Other/Comment: h pylori 01/2016, obese - GENITOURINARY/GYNECOLOGICAL Hx Genitourinary Disorders: Yes Hx Incontinence: Yes - PSYCHIATRIC Hx Substance Use: No - SURGICAL HISTORY Hx Cardiac Catheterization: No Hx Coronary Stent: No - ANESTHESIA Hx Anesthesia: Yes Hx Anesthesia Reactions: No Hx Malignant Hyperthermia: No Meds Allergies/Adverse Reactions: Allergies Allergy/AdvReac Type Severity Reaction Status Date / Time ibuprofen Allergy Severe .MOUTH Verified 03/16/17 07:05 SORES Sulfa (Sulfonamide Allergy Unknown UNKNOWN Verified 03/16/17 07:05 Antibiotics) Physical Exam - Additional Findings Additional findings: - Constitutional Appears: Non-toxic, No Acute Distress - Head Exam Head Exam: ATRAUMATIC, NORMOCEPHALIC - Eye Exam Eye Exam: EOMI, Normal appearance, Nystagmus (Horizontal), PERRL. absent: Conjunctival injection, Periorbital swelling, Periorbital tenderness, Scleral icterus Pupil Exam: NORMAL ACCOMODATION, PERRL. absent: Fixed, Irregular, Miosis, Mydriatic, Unequal Additional comments: R sided homonymous hemianopia - ENT Exam ENT Exam: Mucous Membranes Moist, Normal Exam - Neck Exam Neck exam: Positive for: Full Rom, Normal Inspection - Respiratory Exam Respiratory Exam: Clear to Auscultation Bilateral, NORMAL BREATHING PATTERN Additional comments: R chest wall port - Cardiovascular Exam Cardiovascular Exam: REGULAR RHYTHM - GI/Abdominal Exam GI & Abdominal Exam: Normal Bowel Sounds, Soft - Neurological Exam Neurological exam: Alert, Oriented x3, Reflexes Normal - Psychiatric Exam Psychiatric exam: Normal Affect, Normal Mood - Skin Skin Exam: Dry, Intact, Normal Color, Warm Results - Vital Signs Recent Vital Signs: Last Vital Signs Temp 97.8 F 08/22/18 01:19 Pulse 62 08/22/18 01:19 Resp 18 08/22/18 01:19 BP 151/85 H 08/22/18 01:19 Pulse Ox 97 08/22/18 01:19 - Labs Result Diagrams: 08/22/18 06:25 08/22/18 06:25 Labs: Laboratory Results - last 24 hr 08/21/18 08/21/18 08/21/18 14:54 15:24 15:24 WBC 4.2 L D RBC 4.41 Hgb 10.9 L Hct 35.4 L MCV 80.3 MCH 24.7 L MCHC 30.8 L RDW 16.5 H Plt Count 317 MPV 8.2 Gran % 86.1 H Lymph % (Auto) 11.3 L Teller % (Auto) 2.6 Eos % (Auto) 0.0 L Baso % (Auto) 0.0 Gran # 3.64 Lymph # (Auto) 0.5 L Teller # (Auto) 0.1 Eos # (Auto) 0.0 Baso # (Auto) 0.00 PT INR APTT Sodium 136 Potassium 4.5 Chloride 100 Carbon Dioxide 30 Anion Gap 10 BUN 23 H Creatinine 0.5 L Est GFR ( Amer) > 60 Est GFR (Non-Af Amer) > 60 POC Glucose (mg/dL) 104 Random Glucose 110 Hemoglobin A1c Calcium 9.1 Magnesium 2.1 Total Bilirubin 0.6 AST 17 ALT 21 Alkaline Phosphatase 94 Lactate Dehydrogenase 356 Total Creatine Kinase < 20 L Troponin I < 0.01 NT-Pro-B Natriuret Pep 691 H Total Protein 6.2 Albumin 3.5 Globulin 2.7 Albumin/Globulin Ratio 1.3 Triglycerides 70 Cholesterol 184 LDL Cholesterol Direct 96 HDL Cholesterol 63 H Total T3 TSH 3rd Generation Urine Color Urine Appearance Urine pH Ur Specific [place] Urine Protein Urine Glucose (UA) Urine Ketones Urine Blood Urine Nitrate Urine Bilirubin Urine Urobilinogen Ur Leukocyte Esterase Urine RBC Urine WBC Ur Epithelial Cells Amorphous Sediment Urine Bacteria Blood Type Antibody Screen BBK History Checked 08/21/18 08/21/18 08/21/18 15:24 15:24 15:24 WBC RBC Hgb Hct MCV MCH MCHC RDW Plt Count MPV Gran % Lymph % (Auto) Teller % (Auto) Eos % (Auto) Baso % (Auto) Gran # Lymph # (Auto) Teller # (Auto) Eos # (Auto) Baso # (Auto) PT 10.8 INR 0.95 APTT 25.4 Sodium Potassium Chloride Carbon Dioxide Anion Gap BUN Creatinine Est GFR ( Amer) Est GFR (Non-Af Amer) POC Glucose (mg/dL) Random Glucose Hemoglobin A1c 5.2 Calcium Magnesium Total Bilirubin AST ALT Alkaline Phosphatase Lactate Dehydrogenase Total Creatine Kinase Troponin I NT-Pro-B Natriuret Pep Total Protein Albumin Globulin Albumin/Globulin Ratio Triglycerides Cholesterol LDL Cholesterol Direct HDL Cholesterol Total T3 0.80 L TSH 3rd Generation 1.53 Urine Color Urine Appearance Urine pH Ur Specific [place] Urine Protein Urine Glucose (UA) Urine Ketones Urine Blood Urine Nitrate Urine Bilirubin Urine Urobilinogen Ur Leukocyte Esterase Urine RBC Urine WBC Ur Epithelial Cells Amorphous Sediment Urine Bacteria Blood Type Antibody Screen BBK History Checked 08/21/18 08/21/18 15:34 16:19 WBC RBC Hgb Hct MCV MCH MCHC RDW Plt Count MPV Gran % Lymph % (Auto) Teller % (Auto) Eos % (Auto) Baso % (Auto) Gran # Lymph # (Auto) Teller # (Auto) Eos # (Auto) Baso # (Auto) PT INR APTT Sodium Potassium Chloride Carbon Dioxide Anion Gap BUN Creatinine Est GFR ( Amer) Est GFR (Non-Af Amer) POC Glucose (mg/dL) Random Glucose Hemoglobin A1c Calcium Magnesium Total Bilirubin AST ALT Alkaline Phosphatase Lactate Dehydrogenase Total Creatine Kinase Troponin I NT-Pro-B Natriuret Pep Total Protein Albumin Globulin Albumin/Globulin Ratio Triglycerides Cholesterol LDL Cholesterol Direct HDL Cholesterol Total T3 TSH 3rd Generation Urine Color Straw Urine Appearance Clear Urine pH 7.5 Ur Specific [place] 1.010 Urine Protein Negative Urine Glucose (UA) Negative Urine Ketones Negative Urine Blood Trace-intact H Urine Nitrate Negative Urine Bilirubin Negative Urine Urobilinogen 0.2 Ur Leukocyte Esterase Moderate H Urine RBC 5 - 10 H Urine WBC 5 - 10 H Ur Epithelial Cells 10 - 12 H Amorphous Sediment Small Urine Bacteria Trace Blood Type O POSITIVE Antibody Screen Negative BBK History Checked Patient has bt Assessment & Plan - Assessment and Plan (Free Text) Assessment: 1. Weakness 2. Non-Hodgkin's Lymphoma IV with h/o mets on chemotherapy 3. CVA in the past [L [employer]CLE [employer] territory] 4. R peripheral vision loss 5. Gait dysfunction 6. Osteoarthritis 7. Hypertension 8. L gluteal wound- healing Plan: Patient's vitals, blood work, and imaging reviewed. Patient is ao x 3 this morning and denies feeling tired or lethargic this AM. Weakness likely secondary to recent chemotherapy prior to admission. Patient's neurology work up reviewed and neurology reccs appreciated. 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 Oncology Dr. Mcneill on board and aware of patient's admission after chemotherapy. PT eval in place for gait dysfunction. Monitor pain of OA at this time and will continue home HTN medications to maintain normotension for patient. Patient's left gluteal wound from prior admission healing well as per patient and nursing staff. Patient on HHD at this time. Will continue to monitor patient closely. Discussed with Dr. Quang Flowers PGY3 <Ilan Del Rio S - Last Filed: 08/22/18 19:47> Results - Vital Signs Recent Vital Signs: Last Vital Signs Temp 98.4 F 08/22/18 12:00 Pulse 63 08/22/18 12:00 Resp 18 08/22/18 12:00 BP 145/76 08/22/18 12:00 Pulse Ox 97 08/22/18 06:00 - Labs Result Diagrams: 08/22/18 06:25 08/22/18 06:25 Labs: Laboratory Results - last 24 hr 08/21/18 08/22/18 08/22/18 15:24 06:25 06:25 WBC 3.0 L D RBC 3.99 Hgb 9.8 L Hct 31.9 L MCV 79.9 L MCH 24.6 L MCHC 30.7 L RDW 16.4 H Plt Count 274 MPV 8.2 Gran % 75.3 H Lymph % (Auto) 21.7 L Teller % (Auto) 2.7 Eos % (Auto) 0.3 L Baso % (Auto) 0.0 Gran # 2.25 Lymph # (Auto) 0.7 L Teller # (Auto) 0.1 Eos # (Auto) 0.0 Baso # (Auto) 0.00 Sodium 138 Potassium 4.4 Chloride 103 Carbon Dioxide 33 Anion Gap 7 L BUN 21 Creatinine 0.5 L Est GFR ( Amer) > 60 Est GFR (Non-Af Amer) > 60 Random Glucose 87 Hemoglobin A1c 5.2 Calcium 8.6 Total Bilirubin 0.6 AST 18 ALT 22 Alkaline Phosphatase 77 Total Protein 5.5 L Albumin 3.0 Globulin 2.4 Albumin/Globulin Ratio 1.3 Assessment & Plan - Assessment and Plan (Free Text) Assessment: Pt seen and examined by me. I have reviewed the note of the medical supply technician and I agree with it. I have discussed the assessment and plan with the resident. I have reviewed the medications and the last labs. Pt with fatigue and Nausea. She received chemo 2 days ago and is having side effects according to Dr Mcneill. She is being treated for her Lymphoma. She has difficulty in walking. She was recently discharged from [facility]. She has a L gluteal wound and is getting local wound care at home. She will be discharged home. Plan: CT of the head was reviewed.
[2018-08-22 07:08] LABS: EOS % 0.3 % (1.5-5.0); GRAN # 2.25 (1.4-6.5); GRAN % 75.3 % (50.0-68.0); HEMOGLOBIN 9.8 g/dL (12.0-16.0); LYMPH # 0.7 (1.2-3.4); LYMPH % 21.7 % (22.0-35.0); MEAN CELL VOLUME 79.9 fl (80.0-105.0); MEAN CORPUSCULAR HEMOGLOBIN 24.6 pg (25.0-35.0); MEAN CORPUSCULAR HGB CONC 30.7 g/dl (31.0-37.0); MEAN PLATELET VOLUME 8.2 fl (7.0-11.0); MONO # 0.1 (0.1-0.6); MONO % 2.7 % (1.0-6.0); RBC 3.99 10^6/uL (3.5-6.1); RED CELL DISTRIBUTION WIDTH 16.4 % (11.5-14.5)
[2018-08-22 07:18] LABS: ALB/GLOB RATIO 1.3 (1.1-1.8); ALT/SGPT 22 U/L (7-56); AST/SGOT 18 U/L (14-36); BLOOD UREA NITROGEN 21 mg/dL (7-21); CALCIUM 8.6 mg/dL (8.4-10.5); GFR NON-AFRICAN AMERICAN > 60
--- NOTE | 2018-08-22 10:28 | CP.PCM.DIS ---
<Annamarie Flowers - Last Filed: 08/22/18 17:14> Provider - Provider Date of Admission: 08/21/18 17:36 Attending physician: Ilan Del Rio MD Primary care physician: Ilan Del Rio MD Consults: 08/21/18 14:55 Stroke Team Consult Stat Comment: Consulting Provider: Neurohospitalist Consulting Physician: NEUROHOSP Neurohospitalist for Consult: Matteo Landeros Neurohospitalist for Consult: Kellee Uribe Reason for Consult: code stroke 08/22/18 01:37 Social Work Referral Routine Comment: lives home alone with Physician Instructions: Reason For Exam: protocol 08/22/18 06:27 Consult [Physician Consult] Routine Comment: Consulting Provider: Tien Mcneill Consulting Physician: Tien Mcneill Reason for Consult: f/u for cancer Time Spent in preparation of Discharge (in minutes): 45 Hospital Course - Lab Results Lab Results: Most Recent Lab Values WBC 3.0 10^3/uL (4.5-11.0) L D 08/22/18 06:25 RBC 3.99 10^6/uL (3.5-6.1) 08/22/18 06:25 Hgb 9.8 g/dL (12.0-16.0) L 08/22/18 06:25 Hct 31.9 % (36.0-48.0) L 08/22/18 06:25 MCV 79.9 fl (80.0-105.0) L 08/22/18 06:25 MCH 24.6 pg (25.0-35.0) L 08/22/18 06:25 MCHC 30.7 g/dl (31.0-37.0) L 08/22/18 06:25 RDW 16.4 % (11.5-14.5) H 08/22/18 06:25 Plt Count 274 10^3/uL (120.0-450.0) 08/22/18 06:25 MPV 8.2 fl (7.0-11.0) 08/22/18 06:25 Gran % 75.3 % (50.0-68.0) H 08/22/18 06:25 Lymph % (Auto) 21.7 % (22.0-35.0) L 08/22/18 06:25 [place] % (Auto) 2.7 % (1.0-6.0) 08/22/18 06:25 Eos % (Auto) 0.3 % (1.5-5.0) L 08/22/18 06:25 Baso % (Auto) 0.0 % (0.0-3.0) 08/22/18 06:25 Gran # 2.25 (1.4-6.5) 08/22/18 06:25 Lymph # (Auto) 0.7 (1.2-3.4) L 08/22/18 06:25 [place] # (Auto) 0.1 (0.1-0.6) 08/22/18 06:25 Eos # (Auto) 0.0 (0.0-0.7) 08/22/18 06:25 Baso # (Auto) 0.00 K/mm3 (0.0-2.0) 08/22/18 06:25 PT 10.8 SECONDS (9.4-12.5) 08/21/18 15:24 INR 0.95 08/21/18 15:24 APTT 25.4 Seconds (25.1-36.5) 08/21/18 15:24 Sodium 138 mmol/L (132-148) 08/22/18 06:25 Potassium 4.4 mmol/L (3.6-5.0) 08/22/18 06:25 Chloride 103 mmol/L (98-107) 08/22/18 06:25 Carbon Dioxide 33 mmol/L (21-33) 08/22/18 06:25 Anion Gap 7 (10-20) L 08/22/18 06:25 BUN 21 mg/dL (7-21) 08/22/18 06:25 Creatinine 0.5 mg/dl (0.7-1.2) L 08/22/18 06:25 Est GFR ( Amer) > 60 08/22/18 06:25 Est GFR (Non-Af Amer) > 60 08/22/18 06:25 POC Glucose (mg/dL) 104 mg/dL (65-110) 08/21/18 14:54 Random Glucose 87 mg/dL (70-110) 08/22/18 06:25 Hemoglobin A1c 5.2 % (4.2-6.5) 08/21/18 15:24 Calcium 8.6 mg/dL (8.4-10.5) 08/22/18 06:25 Magnesium 2.1 mg/dL (1.7-2.2) 08/21/18 15:24 Total Bilirubin 0.6 mg/dL (0.2-1.3) 08/22/18 06:25 AST 18 U/L (14-36) 08/22/18 06:25 ALT 22 U/L (7-56) 08/22/18 06:25 Alkaline Phosphatase 77 U/L (38-126) 08/22/18 06:25 Lactate Dehydrogenase 356 U/L (333-699) 08/21/18 15:24 Total Creatine Kinase < 20 U/L (35-230) L 08/21/18 15:24 Troponin I < 0.01 ng/mL 08/21/18 15:24 NT-Pro-B Natriuret Pep 691 pg/mL (0-450) H 08/21/18 15:24 Total Protein 5.5 g/dL (5.8-8.3) L 08/22/18 06:25 Albumin 3.0 g/dL (3.0-4.8) 08/22/18 06:25 Globulin 2.4 gm/dL 08/22/18 06:25 Albumin/Globulin Ratio 1.3 (1.1-1.8) 08/22/18 06:25 Triglycerides 70 mg/dL (35-160) 08/21/18 15:24 Cholesterol 184 mg/dL (130-200) 08/21/18 15:24 LDL Cholesterol Direct 96 mg/dL (0-129) 08/21/18 15:24 HDL Cholesterol 63 mg/dL (29-60) H 08/21/18 15:24 Total T3 0.80 ng/mL (0.97-1.69) L 08/21/18 15:24 TSH 3rd Generation 1.53 mIU/mL (0.46-4.68) 08/21/18 15:24 Urine Color Straw (YELLOW) 08/21/18 16:19 Urine Appearance Clear (CLEAR) 08/21/18 16:19 Urine pH 7.5 (4.7-8.0) 08/21/18 16:19 Ur Specific [place] 1.010 (1.005-1.035) 08/21/18 16:19 Urine Protein Negative mg/dL (<30 mg/dL) 08/21/18 16:19 Urine Glucose (UA) Negative mg/dL (NEGATIVE) 08/21/18 16:19 Urine Ketones Negative mg/dL (NEGATIVE) 08/21/18 16:19 Urine Blood Trace-intact (NEGATIVE) H 08/21/18 16:19 Urine Nitrate Negative (NEGATIVE) 08/21/18 16:19 Urine Bilirubin Negative (NEGATIVE) 08/21/18 16:19 Urine Urobilinogen 0.2 E.U./dL (<1 E.U./dL) 08/21/18 16:19 Ur Leukocyte Esterase Moderate Main/uL (NEGATIVE) H 08/21/18 16:19 Urine RBC 5 - 10 /hpf (0-2) H 08/21/18 16:19 Urine WBC 5 - 10 /hpf (0-6) H 08/21/18 16:19 Ur Epithelial Cells 10 - 12 /hpf (0-5) H 08/21/18 16:19 Amorphous Sediment Small /hpf (NONE) 08/21/18 16:19 Urine Bacteria Trace /hpf (NONE) 08/21/18 16:19 Blood Type O POSITIVE 08/21/18 15:34 Antibody Screen Negative 08/21/18 15:34 BBK History Checked Patient has bt 08/21/18 15:34 - Hospital Course Hospital Course: Upon Admission As per HPI: "73yo female PMHx Non-Hodgkin's Lymphoma IV with hx of breast, lung, cutaneous mets, L [employer] territory 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 Patient reports she was unable to recall the events that lead up to her coming to the ER. As per charts patient's was checking on the patient after chemo and found her altered and "sliding off" the couch on to the floor. Patient's described her entire body as "limp" which prompted him to bring her to the ER. In the ED patient became more lethargic and somnolent and a code stroke called with NIHSS of 5. CT head was unremarkable for acute abnormality. Neurology recommended stress dose Decadron and ASA. Patient was admitted to [facility] for further management. Hospital Course Overnight nursing reported no acute events. Patient was ao x 3 and comfortable. She denied acute complaints of headache, dizziness, changes in vision/hearing, fever, chills, chest pain, palpitations, SOB, cough, abdominal pain, nausea, vomiting, bowel/bladder complaints, pain/swelling in her legs bilaterally. Weakness deemed likely secondary to recent chemotherapy prior to admission. Patient's neurology work up reviewed and neurology reccs appreciated. 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 Oncology Dr. Mcneill on board. Patient was continued on home OA and HTN medications. Patient clinically improved and on day of discharge deemed medically optimized for discharge home. Discharge Instructions "You are being discharged from [facility]. Please resume all home medications. Please additionally start taking ASA 81mg 1 tab by mouth daily. Please follow up with your primary care doctor within 7 days of discharge. Please follow up with your oncologist within 7-10 days of discharge. Please follow up with neurology Dr. Landeros within 2 weeks of discharge. If symptoms return please visit your nearest Emergency Room." Instructions discussed in detail with patient and at bedside who understood and agreed. Please note this is a discharge summary. For full hospital course please refer to EMR. Discharge Exam - Additional Findings Additional findings: - Constitutional Appears: Non-toxic, No Acute Distress - Head Exam Head Exam: ATRAUMATIC, NORMOCEPHALIC - Eye Exam Eye Exam: EOMI, Normal appearance, Nystagmus (Horizontal), PERRL. absent: Conjunctival injection, Periorbital swelling, Periorbital tenderness, Scleral icterus Pupil Exam: NORMAL ACCOMODATION, PERRL. absent: Fixed, Irregular, Miosis, Mydriatic, Unequal Additional comments: R sided homonymous hemianopia - ENT Exam ENT Exam: Mucous Membranes Moist, Normal Exam - Neck Exam Neck exam: Positive for: Full Rom, Normal Inspection - Respiratory Exam Respiratory Exam: Clear to Auscultation Bilateral, NORMAL BREATHING PATTERN Additional comments: R chest wall port - Cardiovascular Exam Cardiovascular Exam: REGULAR RHYTHM - GI/Abdominal Exam GI & Abdominal Exam: Normal Bowel Sounds, Soft - Neurological Exam Neurological exam: Alert, Oriented x3, Reflexes Normal - Psychiatric Exam Psychiatric exam: Normal Affect, Normal Mood - Skin Skin Exam: Dry, Intact, Normal Color, Warm Discharge Plan - Follow Up Plan Condition: STABLE Disposition: HOME/ ROUTINE Instructions: Fatigue (DC), Generalized Weakness (DC), Dizziness, Nonvertigo, (DC), Weakness (GEN) Additional Instructions: You are being discharged from [facility]. Please resume all home medications. Please additionally start taking ASA 81mg 1 tab by mouth daily. Please follow up with your primary care doctor within 7 days of discharge. Please follow up with your oncologist within 7-10 days of discharge. Please follow up with neurology Dr. Landeros within 2 weeks of discharge. If symptoms return please visit your nearest Emergency Room. Referrals: Ilan Del Rio MD [Primary Care Provider] - Tien Mcneill MD [Medical Doctor] - Matteo Landeros MD [Staff Provider] - <Ilan Del Rio - Last Filed: 08/22/18 19:41> Provider - Provider Date of Admission: 08/21/18 17:36 Attending physician: Ilan Del Rio MD Primary care physician: Ilan Del Rio MD Consults: 08/21/18 14:55 Stroke Team Consult Stat Comment: Consulting Provider: Neurohospitalist Consulting Physician: NEUROHOSP Neurohospitalist for Consult: Matteo Landeros Neurohospitalist for Consult: Kellee Uribe Reason for Consult: code stroke 08/22/18 01:37 Social Work Referral Routine Comment: lives home alone with Physician Instructions: Reason For Exam: protocol 08/22/18 06:27 Consult [Physician Consult] Routine Comment: Consulting Provider: Tien Mcneill Consulting Physician: Tien Mcneill Reason for Consult: f/u for cancer Hospital Course - Lab Results Lab Results: Most Recent Lab Values WBC 3.0 10^3/uL (4.5-11.0) L D 08/22/18 06:25 RBC 3.99 10^6/uL (3.5-6.1) 08/22/18 06:25 Hgb 9.8 g/dL (12.0-16.0) L 08/22/18 06:25 Hct 31.9 % (36.0-48.0) L 08/22/18 06:25 MCV 79.9 fl (80.0-105.0) L 08/22/18 06:25 MCH 24.6 pg (25.0-35.0) L 08/22/18 06:25 MCHC 30.7 g/dl (31.0-37.0) L 08/22/18 06:25 RDW 16.4 % (11.5-14.5) H 08/22/18 06:25 Plt Count 274 10^3/uL (120.0-450.0) 08/22/18 06:25 MPV 8.2 fl (7.0-11.0) 08/22/18 06:25 Gran % 75.3 % (50.0-68.0) H 08/22/18 06:25 Lymph % (Auto) 21.7 % (22.0-35.0) L 08/22/18 06:25 [place] % (Auto) 2.7 % (1.0-6.0) 08/22/18 06:25 Eos % (Auto) 0.3 % (1.5-5.0) L 08/22/18 06:25 Baso % (Auto) 0.0 % (0.0-3.0) 08/22/18 06:25 Gran # 2.25 (1.4-6.5) 08/22/18 06:25 Lymph # (Auto) 0.7 (1.2-3.4) L 08/22/18 06:25 [place] # (Auto) 0.1 (0.1-0.6) 08/22/18 06:25 Eos # (Auto) 0.0 (0.0-0.7) 08/22/18 06:25 Baso # (Auto) 0.00 K/mm3 (0.0-2.0) 08/22/18 06:25 PT 10.8 SECONDS (9.4-12.5) 08/21/18 15:24 INR 0.95 08/21/18 15:24 APTT 25.4 Seconds (25.1-36.5) 08/21/18 15:24 Sodium 138 mmol/L (132-148) 08/22/18 06:25 Potassium 4.4 mmol/L (3.6-5.0) 08/22/18 06:25 Chloride 103 mmol/L (98-107) 08/22/18 06:25 Carbon Dioxide 33 mmol/L (21-33) 08/22/18 06:25 Anion Gap 7 (10-20) L 08/22/18 06:25 BUN 21 mg/dL (7-21) 08/22/18 06:25 Creatinine 0.5 mg/dl (0.7-1.2) L 08/22/18 06:25 Est GFR ( Amer) > 60 08/22/18 06:25 Est GFR (Non-Af Amer) > 60 08/22/18 06:25 POC Glucose (mg/dL) 104 mg/dL (65-110) 08/21/18 14:54 Random Glucose 87 mg/dL (70-110) 08/22/18 06:25 Hemoglobin A1c 5.2 % (4.2-6.5) 08/21/18 15:24 Calcium 8.6 mg/dL (8.4-10.5) 08/22/18 06:25 Magnesium 2.1 mg/dL (1.7-2.2) 08/21/18 15:24 Total Bilirubin 0.6 mg/dL (0.2-1.3) 08/22/18 06:25 AST 18 U/L (14-36) 08/22/18 06:25 ALT 22 U/L (7-56) 08/22/18 06:25 Alkaline Phosphatase 77 U/L (38-126) 08/22/18 06:25 Lactate Dehydrogenase 356 U/L (333-699) 08/21/18 15:24 Total Creatine Kinase < 20 U/L (35-230) L 08/21/18 15:24 Troponin I < 0.01 ng/mL 08/21/18 15:24 NT-Pro-B Natriuret Pep 691 pg/mL (0-450) H 08/21/18 15:24 Total Protein 5.5 g/dL (5.8-8.3) L 08/22/18 06:25 Albumin 3.0 g/dL (3.0-4.8) 08/22/18 06:25 Globulin 2.4 gm/dL 08/22/18 06:25 Albumin/Globulin Ratio 1.3 (1.1-1.8) 08/22/18 06:25 Triglycerides 70 mg/dL (35-160) 08/21/18 15:24 Cholesterol 184 mg/dL (130-200) 08/21/18 15:24 LDL Cholesterol Direct 96 mg/dL (0-129) 08/21/18 15:24 HDL Cholesterol 63 mg/dL (29-60) H 08/21/18 15:24 Total T3 0.80 ng/mL (0.97-1.69) L 08/21/18 15:24 TSH 3rd Generation 1.53 mIU/mL (0.46-4.68) 08/21/18 15:24 Urine Color Straw (YELLOW) 08/21/18 16:19 Urine Appearance Clear (CLEAR) 08/21/18 16:19 Urine pH 7.5 (4.7-8.0) 08/21/18 16:19 Ur Specific [place] 1.010 (1.005-1.035) 08/21/18 16:19 Urine Protein Negative mg/dL (<30 mg/dL) 08/21/18 16:19 Urine Glucose (UA) Negative mg/dL (NEGATIVE) 08/21/18 16:19 Urine Ketones Negative mg/dL (NEGATIVE) 08/21/18 16:19 Urine Blood Trace-intact (NEGATIVE) H 08/21/18 16:19 Urine Nitrate Negative (NEGATIVE) 08/21/18 16:19 Urine Bilirubin Negative (NEGATIVE) 08/21/18 16:19 Urine Urobilinogen 0.2 E.U./dL (<1 E.U./dL) 08/21/18 16:19 Ur Leukocyte Esterase Moderate Main/uL (NEGATIVE) H 08/21/18 16:19 Urine RBC 5 - 10 /hpf (0-2) H 08/21/18 16:19 Urine WBC 5 - 10 /hpf (0-6) H 08/21/18 16:19 Ur Epithelial Cells 10 - 12 /hpf (0-5) H 08/21/18 16:19 Amorphous Sediment Small /hpf (NONE) 08/21/18 16:19 Urine Bacteria Trace /hpf (NONE) 08/21/18 16:19 Blood Type O POSITIVE 08/21/18 15:34 Antibody Screen Negative 08/21/18 15:34 BBK History Checked Patient has bt 08/21/18 15:34 - Hospital Course Hospital Course: Pt seen and examined by me. I have reviewed the note of the medical reception specialist and I agree with it. I have discussed the assessment and plan with the resident. I have reviewed the medications and the last labs. See H and P note.
--- NOTE | 2018-08-22 11:45 | CP.PCM.CON ---
<Guanakito Suero - Last Filed: 08/22/18 11:46> History of Present Illness - History of Present Illness History of Present Illness: Neurology Consultation (Dr. Landeros's Service) Consult Request: Dr. Del Rio CC: Code Stroke HPI: Mrs. 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 Patient reports that she does not recall clearly the events leading up to her symptoms and eventual admission. 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 Patients at bedside to help provide HPI. He reports that when he came to check on the patient after her chemotherapy, she was altered and sliding off of the couch onto the floor. Patient's entire body was described as "limp" and this prompted patients to bring her in for further evaluation. A code stroke was called in the ED While at [facility], patient regained her alertness and orientation and is currently alert and oriented to person, place, time and event. She has no complaints at this time and further 12 point ROS unremarkable at this time. Of note, patient has not taken daily low dose ASA as she was not aware that she should've continued this medication after her previous stroke in 2016. PMH: As stated above PSH: Lap. Olivia./SCARLETT due to SBO, B/L Hip replacement, Hysterectomy, PM insertion and RCW Port-a-Cath insertion Family History: Denies Social History: Allergies: Ibuprofen, Sulfa Drugs Home Medications: As per [facility] Oncologist: Dr. Mcneill Review of Systems - Review of Systems Review of Systems: As stated in HPI, otherwise negative Past Patient History - Infectious Disease Hx of Infectious Diseases: None - Tetanus Immunizations Tetanus Immunization: Unknown - Past Medical History & Family History Past Medical History?: Yes - Past Social History Smoking Status: Former Smoker - CARDIAC Hx Cardiac Disorders: No Hx Angina: No Hx Cardia Arrhythmia: No Hx Circulatory Problems: No Hx Congestive Heart Failure: Yes Hx Heart Murmur: No Hx Heart Transplant: No Hx Hypercholesterolemia: No Hx Hypertension: Yes Hx Internal Defibrillator: No Hx Mitral Valve Prolapse: No Hx Pacemaker: No Hx Peripheral Edema: No Hx Peripheral Vascular Disease: No - PULMONARY Other/Comment: 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, 01/2017 - NEUROLOGICAL Hx Neurological Disorder: Yes Hx Transient Ischemic Attacks (TIA): Yes (2015) Other/Comment: 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 - HEENT Hx HEENT Problems: Yes (eyeglasses) Hx Glaucoma: Yes (beginning) Other/Comment: partial peripheral vision loss r eye - RENAL Hx Chronic Kidney Disease: No - ENDOCRINE/METABOLIC Hx Endocrine Disorders: No - HEMATOLOGICAL/ONCOLOGICAL Hx Blood Disorders: Yes Hx Anemia: Yes Hx Cancer: Yes Hx Chemotherapy: Yes Other/Comment: pt dx with non hodgkins lymphoma 2012, had chemo 1 cycle, reaccurred 11/2013, had chemo, reaccurred 11/2016 presently receiving chemo 1 tx a week x 4 wk's had one treatment 3 more to go, presently chemo is postponed due to hospitalization - INTEGUMENTARY Other/Comment: left buttock 8X7cm wound. Surrounding skin reddened/ brown and firm to touch. - MUSCULOSKELETAL/RHEUMATOLOGICAL Hx Falls: No - GASTROINTESTINAL Hx Gastrointestinal Disorders: Yes (constipation assoc with chemo, sbo) Other/Comment: h pylori 01/2016, obese - GENITOURINARY/GYNECOLOGICAL Hx Genitourinary Disorders: Yes Hx Incontinence: Yes - PSYCHIATRIC Hx Substance Use: No - SURGICAL HISTORY Hx Cardiac Catheterization: No Hx Coronary Stent: No - ANESTHESIA Hx Anesthesia: Yes Hx Anesthesia Reactions: No Hx Malignant Hyperthermia: No Meds Allergies/Adverse Reactions: Allergies Allergy/AdvReac Type Severity Reaction Status Date / Time ibuprofen Allergy Severe .MOUTH Verified 03/16/17 07:05 SORES Sulfa (Sulfonamide Allergy Unknown UNKNOWN Verified 03/16/17 07:05 Antibiotics) - Medications Medications: Current Medications Aspirin (Aspirin Chewable) 81 mg PO DAILY PHI Sodium Chloride (Sodium Chloride 0.9%) 1,000 mls @ 100 mls/hr IV .Q10H PHI Last Admin: 08/22/18 05:06 Dose: 100 mls/hr Physical Exam - Constitutional Appears: Non-toxic, No Acute Distress - Head Exam Head Exam: ATRAUMATIC, NORMOCEPHALIC - Eye Exam Eye Exam: EOMI, Normal appearance, Nystagmus (Horizontal), PERRL. absent: Conjunctival injection, Periorbital swelling, Periorbital tenderness, Scleral icterus Pupil Exam: NORMAL ACCOMODATION, PERRL. absent: Fixed, Irregular, Miosis, Mydriatic, Unequal Additional comments: Chronic right sided homonymous hemianopia - ENT Exam ENT Exam: Mucous Membranes Moist, Normal Exam - Neck Exam Neck exam: Positive for: Full Rom, Normal Inspection - Respiratory Exam Respiratory Exam: Clear to Auscultation Bilateral, NORMAL BREATHING PATTERN Additional comments: RCW OCCUPATIONAL THERAPY DEPARTMENT CHAIR noted - Cardiovascular Exam Cardiovascular Exam: REGULAR RHYTHM - GI/Abdominal Exam GI & Abdominal Exam: Normal Bowel Sounds, Soft - Neurological Exam Neurological exam: Alert, Oriented x3, Reflexes Normal - Expanded Neurological Exam Expanded Patient oriented to: person, place, time Cranial nerves: EOM's Intact: Normal, Facial Palsey w/Forehead Movement: Normal, Facial Palsey w/o Forehead Movement: Normal, Facial Sensation: Normal, Tongue Deviation: Normal Cerebellar Function: Finger to Nose: Normal, Heel to Jimenez: Normal Upper motor neuron: Babinski Sign: Normal, Stevenson Neglect: Normal, Pronator Drift: Normal, Sensory Extinction: Normal Sensory exam: Lower Extremity Light Touch: Normal, Upper Extremity Light Touch: Normal Neuro motor strength exam: Left Upper Extremity: 4, Right Upper Extremity: 4, Left Lower Extremity: 4, Right Lower Extremity: 4 Coma Scale Eye Opening: SPONTANEOUS Coma Scale Motor Response: OBEYS COMMANDS Coma Scale Verbal: Oriented Coma Scale Total: 15 - Psychiatric Exam Psychiatric exam: Normal Affect, Normal Mood - Skin Skin Exam: Dry, Intact, Normal Color, Warm Results - Vital Signs Recent Vital Signs: Last Vital Signs Temp 97.9 F 08/22/18 06:00 Pulse 60 08/22/18 06:00 Resp 18 08/22/18 06:00 BP 143/71 08/22/18 06:00 Pulse Ox 97 08/22/18 06:00 - Labs Result Diagrams: 08/22/18 06:25 08/22/18 06:25 Labs: Laboratory Results - last 24 hr 08/21/18 08/21/18 08/21/18 14:54 15:24 15:24 WBC 4.2 L D RBC 4.41 Hgb 10.9 L Hct 35.4 L MCV 80.3 MCH 24.7 L MCHC 30.8 L RDW 16.5 H Plt Count 317 MPV 8.2 Gran % 86.1 H Lymph % (Auto) 11.3 L [place] % (Auto) 2.6 Eos % (Auto) 0.0 L Baso % (Auto) 0.0 Gran # 3.64 Lymph # (Auto) 0.5 L [place] # (Auto) 0.1 Eos # (Auto) 0.0 Baso # (Auto) 0.00 PT INR APTT Sodium 136 Potassium 4.5 Chloride 100 Carbon Dioxide 30 Anion Gap 10 BUN 23 H Creatinine 0.5 L Est GFR ( Amer) > 60 Est GFR (Non-Af Amer) > 60 POC Glucose (mg/dL) 104 Random Glucose 110 Hemoglobin A1c Calcium 9.1 Magnesium 2.1 Total Bilirubin 0.6 AST 17 ALT 21 Alkaline Phosphatase 94 Lactate Dehydrogenase 356 Total Creatine Kinase < 20 L Troponin I < 0.01 NT-Pro-B Natriuret Pep 691 H Total Protein 6.2 Albumin 3.5 Globulin 2.7 Albumin/Globulin Ratio 1.3 Triglycerides 70 Cholesterol 184 LDL Cholesterol Direct 96 HDL Cholesterol 63 H Total T3 TSH 3rd Generation Urine Color Urine Appearance Urine pH Ur Specific [place] Urine Protein Urine Glucose (UA) Urine Ketones Urine Blood Urine Nitrate Urine Bilirubin Urine Urobilinogen Ur Leukocyte Esterase Urine RBC Urine WBC Ur Epithelial Cells Amorphous Sediment Urine Bacteria Blood Type Antibody Screen BBK History Checked 08/21/18 08/21/18 08/21/18 15:24 15:24 15:24 WBC RBC Hgb Hct MCV MCH MCHC RDW Plt Count MPV Gran % Lymph % (Auto) [place] % (Auto) Eos % (Auto) Baso % (Auto) Gran # Lymph # (Auto) [place] # (Auto) Eos # (Auto) Baso # (Auto) PT 10.8 INR 0.95 APTT 25.4 Sodium Potassium Chloride Carbon Dioxide Anion Gap BUN Creatinine Est GFR ( Amer) Est GFR (Non-Af Amer) POC Glucose (mg/dL) Random Glucose Hemoglobin A1c 5.2 Calcium Magnesium Total Bilirubin AST ALT Alkaline Phosphatase Lactate Dehydrogenase Total Creatine Kinase Troponin I NT-Pro-B Natriuret Pep Total Protein Albumin Globulin Albumin/Globulin Ratio Triglycerides Cholesterol LDL Cholesterol Direct HDL Cholesterol Total T3 0.80 L TSH 3rd Generation 1.53 Urine Color Urine Appearance Urine pH Ur Specific [place] Urine Protein Urine Glucose (UA) Urine Ketones Urine Blood Urine Nitrate Urine Bilirubin Urine Urobilinogen Ur Leukocyte Esterase Urine RBC Urine WBC Ur Epithelial Cells Amorphous Sediment Urine Bacteria Blood Type Antibody Screen BBK History Checked 08/21/18 08/21/18 08/22/18 15:34 16:19 06:25 WBC 3.0 L D RBC 3.99 Hgb 9.8 L Hct 31.9 L MCV 79.9 L MCH 24.6 L MCHC 30.7 L RDW 16.4 H Plt Count 274 MPV 8.2 Gran % 75.3 H Lymph % (Auto) 21.7 L [place] % (Auto) 2.7 Eos % (Auto) 0.3 L Baso % (Auto) 0.0 Gran # 2.25 Lymph # (Auto) 0.7 L [place] # (Auto) 0.1 Eos # (Auto) 0.0 Baso # (Auto) 0.00 PT INR APTT Sodium Potassium Chloride Carbon Dioxide Anion Gap BUN Creatinine Est GFR ( Amer) Est GFR (Non-Af Amer) POC Glucose (mg/dL) Random Glucose Hemoglobin A1c Calcium Magnesium Total Bilirubin AST ALT Alkaline Phosphatase Lactate Dehydrogenase Total Creatine Kinase Troponin I NT-Pro-B Natriuret Pep Total Protein Albumin Globulin Albumin/Globulin Ratio Triglycerides Cholesterol LDL Cholesterol Direct HDL Cholesterol Total T3 TSH 3rd Generation Urine Color Straw Urine Appearance Clear Urine pH 7.5 Ur Specific [place] 1.010 Urine Protein Negative Urine Glucose (UA) Negative Urine Ketones Negative Urine Blood Trace-intact H Urine Nitrate Negative Urine Bilirubin Negative Urine Urobilinogen 0.2 Ur Leukocyte Esterase Moderate H Urine RBC 5 - 10 H Urine WBC 5 - 10 H Ur Epithelial Cells 10 - 12 H Amorphous Sediment Small Urine Bacteria Trace Blood Type O POSITIVE Antibody Screen Negative BBK History Checked Patient has bt 08/22/18 06:25 WBC RBC Hgb Hct MCV MCH MCHC RDW Plt Count MPV Gran % Lymph % (Auto) [place] % (Auto) Eos % (Auto) Baso % (Auto) Gran # Lymph # (Auto) [place] # (Auto) Eos # (Auto) Baso # (Auto) PT INR APTT Sodium 138 Potassium 4.4 Chloride 103 Carbon Dioxide 33 Anion Gap 7 L BUN 21 Creatinine 0.5 L Est GFR ( Amer) > 60 Est GFR (Non-Af Amer) > 60 POC Glucose (mg/dL) Random Glucose 87 Hemoglobin A1c Calcium 8.6 Magnesium Total Bilirubin 0.6 AST 18 ALT 22 Alkaline Phosphatase 77 Lactate Dehydrogenase Total Creatine Kinase Troponin I NT-Pro-B Natriuret Pep Total Protein 5.5 L Albumin 3.0 Globulin 2.4 Albumin/Globulin Ratio 1.3 Triglycerides Cholesterol LDL Cholesterol Direct HDL Cholesterol Total T3 TSH 3rd Generation Urine Color Urine Appearance Urine pH Ur Specific [place] Urine Protein Urine Glucose (UA) Urine Ketones Urine Blood Urine Nitrate Urine Bilirubin Urine Urobilinogen Ur Leukocyte Esterase Urine RBC Urine WBC Ur Epithelial Cells Amorphous Sediment Urine Bacteria Blood Type Antibody Screen BBK History Checked Assessment & Plan - Assessment and Plan (Free Text) Assessment: 73 year old female with a past medical history significant for Non-Hodgkin's Lymphoma Stage IV (H/O Breast, Lung and Cutaneous Metastasis), previous CVA (Left OCCUPATIONAL THERAPY 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 Landeros Patient seen and case discussed with attending, Dr. Landeros. Guanakito Suero PGY2 - Date & Time Date: 08/22/18 Time: 11:45 <Matteo Landeros - Last Filed: 08/24/18 17:00> Results - Vital Signs Recent Vital Signs: Last Vital Signs Temp 98.4 F 08/22/18 12:00 Pulse 63 08/22/18 12:00 Resp 18 08/22/18 12:00 BP 145/76 08/22/18 12:00 Pulse Ox 97 08/22/18 06:00 - Labs Result Diagrams: 08/22/18 06:25 08/22/18 06:25 Attending/Attestation - Attestation I have personally seen and examined this patient.: Yes I have fully participated in the care of the patient.: Yes I have reviewed all pertinent clinical information: Yes Notes (Text): I agree with the assessment and plan: -Would recommend outpatient EEG to r/o seizures -Would recommend checking patients cortisol to r/o adrenal insufficiency -Start daily low dose ASA
[2018-08-22 12:36] VITALS: BP 145/76; PULSE 63; TEMP 98.4
--- NOTE | 2018-08-22 19:27 | CON ---
DATE: 08/22/2018 HISTORY OF PRESENT ILLNESS: This is a 73-year-old woman, who I know very well. About 4 years ago, she developed a non-Hodgkin's small cell lymphoma. She was treated with Rituxan and bendamustine. She did quite well. However she had multiple spots in her body. She had a large mass under her left axilla, was in her breast, it was in her kidney. There was a mass in her kidney that was lymphoma. All that melted away, she did very well. About 2 years later into relapse and we treated her with Rituxan. She did well. In the interim for the last year she has had a very difficult year. She had a knee replacement of her right mcclellan and she did not do well with that. She has really not been walking since, that is now almost a year. In the meantime, she also then had recurrent cancer in the lung and a mass in her buttock. The mass in her buttock got bigger and opened up. She still having nonhealing wound. We biopsied that twice and both biopsies showed that it was lymphoma in her buttock, but this was different from the original lymphoma four years ago. This is now a large cell lymphoma. She has been very weak in and out of the intermediate, so due to the weakness, due to her non-healing wounds and finally we are going to give her chemotherapy. We gave her chemotherapy about three days ago with the Rituxan infusion and then Cytoxan, Adriamycin, Oncovin with prednisone dose for five days. She is three days out, but she started developing just weakness, malaise, and tiredness. No fever. No increased pain, just severe weakness. PHYSICAL EXAMINATION: SKIN: No petechiae. No bruises. HEENT: Anicteric. Nodes nonpalpable in the axillary, cervical, and supraclavicular regions. LUNGS: Clear. At present she is able to lie flat on bed. HEART: S1 and S2. ABDOMEN: Shows no liver, no spleen, no tenderness, no ascites or rebound. EXTREMITIES: Shows some trace edema. 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 Her laboratory tests are really not that bad in terms of anemia. She is starting to develop mild anemia due to the chemotherapy and white count down a little bit, but we are hoping that she will be alright. At present I suspect she developed some weakness after the chemotherapy some two or three days where we had the antiemetics wear off and the patient started developing some weakness, nausea and tiredness. At present she seems to be afebrile. Labs are not that bad. So on observation she is doing better. She is going to go home hopefully soon. Tien MD Charito
== END 2018-08-22 17:07 | disposition home or self-care (01) ==
LOC: ED 14:07 → INTOOBSV 17:36 → ERH 17:36 → 2RSO 08-22 00:56
PROVIDERS: ADMIT Internal Medicine Nephrology; ATTEND Internal Medicine Nephrology
DX: R53.1 Weakness (principal); T45.1X5A Adverse effect of antineoplastic and immunosuppressive drugs, initial encounter; C83.39 Diffuse large B-cell lymphoma, extranodal and solid organ sites; C79.2 Secondary malignant neoplasm of skin; D64.81 Anemia due to antineoplastic chemotherapy; H53.461 Homonymous bilateral field defects, right side; H40.9 Unspecified glaucoma; I11.0 Hypertensive heart disease with heart failure; I44.0 Atrioventricular block, first degree; M19.90 Unspecified osteoarthritis, unspecified site; R29.705 NIHSS score 5; Z86.73 Personal history of transient ischemic attack (TIA), and cerebral infarction without residual deficits; Z87.891 Personal history of nicotine dependence; Z88.6 Allergy status to analgesic agent; Z88.2 Allergy status to sulfonamides; Z90.710 Acquired absence of both cervix and uterus; Z95.0 Presence of cardiac pacemaker; Z96.643 Presence of artificial hip joint, bilateral; Z96.651 Presence of right artificial knee joint
CPT/HCPCS: 36415; 70450; 70496; 70498; 71045; 80053; 80061; 81001; 82550; 82948; 83036; 83615; 83735; 83880; 84443; 84480; 84484; 85025; 85610; 85730; 86850; 86900; 87086; 93005; 96374; 99285; G0378; J1100; J7030; Q9967

== ENCOUNTER 2018-08-25 22:56 | Emergency (ER) | payer MEDICARE ==
[2018-08-25 22:56] VITALS: BMI 31.3
[2018-08-25 23:07] VITALS: RESP 18; TEMP 97.6
[2018-08-25] MEDS ORDERED: Lidocaine 5% Patch TD STA (23:26)
--- NOTE | 2018-08-26 00:23 | ED PDOC ---
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 Patient's second chemo treatment was 5 days ago. Patient does not like to take pain medication and does not like how it effects her body. Patient has had body pains before when she had her first round of chemotherapy and reports this is not new. Patient denies any fever, chills, chest pain, shortness of breath, nausea, vomiting, diarrhea, urinary symptoms, back pain, neck pain, headache, dizziness, or any other complaints. PMD: Ilan Barragan Symptom Onset: Gradual Symptom Course: Unchanged Activities at Onset: Light Context: Home Past Medical History - Provider Review Nursing Documentation Reviewed: Yes - Infectious Disease Hx of Infectious Diseases: None - Tetanus Immunization Tetanus Immunization: Unknown - Cardiac Hx Cardiac Disorders: No Hx Angina: No Hx Cardiac Arrhythmia: No Hx Circulatory Problems: No Hx Congestive Heart Failure: Yes Hx Heart Murmur: No Hx Heart Transplant: No Hx Hypertension: Yes Hx Internal Defibrillator: No Hx Mitral Valve Prolapse: No Hx Pacemaker: No Hx Peripheral Edema: No Hx Peripheral Vascular Disease: No - Pulmonary Other/Comment: 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, 01/2017 - Neurological Hx Neurological Disorder: Yes Hx Transient Ischemic Attacks (TIA): Yes (2015) Other/Comment: 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 - HEENT Hx HEENT Disorder: Yes (eyeglasses) Hx Glaucoma: Yes (beginning) Other/Comment: partial peripheral vision loss r eye - Renal Hx Renal Disorder: No - Endocrine/Metabolic Hx Endocrine Disorders: No - Hematological/Oncological Hx Blood Disorders: Yes Hx Anemia: Yes Hx Cancer: Yes Hx Chemotherapy: Yes Other/Comment: pt dx with non hodgkins lymphoma 2012, had chemo 1 cycle, reaccurred 11/2013, had chemo, reaccurred 11/2016 presently receiving chemo 1 tx a week x 4 wk's had one treatment 3 more to go, presently chemo is postponed due to hospitalization - Integumentary Other/Comment: left buttock 8X7cm wound. Surrounding skin reddened/ brown and firm to touch. - Musculoskeletal/Rheumatological Hx Falls: No - Gastrointestinal Hx Gastrointestinal Disorders: Yes (constipation assoc with chemo, sbo) Other/Comment: h pylori 01/2016, obese - Genitourinary/Gynecological Hx Genitourinary Disorders: Yes Hx Incontinence: Yes - Psychiatric Hx Psychophysiologic Disorder: No Hx Substance Use: No - Surgical History Hx Cardiac Catheterization: No Hx Coronary Stent: No - Anesthesia Hx Anesthesia: Yes Hx Anesthesia Reactions: No Hx Malignant Hyperthermia: No - Suicidal Assessment Feels Threatened In Home Enviroment: No Family/Social History - Physician Review Nursing Documentation Reviewed: Yes Family/Social History: No Known Family HX Smoking Status: Former Smoker Hx Alcohol Use: No Hx Substance Use: No Hx Substance Use Treatment: No Allergies/Home Meds Allergies/Adverse Reactions: Allergies ibuprofen Allergy (Severe, Verified 08/25/18 23:06) .MOUTH SORES Sulfa (Sulfonamide Antibiotics) Allergy (Unknown, Verified 08/25/18 23:06) UNKNOWN ALLERGY A CHILD UNKNOWN REACTION Home Medications: Home Meds Medication Instructions Recorded Confirmed Losartan/Hydrochlorothiazide 1 tab PO DAILY 10/14/16 08/21/18 [Losartan-Hctz 100-25 mg Tab] Travoprost [Travatan Z] 1 drop OU HS 10/14/16 08/21/18 Potassium Chloride [K-Dur 20 mEq 1 tab PO DAILY 08/21/18 08/21/18 ER Tab] Review of Systems - Physician Review All systems were reviewed & negative as marked: Yes - Review of Systems Constitutional: absent: Fevers, Other (Chills) Respiratory: absent: SOB Cardiovascular: absent: Chest Pain Gastrointestinal: absent: Abdominal Pain, Diarrhea, Nausea, Vomiting Genitourinary Female: absent: Dysuria, Frequency, Hematuria Musculoskeletal: Myalgias. absent: Back Pain, Neck Pain Neurological: absent: Headache, Dizziness Physical Exam Vital Signs Reviewed: Yes Vital Signs Temp Pulse Resp BP Pulse Ox 08/25/18 23:06 97.6 F 87 18 137/93 H 99 Temperature: Afebrile Blood Pressure: Normal Pulse: Regular Respiratory Rate: Normal Appearance: Positive for: Well-Appearing, Non-Toxic, Comfortable Pain Distress: None Mental Status: Positive for: Alert and Oriented X 3 - Systems Exam Head: Present: Atraumatic, Normocephalic Pupils: Present: PERRL Extroacular Muscles: Present: EOMI Conjunctiva: Present: Normal Mouth: Present: Moist Mucous Membranes Neck: Present: Normal Range of Motion Respiratory/Chest: Present: Clear to Auscultation, Good Air Exchange. No: Respiratory Distress, Accessory Muscle Use Cardiovascular: Present: Regular Rate and Rhythm, Normal S1, S2. No: Murmurs Abdomen: No: Tenderness, Distention, Peritoneal Signs Back: Present: Normal Inspection Upper Extremity: Present: Normal Inspection. No: Cyanosis, Edema Lower Extremity: Present: Normal Inspection. No: Edema Neurological: Present: GCS=15, CN II-XII Intact, Speech Normal Skin: Present: Warm, Dry, Normal Color. No: Rashes Psychiatric: Present: Alert, Oriented x 3, Normal Insight, Normal Concentration Medical Decision Making ED Course and Treatment: 08/25/18 23:57 Impression: 73 year old female presents complaining of body pain similar to body pain after her first chemo treatment. Patient with hx of non-hodgkins lymphoma with second round of chemo 5 days ago. Plan: -- Lidoderm -- Reassess and disposition Prior Visits: Notes and results from previous visits were reviewed. Progress Notes: On reevaluation, patient reports improvement of symptoms, she is able to lay back comfortably and sleep in the ER. States that she feels comfortable going home and wishes to go home. Advised to follow up with primary care physician in 1-2 days without fail. Advised to take medication as prescribed. Return to the emergency room at any time for any new or worsening symptoms. Patient states she fully agrees with and understands discharge instructions. States that she agrees with the plan and disposition. Verbalized and repeated discharge instructions and plan. I have given the patient opportunity to ask any additional questions. - Medication Orders Current Medication Orders: Discontinued Medications Lidocaine (Lidoderm) 1 ea TD STAT STA Stop: 08/25/18 23:27 Last Admin: 08/25/18 23:47 Dose: 1 ea MAR Transdermal Patch Site Document 08/25/18 23:47 CNR (Rec: 08/25/18 23:47 CNR [id number]) Transdermal Patch Site Transdermal Patch Site Right Lower Back - Scribe Statement The provider has reviewed the documentation as recorded by the Kaden Matos Provider Scribe Attestation: All medical record entries made by the Naiibjosé were at my direction and personally dictated by me. I have reviewed the chart and agree that the record accurately reflects my personal performance of the history, physical exam, medical decision making, and the department course for this patient. I have also personally directed, reviewed, and agree with the discharge instructions and disposition. Disposition/Present on Arrival - Present on Arrival Any Indicators Present on Arrival: No History of DVT/PE: No History of Uncontrolled Diabetes: No Urinary Catheter: No History of Decub. Ulcer: No History Surgical Site Infection Following: None - Disposition Have Diagnosis and Disposition been Completed?: Yes Diagnosis: Myalgia, Back pain Disposition: HOME/ ROUTINE Disposition Time: 01:30 Patient Plan: Discharge Condition: IMPROVED Discharge Instructions (ExitCare): Muscle and Bone Pain (DC) Additional Instructions: Thank you for letting us take care of you today. You were treated for bodyaches, back pain. The emergency medical care you received today was directed at your acute symptoms. If you were prescribed any medication, please fill it and take as directed. It may take several days for your symptoms to resolve. Return to the Emergency Department if your symptoms worsen, do not improve, or if you have any other problems. Please contact your doctor in 2 days for re-evaluation and follow up. Bring any paperwork you were given at discharge with you along with any medications you are taking to your follow up visit. Our treatment cannot replace ongoing medical care by a primary care provider (PCP) outside of the emergency department. Thank you for allowing the [facility] team to be part of your care today. Prescriptions: Lidocaine 5% [Lidoderm] 1 ea TD Q12H PRN #20 patch PRN Reason: Pain, Moderate (4-7) Referrals: Ilan Del Rio MD [Primary Care Provider] - Follow up with primary Forms: [employer] (Tajik)
[2018-08-26 02:26] VITALS: BP 136/86; PULSE 69; O2SAT 95
== END 2018-08-26 02:17 | disposition home or self-care (01) ==
LOC: ED 22:56
DX: M79.10 Myalgia, unspecified site (principal); M54.9 Dorsalgia, unspecified; I50.9 Heart failure, unspecified; I10 Essential (primary) hypertension; Z85.72 Personal history of non-Hodgkin lymphomas; Z87.891 Personal history of nicotine dependence